=== PATIENT | female | born 1935 | race Caucasian/White ===

== ENCOUNTER 2017-01-08 16:39 | Outpatient (CLI) | payer OTHER | END 2017-01-08 16:40 | disposition critical access hospital (66) | LOC: EMS 16:39 | PROVIDERS: ATTEND Surgery | DX: R42 Dizziness and giddiness (principal) | CPT/HCPCS: A0425; A0429 ==

== ENCOUNTER 2017-01-08 16:54 | Emergency (ER) | payer OTHER, MEDICARE ==
[2017-01-08] MEDS ORDERED: LABETALOL 20 MG/4 ML SYRINGE IVP ONE (17:18)
--- NOTE | 2017-01-08 17:19 | CT Preliminary Report ---
Exam: CT HEAD W/O IMPRESSION: 1. No acute intracranial abnormality. 2. Age-related atrophy and diffuse low density white matter changes compatible with chronic small ves bren ischemic disease. [facility] The above findings were discussed with Magdalena by Dr. Tony Damian at 17:18 hrs on 01/08/17. SITE ID: [id number]
--- NOTE | 2017-01-08 17:22 | CT Report ---
EXAM: CT HEAD EXAM DATE: 01/08/2017 05:12 PM. CLINICAL HISTORY: Left sided weaknes. COMPARISON: 01/21/2010 brain MRI. TECHNIQUE: Multiaxial CT images were obtained from the foramen magnum to the vertex. Reformats: Coron al. IV contrast: None. In accordance with CT protocol optimization, one or more of the following dose reduction techniques w ere utilized for this exam: automated exposure control, adjustment of mA and/or KV based on patient s ize, or use of iterative reconstructive technique. FINDINGS: Parenchyma: No intraparenchymal hemorrhage. No evidence of mass, midline shift, or CT findings of inf arction. Butler-white differentiation is distinct. There is a small, chronic left cerebellar lacunar in farct. Extraaxial Spaces: Normal for age. No subdural or epidural collections identified. Ventricles: Normal in size and position. Sinuses and Orbits: Imaged paranasal sinuses, orbits, and mastoids show no significant abnormality. Bones: No evidence of fracture or calvarial defect. Other: Periventricular and subcortical low density white matter changes. IMPRESSION: 1. No acute intracranial abnormality. 2. Age-related atrophy and diffuse low density white matter changes compatible with chronic small ves bren ischemic disease. [facility] The above findings were discussed with Magdalena by Dr. Tony Damian at 17:18 hrs on 01/08/17. Referring Provider Line: [phone] SITE ID: [id number]
[2017-01-08] MEDS ORDERED: ONDANSETRON 4 MG/2 ML VIAL ONE (17:25)
[2017-01-08] MEDS ORDERED: ONDANSETRON 4 MG/2 ML VIAL IVP STA (17:26)
[2017-01-08 17:37] LABS: BASOPHILS # (AUTO) 0.1 10^3/uL (0.0-0.1); BASOPHILS % (AUTO) 0.8 %; EOSINOPHILS # (AUTO) 0.2 10^3/uL (0.0-0.7); EOSINOPHILS % (AUTO) 1.8 %; HCT - HEMATOCRIT 40.9 % (37.0-47.0); HGB - HEMOGLOBIN 13.1 g/dL (12.0-16.0); LYMPHOCYTES # (AUTO) 1.6 10^3/uL (1.5-3.5); LYMPHOCYTES % (AUTO) 16.3 %; MEAN CORPUSCULAR HEMOGLOBIN 27.3 pg (27.0-31.0); MEAN CORPUSCULAR HGB CONC 32.1 g/dL (32.0-36.0); MEAN CORPUSCULAR VOLUME 85.1 fL (81.0-99.0); MEAN PLATELET VOLUME 8.4 fL (7.9-10.8); MONOCYTES # (AUTO) 0.5 10^3/uL (0.0-1.0); MONOCYTES % (AUTO) 4.9 %; NEUTROPHILS # (AUTO) 7.2 10^3/uL (1.5-6.6); NEUTROPHILS % (AUTO) 76.2 %; NUCLEATED RED BLOOD CELLS AUTO 0.1 /100WBC; RED BLOOD COUNT 4.81 10^6/uL (4.20-5.40); RED CELL DISTRIBUTION WIDTH 15.2 % (12.0-15.0); UNCORRECTED WHITE BLOOD COUNT 9.5 x10^3/uL; WHITE BLOOD COUNT 9.5 x10^3/uL (4.8-10.8)
[2017-01-08 17:49] LABS: ALBUMIN/GLOBULIN RATIO 1.1 (1.0-2.2); BILIRUBIN,TOTAL 0.6 mg/dL (0.2-1.0); CALCIUM 9.1 mg/dL (8.5-10.3); CREATININE 0.8 mg/dL (0.4-1.0); POTASSIUM 4.1 mmol/L (3.5-5.0); TOTAL PROTEIN 8.4 g/dL (6.7-8.2)
[2017-01-08] MEDS ORDERED: LABETALOL 20 MG/4 ML SYRINGE IVP STA (17:50)
[2017-01-08] MEDS ORDERED: ALTEPLASE 100 MG in WATER FOR INJECTION,STERILE 100 ML IV STA (17:53)
[2017-01-08] MEDS ORDERED: ALTEPLASE 100 MG VIAL ONE (17:56)
[2017-01-08 17:59] LABS: PT - PROTHROMBIN TIME 11.3 secs (9.9-12.6)
--- NOTE | 2017-01-08 18:03 | ED Physician Documentation ---
History of Present Illness - Stated complaint Stated Complaint: L SIDED WEAKNESS - Chief complaint Chief Complaint: Neuro - History obtained from History obtained from: Patient, Family (family reports that at approx 1500 today she started to have vertigo. they state that she has had vertigo in the past. they state that at approx 1615 she had aon onsetof a headache behind her right eye and could not move her left arm or leg EMS reports tht on their arrival the pt could not move her left arm and leg. No rior hx of this.) Review of Systems Constitutional: denies: Fever Eyes: reports: Other (no double vision). denies: Loss of vision Cardiac: denies: Chest pain / pressure, Palpitations Respiratory: denies: Cough, Hemoptysis GI: denies: Abdominal Pain, Nausea, Vomiting, Constipation, Diarrhea : denies: Dysuria Skin: denies: Rash, Lesions Musculoskeletal: denies: Neck pain, Joint pain Neurologic: reports: Focal weakness (left arm and leg), Numbness, Difficulty speaking, Headache, Other (vertigo). denies: Syncope, Confused, Altered mental status PD PAST MEDICAL HISTORY - Past Medical History Cardiovascular: Hypertension, High cholesterol Respiratory: None Endocrine/Autoimmune: None GI: Colon polyps : None HEENT: Chronic hearing loss Psych: None Musculoskeletal: Osteoarthritis Derm: Psoriasis - Past Surgical History General: Colonoscopy Ortho:  - Present Medications Home Medications: Ambulatory Orders Medication Instructions Recorded Confirmed Lisinopril 40 mg PO DAILY 09/17/15 01/08/17 Lovastatin 40 mg PO DAILY 09/17/15 01/08/17 - Allergies Allergies/Adverse Reactions: Allergies Allergy/AdvReac Type Severity Reaction Status Date / Time naproxen sodium * AdvReac Edema Verified 01/08/17 17:22 [From Aleetienne] - Social History Does the pt smoke?: No Smoking Status: Never smoker PD ED PE NORMAL - Vitals Vital signs reviewed: Yes - General General: Alert and oriented X 3, No acute distress, Well developed/nourished - HEENT HEENT: Atraumatic, PERRL, EOMI, Moist mucous membranes, Pharynx benign - Cardiac Cardiac: RRR, No murmur, No gallop, No rub - Respiratory Respiratory: No respiratory distress, Clear bilaterally - Abdomen Abdomen: Soft, Non tender, Non distended - Derm Derm: Normal color, Warm and dry, No rash - Extremities Extremities: No deformity, No tenderness to palpate, No edema - Psych Psych: Normal mood, Normal affect PD ED PE EXPANDED - Neuro Neuro: Weakness, LUE, LLE, PERRL, Normal speech. No: Confused, Disoriented, Dyscongugate gaze Results - Vitals Vitals: Vital Signs - 24 hr 01/08/17 01/08/17 01/08/17 16:59 17:17 17:38 Temperature 35.2 C L Heart Rate 76 75 68 Respiratory 20 19 14 Rate Blood Pressure 188/82 H 192/71 H O2 Saturation 98 01/08/17 01/08/17 17:41 17:54 Temperature Heart Rate 69 69 Respiratory 14 20 Rate Blood Pressure 186/71 H 177/59 H O2 Saturation 96 97 Oxygen O2 Source Room air - EKG (time done) 1715 Rate: Rate (enter#) Rhythm: NSR [place]: Normal Intervals: QRS normal. No: Prolonged QT QRS: Normal Ischemia: Normal ST segments - Labs Labs: Laboratory Tests 01/08/17 01/08/17 01/08/17 17:30 17:30 17:30 WBC 9.5 RBC 4.81 Hgb 13.1 Hct 40.9 MCV 85.1 MCH 27.3 MCHC 32.1 RDW 15.2 H Plt Count 220 MPV 8.4 Neut # 7.2 H Lymph # 1.6 [place] # 0.5 Eos # 0.2 Baso # 0.1 Absolute Nucleated RBC 0.01 Nucleated RBC % 0.1 Sodium 135 Potassium 4.1 Chloride 100 L Carbon Dioxide 23 Anion Gap 12.0 BUN 23 H Creatinine 0.8 Estimated GFR (MDRD) 69 L Glucose 139 H Calcium 9.1 Total Bilirubin 0.6 AST 29 ALT 16 Alkaline Phosphatase 89 Troponin I < 0.04 Total Protein 8.4 H Albumin 4.4 Globulin 4.0 Albumin/Globulin Ratio 1.1 - Rads (name of study) head CT Radiology: Final report received PD MEDICAL DECISION MAKING - ED course Complexity details: d/w patient, d/w family ED course: pt with an NIH scale of 11 with right sided facial droop and left arm neglect. head CT neg for acute pathology. 10 mg of labetol to lower blood pressure. Had tele-stroke with Dr dc at [facility] who agrees that the pt is candidate for Tpa. Dr Dc discussed TpA with the patient and the and they stated that they understand the risks and benefit of the medication. Tpa given in the ER. will transport to [facility] for further care. CTA head and neck ordered per request of Dr dc. - Critical Care Time(min): 40 Comments: pt with acute stroke. Time Includes: Direct patient care, Reassess patient, Document care, Coordinate care, Medical consult Data interpretation: Labs - TPA CVA checklist Inclusion crititeria: positive: Sig neuro deficit Absolute contraindications: negative: SBP>185 DBP>110 s/p tx, CT shows bleed, CT shows major est CVA, Platelets <100K, PTT > 40, INR >1.7, Known bleeding disorder, Surgery/trauma < 15 days, Seizure at onset, Internal bleed < 22 days, Brain/spine surg < 3 m, Head trauma < 3 m, CVA < 3 months, Any hx ICH, Any hx brain aneurysm, Any hx brain AVM, Any hx brain tumor, Suspect SAH Departure - Departure Disposition: 02 Transfer Acute Care Hosp Clinical Impression: Cerebrovascular accident (CVA) Condition: Stable
[2017-01-08 18:06] LABS: PARTIAL THROMBOPLASTIN TIME 27.5 secs (24.9-33.3)
[2017-01-08] MEDS ORDERED: IOPAMIDOL-300 100 ML VIAL ONE (18:06)
[2017-01-08 18:09] VITALS: BP 177/62
[2017-01-08] MEDS ORDERED: IOPAMIDOL-300 100 ML VIAL IVP ONE (18:34)
--- NOTE | 2017-01-08 19:14 | CT Report ---
EXAM: CT ANGIOGRAM HEAD AND NECK. CT SCAN HEAD WITHOUT AND WITH CONTRAST. EXAM DATE:01/08/2017 06:33 PM. CLINICAL HISTORY:Stroke. Left-sided weakness. COMPARISON:CT scan of the head earlier in the day 01/08/2017. MRI of the brain 01/21/2010. TECHNIQUE: Routine axial helical CTA imaging was performed from the aortic arch through the [place]. Routine axial CT imaging of the head was performed prior to and following contrast administr ation. Reconstructions: Routine multiplanar 3D MIP reconstructions. IV contrast: 80 cc Isovue 300. NASCET Criteria are used for stenosis measurements. In accordance with CT protocol optimization, one or more of the following dose reduction techniques w ere utilized for this exam: automated exposure control, adjustment of mA and/or KV based on patient s ize, or use of iterative reconstructive technique. FINDINGS: CT Scan Head: Age-related volume loss is present. Patchy periventricular and deep white matter hypodensity is seen throughout the cerebral hemispheres. Wedge-shaped cystic focus is seen in the right lateral putamen/c laustrum. Mild vascular calcifications are seen involving intracranial ICA and vertebral arteries. No intracranial mass, mass effect, hemorrhage, or abnormal enhancement is seen. The ventricles, sulci, and cisterns are unremarkable. The skull is intact. No sinusitis evident. CT Angiogram Extracranial Circulation: Moderate tortuosity and mild calcification of the aortic arch is seen. Normal 3 vessel branching is s een off the arch. Tortuosity of the great vessels off the arch is seen. The great vessels are patent. Right Carotid: The common carotid, internal carotid, and external carotid arteries are widely patent. No dissection mild atherosclerotic intimal thickening and calcification is seen at the CCA bifurcati on and proximal ICA. No significant stenosis. Left Carotid: The common carotid, internal carotid, and external carotid arteries are widely patent. No dissection mild atherosclerotic intimal thickening and calcification is seen at the CCA bifurcatio n and proximal ICA. No significant stenosis. Vertebrals: The vertebrobasilar system shows no stenosis, dissection, aneurysm, or significant athero sclerotic disease. Tortuosity of the vertebral arteries is seen. The left vertebral artery is dominan t. CT Angiogram Intracranial Circulation: Unremarkable No stenoses or aneurysms of the visualized vessels. The right vertebral artery is small in caliber and terminates as the right PICA. The left vertebral a rtery is dominant forming the basilar artery. Mild atherosclerotic calcification is seen throughout t he V4 segment of the intracranial left vertebral artery. Mild, 25%, stenosis is present. The basilar artery and bifurcation is patent. Mild tortuosity and calcification of the cavernous ICA is seen bilaterally. No significant stenosis. Bilateral ANTELMO and MCA are unremarkable. No significant stenosis. No aneurysm. The A-comm is small in caliber and unremarkable. Bilateral P-comm are small in caliber and unremarkab le. The dural sinuses are faintly opacified due to timing of contrast bolus. Other: The visualized bones, soft tissues, and lung apices are unremarkable. Mild spondylosis is seen in the cervical spine. IMPRESSION: CT Scan Head: 1. No acute intracranial abnormality. 2. Mild patchy white matter hypodensity throughout the cerebral hemispheres. This is nonspecific but typically secondary to small vessel ischemic change. 3. Linear cystic focus in the lateral right putamen/claustrum. This is consistent with old lacunar in farct. CT Angiogram Neck: 1. Unremarkable CTA of the extracranial circulation. No significant stenosis. No dissection. 2. Tortuosity of the extracranial vasculature in the thoracic inlet and neck. 3. Left vertebral artery is dominant. CT Angiogram Head: 1. Unremarkable CTA of the head. No aneurysm. No significant stenosis. 2. The left vertebral artery is dominant in the basilar artery. Mild atherosclerotic calcification is seen involving the intracranial V4 segment. 3. The right vertebral artery is small in caliber and terminates as the right PICA. 4. The anterior intracranial circulation is unremarkable. [facility] Referring Provider Line: [phone] SITE ID: [id number]
--- NOTE | 2017-01-08 19:27 | CT Preliminary Report ---
Exam: CT NECK ANGIO IMPRESSION: CT Scan Head: 1. No acute intracranial abnormality. 2. Mild patchy white matter hypodensity throughout the cerebral hemispheres. This is nonspecific but typically secondary to small vessel ischemic change. 3. Linear cystic focus in the lateral right putamen/claustrum. This is consistent with old lacunar in farct. CT Angiogram Neck: 1. Unremarkable CTA of the extracranial circulation. No significant stenosis. No dissection. 2. Tortuosity of the extracranial vasculature in the thoracic inlet and neck. 3. Left vertebral artery is dominant. CT Angiogram Head: 1. Unremarkable CTA of the head. No aneurysm. No significant stenosis. 2. The left vertebral artery is dominant in the basilar artery. Mild atherosclerotic calcification is seen involving the intracranial V4 segment. 3. The right vertebral artery is small in caliber and terminates as the right PICA. 4. The anterior intracranial circulation is unremarkable. [facility] SITE ID: [id number]
== END 2017-01-08 18:59 | disposition short-term general hospital (02) ==
LOC: EDUNIT# → ED 16:54
DX: I63.9 Cerebral infarction, unspecified (principal); G81.94 Hemiplegia, unspecified affecting left nondominant side; I10 Essential (primary) hypertension; E78.00 Pure hypercholesterolemia, unspecified; Z86.010 Personal history of colon polyps; M19.90 Unspecified osteoarthritis, unspecified site
CPT/HCPCS: 36415; 70450; 70496; 70498; 80053; 84484; 85025; 85610; 85730; 93005; 96361; 96365; 96375; 99285; 99291; J2997; Q3014; Q9967

== ENCOUNTER 2017-03-09 14:42 | Outpatient (CLI) | payer OTHER ==
[2017-03-09 15:21] LABS: BILIRUBIN,URINE NEGATIVE (NEGATIVE); GLUCOSE, URINE (UA) NEGATIVE (NEGATIVE); KETONES,URINE (UA) NEGATIVE (NEGATIVE); LEUKOCYTE ESTERASE, URINE SMALL (NEGATIVE); NITRITE,URINE NEGATIVE (NEGATIVE); OCCULT BLOOD,URINE NEGATIVE (NEGATIVE); PROTEIN,URINE NEGATIVE (NEGATIVE); UROBILINOGEN,URINE 0.2 (NORMAL) E.U./dL (NORMAL)
[2017-03-09 15:45] LABS: BACTERIA,URINE Moderate /HPF (None Seen); CLARITY,URINE HAZY (CLEAR); EPITHELIAL CELLS,UR FEW Transitional /HPF (<= Few); RBC,URINE 0-5 /HPF (0-5); SQUAMOUS EPITHELIAL CELL,UR MANY Squamous (<= Few)
[2017-03-09 15:46] LABS: CASTS, URINE 6-10 Hyaline Casts /LPF
--- NOTE | 2017-03-09 17:46 | Ultrasound Report ---
DATE OF SERVICE: 03/09/2017 ULTRASOUND OF LEFT LOWER QUADRANT: 03/09/2017 CLINICAL INDICATION: Palpable abnormality left lower quadrant. 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 FINDINGS: Ultrasound of the left lower quadrant was performed. No definite solid or cystic mass is identified. No sonographically suspicious findings are seen. IMPRESSION: NO EVIDENT ULTRASOUND CORRELATE TO THE PALPABLE ABNORMALITY. TD: 03/09/2017 18:45
== END 2017-03-09 14:43 | disposition home or self-care (01) ==
LOC: DI 14:42
PROVIDERS: ATTEND Family Medicine
DX: R19.04 Left lower quadrant abdominal swelling, mass and lump (principal); R41.0 Disorientation, unspecified
CPT/HCPCS: 76705; 81001; 87086

== ENCOUNTER 2017-03-25 19:51 | Outpatient (CLI) | payer OTHER | END 2017-03-25 19:52 | disposition critical access hospital (66) | LOC: EMS 19:51 | PROVIDERS: ATTEND Surgery | DX: R07.9 Chest pain, unspecified (principal) | CPT/HCPCS: A0425; A0427 ==

== ENCOUNTER 2017-03-25 20:11 | Emergency (ER) | payer OTHER ==
--- NOTE | 2017-03-25 20:20 | ED Physician Documentation ---
PD HPI CHEST PAIN - Stated complaint Stated Complaint: L SIDE PRESSURE - Chief complaint Chief Complaint: Cardiac - History obtained from History obtained from: Patient, EMS - History of Present Illness Timing - onset: How many hours ago (2) Timing - onset during: Rest Timing - details: Gradual onset, Now resolved Quality: Pressure Location: Left chest Associated symptoms: No: Shortness of air, Diaphoresis, Nausea, Vomiting, Feeling faint / dizzy Similar symptoms before: No diagnosis Recently seen: Admitted - Additional information Additional information: Patient is a 81 year old female with a history of a recent cva with left sided deficit who is presenting to the emergency department for left sided chest pressure. patient states that it feels like it is under her left breast. Patient has a holter monitor in place to rule out a fib after her recent stroke. ems was contacted and gave 325 of aspirin in the field. Upon initial evaluation in the emergency department patient was pain free and in no distress. patient denies any cardiac or clotting history in the past. Review of Systems Constitutional: denies: Fever, Chills Eyes: reports: Reviewed and negative Ears: reports: Reviewed and negative Nose: reports: Reviewed and negative Throat: reports: Reviewed and negative Cardiac: reports: Chest pain / pressure. denies: Palpitations, Pedal edema Respiratory: denies: Dyspnea, Cough, Wheezing GI: denies: Abdominal Pain, Nausea, Vomiting : reports: Reviewed and negative Skin: reports: Reviewed and negative Musculoskeletal: denies: Neck pain, Back pain, Extremity pain Neurologic: reports: Focal weakness, Numbness Immunocompromised: denies: Immunocompromised PD PAST MEDICAL HISTORY - Past Medical History Cardiovascular: Hypertension, High cholesterol Respiratory: None Endocrine/Autoimmune: None GI: Colon polyps : None HEENT: Chronic hearing loss Psych: None Musculoskeletal: Osteoarthritis Derm: Psoriasis - Past Surgical History General: Colonoscopy Ortho:  - Present Medications Home Medications: Ambulatory Orders Medication Instructions Recorded Confirmed Lisinopril 40 mg PO DAILY 09/17/15 01/08/17 Lovastatin 40 mg PO DAILY 09/17/15 01/08/17 - Allergies Allergies/Adverse Reactions: Allergies Allergy/AdvReac Type Severity Reaction Status Date / Time NSAIDS (Non-Steroidal Allergy Anaphylaxis Verified 03/25/17 20:16 Anti-Inflamma naproxen sodium * AdvReac Edema Verified 01/08/17 17:22 [From Aleve] - Social History Does the pt smoke?: No Smoking Status: Never smoker PD ED PE NORMAL - Vitals Vital signs reviewed: Yes - General General: Alert and oriented X 3, No acute distress - HEENT HEENT: Atraumatic, PERRL, Moist mucous membranes - Neck Neck: Supple, no meningeal sign, No JVD - Cardiac Cardiac: RRR, No murmur - Respiratory Respiratory: No respiratory distress, Clear bilaterally - Abdomen Abdomen: Soft, Non tender, Non distended - Derm Derm: Normal color, No rash - Neuro Neuro: Alert and oriented X 3, Normal speech Eye Opening: Spontaneous Motor: Obeys Commands Verbal: Oriented GCS Score: 15 PD ED PE EXPANDED - Neuro Neuro: Other (residual left sided deficit with mild contracture of lue) Results - Vitals Vitals: Vital Signs - 24 hr 03/25/17 03/25/17 03/25/17 20:13 20:25 20:45 Temperature 36.3 C L Heart Rate 70 65 65 Respiratory 20 18 17 Rate Blood Pressure 178/67 H 178/67 H 160/68 H O2 Saturation 96 100 98 03/25/17 03/25/17 03/25/17 21:15 22:10 23:06 Temperature Heart Rate 64 61 112 H Respiratory 17 16 28 H Rate Blood Pressure 143/52 H 140/58 H 127/76 O2 Saturation 99 99 100 Oxygen O2 Source Room air - EKG (time done) 2016 Rate: Rate (enter#) (68) Rhythm: NSR [place]: Normal Intervals: Normal [place] QRS: Normal Ischemia: Normal ST segments Compare to prior EKG: Unchanged from prior EKG - Labs Labs: Laboratory Tests 03/25/17 03/25/17 03/25/17 20:36 20:36 20:36 WBC 7.4 RBC 4.14 L Hgb 11.4 L Hct 36.1 L MCV 87.2 MCH 27.6 MCHC 31.7 L RDW 16.3 H Plt Count 228 MPV 7.3 L Neut # 4.8 Lymph # 1.6 [place] # 0.7 Eos # 0.3 Baso # 0.1 Absolute Nucleated RBC 0.00 Nucleated RBC % 0.0 PT 11.8 INR 1.0 APTT 27.8 Sodium 136 Potassium 3.9 Chloride 99 L Carbon Dioxide 24 Anion Gap 13.0 BUN 19 Creatinine 1.1 H Estimated GFR (MDRD) 48 L Glucose 145 H Calcium 8.8 Total Bilirubin 0.6 AST 65 H ALT 53 Alkaline Phosphatase 137 H Troponin I B-Natriuretic Peptide Total Protein 7.2 Albumin 3.7 Globulin 3.5 Albumin/Globulin Ratio 1.1 Lipase 37 03/25/17 03/25/17 03/25/17 20:36 20:46 23:05 WBC RBC Hgb Hct MCV MCH MCHC RDW Plt Count MPV Neut # Lymph # [place] # Eos # Baso # Absolute Nucleated RBC Nucleated RBC % PT INR APTT Sodium Potassium Chloride Carbon Dioxide Anion Gap BUN Creatinine Estimated GFR (MDRD) Glucose Calcium Total Bilirubin AST ALT Alkaline Phosphatase Troponin I < 0.04 < 0.04 B-Natriuretic Peptide 32 Total Protein Albumin Globulin Albumin/Globulin Ratio Lipase - Rads (name of study) chest x-ray Radiology: Final report received (no acute abnormality) PD MEDICAL DECISION MAKING - ED course Complexity details: reviewed old records, reviewed results, re-evaluated patient , d/w patient ED course: patient was seen and examined at bedside. IV access was gained and labs were drawn. ekg was performed and was normal sinus. chest x-ray was within normal limits. Patient's diagnostics including repeat troponin were all within normal limits. Patient's HEART score was 3. Patient required no further work up and was stable for discharge with outpatient follow up. Departure - Departure Disposition: 01 Home, Self Care Clinical Impression: Atypical chest pain Condition: Good Instructions: ED Chest Pain Atypical Unkn Cause Follow-Up: Jeannie Mirza DO [Primary Care Provider] - Within 3 Days Comments: Your diagnostics were within normal limits. there is no sign of acute cardiac injury. that being said this is only a snap shot in time and you should follow up with your doctor for a stress test and an echocardiogram. You may return to the emergency department at any time for new, worsening or uncontrollable symptoms.
[2017-03-25 20:40] LABS: BASOPHILS # (AUTO) 0.1 10^3/uL (0.0-0.1); BASOPHILS % (AUTO) 0.8 %; EOSINOPHILS # (AUTO) 0.3 10^3/uL (0.0-0.7); EOSINOPHILS % (AUTO) 3.4 %; HGB - HEMOGLOBIN 11.4 g/dL (12.0-16.0); LYMPHOCYTES # (AUTO) 1.6 10^3/uL (1.5-3.5); LYMPHOCYTES % (AUTO) 21.5 %; MEAN CORPUSCULAR HEMOGLOBIN 27.6 pg (27.0-31.0); MEAN CORPUSCULAR HGB CONC 31.7 g/dL (32.0-36.0); MEAN CORPUSCULAR VOLUME 87.2 fL (81.0-99.0); MEAN PLATELET VOLUME 7.3 fL (7.9-10.8); MONOCYTES # (AUTO) 0.7 10^3/uL (0.0-1.0); MONOCYTES % (AUTO) 9.3 %; NEUTROPHILS # (AUTO) 4.8 10^3/uL (1.5-6.6); PLT - PLATELET COUNT 228 10^3/uL (130-450); RED BLOOD COUNT 4.14 10^6/uL (4.20-5.40); RED CELL DISTRIBUTION WIDTH 16.3 % (12.0-15.0); WHITE BLOOD COUNT 7.4 x10^3/uL (4.8-10.8)
[2017-03-25 20:46] LABS: PT - PROTHROMBIN TIME 11.8 secs (9.9-12.6)
[2017-03-25 20:54] LABS: ALBUMIN 3.7 g/dL (3.2-5.5); ALBUMIN/GLOBULIN RATIO 1.1 (1.0-2.2); BILIRUBIN,TOTAL 0.6 mg/dL (0.2-1.0); CALCIUM 8.8 mg/dL (8.5-10.3); CREATININE 1.1 mg/dL (0.4-1.0); TOTAL PROTEIN 7.2 g/dL (6.7-8.2)
--- NOTE | 2017-03-25 21:39 | XRAY Report ---
EXAM: CHEST RADIOGRAPHY EXAM DATE: 03/25/2017 08:51 PM. CLINICAL HISTORY: Chest pressure. COMPARISON: 10/11/2006. TECHNIQUE: 1 view. FINDINGS: Lungs/Pleura: No focal opacities evident. No pleural effusion. No pneumothorax. Mediastinum: Within exam limitations, the cardiomediastinal contour is normal. Other: No bony abnormality identified. IMPRESSION: Normal single view chest. [facility] Referring Provider Line: [phone] SITE ID: [id number]
[2017-03-25 23:48] VITALS: BP 165/64
== END 2017-03-25 23:48 | disposition home or self-care (01) ==
LOC: EDUNIT# → ED 20:11
DX: R07.89 Other chest pain (principal); I10 Essential (primary) hypertension; Z86.73 Personal history of transient ischemic attack (TIA), and cerebral infarction without residual deficits
CPT/HCPCS: 36415; 71045; 80053; 83690; 83880; 84484; 85025; 85610; 85730; 93005; 99284; 99285

== ENCOUNTER 2017-04-28 14:00 | Outpatient (CLI) | payer OTHER | END 2017-04-28 14:01 | LOC: LAB.R 14:00 | PROVIDERS: ATTEND Family Medicine | DX: R41.0 Disorientation, unspecified (principal) | CPT/HCPCS: 87086 ==

== ENCOUNTER 2017-05-17 08:00 | Outpatient (CLI) | payer OTHER | END 2017-05-17 08:01 | disposition home or self-care (01) | LOC: LAB.WCP 08:00 | PROVIDERS: ATTEND Family Medicine | DX: R41.0 Disorientation, unspecified (principal) | CPT/HCPCS: 87086 ==

== ENCOUNTER 2017-07-02 14:09 | Emergency (ER) | payer OTHER ==
--- NOTE | 2017-07-02 15:18 | ED Physician Documentation ---
History of Present Illness - Stated complaint Stated Complaint: BILAT EYE PAIN - Chief complaint Chief Complaint: Heent - History obtained from History obtained from: Patient, Family - History of Present Illness Timing: How many days ago (several) Pain level max: 0 Pain level now: 0 Improved by: nothing Worsened by: nothing - Additonal information Additional information: States had botox injections done on 06/20/17 for her droopy eyes. 06/24/17 noted redness along her R upper eyelid. Prescribed erythromycin. Then the L upper eyelid became inflammed as well. Does not feel like the erythromycin is helping her. Review of Systems Constitutional: denies: Fever, Chills Eyes: denies: Decreased vision, Photophobia Respiratory: denies: Cough GI: denies: Vomiting, Diarrhea Skin: denies: Rash Musculoskeletal: denies: Neck pain, Back pain PD PAST MEDICAL HISTORY - Past Medical History Past Medical History: Yes Cardiovascular: Hypertension, High cholesterol Respiratory: None Neuro: TIA Endocrine/Autoimmune: None GI: Colon polyps : None HEENT: Chronic hearing loss Psych: None Musculoskeletal: Osteoarthritis Derm: Psoriasis - Past Surgical History Past Surgical History: Yes General: Colonoscopy Ortho:  - Present Medications Home Medications: Ambulatory Orders Medication Instructions Recorded Confirmed Lisinopril 40 mg PO DAILY 09/17/15 01/08/17 Lovastatin 40 mg PO DAILY 09/17/15 01/08/17 Aspirin 1 tab PO DAILY 07/02/17 07/02/17 Doxycycline Hyclate 100 mg PO BID #14 capsule 07/02/17 Erythromycin Base [Erythromycin 1 applic EACHEYE TID 07/02/17 07/02/17 Ophthalmic Ointment] Estradiol [Estrogel] 07/02/17 FLUoxetine [PROzac] 2 tab PO DAILY 07/02/17 07/02/17 Gabapentin 1 cap PO DAILY 07/02/17 07/02/17 Latanoprost 0.005% Ophth Drops 1 drops EACHEYE DAILY 07/02/17 07/02/17 [Xalatan Ophth Drops] Polymyxin B/Trimeth Ophth Drop 1 drops EACHEYE Q3H 7 Days #1 07/02/17 [Polytrim Ophth Drops] bottle - Allergies Allergies/Adverse Reactions: Allergies Allergy/AdvReac Type Severity Reaction Status Date / Time NSAIDS (Non-Steroidal Allergy Anaphylaxis Verified 03/25/17 20:16 Anti-Inflamma naproxen sodium * AdvReac Edema Verified 01/08/17 17:22 [From Татьяна] - Social History Does the pt smoke?: No Smoking Status: Never smoker Does the pt drink ETOH?: No Does the pt have substance abuse?: No - Immunizations Immunizations are current?: Yes - POLST Patient has POLST: No PD ED PE NORMAL - Vitals Vital signs reviewed: Yes - General General: Alert and oriented X 3 - HEENT HEENT: Moist mucous membranes, Other (erythema and swelling to B upper eyelids with firm nodules present. no pain with EOM. no periorbital cellulitis.) - Neck Neck: Supple, no meningeal sign - Cardiac Cardiac: RRR - Respiratory Respiratory: No respiratory distress, Clear bilaterally - Derm Derm: Warm and dry - Neuro Neuro: Alert and oriented X 3 Results - Vitals Vitals: Vital Signs - 24 hr 07/02/17 07/02/17 14:11 15:57 Temperature 37 C 36.6 C Heart Rate 69 67 Respiratory 16 18 Rate Blood Pressure 138/61 H 135/66 H O2 Saturation 96 95 Oxygen O2 Source Room air PD MEDICAL DECISION MAKING - ED course Complexity details: considered differential, d/w patient, d/w family ED course: Patient is an 81-year-old female who presents to the emergency department with what appears to be bilateral blepharitis versus internal hordeolum. Has been on erythromycin ointment but seems to be worsening. Will change to Polytrim ophthalmic as well as oral doxycycline. We will have her follow-up closely with her PCP for further evaluation and care. If she fails to improve may benefit from an ophthalmology referral. No evidence of orbital cellulitis. Patient and family counseled regarding signs and symptoms for which I believe and urgent re-evaluation would be necessary. Patient with good understanding of and agreement to plan and is comfortable going home at this time This document was made in part using voice recognition software. While efforts are made to proofread this document, sound alike and grammatical errors may occur. Departure - Departure Disposition: 01 Home, Self Care Clinical Impression: Blepharitis of both eyes Qualifiers: Blepharitis type: unspecified type Eyelid: upper Qualified Code(s): H01.001 - Unspecified blepharitis right upper eyelid Hordeolum Qualifiers: Hordeolum type: unspecified type Laterality: unspecified laterality Qualified Code(s): H00.019 - Hordeolum externum unspecified eye, unspecified eyelid Condition: Good Instructions: ED Inflammation Eyelid, ED Chalazion Follow-Up: Jeannie Mirza DO [Primary Care Provider] - Within 1 week Prescriptions: Doxycycline Hyclate 100 mg PO BID #14 capsule Polymyxin B/Trimeth Ophth Drop [Polytrim Ophth Drops] 1 drops EACHEYE Q3H 7 Days #1 bottle Comments: Take the antibiotics as prescribed. Return if you worsen. This should improve over the next week. You may need a referral to an parachute cushion installer if this does not improve. Discharge Date/Time: 07/02/17 15:57
[2017-07-02 15:58] VITALS: BP 135/66
== END 2017-07-02 15:57 | disposition home or self-care (01) ==
LOC: ED 14:09
DX: H01.001 Unspecified blepharitis right upper eyelid (principal); H00.019 Hordeolum externum unspecified eye, unspecified eyelid; I10 Essential (primary) hypertension; E78.00 Pure hypercholesterolemia, unspecified; Z86.73 Personal history of transient ischemic attack (TIA), and cerebral infarction without residual deficits
CPT/HCPCS: 99283

== ENCOUNTER 2017-08-08 13:18 | Outpatient (CLI) | END 2017-08-08 13:19 | disposition home or self-care (01) ==

== ENCOUNTER 2017-10-12 17:04 | Emergency (ER) | payer MEDICARE, OTHER ==
--- NOTE | 2017-10-12 18:23 | ED Physician Documentation ---
PD HPI ALTERED MENTAL STATUS - Stated complaint Stated Complaint: ALOC/HBP - Chief complaint Chief Complaint: Neuro - History obtained from History obtained from: Patient, Family, EMS - History of Present Illness Timing - onset: Last night Timing - duration: Hours Timing - details: Gradual onset, Now resolved Quality / character: Confused (Caregiver with her says the patient seemed confused last night. She had taken Tramadol 2 tablets 6 hours apart. She had had those in the past but not for awhile. No other change in meds. No fevers nor infection symptoms. She seemed improved through the morning and into the afternoon. Caregiver brought her for evaluation with concern of not wanting recurrent symptoms.) Associated symptoms: No: Fever, Headache, Stiff neck, Dyspnea, Cough, NVD, Urinary sx Contributing factors: No: Recent med change, Recent illness, Recent injury Basline status: Ambulatory, Walker Recently seen: Emergency Dept, Admitted (recent stroke and was in for rehab for few weeks. Back home just few weeks ago.) Review of Systems Constitutional: denies: Fever, Chills, Myalgias Nose: denies: Rhinorrhea / runny nose, Congestion Throat: denies: Sore throat Cardiac: denies: Chest pain / pressure, Palpitations Respiratory: denies: Cough GI: denies: Abdominal Pain, Nausea, Vomiting, Diarrhea, Bloody / black stool : denies: Dysuria, Frequency Skin: denies: Rash, Lesions Neurologic: reports: Focal weakness (c/w prior CVA; no worse than usual). denies: Headache, Head injury PD PAST MEDICAL HISTORY - Past Medical History Past Medical History: Yes Cardiovascular: Hypertension, High cholesterol Respiratory: None Neuro: TIA Endocrine/Autoimmune: None GI: Colon polyps : None HEENT: Chronic hearing loss Psych: None Musculoskeletal: Osteoarthritis Derm: Psoriasis - Past Surgical History Past Surgical History: Yes General: Colonoscopy Ortho:  - Present Medications Home Medications: Ambulatory Orders Medication Instructions Recorded Confirmed Lisinopril 40 mg PO DAILY 09/17/15 01/08/17 Lovastatin 40 mg PO DAILY 09/17/15 01/08/17 Aspirin 1 tab PO DAILY 07/02/17 07/02/17 Doxycycline Hyclate 100 mg PO BID #14 capsule 07/02/17 Erythromycin Base [Erythromycin 1 applic EACHEYE TID 07/02/17 07/02/17 Ophthalmic Ointment] Estradiol [Estrogel] 07/02/17 FLUoxetine [PROzac] 2 tab PO DAILY 07/02/17 07/02/17 Gabapentin 1 cap PO DAILY 07/02/17 07/02/17 Latanoprost 0.005% Ophth Drops 1 drops EACHEYE DAILY 07/02/17 07/02/17 [Xalatan Ophth Drops] Polymyxin B/Trimeth Ophth Drop 1 drops EACHEYE Q3H 7 Days #1 07/02/17 [Polytrim Ophth Drops] bottle - Allergies Allergies/Adverse Reactions: Allergies Allergy/AdvReac Type Severity Reaction Status Date / Time NSAIDS (Non-Steroidal Allergy Anaphylaxis Verified 10/12/17 17:30 Anti-Inflamma naproxen sodium * AdvReac Edema Verified 10/12/17 17:30 [From Татьяна] - Living Situation Living Situation: reports: With spouse/s.o., With family (her daughter who is main caregiver is away on vacation this week. ) Living Arrangement: reports: At home - Social History Does the pt smoke?: No Smoking Status: Never smoker Does the pt drink ETOH?: No Does the pt have substance abuse?: No - Immunizations Immunizations are current?: Yes - POLST Patient has POLST: No PD ED PE NORMAL - Vitals Vital signs reviewed: Yes - General General: Alert and oriented X 3, No acute distress, Well developed/nourished - HEENT HEENT: Moist mucous membranes, Pharynx benign - Neck Neck: Supple, no meningeal sign, No adenopathy - Cardiac Cardiac: RRR, No murmur - Respiratory Respiratory: Clear bilaterally - Abdomen Abdomen: Soft, Non tender - Derm Derm: Normal color, Warm and dry - Extremities Extremities: No deformity, No tenderness to palpate, Normal ROM s pain, No edema , No calf tenderness / cord - Neuro Neuro: Alert and oriented X 3, Normal speech Eye Opening: Spontaneous Motor: Obeys Commands Verbal: Oriented GCS Score: 15 Results - Vitals Vitals: Vital Signs - 24 hr 10/12/17 10/12/17 10/12/17 17:18 19:19 19:25 Temperature 36.6 C 36.6 C Heart Rate 79 69 71 Respiratory 18 16 16 Rate Blood Pressure 168/91 H 148/65 H 140/61 H O2 Saturation 96 95 98 10/12/17 10/12/17 20:41 21:07 Temperature 36.9 C Heart Rate 73 78 Respiratory 15 16 Rate Blood Pressure 136/62 H 144/64 H O2 Saturation 99 100 Oxygen O2 Source Room air - Labs Labs: Laboratory Tests 10/12/17 10/12/17 10/12/17 18:27 18:27 18:27 WBC 6.6 RBC 4.19 L Hgb 12.2 Hct 37.2 MCV 88.7 MCH 29.0 MCHC 32.7 RDW 14.7 Plt Count 214 MPV 7.8 L Neut # (Auto) 4.2 Lymph # (Auto) 1.6 [place] # (Auto) 0.6 Eos # (Auto) 0.1 Baso # (Auto) 0.0 Absolute Nucleated RBC 0.00 Nucleated RBC % 0.0 Sodium 138 Potassium 3.8 Chloride 104 Carbon Dioxide 24 Anion Gap 10.0 BUN 19 Creatinine 0.7 Estimated GFR (MDRD) 80 L Glucose 109 H Lactic Acid Calcium 9.3 TSH 0.89 Urine Color Urine Clarity Urine pH Ur Specific [place] Urine Protein Urine Glucose (UA) Urine Ketones Urine Occult Blood Urine Nitrite Urine Bilirubin Urine Urobilinogen Ur Leukocyte Esterase Urine RBC Urine WBC Ur Squamous Epith Cells Urine Bacteria Ur Microscopic Review Urine Culture Comments Urine Opiates Screen Ur Oxycodone Screen Urine Methadone Screen Ur Propoxyphene Screen Ur Barbiturates Screen Ur Tricyclics Screen Ur Phencyclidine Scrn Ur Amphetamine Screen U Methamphetamines Scrn U Benzodiazepines Scrn Urine Cocaine Screen U Cannabinoids Screen Ethyl Alcohol < 5.0 10/12/17 10/12/17 18:54 19:28 WBC RBC Hgb Hct MCV MCH MCHC RDW Plt Count MPV Neut # (Auto) Lymph # (Auto) [place] # (Auto) Eos # (Auto) Baso # (Auto) Absolute Nucleated RBC Nucleated RBC % Sodium Potassium Chloride Carbon Dioxide Anion Gap BUN Creatinine Estimated GFR (MDRD) Glucose Lactic Acid 1.2 Calcium TSH Urine Color YELLOW Urine Clarity CLEAR Urine pH 6.0 Ur Specific [place] 1.020 Urine Protein 30 H Urine Glucose (UA) NEGATIVE Urine Ketones TRACE Urine Occult Blood NEGATIVE Urine Nitrite NEGATIVE Urine Bilirubin NEGATIVE Urine Urobilinogen 0.2 (NORMAL) Ur Leukocyte Esterase NEGATIVE Urine RBC None Seen Urine WBC 0-3 Ur Squamous Epith Cells FEW Squamous Urine Bacteria None Seen Ur Microscopic Review INDICATED Urine Culture Comments NOT INDICATED Urine Opiates Screen NEGATIVE Ur Oxycodone Screen NEGATIVE Urine Methadone Screen NEGATIVE Ur Propoxyphene Screen NEGATIVE Ur Barbiturates Screen NEGATIVE Ur Tricyclics Screen NEGATIVE Ur Phencyclidine Scrn NEGATIVE Ur Amphetamine Screen NEGATIVE U Methamphetamines Scrn NEGATIVE U Benzodiazepines Scrn POSITIVE H Urine Cocaine Screen NEGATIVE U Cannabinoids Screen NEGATIVE Ethyl Alcohol - Rads (name of study) head CT Radiology: Prelim report reviewed (no acute new findings) PD MEDICAL DECISION MAKING - ED course Complexity details: reviewed results, considered differential (The patient seems alert and conversant here. The caregiver with her felt she was at her baseline. Her CT head and labs are normal. I should say her head CT does not show any acute abnormality but did show the prior stroke. She had had a couple of tramadol tablets last evening that had been prescribed to her previously but she had not taken them for a while. These may have made her seem confused last night and improved today. I suggest that she not take those at this time and use Tylenol instead. The patient seems stable and I do not see any grounds for admission. She is discharged home in stable condition.), d/w patient - Sepsis Event Vital Signs: Vital Signs - 24 hr 10/12/17 10/12/17 10/12/17 17:18 19:19 19:25 Temperature 36.6 C 36.6 C Heart Rate 79 69 71 Respiratory 18 16 16 Rate Blood Pressure 168/91 H 148/65 H 140/61 H O2 Saturation 96 95 98 10/12/17 10/12/17 20:41 21:07 Temperature 36.9 C Heart Rate 73 78 Respiratory 15 16 Rate Blood Pressure 136/62 H 144/64 H O2 Saturation 99 100 Oxygen O2 Source Room air Departure - Departure Disposition: 01 Home, Self Care Clinical Impression: Altered mental status Qualifiers: Altered mental status type: delirium Qualified Code(s): R41.0 - Disorientation , unspecified Condition: Stable Record reviewed to determine appropriate education?: Yes Follow-Up: Jeannie Mirza DO [Primary Care Provider] - Comments: Your CT scan and blood tests and urine test appear normal here. I would not take any tramadol and instead use Tylenol 650 mg every 4-6 hours if needed for pains. That might of been the cause of the confusion and such last night. Recheck if recurring episodes or symptoms. Follow-up with Dr. Mirza's office in the next couple of days to let them know how you are doing. Discharge Date/Time: 10/12/17 21:10
[2017-10-12 18:32] LABS: BASOPHILS % (AUTO) 0.8 %; EOSINOPHILS # (AUTO) 0.1 10^3/uL (0.0-0.7); EOSINOPHILS % (AUTO) 0.9 %; HGB - HEMOGLOBIN 12.2 g/dL (12.0-16.0); LYMPHOCYTES # (AUTO) 1.6 10^3/uL (1.5-3.5); LYMPHOCYTES % (AUTO) 24.3 %; MEAN CORPUSCULAR HGB CONC 32.7 g/dL (32.0-36.0); MEAN CORPUSCULAR VOLUME 88.7 fL (81.0-99.0); MEAN PLATELET VOLUME 7.8 fL (7.9-10.8); MONOCYTES # (AUTO) 0.6 10^3/uL (0.0-1.0); MONOCYTES % (AUTO) 9.8 %; NEUTROPHILS # (AUTO) 4.2 10^3/uL (1.5-6.6); NEUTROPHILS % (AUTO) 64.2 %; PLT - PLATELET COUNT 214 10^3/uL (130-450); RED BLOOD COUNT 4.19 10^6/uL (4.20-5.40); RED CELL DISTRIBUTION WIDTH 14.7 % (12.0-15.0); WHITE BLOOD COUNT 6.6 x10^3/uL (4.8-10.8)
[2017-10-12 18:40] LABS: BUN - BLOOD UREA NITROGEN 19 mg/dL (6-20); CALCIUM 9.3 mg/dL (8.5-10.3); CARBON DIOXIDE - CO2 24 mmol/L (21-32); CHLORIDE 104 mmol/L (101-111); CREATININE 0.7 mg/dL (0.4-1.0); GFR - MDRD 80 (>89); GLUCOSE 109 mg/dL (70-100); SODIUM 138 mmol/L (135-145)
[2017-10-12 18:55] LABS: MUDS CUTOFF CONCENTRATIONS CUTOFF CONC BELOW:
[2017-10-12 18:57] LABS: BILIRUBIN,URINE NEGATIVE (NEGATIVE); GLUCOSE, URINE (UA) NEGATIVE (NEGATIVE); KETONES,URINE (UA) TRACE mg/dL (NEGATIVE); LEUKOCYTE ESTERASE, URINE NEGATIVE (NEGATIVE); NITRITE,URINE NEGATIVE (NEGATIVE); OCCULT BLOOD,URINE NEGATIVE (NEGATIVE); PROTEIN,URINE 30 mg/dL (NEGATIVE); UROBILINOGEN,URINE 0.2 (NORMAL) E.U./dL (NORMAL)
[2017-10-12 19:00] LABS: CLARITY,URINE CLEAR (CLEAR)
[2017-10-12 19:15] LABS: AMPHETAMINE SCREEN,URINE NEGATIVE (NEGATIVE); BACTERIA,URINE None Seen /HPF (None Seen); BENZODIAZEPINES SCREEN, URINE POSITIVE (NEGATIVE); COCAINE SCREEN URINE NEGATIVE (NEGATIVE); METHADONE SCREEN, URINE NEGATIVE (NEGATIVE); METHAMPHETAMINES SCREEN, URINE NEGATIVE (NEGATIVE); OPIATE SCREEN, URINE NEGATIVE (NEGATIVE); OXYCODONE SCREEN, URINE NEGATIVE (NEGATIVE); PROPOXYPHENE SCREEN, URINE NEGATIVE (NEGATIVE); RBC,URINE None Seen /HPF (0-5); SQUAMOUS EPITHELIAL CELL,UR FEW Squamous (<= Few); TRICYCLIC ANTIDEPRESSANT,URINE NEGATIVE (NEGATIVE)
--- NOTE | 2017-10-12 19:40 | CT Report ---
Reason: confused earlier today Procedure Date: 10/12/2017 Accession Number: [id number] / [id number] Procedure: CT - Head W/O CPT Code: FULL RESULT: EXAM: CT HEAD EXAM DATE: 10/12/2017 07:23 PM. CLINICAL HISTORY: Hallucinations last night and today. Stroke December,. COMPARISON: 01/08/2017. TECHNIQUE: Multiaxial CT images were obtained from the foramen magnum to the vertex. Reformats: Coronal. IV contrast: None. In accordance with CT protocol optimization, one or more of the following dose reduction techniques were utilized for this exam: automated exposure control, adjustment of mA and/or KV based on patient size, or use of iterative reconstructive technique. FINDINGS: Parenchyma: Interval development and maturation of an old large right temporal, parietal and occipital lobe infarct. Remote small vascular insult involving the right putamen and external capsule. No intraparenchymal hemorrhage. No evidence of mass, midline shift, or CT findings of acute infarction. Butler-white differentiation is distinct. Diffuse chronic microangiopathic white matter changes are evident. Extraaxial Spaces: Normal for age. No subdural or epidural collections identified. Ventricles: Compensatory dilatation atria and temporal tip right lateral ventricle. The ventricles and cortical sulci are enlarged, consistent with age-related tissue loss. Sinuses and orbits: Imaged paranasal sinuses, orbits, and mastoids show no significant abnormality. Bones: No evidence of fracture or calvarial defect. Other: None. IMPRESSION: 1. 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 2. No acute intracranial abnormality nor bleed. RADIA
[2017-10-12 21:07] VITALS: BP 144/64
== END 2017-10-12 21:10 | disposition home or self-care (01) ==
LOC: ED 17:04
DX: R41.0 Disorientation, unspecified (principal); I10 Essential (primary) hypertension; Z79.82 Long term (current) use of aspirin
CPT/HCPCS: 36415; 70450; 80048; 80306; 80320; 81001; 81003; 83605; 84443; 85025; 87086; 99283; 99284

== ENCOUNTER 2017-10-13 12:54 | Outpatient (CLI) | payer MEDICARE, OTHER | END 2017-10-13 12:55 | disposition critical access hospital (66) | LOC: EMS 12:54 | PROVIDERS: ATTEND Surgery | DX: R51 Headache (principal); W18.39XA Other fall on same level, initial encounter; Y93.01 Activity, walking, marching and hiking; Y92.000 Kitchen of unspecified non-institutional (private) residence as the place of occurrence of the external cause | CPT/HCPCS: A0425; A0427 ==

== ENCOUNTER 2017-10-13 13:18 | Emergency (ER) | payer MEDICARE, OTHER ==
--- NOTE | 2017-10-13 14:14 | XRAY Report ---
Reason: fall today Procedure Date: 10/13/2017 Accession Number: [id number] / [id number] Procedure: XR - Hand 3 View LT CPT Code: FULL RESULT: EXAM: LEFT HAND RADIOGRAPHY EXAM DATE: 10/13/2017 02:05 PM. CLINICAL HISTORY: Fall today. COMPARISON: None. TECHNIQUE: 3 views. FINDINGS: Bones: There is diffuse demineralization of the left hand. There are findings of osteoarthritis involving multiple joints. Joints: There is joint space narrowing and spurring of the interphalangeal joints. There is no dislocation. Soft Tissues: There is soft tissue calcification distal to the ulna. IMPRESSION: 1. Mild to moderate osteoarthritis. No acute fracture or dislocation. RADIA
--- NOTE | 2017-10-13 14:32 | CT Report ---
Reason: fall this morning, struck head Procedure Date: 10/13/2017 Accession Number: [id number] / [id number] Procedure: CT - Head W/O CPT Code: FULL RESULT: EXAM: CT HEAD EXAM DATE: 10/13/2017 02:14 PM. CLINICAL HISTORY: Fall this morning. Head and face trauma. Pain. COMPARISON: 10/12/2017. TECHNIQUE: Multiaxial CT images were obtained from the foramen magnum to the vertex. Reformats: Coronal. IV contrast: None. In accordance with CT protocol optimization, one or more of the following dose reduction techniques were utilized for this exam: automated exposure control, adjustment of mA and/or KV based on patient size, or use of iterative reconstructive technique. FINDINGS: Parenchyma: Stable old large right temporal, parietal and occipital lobe infarcts. Remote small vascular insults right external capsule and putamen. No intraparenchymal hemorrhage. No evidence of mass, midline shift, or CT findings of acute infarction. Butler-white differentiation is distinct. Diffuse chronic microangiopathic white matter changes are evident. Extraaxial Spaces: Normal for age. No subdural or epidural collections identified. Ventricles: Compensatory dilatation atria and temporal tip right lateral ventricle. No intraventricular hemorrhage nor midline shift. The ventricles and cortical sulci are enlarged, consistent with age-related tissue loss. Sinuses and orbits: Imaged paranasal sinuses, orbits, and mastoids show no significant abnormality. Bones: No evidence of fracture or calvarial defect. Other: None. IMPRESSION: No acute intracranial abnormality nor bleed. RADIA
--- NOTE | 2017-10-13 14:37 | CT Report ---
Reason: fall today Procedure Date: 10/13/2017 Accession Number: [id number] / [id number] Procedure: CT - Cervical Spine W/O CPT Code: FULL RESULT: EXAM: CT CERVICAL SPINE WITHOUT CONTRAST DATE: 10/13/2017 02:08 PM. HISTORY: Fall this morning with facial and head trauma. Pain. COMPARISONS: No prior cervical spine CT. CT neck angiogram 01/08/2017. TECHNIQUE: Thin-section axial images were acquired of the cervical spine without contrast. Post-processing: Coronal and sagittal reformats. Other: None. In accordance with CT protocol optimization, one or more of the following dose reduction techniques were utilized for this exam: automated exposure control, adjustment of mA and/or KV based on patient size, or use of iterative reconstructive technique. FINDINGS: Alignment: No scoliosis or spondylolisthesis. Bones: No fracture or bone lesion. Interspace Levels/Facets: Multilevel moderate to marked degenerative changes. Greatest degree of central spinal canal stenosis is moderate at the C2-C3 and C3-C4 levels, with mild flattening of the cervical cord at both of these levels. Multilevel marked on he neural foraminal compromise. Musculature: Normal. No fatty atrophy. Other: The paravertebral and prevertebral soft tissues are unremarkable. The lung apices are clear. IMPRESSION: No acute bony abnormality. RADIA
--- NOTE | 2017-10-13 14:40 | CT Report ---
Reason: fall this morning; struck face/orbit area Procedure Date: 10/13/2017 Accession Number: [id number] / [id number] Procedure: CT - Orbits W/O CPT Code: FULL RESULT: EXAM: CT MAXILLOFACIAL WITHOUT CONTRAST EXAM DATE: 10/13/2017 02:16 PM. CLINICAL HISTORY: Fall this morning; struck face/orbit area. Pain. COMPARISONS: None. TECHNIQUE: Thin-section axial images were acquired of the face without contrast. Post-processing: Coronal and sagittal reformats. Other: None. In accordance with CT protocol optimization, one or more of the following dose reduction techniques were utilized for this exam: automated exposure control, adjustment of mA and/or KV based on patient size, or use of iterative reconstructive technique. FINDINGS: Soft Tissue: The infratemporal fossa and parapharyngeal spaces are unremarkable. Orbits: Symmetric and unremarkable. Bones: No fracture or bone lesion. Temporomandibular Joints: The temporomandibular joints are symmetric and normally located. Sinuses: Normal. No mucosal thickening or fluid levels. Other: Limited visualization of the patient's old right cerebral hemisphere strokes. IMPRESSION: Normal maxillofacial CT. RADIA
[2017-10-13 15:16] VITALS: BP 155/64
--- NOTE | 2017-10-13 15:35 | ED Physician Documentation ---
PD HPI Fall - Stated complaint Stated Complaint: GLF - Chief complaint Chief Complaint: Trauma Hd/Nk - History obtained from History obtained from: Patient - History of Present Illness Mechanism of injury: Lost balance (she said her walker was just out of reach and she fell over as she was taking steps and reaching for it. Struck left face as she fell. Denies other injury.) Fall distance: Standing position Where injury occurred: Home Timing - onset: Today Injury(ies) location: Face, Left Uppper Extremity (left wrist). No: Chest, Abdomen Associated symptoms: No: LOC, AMS, Nausea / vomiting Worsens with: Movement, Palpation Similar symptoms before: Diagnosis (has balance problems and usess walker) Recently seen: Emergency Dept (yesterday for transient altered mentation. She has not taken any tramadol and is using tylenol for pains. Has not had any more feeling of confusion.) Review of Systems Constitutional: denies: Fever, Chills Eyes: denies: Loss of vision, Decreased vision Nose: denies: Rhinorrhea / runny nose, Congestion Throat: denies: Sore throat Cardiac: denies: Chest pain / pressure, Palpitations Respiratory: denies: Dyspnea, Cough GI: denies: Abdominal Pain, Vomiting, Diarrhea, Bloody / black stool : denies: Dysuria Musculoskeletal: reports: Extremity pain (left wrist, after the fall). denies: Neck pain, Back pain Neurologic: denies: Focal weakness, Numbness, Near syncope, Altered mental status (not today) PD PAST MEDICAL HISTORY - Past Medical History Cardiovascular: Hypertension, High cholesterol Respiratory: None Neuro: TIA Endocrine/Autoimmune: None GI: Colon polyps : None HEENT: Chronic hearing loss Psych: None Musculoskeletal: Osteoarthritis Derm: Psoriasis - Past Surgical History Past Surgical History: Yes General: Colonoscopy Ortho:  - Present Medications Home Medications: Ambulatory Orders Medication Instructions Recorded Confirmed Lisinopril 40 mg PO DAILY 09/17/15 01/08/17 Lovastatin 40 mg PO DAILY 09/17/15 01/08/17 Aspirin 1 tab PO DAILY 07/02/17 07/02/17 Doxycycline Hyclate 100 mg PO BID #14 capsule 07/02/17 Erythromycin Base [Erythromycin 1 applic EACHEYE TID 07/02/17 07/02/17 Ophthalmic Ointment] Estradiol [Estrogel] 05/19/18 FLUoxetine [PROzac] 2 tab PO DAILY 07/02/17 07/02/17 Gabapentin 1 cap PO DAILY 07/02/17 07/02/17 Latanoprost 0.005% Ophth Drops 1 drops EACHEYE DAILY 07/02/17 07/02/17 [Xalatan Ophth Drops] Polymyxin B/Trimeth Ophth Drop 1 drops EACHEYE Q3H 7 Days #1 07/02/17 [Polytrim Ophth Drops] bottle - Allergies Allergies/Adverse Reactions: Allergies Allergy/AdvReac Type Severity Reaction Status Date / Time NSAIDS (Non-Steroidal Allergy Anaphylaxis Verified 10/12/17 17:30 Anti-Inflamma naproxen sodium * AdvReac Edema Verified 10/13/17 13:23 [From Aleve] - Social History Does the pt smoke?: No Smoking Status: Never smoker Does the pt drink ETOH?: No Does the pt have substance abuse?: No - Immunizations Immunizations are current?: Yes - POLST Patient has POLST: No PD ED PE NORMAL - Vitals Vital signs reviewed: Yes - General General: Alert and oriented X 3, No acute distress, Well developed/nourished - HEENT HEENT: PERRL, EOMI, Other (some swelling without deformity left periorbital area. ) - Neck Neck: Supple, no meningeal sign, No adenopathy, Other (mild tender left lower neck) - Cardiac Cardiac: RRR, No murmur - Respiratory Respiratory: No respiratory distress, Clear bilaterally - Abdomen Abdomen: Soft, Non tender - Back Back: No CVA TTP - Derm Derm: Normal color, Warm and dry - Extremities Extremities: No deformity, Other (left wrist with mild tenderness and mid hand as well without deformity. ) - Neuro Neuro: Alert and oriented X 3, otorhinolaryngologist 2-12 intact, No motor deficit, No sensory deficit, Normal speech Eye Opening: Spontaneous Motor: Obeys Commands Verbal: Oriented GCS Score: 15 - Psych Psych: Normal mood, Normal affect Results - Vitals Vitals: Vital Signs - 24 hr 10/13/17 10/13/17 13:19 15:15 Temperature 36.3 C L Heart Rate 76 65 Respiratory 18 16 Rate Blood Pressure 125/47 L 155/64 H O2 Saturation 93 98 Oxygen O2 Source Room air - Rads (name of study) head CT Radiology: Prelim report reviewed (no ICH nor fractures) facial CT Radiology: Prelim report reviewed (no fractures) cervical CT Radiology: Prelim report reviewed (ritic but no fractures) PD MEDICAL DECISION MAKING - ED course Complexity details: reviewed results (no signs of fractures to face/neck and no ICH on CT. ), considered differential, d/w patient, d/w family (her son and are here. I talked with her about if she needed more help while her daughter is in [place], and the patient said she is okay. Offered SW to try to see if more assistance available, but patient declined and wanting to head home. ) - Sepsis Event Vital Signs: Vital Signs - 24 hr 10/13/17 10/13/17 13:19 15:15 Temperature 36.3 C L Heart Rate 76 65 Respiratory 18 16 Rate Blood Pressure 125/47 L 155/64 H O2 Saturation 93 98 Oxygen O2 Source Room air Departure - Departure Disposition: 01 Home, Self Care Clinical Impression: Facial contusion Qualifiers: Encounter type: initial encounter Qualified Code(s): S00.83XA - Contusion of other part of head, initial encounter Left wrist sprain Qualifiers: Encounter type: initial encounter Qualified Code(s): S63.502A - Unspecified sprain of left wrist, initial encounter Fall from slip, trip, or stumble Qualifiers: Encounter type: initial encounter Qualified Code(s): W01.0XXA - Fall on same level from slipping, tripping and stumbling without subsequent striking against object, initial encounter Condition: Stable Record reviewed to determine appropriate education?: Yes Instructions: ED Contusion Face, ED Sprain Wrist Follow-Up: Jeannie Mirza DO [Primary Care Provider] - Comments: Continue Tylenol 2 tablets 4 times a day for pains as needed. He can apply some ice or cool towels to the face area to reduce swelling. Follow-up with your primary care if pains persist more than several days to week. Discharge Date/Time: 10/13/17 16:03
== END 2017-10-13 16:03 | disposition home or self-care (01) ==
LOC: ED 13:18
DX: S00.83XA Contusion of other part of head, initial encounter (principal); S63.502A Unspecified sprain of left wrist, initial encounter; W18.39XA Other fall on same level, initial encounter; Y93.01 Activity, walking, marching and hiking; Z86.73 Personal history of transient ischemic attack (TIA), and cerebral infarction without residual deficits; I10 Essential (primary) hypertension
CPT/HCPCS: 70450; 70480; 72125; 99282; 99283

== ENCOUNTER 2017-11-24 11:09 | Outpatient (CLI) | payer OTHER | END 2017-11-24 11:10 | disposition critical access hospital (66) | LOC: EMS 11:09 | PROVIDERS: ATTEND Surgery | DX: R56.9 Unspecified convulsions (principal) | CPT/HCPCS: A0425; A0433 ==

== ENCOUNTER 2017-11-24 11:30 | Emergency (ER) | payer OTHER ==
[2017-11-24] MEDS ORDERED: MIDAZOLAM 2 MG/2 ML VIAL IVP STA (11:38)
[2017-11-24] MEDS ORDERED: MIDAZOLAM 2 MG/2 ML VIAL ONE (11:40)
[2017-11-24 11:45] LABS: BASOPHILS # (AUTO) 0.1 10^3/uL (0.0-0.1); BASOPHILS % (AUTO) 0.7 %; EOSINOPHILS # (AUTO) 0.1 10^3/uL (0.0-0.7); EOSINOPHILS % (AUTO) 1.4 %; HGB - HEMOGLOBIN 13.1 g/dL (12.0-16.0); LYMPHOCYTES # (AUTO) 1.6 10^3/uL (1.5-3.5); LYMPHOCYTES % (AUTO) 21.4 %; MEAN CORPUSCULAR HEMOGLOBIN 29.7 pg (27.0-31.0); MEAN CORPUSCULAR HGB CONC 32.8 g/dL (32.0-36.0); MEAN CORPUSCULAR VOLUME 90.8 fL (81.0-99.0); MEAN PLATELET VOLUME 7.3 fL (7.9-10.8); MONOCYTES # (AUTO) 0.5 10^3/uL (0.0-1.0); MONOCYTES % (AUTO) 6.4 %; NEUTROPHILS # (AUTO) 5.3 10^3/uL (1.5-6.6); NEUTROPHILS % (AUTO) 70.1 %; PLT - PLATELET COUNT 233 10^3/uL (130-450); RED BLOOD COUNT 4.42 10^6/uL (4.20-5.40); RED CELL DISTRIBUTION WIDTH 14.8 % (12.0-15.0); WHITE BLOOD COUNT 7.6 x10^3/uL (4.8-10.8)
[2017-11-24 11:58] LABS: ALBUMIN 4.1 g/dL (3.2-5.5); BILIRUBIN,TOTAL 0.6 mg/dL (0.2-1.0); CALCIUM 8.7 mg/dL (8.5-10.3); CREATININE 0.8 mg/dL (0.4-1.0); TOTAL PROTEIN 8.2 g/dL (6.7-8.2)
[2017-11-24] MEDS ORDERED: PROPOFOL 1000 MG/100 ML 100 ML IV STA (12:04)
--- NOTE | 2017-11-24 12:37 | XRAY Report ---
Reason: Chest Pain Procedure Date: 11/24/2017 Accession Number: [id number] / [id number] Procedure: XR - Chest 1 View X-Ray CPT Code: 54360 FULL RESULT: EXAM: CHEST RADIOGRAPHY EXAM DATE: 11/24/2017 12:01 PM. CLINICAL HISTORY: Chest pain. COMPARISON: Left clavicle 11/01/2017 2:51 PM. TECHNIQUE: 1 view. FINDINGS: The examination is limited by positioning and underpenetration as well as single portable view technique. What is felt to represent endotracheal tube is seen 2.9 cm above the phil. The cardiomediastinal silhouette is within normal limits except for aortic arch calcification. There is no pneumothorax. A suspected small pleural effusion is seen at least on the left. There is no pulmonary lobar consolidation. IMPRESSION: Appropriately positioned endotracheal tube. RADIA
[2017-11-24] MEDS ORDERED: IOPAMIDOL-300 100 ML VIAL ONE (12:41)
--- NOTE | 2017-11-24 13:03 | CT Report ---
Reason: LEFT SIDED WEAKNESS, CVA STROKE ALERT Procedure Date: 11/24/2017 Accession Number: [id number] / [id number] Procedure: CT - Neck Angio CPT Code: FULL RESULT: EXAM: CT ANGIOGRAM HEAD AND NECK. CT SCAN HEAD WITHOUT AND WITH CONTRAST. EXAM DATE:11/24/2017 12:03 PM. CLINICAL HISTORY:82-year-old presenting with left-sided weakness and seizure. COMPARISON:CT head 10/13/2017; CTA head and neck 01/08/2017. TECHNIQUE: Routine axial helical CTA imaging was performed from the aortic arch through the [place] of [place]. Routine axial CT imaging of the head was performed prior to and following contrast administration. Reconstructions: Routine multiplanar 3D MIP reconstructions. IV contrast: ISOVUE 300 80mL. NASCET Criteria are used for stenosis measurements. In accordance with CT protocol optimization, one or more of the following dose reduction techniques were utilized for this exam: automated exposure control, adjustment of mA and/or KV based on patient size, or use of iterative reconstructive technique. FINDINGS: NON-CONTRAST HEAD: Parenchyma: No acute parenchymal hemorrhage, definite mass, or midline shift. There is large volume encephalomalacia and gliosis in a right PIPE MAKER territory distribution from the right temporal lobe to right occipital lobe. There is additional mild to moderate bilateral areas of white matter hypoattenuation seen it appears similar to 10/13/2017. There is no convincing CT evidence of moderate to large acute infarct. Extra-axial Spaces: Prominence of the sulci that appear appropriate for the extent of volume loss. No definite abnormal extra axial fluid collection/mass seen. Cisterns appear patent. Ventricles: Ex-vacuo dilatation of the temporal horn, occipital horns, atria, and trigone of the right lateral ventricle. Overall ventricular size and configuration appears similar to 10/13/2017. No evidence of intraventricular hemorrhage. Orbits and Sinuses: Changes of bilateral lens replacement. Mild to moderate mucosal thickening of ethmoid air cells. Mastoid air cells and middle ear cavities appear clear. Extracranial Soft Tissues and Bones: Extracranial soft tissues are unremarkable. No fractures. Other: Patient is intubated. Vascular calcifications of the left intradural vertebral artery, basilar artery, and cavernous ICA segments. CT ANGIOGRAM HEAD AND NECK: Atherosclerotic plaque involving the aortic arch with no significant stenosis. Normal three-vessel takeoff. RIGHT: Common Carotid Artery: Patent without significant stenosis. Carotid Bulb: There is mild atherosclerotic plaque at the bifurcation and siphon. Stenosis at the bifurcation by NASCET criteria: No significant stenosis. Internal Carotid Artery: There is tortuosity with undulating beaded appearance to the mid and distal cervical right ICA. 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 Vascular calcifications of the cavernous ICA segments with no high-grade stenosis. No evidence of aneurysm along the intracranial ICA. External Carotid Artery: Unremarkable. Vertebral Artery: There is tortuosity of the origin and proximal V1 segment of the right vertebral artery similar to prior study. There is tortuosity of the V2 segment of the right vertebral artery within the right C5 transverse foramen, similar to prior study. There is tortuosity of the V3 segment of the right vertebral artery lateral to the right C2 transverse foramen. The right vertebral artery appears to terminate as the right PICA. Findings appear similar to prior study. Anterior Cerebral Artery: Patent without significant stenosis, aneurysm, or vascular malformation. Middle Cerebral Artery: Patent without significant stenosis, aneurysm, or vascular malformation. Posterior Cerebral Artery: There are multiple tandem segments of severe stenosis involving the P2 and P3 segments of the right PIPE MAKER. No definite aneurysm. Findings appear similar to prior study. Posterior Communicating Artery: Patent. No aneurysm. LEFT: Common Carotid Artery: Patent without significant stenosis. Carotid Bulb: There is mild atherosclerotic plaque at the bifurcation and siphon. Stenosis at the bifurcation by NASCET criteria: No high-grade stenosis. Internal Carotid Artery: There is tortuosity with an undulating beaded appearance to the distal cervical ICA. No dissection or high-grade stenosis seen. This appears similar to prior study. There is atherosclerotic plaque involving the cavernous ICA segment with no high-grade stenosis seen. No evidence of aneurysm along the intracranial ICA. External Carotid Artery: Unremarkable. Vertebral Artery: There is tortuosity and undulating beaded appearance to the V1 through V3 segments of the left vertebral artery similar to prior study. No high-grade stenosis. No dissection. There is atherosclerotic plaque involving the intradural V4 segment with no high-grade stenosis seen. There is appear similar to prior study. No aneurysm. Anterior Cerebral Artery: Patent without significant stenosis, aneurysm, or vascular malformation. Middle Cerebral Artery: Patent without significant stenosis, aneurysm, or vascular malformation. Posterior Cerebral Artery: Patent without significant stenosis, aneurysm, or vascular malformation. Posterior Communicating Artery: Patent. No aneurysm. CENTRAL: Anterior Communicating Artery: Patent. No aneurysm. Basilar Artery: Patent without significant stenosis. No aneurysm. DURAL VENOUS SINUSES AND MAJOR CENTRAL VEINS: Patent. OTHER: The visualized pharynx and larynx appear normal. Major salivary glands appear normal. Thyroid gland appears normal. No cervical lymphadenopathy or necrotic lymph nodes seen. Soft tissues of the neck appear normal. Visualized lung apices are clear. No acute fracture or traumatic subluxation of the cervical spine. Multilevel degenerative changes. No suspicious osseous lesion. POST-CONTRAST HEAD: No abnormal enhancement. IMPRESSION: CT SCAN HEAD: 1. No definite acute infarct seen. If there is clinical concern for acute stroke or symptoms persist an MR brain can be considered to evaluate for small or subtle pathology. ASPECTS 10R/10L 2. No acute intracranial hemorrhage, mass, hydrocephalus, or midline shift. No abnormal postcontrast enhancement. 3. Large volume encephalomalacia and gliosis in a right PIPE MAKER territory distribution that appears similar to CT 10/13/2017. 4.There is additional mild to moderate white matter changes seen similar to 10/13/2017 likely representing sequelae of chronic small vessel ischemic disease. CT ANGIOGRAM NECK: 1. Atherosclerotic plaque involving bilateral carotid siphons with no significant stenosis. Findings appear similar to CTA 01/08/2017. 2. There is tortuosity with undulating beaded appearance to the mid and distal cervical right ICA, similar to prior study. Findings may represent fibromuscular dysplasia or atherosclerotic disease. 3. 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 4. There is tortuosity with an undulating beaded appearance to the distal cervical left ICA similar to prior study. Finding may represent fibromuscular dysplasia or atherosclerotic disease. 5. There is extensive tortuosity of the right vertebral artery with questionable beaded appearance that may represent fibromuscular dysplasia or atherosclerotic disease. This appears similar to prior study. The right vertebral artery is hypoplastic and appears to terminate as the right PICA, similar to prior study. 6. Dominant left vertebral artery with undulating beaded appearance concerning for potential fibromuscular dysplasia or atherosclerotic disease. Findings appear similar to prior study. CT ANGIOGRAM HEAD: 1. No acute large vessel occlusion seen. 2. There are multiple tandem segments of severe stenosis involving the P2 and P3 segments of the right PIPE MAKER, similar to CTA 01/08/2017. 3. No definite intracranial aneurysm seen. RADIA
--- NOTE | 2017-11-24 13:03 | CT Report ---
Reason: LEFT SIDED WEAKNESS, SEIZURE Procedure Date: 11/24/2017 Accession Number: [id number] / [id number] Procedure: CT - Head W/O CPT Code: FULL RESULT: EXAM: CT ANGIOGRAM HEAD AND NECK. CT SCAN HEAD WITHOUT AND WITH CONTRAST. EXAM DATE:11/24/2017 12:03 PM. CLINICAL HISTORY:82-year-old presenting with left-sided weakness and seizure. COMPARISON:CT head 10/13/2017; CTA head and neck 01/08/2017. TECHNIQUE: Routine axial helical CTA imaging was performed from the aortic arch through the [place] of [place]. Routine axial CT imaging of the head was performed prior to and following contrast administration. Reconstructions: Routine multiplanar 3D MIP reconstructions. IV contrast: ISOVUE 300 80mL. NASCET Criteria are used for stenosis measurements. In accordance with CT protocol optimization, one or more of the following dose reduction techniques were utilized for this exam: automated exposure control, adjustment of mA and/or KV based on patient size, or use of iterative reconstructive technique. FINDINGS: NON-CONTRAST HEAD: Parenchyma: No acute parenchymal hemorrhage, definite mass, or midline shift. There is large volume encephalomalacia and gliosis in a right COMPRESS[employer] MECHAN[employer] BUS territory distribution from the right temporal lobe to right occipital lobe. There is additional mild to moderate bilateral areas of white matter hypoattenuation seen it appears similar to 10/13/2017. There is no convincing CT evidence of moderate to large acute infarct. Extra-axial Spaces: Prominence of the sulci that appear appropriate for the extent of volume loss. No definite abnormal extra axial fluid collection/mass seen. Cisterns appear patent. Ventricles: Ex-vacuo dilatation of the temporal horn, occipital horns, atria, and trigone of the right lateral ventricle. Overall ventricular size and configuration appears similar to 10/13/2017. No evidence of intraventricular hemorrhage. Orbits and Sinuses: Changes of bilateral lens replacement. Mild to moderate mucosal thickening of ethmoid air cells. Mastoid air cells and middle ear cavities appear clear. Extracranial Soft Tissues and Bones: Extracranial soft tissues are unremarkable. No fractures. Other: Patient is intubated. Vascular calcifications of the left intradural vertebral artery, basilar artery, and cavernous ICA segments. CT ANGIOGRAM HEAD AND NECK: Atherosclerotic plaque involving the aortic arch with no significant stenosis. Normal three-vessel takeoff. RIGHT: Common Carotid Artery: Patent without significant stenosis. Carotid Bulb: There is mild atherosclerotic plaque at the bifurcation and siphon. Stenosis at the bifurcation by NASCET criteria: No significant stenosis. Internal Carotid Artery: There is tortuosity with undulating beaded appearance to the mid and distal cervical right ICA. 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 Vascular calcifications of the cavernous ICA segments with no high-grade stenosis. No evidence of aneurysm along the intracranial ICA. External Carotid Artery: Unremarkable. Vertebral Artery: There is tortuosity of the origin and proximal V1 segment of the right vertebral artery similar to prior study. There is tortuosity of the V2 segment of the right vertebral artery within the right C5 transverse foramen, similar to prior study. There is tortuosity of the V3 segment of the right vertebral artery lateral to the right C2 transverse foramen. The right vertebral artery appears to terminate as the right PICA. Findings appear similar to prior study. Anterior Cerebral Artery: Patent without significant stenosis, aneurysm, or vascular malformation. Middle Cerebral Artery: Patent without significant stenosis, aneurysm, or vascular malformation. Posterior Cerebral Artery: There are multiple tandem segments of severe stenosis involving the P2 and P3 segments of the right COMPRESSOR MECHANIC BUS. No definite aneurysm. Findings appear similar to prior study. Posterior Communicating Artery: Patent. No aneurysm. LEFT: Common Carotid Artery: Patent without significant stenosis. Carotid Bulb: There is mild atherosclerotic plaque at the bifurcation and siphon. Stenosis at the bifurcation by NASCET criteria: No high-grade stenosis. Internal Carotid Artery: There is tortuosity with an undulating beaded appearance to the distal cervical ICA. No dissection or high-grade stenosis seen. This appears similar to prior study. There is atherosclerotic plaque involving the cavernous ICA segment with no high-grade stenosis seen. No evidence of aneurysm along the intracranial ICA. External Carotid Artery: Unremarkable. Vertebral Artery: There is tortuosity and undulating beaded appearance to the V1 through V3 segments of the left vertebral artery similar to prior study. No high-grade stenosis. No dissection. There is atherosclerotic plaque involving the intradural V4 segment with no high-grade stenosis seen. There is appear similar to prior study. No aneurysm. Anterior Cerebral Artery: Patent without significant stenosis, aneurysm, or vascular malformation. Middle Cerebral Artery: Patent without significant stenosis, aneurysm, or vascular malformation. Posterior Cerebral Artery: Patent without significant stenosis, aneurysm, or vascular malformation. Posterior Communicating Artery: Patent. No aneurysm. CENTRAL: Anterior Communicating Artery: Patent. No aneurysm. Basilar Artery: Patent without significant stenosis. No aneurysm. DURAL VENOUS SINUSES AND MAJOR CENTRAL VEINS: Patent. OTHER: The visualized pharynx and larynx appear normal. Major salivary glands appear normal. Thyroid gland appears normal. No cervical lymphadenopathy or necrotic lymph nodes seen. Soft tissues of the neck appear normal. Visualized lung apices are clear. No acute fracture or traumatic subluxation of the cervical spine. Multilevel degenerative changes. No suspicious osseous lesion. POST-CONTRAST HEAD: No abnormal enhancement. IMPRESSION: CT SCAN HEAD: 1. No definite acute infarct seen. If there is clinical concern for acute stroke or symptoms persist an MR brain can be considered to evaluate for small or subtle pathology. ASPECTS 10R/10L 2. No acute intracranial hemorrhage, mass, hydrocephalus, or midline shift. No abnormal postcontrast enhancement. 3. Large volume encephalomalacia and gliosis in a right COMPRESS[employer] MECH[employer] BUS territory distribution that appears similar to CT 10/13/2017. 4.There is additional mild to moderate white matter changes seen similar to 10/13/2017 likely representing sequelae of chronic small vessel ischemic disease. CT ANGIOGRAM NECK: 1. Atherosclerotic plaque involving bilateral carotid siphons with no significant stenosis. Findings appear similar to CTA 01/08/2017. 2. There is tortuosity with undulating beaded appearance to the mid and distal cervical right ICA, similar to prior study. Findings may represent fibromuscular dysplasia or atherosclerotic disease. 3. 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 4. There is tortuosity with an undulating beaded appearance to the distal cervical left ICA similar to prior study. Finding may represent fibromuscular dysplasia or atherosclerotic disease. 5. There is extensive tortuosity of the right vertebral artery with questionable beaded appearance that may represent fibromuscular dysplasia or atherosclerotic disease. This appears similar to prior study. The right vertebral artery is hypoplastic and appears to terminate as the right PICA, similar to prior study. 6. Dominant left vertebral artery with undulating beaded appearance concerning for potential fibromuscular dysplasia or atherosclerotic disease. Findings appear similar to prior study. CT ANGIOGRAM HEAD: 1. No acute large vessel occlusion seen. 2. There are multiple tandem segments of severe stenosis involving the P2 and P3 segments of the right COMPRESSOR MECHANIC BUS, similar to CTA 01/08/2017. 3. No definite intracranial aneurysm seen. RADIA
[2017-11-24] MEDS ORDERED: levETIRAcetam INJ 1,000 MG in SODIUM CHLORIDE 0.9% 100ML 100 ML IV STA (13:08)
[2017-11-24 14:25] LABS: BILIRUBIN,URINE NEGATIVE (NEGATIVE); GLUCOSE, URINE (UA) NEGATIVE (NEGATIVE); KETONES,URINE (UA) NEGATIVE (NEGATIVE); LEUKOCYTE ESTERASE, URINE NEGATIVE (NEGATIVE); NITRITE,URINE NEGATIVE (NEGATIVE); OCCULT BLOOD,URINE TRACE-INTA (NEGATIVE); PH,URINE 6.5 PH (5.0-7.5); PROTEIN,URINE 30 mg/dL (NEGATIVE); UROBILINOGEN,URINE 0.2 (NORMAL) E.U./dL (NORMAL)
[2017-11-24 14:26] LABS: CLARITY,URINE CLEAR (CLEAR)
[2017-11-24 14:37] LABS: BACTERIA,URINE Rare /HPF (None Seen); RBC,URINE 0-5 /HPF (0-5); SQUAMOUS EPITHELIAL CELL,UR NONE SEEN (<= Few)
[2017-11-24] MEDS ORDERED: IOPAMIDOL-300 100 ML VIAL IVP ONE (16:45)
[2017-11-24 18:06] VITALS: BP 148/66
--- NOTE | 2017-11-24 18:34 | ED Physician Documentation ---
PD HPI FOCAL NEURO - Stated complaint Stated Complaint: POSS STROKE - Chief complaint Chief Complaint: Neuro - History obtained from History obtained from: Family, EMS - History of Present Illness Timing - onset: How many hours ago (1) Timing - duration: Hours (1) Timing - details: Abrupt onset, Constant Severity of deficit: Severe Weakness: Left Associated symptoms: Seizure. 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 When they arrived at the E.R. drive way they were intubating the pt for respiratory protection for persistent seizures. EMS (later family, daughter Karen confirmed story) reported pt was doing well and the family were seated telling stories when daughter Karen noticed that the pt was flailing her left arm like she was exercising. When daughter asked about this pt stated she didn't know why her left arm was moving around. Then daughter noticed that pt's left arm and left leg stopped moving and pt unable to speak to her. Soon there after pt had a seizure activity of her left side. EMS was called. EMS found the patient slumped over the table and slowly moved the pt to the floor. Pt was transported and pt had seizures not responding to Versed. EMS decided to intubate the pt without difficulty. Review of Systems Unable to obtain: Unresponsive, Intubated Ten Systems: 10 systems reviewed and negative Constitutional: denies: Fever Cardiac: denies: Chest pain / pressure Respiratory: denies: Dyspnea GI: denies: Abdominal Pain Neurologic: reports: Focal weakness, Difficulty speaking, Seizure. denies: Headache, Head injury PD PAST MEDICAL HISTORY - Past Medical History Past Medical History: Yes Cardiovascular: Hypertension, High cholesterol Respiratory: None Neuro: CVA, TIA Endocrine/Autoimmune: None GI: Colon polyps : None HEENT: Chronic hearing loss Psych: None Musculoskeletal: Osteoarthritis Derm: Psoriasis - Past Surgical History Past Surgical History: Yes General: Colonoscopy Ortho:  - Present Medications Home Medications: Ambulatory Orders Medication Instructions Recorded Confirmed RX: Lisinopril 20 mg PO DAILY 09/17/15 01/08/17 RX: Lovastatin 40 mg PO DAILY 09/17/15 01/08/17 Erythromycin Base [Erythromycin 1 applic EACHEYE TID 07/02/17 07/02/17 Ophthalmic Ointment] Estradiol [Estrogel] 07/02/17 Polymyxin B/Trimeth Ophth Drop 1 drops EACHEYE Q3H 7 Days #1 07/02/17 [Polytrim Ophth Drops] bottle RX: Aspirin 1 tab PO DAILY 07/02/17 07/02/17 RX: Doxycycline Hyclate 100 mg PO BID #14 capsule 07/02/17 RX: FLUoxetine [PROzac] 2 tab PO DAILY 07/02/17 07/02/17 RX: Gabapentin 1 cap PO DAILY 07/02/17 07/02/17 RX: Latanoprost 0.005% Ophth Drops 1 drops EACHEYE DAILY 07/02/17 07/02/17 [Xalatan Ophth Drops] Cholecalciferol (Vitamin D3) 11/24/17 [Vitamin D3] RX: Atorvastatin Calcium 11/24/17 RX: Famotidine 11/24/17 RX: Melatonin 11/24/17 RX: Memantine [Namenda] 11/24/17 Ubidecarenone/Vit E Acetate [Co 11/24/17 Q-10 100 mg Softgel] - Allergies Allergies/Adverse Reactions: Allergies Allergy/AdvReac Type Severity Reaction Status Date / Time NSAIDS (Non-Steroidal Allergy Anaphylaxis Verified 10/12/17 17:30 Anti-Inflamma naproxen sodium * AdvReac Edema Verified 11/24/17 11:39 [From Aleve] - Living Situation Living Situation: reports: With spouse/s.o., With family Living Arrangement: reports: At home - Social History Does the pt smoke?: No Smoking Status: Never smoker Does the pt drink ETOH?: No Does the pt have substance abuse?: No - Immunizations Immunizations are current?: Yes - POLST Patient has POLST: No POLST Status: (EMS has a molst form that showed no CPR only. EMS asked the family about this and they informed them everything should be done.) PD ED PE NORMAL - Vitals Vital signs reviewed: Yes - General General: Other (Pt intubated with 7.5 EDT at 22 at lip. No seizure activity.) - HEENT HEENT: PERRL (3mm bilaterally reactive but sluggish), Moist mucous membranes. No: EOMI - Neck Neck: Supple, no meningeal sign - Cardiac Cardiac: RRR, No murmur - Respiratory Respiratory: Other (bilateral rhonchi) - Abdomen Abdomen: Normal bowel sounds, Soft, Non tender, Non distended - Derm Derm: Normal color, Warm and dry - Extremities Extremities: No deformity - Neuro Neuro: Other (pt intubated AND sedated) Results - Vitals Vitals: Vital Signs - 24 hr 11/24/17 11/24/17 11/24/17 11:29 12:07 12:22 Temperature 36.7 C Heart Rate 95 88 85 Respiratory 16 20 12 Rate Blood Pressure 161/148 H 180/92 H 186/164 H O2 Saturation 100 100 100 11/24/17 11/24/17 11/24/17 12:26 12:31 12:32 Temperature 36.4 C L Heart Rate 85 82 77 Respiratory 25 H 23 Rate Blood Pressure 204/97 H 194/175 H O2 Saturation 100 100 11/24/17 11/24/17 11/24/17 12:48 13:07 13:26 Temperature 36.3 C L Heart Rate 77 73 67 Respiratory 15 24 12 Rate Blood Pressure 188/74 H 196/101 H 169/94 H O2 Saturation 100 100 100 11/24/17 11/24/17 11/24/17 13:48 13:59 15:00 Temperature 36.7 C 36.6 C Heart Rate 76 83 70 Respiratory 17 13 15 Rate Blood Pressure 196/102 H 164/70 H O2 Saturation 100 100 100 11/24/17 11/24/17 11/24/17 16:16 16:59 18:01 Temperature 36.6 C Heart Rate 75 69 70 Respiratory 12 11 L 14 Rate Blood Pressure 181/76 H 151/74 H 148/66 H O2 Saturation 100 96 97 Oxygen O2 Source Room air - EKG (time done) 1205 Rate: Rate (enter#) (65) Rhythm: NSR [place]: Normal Intervals: Normal [place] QRS: Normal Ischemia: Normal ST segments - Labs Labs: Laboratory Tests 11/24/17 11/24/17 11/24/17 11:40 11:40 11:40 WBC 7.6 RBC 4.42 Hgb 13.1 Hct 40.1 MCV 90.8 MCH 29.7 MCHC 32.8 RDW 14.8 Plt Count 233 MPV 7.3 L Neut # (Auto) 5.3 Lymph # (Auto) 1.6 [place] # (Auto) 0.5 Eos # (Auto) 0.1 Baso # (Auto) 0.1 Absolute Nucleated RBC 0.01 Nucleated RBC % 0.1 Sodium 133 L Potassium 4.5 Chloride 103 Carbon Dioxide 18 L Anion Gap 12.0 BUN 15 Creatinine 0.8 Estimated GFR (MDRD) 69 L Glucose 147 H Calcium 8.7 Total Bilirubin 0.6 AST 78 H ALT 60 Alkaline Phosphatase 97 Troponin I < 0.04 Total Protein 8.2 Albumin 4.1 Globulin 4.1 Albumin/Globulin Ratio 1.0 Lipase 48 Urine Color Urine Clarity Urine pH Ur Specific [place] Urine Protein Urine Glucose (UA) Urine Ketones Urine Occult Blood Urine Nitrite Urine Bilirubin Urine Urobilinogen Ur Leukocyte Esterase Urine RBC Urine WBC Ur Squamous Epith Cells Urine Bacteria Ur Microscopic Review Urine Culture Comments 11/24/17 13:10 WBC RBC Hgb Hct MCV MCH MCHC RDW Plt Count MPV Neut # (Auto) Lymph # (Auto) [place] # (Auto) Eos # (Auto) Baso # (Auto) Absolute Nucleated RBC Nucleated RBC % Sodium Potassium Chloride Carbon Dioxide Anion Gap BUN Creatinine Estimated GFR (MDRD) Glucose Calcium Total Bilirubin AST ALT Alkaline Phosphatase Troponin I Total Protein Albumin Globulin Albumin/Globulin Ratio Lipase Urine Color LIGHT YELLOW Urine Clarity CLEAR Urine pH 6.5 Ur Specific [place] 1.015 Urine Protein 30 H Urine Glucose (UA) NEGATIVE Urine Ketones NEGATIVE Urine Occult Blood TRACE-INTA Urine Nitrite NEGATIVE Urine Bilirubin NEGATIVE Urine Urobilinogen 0.2 (NORMAL) Ur Leukocyte Esterase NEGATIVE Urine RBC 0-5 Urine WBC 0-3 Ur Squamous Epith Cells NONE SEEN Urine Bacteria Rare Ur Microscopic Review INDICATED Urine Culture Comments NOT INDICATED - Rads (name of study) cxr, ct head, cta h/n Radiology: See rad report PD MEDICAL DECISION MAKING - ED course Complexity details: re-evaluated patient (1156 Pt arrived in the E.R. See above notes. Pt went to the CT scanner with the nurse. [address] scan. Per nurse pt did not have any seizure activity. Pt is started to move her right arm and right leg. Will sedate with propofol drip. 1229 per RT pt's vent settings--SIMV, TV 450, RR 20, PEEP 5, PS 12, O2 60%. 1412 Pt tolerating extubation. Appears sleepy but responds to verbal stimuli but waking up and nodding her head when asked how she's breathing. 1600 [facility] [place] me pt will be transferred around 7:30 pm as that's when the ambulance is available. 181 Pt respiration easy and regular. She's maintaining her airway with normal pulse. No seizure activity. Still with left sided weakness and dysarthria and sleepy but easily arousable. 1900 Ambulance her to transport pt to [facility].), considered differential (CVA, SEIZURES, ICB, NSTEMI), d/w family (1244 Family at the bedside. Daughter Karen who was with the pt when today's event occured and she provided details of HPI. They were updated on test results. 1400 Family updated on neuro consult. They agreed to transfer at [facility] where pt was last December 2016 for her stroke treated with TPA.), d/w it systems analyst consultant (1300 Radiologist informed me he sent the CT scans to radiology with neuro specialty as today's CT scan did not show an acute change but maybe subacute. 1307 [facility] neurologist Dr Crump returned my call. He read the CT scan himself and does not think it is acute. He will call me back to talk to their production generalist for admission. He recommended loading pt with Keppra 1 gram now. He also wants the pt extubated. He stated pt is not TPA candidate because of the seizures. 1353 Dr Crump called me back and informed me they are accepting pt for transfer. He was informed pt has been extubated and currently being monitored. ) - Consults Consults: Consulted (name) (Dr. Crump, neurologist from [facility]) - Critical Care Time(min): 60 Time Includes: Direct patient care, Reassess patient, Document care, Medical consult, Family consult for tx dec, See progress note Data interpretation: Labs, CXR Procedures included in critical care time: Peripheral IV, Ventilator mgmt, See progress note Procedures excluded from critical care time: EKG Departure - Departure Disposition: 02 Transfer Acute Care Hosp Discharge Date/Time: 11/24/17 19:00
== END 2017-11-24 19:00 | disposition short-term general hospital (02) ==
LOC: EDUNIT# → ED 11:30
DX: I63.9 Cerebral infarction, unspecified (principal); R56.9 Unspecified convulsions; G81.94 Hemiplegia, unspecified affecting left nondominant side; I10 Essential (primary) hypertension; Z79.82 Long term (current) use of aspirin
CPT/HCPCS: 36415; 51702; 70450; 70496; 70498; 71045; 80053; 81001; 83690; 84484; 85025; 93005; 94770; 96365; 96367; 96375; 99285; 99291; Q9967; 81003; 87086

== ENCOUNTER 2017-12-18 17:38 | Outpatient (CLI) | payer OTHER | END 2017-12-18 17:39 | disposition critical access hospital (66) | LOC: EMS 17:38 | PROVIDERS: ATTEND Surgery | DX: R20.0 Anesthesia of skin (principal); R53.1 Weakness | CPT/HCPCS: A0425; A0429 ==

== ENCOUNTER 2017-12-18 17:57 | Observation (INO) | payer OTHER ==
--- NOTE | 2017-12-18 18:44 | ED Physician Documentation ---
PD HPI FOCAL NEURO - Stated complaint Stated Complaint: L HAND NUMB - Chief complaint Chief Complaint: Neuro - History obtained from History obtained from: Patient, Family - History of Present Illness Timing - onset: Today (82-year-old woman with history of CVA and seizure disorder. A little over a week ago her Keppra was decreased and she was started on Trileptal by her neurologist. Today she has had increasing hallucinations from her dementia and was complaining her left hand was numbbut is now better.) Review of Systems Ten Systems: 10 systems reviewed and negative Constitutional: reports: Reviewed and negative Cardiac: reports: Reviewed and negative Respiratory: reports: Reviewed and negative PD PAST MEDICAL HISTORY - Past Medical History Cardiovascular: Hypertension, High cholesterol Respiratory: None Neuro: CVA, TIA Endocrine/Autoimmune: None GI: Colon polyps : None HEENT: Chronic hearing loss Psych: None Musculoskeletal: Osteoarthritis Derm: Psoriasis - Past Surgical History Past Surgical History: Yes General: Colonoscopy Ortho:  - Present Medications Home Medications: Ambulatory Orders Medication Instructions Recorded Confirmed RX: Lisinopril 20 mg PO DAILY 09/17/15 01/08/17 RX: Lovastatin 40 mg PO DAILY 09/17/15 01/08/17 Erythromycin Base [Erythromycin 1 applic EACHEYE TID 07/02/17 07/02/17 Ophthalmic Ointment] Estradiol [Estrogel] 07/02/17 Polymyxin B/Trimeth Ophth Drop 1 drops EACHEYE Q3H 7 Days #1 07/02/17 [Polytrim Ophth Drops] bottle RX: Aspirin 1 tab PO DAILY 07/02/17 07/02/17 RX: Doxycycline Hyclate 100 mg PO BID #14 capsule 07/02/17 RX: FLUoxetine [PROzac] 2 tab PO DAILY 07/02/17 07/02/17 RX: Gabapentin 1 cap PO DAILY 07/02/17 07/02/17 RX: Latanoprost 0.005% Ophth Drops 1 drops EACHEYE DAILY 07/02/17 07/02/17 [Xalatan Ophth Drops] Cholecalciferol (Vitamin D3) 11/24/17 [Vitamin D3] RX: Atorvastatin Calcium 11/24/17 RX: Famotidine 11/24/17 RX: Melatonin 11/24/17 RX: Memantine [Namenda] 11/24/17 Ubidecarenone/Vit E Acetate [Co 11/24/17 Q-10 100 mg Softgel] - Allergies Allergies/Adverse Reactions: Allergies Allergy/AdvReac Type Severity Reaction Status Date / Time NSAIDS (Non-Steroidal Allergy Anaphylaxis Verified 12/18/17 18:08 Anti-Inflamma naproxen sodium * AdvReac Edema Verified 12/18/17 18:08 [From Aleve] - Social History Does the pt smoke?: No Smoking Status: Never smoker Does the pt drink ETOH?: No Does the pt have substance abuse?: No - Immunizations Immunizations are current?: Yes - POLST Patient has POLST: No PD ED PE NORMAL - Vitals Vital signs reviewed: Yes - General General: No acute distress, Well developed/nourished, Other (Alert oriented to person but not time) - HEENT HEENT: PERRL, EOMI, Other (Large pupils from glaucoma) - Neck Neck: Supple, no meningeal sign, No bony TTP - Cardiac Cardiac: RRR, No murmur - Respiratory Respiratory: No respiratory distress, Clear bilaterally - Abdomen Abdomen: Normal bowel sounds, Soft, Non tender - Derm Derm: Normal color, Warm and dry - Neuro Neuro: receptionist airline lounge 2-12 intact. No: Alert and oriented X 3 Eye Opening: Spontaneous Motor: Obeys Commands Verbal: Confused GCS Score: 14 - Psych Psych: Normal mood, Normal affect NIHSS - Time Time: 18:40 - Level of Consciousness Level of consciousness: (0) Alert, Keenly responsive LOC Questions: (2) Answers neither correct LOC Commands: (0) Performs both correctly - Gaze Best Gaze: (0) Normal - Visual Visual: (0) No loss - Facial Palsy Facial Palsy: (0) Normal, symmetrical movement - Motor Arms (both separate) Motor Arm (right): (0) No drift Motor Arm (left): (0) No drift - Motor Legs (both separate) Motor Leg (right): (0) No drift Motor Leg (left): (0) No drift - Limb Ataxia Limb Ataxia: (0) Absent - Sensory Sensory: (0) Normal - Best Language Best Language: (0) No aphasia - Dysarthria Dysarthria: (0) Normal - Extinction and Inattention (formally neg Extinction and inattention: (0) No abnormality - Total Score/Results Total Score/Result: 2 Results - Vitals Vitals: Vital Signs - 24 hr 12/18/17 12/18/17 12/18/17 17:58 19:04 21:35 Temperature 36.2 C L Heart Rate 72 68 65 Respiratory 16 13 18 Rate Blood Pressure 171/77 H 149/59 H 138/67 H O2 Saturation 97 98 96 Oxygen O2 Source Room air - Labs Labs: Laboratory Tests 12/18/17 12/18/17 12/18/17 18:58 18:58 20:20 WBC 6.0 RBC 3.80 L Hgb 11.5 L Hct 33.8 L MCV 88.9 MCH 30.3 MCHC 34.0 RDW 13.8 Plt Count 211 MPV 7.3 L Neut # (Auto) 4.0 Lymph # (Auto) 1.1 L [place] # (Auto) 0.7 Eos # (Auto) 0.1 Baso # (Auto) 0.1 Absolute Nucleated RBC 0.00 Nucleated RBC % 0.0 Sodium 122 L Potassium 3.7 Chloride 89 L Carbon Dioxide 24 Anion Gap 9.0 BUN 10 Creatinine 0.5 Estimated GFR (MDRD) 118 Glucose 141 H Calcium 8.4 L Total Bilirubin 0.7 AST 320 H ALT 273 H Alkaline Phosphatase 221 H Total Protein 7.5 Albumin 3.6 Globulin 3.9 Albumin/Globulin Ratio 0.9 L Lipase 42 Urine Color YELLOW Urine Clarity CLEAR Urine pH 7.5 Ur Specific [place] 1.015 Urine Protein NEGATIVE Urine Glucose (UA) NEGATIVE Urine Ketones NEGATIVE Urine Occult Blood NEGATIVE Urine Nitrite NEGATIVE Urine Bilirubin NEGATIVE Urine Urobilinogen 0.2 (NORMAL) Ur Leukocyte Esterase NEGATIVE Ur Microscopic Review NOT INDICATED Urine Culture Comments NOT INDICATED PD MEDICAL DECISION MAKING - ED course ED course: 82-year-old with odd and vague neurologic symptoms that do not really fit CVA. She is recently started on Trileptal. Therefore it is not too surprising that her sodium is quite low. She also has elevated liver enzymes. She had a remote cholecystectomy and has not taken Tylenol in several weeks. We will perform a right upper quadrant ultrasound. I discussed the case by phone with her neurologist, Dr. Ledesma who recommended decreasing the Trileptal down to 300 mg twice a day tomorrow, then on Tuesday taking 300 mg in the morning and 150 mg at night. On Tuesday 150 mg in the morning and 150 mg at night. On take a final dose of 150 mg in the morning and then stop it. The Keppra should be maintained at the current dose. Initially the family felt willing to take her home but then felt like she needed a night in the hospital because of how altered she was. Given the acute sodium of 122 this does not seem to unreasonable to move the and Dr. Florentino was agreeable and we spoke on the phone at 9:50 PM. Departure - Departure Disposition: ED Place in Observation Clinical Impression: Numbness of left hand, Hyponatremia, Elevated liver enzymes Condition: Good Record reviewed to determine appropriate education?: Yes Discharge Date/Time: 12/18/17 22:38
[2017-12-18 19:07] LABS: BASOPHILS # (AUTO) 0.1 10^3/uL (0.0-0.1); EOSINOPHILS # (AUTO) 0.1 10^3/uL (0.0-0.7); EOSINOPHILS % (AUTO) 2.3 %; HGB - HEMOGLOBIN 11.5 g/dL (12.0-16.0); LYMPHOCYTES # (AUTO) 1.1 10^3/uL (1.5-3.5); LYMPHOCYTES % (AUTO) 18.4 %; MEAN CORPUSCULAR HEMOGLOBIN 30.3 pg (27.0-31.0); MEAN CORPUSCULAR VOLUME 88.9 fL (81.0-99.0); MEAN PLATELET VOLUME 7.3 fL (7.9-10.8); MONOCYTES # (AUTO) 0.7 10^3/uL (0.0-1.0); NEUTROPHILS % (AUTO) 67.3 %; PLT - PLATELET COUNT 211 10^3/uL (130-450); RED CELL DISTRIBUTION WIDTH 13.8 % (12.0-15.0)
[2017-12-18 19:18] LABS: ALBUMIN 3.6 g/dL (3.2-5.5); ALBUMIN/GLOBULIN RATIO 0.9 (1.0-2.2); BILIRUBIN,TOTAL 0.7 mg/dL (0.2-1.0); CALCIUM 8.4 mg/dL (8.5-10.3); CREATININE 0.5 mg/dL (0.4-1.0); TOTAL PROTEIN 7.5 g/dL (6.7-8.2)
--- NOTE | 2017-12-18 19:47 | CT Report ---
Reason: L hand numb Procedure Date: 12/18/2017 Accession Number: [id number] / [id number] Procedure: CT - Head W/O CPT Code: FULL RESULT: EXAM: CT HEAD EXAM DATE: 12/18/2017 07:30 PM. CLINICAL HISTORY: L hand numb. COMPARISON: HEAD W/O 11/24/2017 11:48 AM MR BRAIN WITHOUT AND WITH CONTRAST 11/26/2017 2:21 AM. TECHNIQUE: Multiaxial CT images were obtained from the foramen magnum to the vertex. Reformats: Sagittal and coronal. IV contrast: None. In accordance with CT protocol optimization, one or more of the following dose reduction techniques were utilized for this exam: automated exposure control, adjustment of mA and/or KV based on patient size, or use of iterative reconstructive technique. FINDINGS: Parenchyma: There is encephalomalacia within the right occipital, inferior parietal, and posterior temporal regions. This is consistent with prior [employer] distribution infarct. No clearly acute loss of [place]-white matter differentiation is seen. There is no mass-effect. No hemorrhage. Extraaxial Spaces: Normal for age. No subdural or epidural collections identified. Ventricles: Normal in size and position. Sinuses and Orbits: Imaged paranasal sinuses, orbits, and mastoids show no significant abnormality. Bones: No evidence of fracture or calvarial defect. Other: None. IMPRESSION: 1. No acute intracranial CT abnormality. There is no evidence of hemorrhage or mass-effect. 2. There is right [employer] distribution encephalomalacia. RADIA
[2017-12-18 20:30] LABS: BILIRUBIN,URINE NEGATIVE (NEGATIVE); GLUCOSE, URINE (UA) NEGATIVE (NEGATIVE); KETONES,URINE (UA) NEGATIVE (NEGATIVE); LEUKOCYTE ESTERASE, URINE NEGATIVE (NEGATIVE); NITRITE,URINE NEGATIVE (NEGATIVE); OCCULT BLOOD,URINE NEGATIVE (NEGATIVE); PH,URINE 7.5 PH (5.0-7.5); PROTEIN,URINE NEGATIVE (NEGATIVE); UROBILINOGEN,URINE 0.2 (NORMAL) E.U./dL (NORMAL)
[2017-12-18 20:31] LABS: CLARITY,URINE CLEAR (CLEAR)
--- NOTE | 2017-12-18 21:33 | Ultrasound Report ---
Reason: Elevated liver enz Procedure Date: 12/18/2017 Accession Number: [id number] / [id number] Procedure: US - Abdomen Limited CPT Code: FULL RESULT: EXAM: ABDOMEN ULTRASOUND LIMITED, RUQ EXAM DATE: 12/18/2017 09:35 PM. CLINICAL HISTORY: Elevated liver enzymes. COMPARISON: None. TECHNIQUE: Real-time scanning was performed with static images obtained. FINDINGS: Liver: Submitted images of liver demonstrate no focal lesions. Main portal vein flow: Hepatopetal. Gallbladder: The gallbladder is surgically absent. Biliary System: CBD measures 10 mm. No intrahepatic or extrahepatic ductal dilatation. Other: The pancreas is not well seen. Right kidney demonstrates no hydronephrosis. IMPRESSION: 1. The gallbladder is surgically absent. 2. Mild bile duct dilatation, which can be within normal limits status post cholecystectomy. Submitted images demonstrate no evidence of choledocholithiasis. 3. Submitted images of the liver demonstrate no focal lesions. RADIA
[2017-12-18] MEDS ORDERED: SODIUM CHLORIDE 0.9% 1,000 ML IV ONE (21:49)
[2017-12-18] MEDS ORDERED: MORPHINE 2 MG/ML CARPUJECT IVP STA (21:52)
[2017-12-18] MEDS ORDERED: SODIUM CHLORIDE FLUSH 0.9% 10 ML SYRINGE IVP PRN (22:00)
[2017-12-18] MEDS ORDERED: ACETAMINOPHEN 325 MG TABLET PO PRN (22:00)
[2017-12-18] MEDS ORDERED: ONDANSETRON 4 MG/2 ML VIAL IVP PRN (22:00)
[2017-12-18] MEDS ORDERED: PROCHLORPERAZINE 10 MG/2 ML VIAL IVP PRN (22:00)
[2017-12-18] MEDS ORDERED: oxyCODONE 5 MG TABLET PO PRN (22:00)
--- NOTE | 2017-12-18 22:06 | HISTORY & PHYSICAL EXAMINATION ---
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 The patient is unable to give a complete history due to her CVA and dementia and most of the history is provided by the patient's daughter who lives with the patient. The patient's daughter states that over the last 3-4 days she is noticed a acute decline in the patient's cognition. She states that her mother has been having increasing behavioral disturbance. She has been less cooperative, more easily agitated and more confused over the last 3-4 days than her usual. She states that she is noticed that since September the patient has had a gradual decline in her cognition however this past week that decline has been very rapidly progressing. The patient's daughter states that she did speak to the patient's neurologist about this 2 days ago and she was told that the neurologist would call back this coming week to instruct her on how to change her antiepileptic medications as she was concerned that they were the cause of her symptoms. The patient's daughter states that today the patient expressed that she was having left hand numbness to the caregiver who was taking care of her. The patient's daughter immediately called 911 when she was alerted this evening and the patient was brought to the emergency department. By the time the patient arrived in the emergency department she states that her left hand numbness had resolved. When she arrived in the [facility] she states that she was still having some numbness in her fingertips on her left hand. The patient's daughter is also noticed that the patient has had some difficulties with her gait. She states that the patient has appeared more unsteady with her walker. She is also had difficulty positioning herself when she goes to the bathroom. Overall she just feels that her mother is more confused than normal over the last few days. She had no other focal neurologic deficits. Patient denied any headaches, blurred vision, runny nose, sore throat, nasal congestion, difficulty swallowing, chest pain, shortness of air, orthopnea, PND, increased lower extremity swelling, abdominal pain, nausea, vomiting, diarrhea, constipation, urinary urgency, urinary frequency, dysuria, joint swelling, joint pain, muscle aches, back pain, neck stiffness, recent unintentional weight loss, changes in her appetite, polyuria, polydipsia, skin changes, skin rash, night sweats, fevers or chills. On presentation to the emergency department the patient was afebrile and hypertensive with a blood pressure of 171/77 the remainder of her vital signs are within normal limits. The patient underwent routine lab work which did reveal a hyponatremia with a sodium of 122 and a chloride of 89. The patient was slightly hyperglycemic with a blood glucose of 141. The patient was also found to have significantly elevated LFTs with an AST of 320, ALT of 273 and alk phos of 221. The patient's urine analysis was negative. The patient underwent CT of her head which revealed no acute intracranial CT abnormality. The patient also underwent a right upper quadrant abdominal ultrasound which showed a surgically absent gallbladder and a mild bile duct dilatation which was within normal limits for postcholecystectomy. There was no focal lesions found in her liver. Given the patient's increasing symptoms over the last 3 days with confusion and disorientation and finding of a sodium of 122 was felt that the patient likely had symptomatic hyponatremia and was placed in observation for treatment of hyponatremia. The hyponatremia was thought to likely be due to the patient's home medication Lamictal. Lamictal was just recently started by her neurologist. The emergency room physician spoke with the patient's neurologist at [facility]. The patient's neurologist was named Dr. Ledesma and she recommended decreasing the patient's Trileptal dose down to 300 mg twice a day tomorrow then on Tuesday taking 300 mg in the morning and 150 mg at night. Then on Tuesday 150 mg in the morning and 150 mg at night. On take a final dose of 150 mg in the morning and then stop it. She instructed the Keppra should be maintained at the current dose of 750 mg twice a day. The patient was placed in observation for monitoring of symptoms and of her sodium level. History - Past Medical History Cardiovascular: reports: Hypertension, High cholesterol, Murmur Respiratory: reports: None, Sleep apnea Neuro: reports: CVA, TIA, Seizure disorder Endocrine/Autoimmune: reports: None GI: reports: GERD, Colon polyps : reports: None HEENT: reports: Chronic hearing loss Psych: reports: Depression Musculoskeletal: reports: Osteoarthritis Derm: reports: Psoriasis MRSA Hx?: No - Past Surgical History General: reports: Colonoscopy Ortho: Other past surgical history: Right leg vein stripping, left breast biopsy, meniscus ectomy right knee, cholecystectomy, left knee arthroplasty, cataract extraction bilateral, trigger finger release, right hand, right finger. - Family & Social History Family History: Mother: (Father at 75 and mother at age 86), CVA/TIA, Diabetes, Type 2, Hypertension, Father: , CVA/TIA, Hypertension, Sister: Cancer (Colon cancer, cousin with breast cancer), Brother: CAD (Brother had four-vessel CABG), Other family: Cancer Social History Notes: The patient is originally from [place] but moved with her to [facility] in 1972. They have been living in [place] ever since. Her was a banquet chef and is now retired. The patient currently lives with her and her daughter. The patient has 6 children. She does have in-home caregivers that have been privately hired by her family. The patient does not smoke cigarettes, she does not drink alcohol and she denies any illicit drug use. - POLST Patient has POLST: No POLST Status: DNR Meds/Allgy - Home Medications Home Medications: Ambulatory Orders Medication Instructions Recorded Confirmed Lisinopril 20 mg PO DAILY 09/17/15 01/08/17 Lovastatin 40 mg PO DAILY 09/17/15 01/08/17 Aspirin 1 tab PO DAILY 07/02/17 07/02/17 Doxycycline Hyclate 100 mg PO BID #14 capsule 07/02/17 Erythromycin Base [Erythromycin 1 applic EACHEYE TID 07/02/17 07/02/17 Ophthalmic Ointment] Estradiol [Estrogel] 07/02/17 FLUoxetine [PROzac] 2 tab PO DAILY 07/02/17 07/02/17 Gabapentin 1 cap PO DAILY 07/02/17 07/02/17 Latanoprost 0.005% Ophth Drops 1 drops EACHEYE DAILY 07/02/17 07/02/17 [Xalatan Ophth Drops] Polymyxin B/Trimeth Ophth Drop 1 drops EACHEYE Q3H 7 Days #1 07/02/17 [Polytrim Ophth Drops] bottle Atorvastatin Calcium 11/24/17 Cholecalciferol (Vitamin D3) 11/24/17 [Vitamin D3] Famotidine 11/24/17 Melatonin 11/24/17 Memantine [Namenda] 11/24/17 Ubidecarenone/Vit E Acetate [Co 11/24/17 Q-10 100 mg Softgel] - Allergies Allergies/Adverse Reactions: Allergies Allergy/AdvReac Type Severity Reaction Status Date / Time NSAIDS (Non-Steroidal Allergy Anaphylaxis Verified 12/18/17 18:08 Anti-Inflamma naproxen sodium * AdvReac Edema Verified 12/18/17 18:08 [From Aleetienne] Review of Systems - Other Findings Other Findings: A comprehensive review of systems was performed the pertinent positives and negatives are stated above in the HPI and the remainder of the review of systems is negative. Prior Level of Functionality: Prior to her stroke the patient was fully independent. She is now at least partially dependent for all her activities of daily living. She is able to dress herself and bathe herself and go to the bathroom herself with some direction and assistance. She uses a walker at home. She does have in-home caregivers along with the support of her daughter. She also has a lot more family support. Her is only able to provide limited help as he is also elderly. She does get PT, OT and speech therapy. Exam - Vital Signs Reviewed Vital Signs: Yes Vital Signs: Vital Signs x48h Temp Pulse Resp BP Pulse Ox 12/18/17 19:04 68 13 149/59 H 98 12/18/17 17:58 36.2 C L 72 16 171/77 H 97 - Physical Exam General Appearance: positive: No acute distress, Alert, Other (Drowsy) Eyes Bilateral: positive: Normal inspection, PERRL, EOMI, No lid inflammation, Conjunctivae nml, No scleral icterus ENT: positive: ENT inspection nml, Pharynx nml, Dry mucous membranes. negative: Purulent nasal drainage, Pharyngeal erythema, Oral lesions Neck: positive: Nml inspection, Thyroid nml, No JVD, Trachea midline. negative: Thyromegaly, Lymphadenopathy (R), Lymphadenopathy (L), Stiff neck, Carotid bruit, Tracheal deviation Respiratory: positive: Chest non-tender, No respiratory distress, Breath sounds nml. negative: Wheezes, Rales, Rhonchi Cardiovascular: positive: Regular rate & rhythm, No gallop, Systolic murmur Peripheral Pulses: positive: 2+ Abdomen: positive: Non-tender, No organomegaly, Nml bowel sounds, No distention. negative: Guarding, Rebound, Hepatomegaly Back: positive: Nml inspection. negative: CVA tenderness (R), CVA tenderness (L) Skin: positive: Color nml, No rash, Warm, Dry. negative: Cyanosis, Diaphoresis, Pallor, Skin rash Extremities: positive: Non-tender, Full ROM, Nml appearance, No pedal edema Neurologic/Psychiatric: positive: CN's nml (2-12), Sensation nml, Mood/affect nml, Disoriented to place, Disoriented to time, Weakness (Very mild left sided weakness.) Conclusion/Plan - Problem List (1) Hyponatremia Conclusion/Plan: Patient presented with left hand numbness which resolved by the time the patient presented to the emergency department. According to the patient's daughter the patient has also had significant cognitive decline over the last 3-4 days. On review of her labs patient was found to have hyponatremia with a sodium of 122. Patient's acute change in cognition and left hand numbness was thought to be secondary to the hyponatremia. The cause of the hyponatremia appears to likely be new medication the patient was started on Trileptal. The emergency room physician spoke with the patient's neurologist Dr. Ledesma who advised decreasing the Trileptal dose down to 300 mg twice a day tomorrow, then on Tuesday taking 300 mg in the morning and 150 mg at night. On Tuesday 150 mg in the morning and 150 mg at night. On take a final dose of 150 mg in the morning and then stop it. The neurologist also advised to maintain the Keppra at its current dose. Plan: IV fluids Taper Keppra as instructed by patient's neurologist Monitor sodium PT consultation Monitor patient's mentation in observation overnight. (2) Elevated liver enzymes Conclusion/Plan: The patient was incidentally found to have elevated liver enzymes on routine lab check for her left hand numbness and confusion. The patient's AST, ALT and alk phos were significantly elevated. In the past the patient's LFTs have all been normal. The patient is total bilirubin was normal. An abdominal ultrasound was performed in the emergency department and did not show any acute changes. The patient's elevated LFTs appear to be related to a likely side effect from medica tion it is possible that the patient's Trileptal may be interacting with other medications including possibly her statin which could be causing elevated LFTs. Patient may also have recently had a viral hepatitis which is resolving as she did have acute confusion recently. Currently the patient has no abdominal pain, nausea or any other symptoms to suggest intra-abdominal abnormality. Plan: At this point we will monitor the patient's LFTs if they are not improving will consider further imaging with a CT of the patient's abdomen and pelvis. (3) Numbness of left hand Conclusion/Plan: The patient presented with left hand numbness. Patient had a right [employer] distribution stroke 1 year ago. She had left sided weakness and left hemineglect from the stroke. She has successfully done physical, occupational and speech therapy and now only has mild deficits. According to the patient's daughter she had similar left hand numbness when she had that stroke. Currently the patient's left hand numbness has resolved. It is possible given the electrolyte abnormalities that patient may have been experiencing symptoms from that previous stroke from changes in her volume status. The symptoms however appear to have resolved and she has no other focal deficits. The patient's CT head was negative. Plan: IV fluids and supportive care. (4) Altered mental status Conclusion/Plan: The patient has had a change in her cognition over the last 3-4 days. This is acutely worsened from a gradual change that she has had since September. It appears the patient is developing dementia likely a vascular dementia. She has had some behavioral disturbances due to this and has had episodes of severe depression. The patient is being followed by neurology and also is scheduled to see a psychotherapist this week. The patient's neurologist believes that the side effects may be secondary to her antiepileptic medications. It is also possible that the patient may be having symptoms secondary to her hyponatremia. Plan: IV fluids Titrate patient's Trileptal as recommended by neurologist Monitor mental status Patient will follow up with neurology and psychotherapy as an outpatient. Qualifiers: Altered mental status type: delirium Qualified Code(s): R41.0 - Disorie ntation, unspecified (5) Hypertension Conclusion/Plan: The patient has a history of hypertension and on presentation to the emergency department the patient's blood pressure was elevated at 171/77. This is likely secondary to distress from being brought to the hospital. Once the patient was more calm the patient's blood pressure did improve. The patient does take lisinopril at home for her blood pressure. The patient will be continued on her home dose of lisinopril and we will continue to monitor the patient's blood pressure and titrate medications as needed. Qualifiers: Hypertension type: essential hypertension Qualified Code(s): I10 - Essential (primary) hypertension - Lab Results Lab results reviewed: Yes Fish Bones: 12/18/17 18:58 12/18/17 18:58 Other Lab Results: Laboratory Results WBC 6.0 x10^3/uL (4.8-10.8) 12/18/17 18:58 RBC 3.80 10^6/uL (4.20-5.40) L 12/18/17 18:58 Hgb 11.5 g/dL (12.0-16.0) L 12/18/17 18:58 Hct 33.8 % (37.0-47.0) L 12/18/17 18:58 MCV 88.9 fL (81.0-99.0) 12/18/17 18:58 MCH 30.3 pg (27.0-31.0) 12/18/17 18:58 MCHC 34.0 g/dL (32.0-36.0) 12/18/17 18:58 RDW 13.8 % (12.0-15.0) 12/18/17 18:58 Plt Count 211 10^3/uL (130-450) 12/18/17 18:58 MPV 7.3 fL (7.9-10.8) L 12/18/17 18:58 Neut # (Auto) 4.0 10^3/uL (1.5-6.6) 12/18/17 18:58 Lymph # (Auto) 1.1 10^3/uL (1.5-3.5) L 12/18/17 18:58 [place] # (Auto) 0.7 10^3/uL (0.0-1.0) 12/18/17 18:58 Eos # (Auto) 0.1 10^3/uL (0.0-0.7) 12/18/17 18:58 Baso # (Auto) 0.1 10^3/uL (0.0-0.1) 12/18/17 18:58 Absolute Nucleated RBC 0.00 x10^3/uL 12/18/17 18:58 Nucleated RBC % 0.0 /100WBC 12/18/17 18:58 Sodium 122 mmol/L (135-145) L 12/18/17 18:58 Potassium 3.7 mmol/L (3.5-5.0) 12/18/17 18:58 Chloride 89 mmol/L (101-111) L 12/18/17 18:58 Carbon Dioxide 24 mmol/L (21-32) 12/18/17 18:58 Anion Gap 9.0 (6-13) 12/18/17 18:58 BUN 10 mg/dL (6-20) 12/18/17 18:58 Creatinine 0.5 mg/dL (0.4-1.0) 12/18/17 18:58 Estimated GFR (MDRD) 118 (>89) 12/18/17 18:58 Glucose 141 mg/dL (70-100) H 12/18/17 18:58 Calcium 8.4 mg/dL (8.5-10.3) L 12/18/17 18:58 Total Bilirubin 0.7 mg/dL (0.2-1.0) 12/18/17 18:58 AST 320 IU/L (10-42) H 12/18/17 18:58 ALT 273 IU/L (10-60) H 12/18/17 18:58 Alkaline Phosphatase 221 IU/L (42-121) H 12/18/17 18:58 Total Protein 7.5 g/dL (6.7-8.2) 12/18/17 18:58 Albumin 3.6 g/dL (3.2-5.5) 12/18/17 18:58 Globulin 3.9 g/dL (2.1-4.2) 12/18/17 18:58 Albumin/Globulin Ratio 0.9 (1.0-2.2) L 12/18/17 18:58 Lipase 42 U/L (22-51) 12/18/17 18:58 Urine Color YELLOW 12/18/17 20:20 Urine Clarity CLEAR (CLEAR) 12/18/17 20:20 Urine pH 7.5 PH (5.0-7.5) 12/18/17 20:20 Ur Specific [place] 1.015 (1.002-1.030) 12/18/17 20:20 Urine Protein NEGATIVE mg/dL (NEGATIVE) 12/18/17 20:20 Urine Glucose (UA) NEGATIVE mg/dL (NEGATIVE) 12/18/17 20:20 Urine Ketones NEGATIVE mg/dL (NEGATIVE) 12/18/17 20:20 Urine Occult Blood NEGATIVE (NEGATIVE) 12/18/17 20:20 Urine Nitrite NEGATIVE (NEGATIVE) 12/18/17 20:20 Urine Bilirubin NEGATIVE (NEGATIVE) 12/18/17 20:20 Urine Urobilinogen 0.2 (NORMAL) E.U./dL (NORMAL) 12/18/17 20:20 Ur Leukocyte Esterase NEGATIVE (NEGATIVE) 12/18/17 20:20 Ur Microscopic Review NOT INDICATED 12/18/17 20:20 Urine Culture Comments NOT INDICATED 12/18/17 20:20 - Diagnostic Imaging Results Diagnostic Imaging Results: positive: Final report reviewed Diagnostic Imaging Results Comments: Abdominal ultrasound Impression: 1. The gallbladder surgically absent. 2. Mild bile duct dilatation, which can be normal postcholecystectomy. Submitted images demonstrate no evidence of choledocholithiasis. 3. Submitted images of the liver demonstrate no focal lesions. CT head Impression: 1. No acute intracranial CT abnormality. There is no evidence of hemorrhage or mass-effect. 2. There is a right [employer] distribution encephalomalacia. Core Measures - Anticipated LOS I expect patient to be DC'd or transferred within 96 hours.: Yes - DVT/VTE - Prophylaxis VTE/DVT Prophylaxis med ordered at admit?: Yes
[2017-12-19] MEDS: SODIUM CHLORIDE 0.9% 1,000 ML IV SCH ×3 (00:44→22:46)
[2017-12-19] MEDS: POLYMYXIN B/TRIMETH OPHTH DROPS EACHEYE SCH ×8 (00:44→23:24)
[2017-12-19] MEDS ORDERED: levETIRAcetam 500 MG/5 ML UDC PO ONE (01:12)
[2017-12-19] MEDS: levETIRAcetam 100 MG/ML 473ML BOTTLE PO SCH ×4 (01:12→20:37)
[2017-12-19] MEDS: SODIUM CHLORIDE FLUSH 0.9% 10 ML SYRINGE IVP SCH ×3 (01:18→16:08)
[2017-12-19 01:28] LABS: CREATININE,URINE 23.6 mg/dL
[2017-12-19 05:34] LABS: BASOPHILS # (AUTO) 0.1 10^3/uL (0.0-0.1); EOSINOPHILS # (AUTO) 0.2 10^3/uL (0.0-0.7); EOSINOPHILS % (AUTO) 3.8 %; HGB - HEMOGLOBIN 10.7 g/dL (12.0-16.0); LYMPHOCYTES # (AUTO) 0.8 10^3/uL (1.5-3.5); LYMPHOCYTES % (AUTO) 15.2 %; MEAN CORPUSCULAR HEMOGLOBIN 29.4 pg (27.0-31.0); MEAN CORPUSCULAR HGB CONC 32.6 g/dL (32.0-36.0); MEAN PLATELET VOLUME 7.8 fL (7.9-10.8); MONOCYTES # (AUTO) 0.6 10^3/uL (0.0-1.0); MONOCYTES % (AUTO) 11.3 %; NEUTROPHILS # (AUTO) 3.6 10^3/uL (1.5-6.6); NEUTROPHILS % (AUTO) 68.7 %; PLT - PLATELET COUNT 204 10^3/uL (130-450); RED BLOOD COUNT 3.64 10^6/uL (4.20-5.40); RED CELL DISTRIBUTION WIDTH 13.7 % (12.0-15.0); WHITE BLOOD COUNT 5.3 x10^3/uL (4.8-10.8)
[2017-12-19 05:42] LABS: INR 1.1 (0.8-1.2); PT - PROTHROMBIN TIME 12.2 secs (9.9-12.6)
[2017-12-19 05:47] LABS: ALBUMIN 3.2 g/dL (3.2-5.5); ALBUMIN/GLOBULIN RATIO 0.9 (1.0-2.2); BILIRUBIN,TOTAL 0.7 mg/dL (0.2-1.0); CREATININE 0.6 mg/dL (0.4-1.0); MAGNESIUM 1.9 mg/dL (1.7-2.8); TOTAL PROTEIN 6.6 g/dL (6.7-8.2)
[2017-12-19] MEDS: MEMANTINE 5 MG TABLET PO SCH (08:12)
[2017-12-19] MEDS: LISINOPRIL 20 MG TABLET PO SCH (08:12)
[2017-12-19] MEDS: FAMOTIDINE 20 MG TABLET PO SCH ×2 (08:13→20:37)
[2017-12-19] MEDS: GABAPENTIN 300 MG CAPSULE PO SCH (08:13)
[2017-12-19] MEDS: FLUoxetine 10 MG CAPSULE PO SCH (08:13)
[2017-12-19] MEDS: ASPIRIN CHEW 81 MG TABLET PO SCH (08:13)
[2017-12-19] MEDS: OXcarbazepine 150 MG TABLET PO SCH ×2 (08:13→20:37)
[2017-12-19] MEDS: ENOXAPARIN 40 MG/0.4 ML SYRINGE SUBQ SCH (08:14)
[2017-12-19] MEDS: POLYETHYLENE GLYCOL 3350 17 GM PACKET PO SCH (08:14)
[2017-12-19] MEDS: LATANOPROST 0.005% OPHTH DROPS EACHEYE SCH (08:19)
[2017-12-19] MEDS ORDERED: LISINOPRIL 20 MG TABLET PO ONE (12:00)
--- NOTE | 2017-12-19 18:04 | PROVIDER PROGRESS NOTE ---
Subjective - Prog Note Date Prog Note Date: 12/19/17 Prog Note Time: 18:01 - Subjective Subjective: no new events during the day. we are hydrating and have recieved the instruction to taper meds. Current Medications - Current Medications Current Medications: Active Medications Acetaminophen (Tylenol) 650 mg PO Q4HR PRN PRN Reason: Pain 1 to 4 Aspirin ([place] Aspirin) 81 mg PO DAILY [facility] Last Admin: 12/19/17 08:13 Dose: 81 mg Atorvastatin Calcium (Lipitor) 40 mg PO QPM [facility] Enoxaparin Sodium (Lovenox) 40 mg SUBQ DAILY [facility] Last Admin: 12/19/17 08:14 Dose: 40 mg Famotidine (Pepcid) 20 mg PO BID [facility] Last Admin: 12/19/17 08:13 Dose: 20 mg Fluoxetine HCl (Prozac) 20 mg PO DAILY [facility] Last Admin: 12/19/17 08:13 Dose: 20 mg Gabapentin (Neurontin) 300 mg PO DAILY [facility] Last Admin: 12/19/17 08:13 Dose: 300 mg Sodium Chloride (Normal Saline 0.9%) 1,000 mls @ 100 mls/hr IV .Q10H [facility] Last Admin: 12/19/17 10:18 Dose: 100 mls/hr Latanoprost (Xalatan Ophth Drops) 1 drops EACHEYE DAILY [facility] Last Admin: 12/19/17 08:19 Dose: Not Given Levetiracetam (Keppra) 750 mg PO BID [facility] Last Admin: 12/19/17 08:13 Dose: 750 mg Lisinopril (Zestril) 20 mg PO DAILY [facility] Last Admin: 12/19/17 08:12 Dose: 20 mg Memantine (Namenda) 5 mg PO DAILY [facility] Last Admin: 12/19/17 08:12 Dose: 5 mg Ondansetron HCl (Zofran Inj) 4 mg IVP Q6HR PRN PRN Reason: Nausea / Vomiting Oxcarbazepine (Trileptal) 300 mg PO BID [facility] Stop: 12/19/17 23:59 Last Admin: 12/19/17 08:13 Dose: 300 mg Oxcarbazepine (Trileptal) 300 mg PO DAILY [facility] Stop: 12/20/17 23:59 Oxcarbazepine (Trileptal) 150 mg PO QPM [facility] Stop: 12/20/17 23:59 Oxcarbazepine (Trileptal) 150 mg PO BID [facility] Stop: 12/21/17 23:59 Oxcarbazepine (Trileptal) 150 mg PO DAILY [facility] Stop: 12/22/17 23:59 Oxycodone HCl (Roxicodone) 5 mg PO Q4HR PRN PRN Reason: Pain 5 to 7 Polyethylene Glycol (Miralax) 17 gm PO DAILY [facility] Last Admin: 12/19/17 08:14 Dose: Not Given Polymyxin/Trimethoprim Sulfate (Polytrim Ophth Drops) 1 drops EACHEYE Q3H [facility] Last Admin: 12/19/17 16:08 Dose: 1 drops Prochlorperazine Edisylate (Compazine Inj) 10 mg IVP Q6HR PRN PRN Reason: Nausea / Vomiting Sodium Chloride (Normal Saline Flush 0.9%) 10 ml IVP PRN PRN PRN Reason: NEEDED PER PROVIDER ORDERS Sodium Chloride (Normal Saline Flush 0.9%) 10 ml IVP 0100,0900,1700 [facility] Last Admin: 12/19/17 16:08 Dose: Not Given Lisinopril 20 mg PO DAILY 09/17/15 Aspirin 81 mg PO DAILY 07/02/17 FLUoxetine [PROzac] 20 mg PO DAILY 07/02/17 Latanoprost 0.005% Ophth Drops [Xalatan Ophth Drops] 1 drops EACHEYE QPM 07/02/17 Atorvastatin Calcium 40 mg PO QPM 11/24/17 Cholecalciferol (Vitamin D3) [Vitamin D3] 1,000 unit PO DAILY 11/24/17 Famotidine 20 mg PO DAILY 11/24/17 Gabapentin 200 mg PO QPM 12/19/17 Levetiracetam [Keppra] 750 mg PO BID 12/19/17 Memantine HCl 5 mg PO BID 12/19/17 OXcarbazepine [Oxcarbazepine] 600 mg PO BID 12/19/17 Objective - Vital Signs/Intake & Output Reviewed Vital Signs: Yes Vital Signs: Vital Signs x48h Temp Pulse Pulse Pulse Resp BP BP 12/19/17 15:33 36.9 C 63 18 114/55 L 12/19/17 12:47 36.6 C 66 18 12/19/17 10:15 65 126/60 Pulse Ox 12/19/17 15:33 96 12/19/17 12:47 95 12/19/17 10:15 Intake & Output: Intake & Output 12/17/17 12/18/17 12/18/17 12/19/17 00:59 00:59 23:59 23:59 Intake Total 1850.0 Output Total 1450 Balance 400.0 - Objective General Appearance: positive: No acute distress, Alert Eyes Bilateral: positive: PERRL ENT: positive: Pharynx nml Neck: positive: No JVD. negative: Stiff neck, Carotid bruit Respiratory: positive: Chest non-tender. negative: Wheezes, Rales, Rhonchi Cardiovascular: positive: Regular rate & rhythm. negative: Gallop/S4, Friction rub Abdomen: positive: No organomegaly, Nml bowel sounds. negative: Guarding, Rebound Skin: positive: Warm, Dry Extremities: positive: Pedal edema (trace) Neurologic/Psychiatric: positive: Oriented x3, CN's nml (2-12), Motor nml - Lab Results Fish Bones: 12/19/17 05:29 12/19/17 05:29 Other Labs: Lab Results x24hrs 12/19/17 12/19/17 12/19/17 Range/Units 05:29 05:29 05:29 WBC (4.8-10.8) x10^3/uL RBC (4.20-5.40) 10^6/uL Hgb (12.0-16.0) g/dL Hct (37.0-47.0) % MCV (81.0-99.0) fL MCH (27.0-31.0) pg MCHC (32.0-36.0) g/dL RDW (12.0-15.0) % Plt Count (130-450) 10^3/uL MPV (7.9-10.8) fL Neut # (Auto) (1.5-6.6) 10^3/uL Lymph # (Auto) (1.5-3.5) 10^3/uL [place] # (Auto) (0.0-1.0) 10^3/uL Eos # (Auto) (0.0-0.7) 10^3/uL Baso # (Auto) (0.0-0.1) 10^3/uL Absolute Nucleated RBC x10^3/uL Nucleated RBC % /100WBC PT 12.2 (9.9-12.6) secs INR 1.1 (0.8-1.2) Sodium 123 L (135-145) mmol/L Potassium 3.8 (3.5-5.0) mmol/L Chloride 92 L (101-111) mmol/L Carbon Dioxide 24 (21-32) mmol/L Anion Gap 7.0 (6-13) BUN 6 (6-20) mg/dL Creatinine 0.6 (0.4-1.0) mg/dL Estimated GFR (MDRD) 95 (>89) Glucose 105 H (70-100) mg/dL Lactic Acid 1.0 (0.5-2.2) mmol/L Calcium 8.0 L (8.5-10.3) mg/dL Phosphorus 3.0 (2.5-4.6) mg/dL Magnesium 1.9 (1.7-2.8) mg/dL Total Bilirubin 0.7 (0.2-1.0) mg/dL AST 264 H (10-42) IU/L ALT 237 H (10-60) IU/L Alkaline Phosphatase 182 H (42-121) IU/L Total Protein 6.6 L (6.7-8.2) g/dL Albumin 3.2 (3.2-5.5) g/dL Globulin 3.4 (2.1-4.2) g/dL Albumin/Globulin Ratio 0.9 L (1.0-2.2) Lipase (22-51) U/L Urine Color Urine Clarity (CLEAR) Urine pH (5.0-7.5) PH Ur Specific [place] (1.002-1.030) Urine Protein (NEGATIVE) mg/dL Urine Glucose (UA) (NEGATIVE) mg/dL Urine Ketones (NEGATIVE) mg/dL Urine Occult Blood (NEGATIVE) Urine Nitrite (NEGATIVE) Urine Bilirubin (NEGATIVE) Urine Urobilinogen (NORMAL) E.U./dL Ur Leukocyte Esterase (NEGATIVE) Ur Microscopic Review Urine Culture Comments U Random Total Protein mg/dL Ur Random Chloride mmol/L Urine Creatinine mg/dL Urine Sodium mmol/L Urine Potassium mmol/L 12/19/17 12/19/17 12/18/17 Range/Units 05:29 00:45 20:20 WBC 5.3 (4.8-10.8) x10^3/uL RBC 3.64 L (4.20-5.40) 10^6/uL Hgb 10.7 L (12.0-16.0) g/dL Hct 32.8 L (37.0-47.0) % MCV 90.0 (81.0-99.0) fL MCH 29.4 (27.0-31.0) pg MCHC 32.6 (32.0-36.0) g/dL RDW 13.7 (12.0-15.0) % Plt Count 204 (130-450) 10^3/uL MPV 7.8 L (7.9-10.8) fL Neut # (Auto) 3.6 (1.5-6.6) 10^3/uL Lymph # (Auto) 0.8 L (1.5-3.5) 10^3/uL [place] # (Auto) 0.6 (0.0-1.0) 10^3/uL Eos # (Auto) 0.2 (0.0-0.7) 10^3/uL Baso # (Auto) 0.1 (0.0-0.1) 10^3/uL Absolute Nucleated RBC 0.00 x10^3/uL Nucleated RBC % 0.0 /100WBC PT (9.9-12.6) secs INR (0.8-1.2) Sodium (135-145) mmol/L Potassium (3.5-5.0) mmol/L Chloride (101-111) mmol/L Carbon Dioxide (21-32) mmol/L Anion Gap (6-13) BUN (6-20) mg/dL Creatinine (0.4-1.0) mg/dL Estimated GFR (MDRD) (>89) Glucose (70-100) mg/dL Lactic Acid (0.5-2.2) mmol/L Calcium (8.5-10.3) mg/dL Phosphorus (2.5-4.6) mg/dL Magnesium (1.7-2.8) mg/dL Total Bilirubin (0.2-1.0) mg/dL AST (10-42) IU/L ALT (10-60) IU/L Alkaline Phosphatase (42-121) IU/L Total Protein (6.7-8.2) g/dL Albumin (3.2-5.5) g/dL Globulin (2.1-4.2) g/dL Albumin/Globulin Ratio (1.0-2.2) Lipase (22-51) U/L Urine Color YELLOW Urine Clarity CLEAR (CLEAR) Urine pH 7.5 (5.0-7.5) PH Ur Specific [place] 1.015 (1.002-1.030) Urine Protein NEGATIVE (NEGATIVE) mg/dL Urine Glucose (UA) NEGATIVE (NEGATIVE) mg/dL Urine Ketones NEGATIVE (NEGATIVE) mg/dL Urine Occult Blood NEGATIVE (NEGATIVE) Urine Nitrite NEGATIVE (NEGATIVE) Urine Bilirubin NEGATIVE (NEGATIVE) Urine Urobilinogen 0.2 (NORMAL) (NORMAL) E.U./dL Ur Leukocyte Esterase NEGATIVE (NEGATIVE) Ur Microscopic Review NOT INDICATED Urine Culture Comments NOT INDICATED U Random Total Protein 11 mg/dL Ur Random Chloride 104 mmol/L Urine Creatinine 23.6 mg/dL Urine Sodium 113.0 mmol/L Urine Potassium 15.0 mmol/L 12/18/17 12/18/17 Range/Units 18:58 18:58 WBC 6.0 (4.8-10.8) x10^3/uL RBC 3.80 L (4.20-5.40) 10^6/uL Hgb 11.5 L (12.0-16.0) g/dL Hct 33.8 L (37.0-47.0) % MCV 88.9 (81.0-99.0) fL MCH 30.3 (27.0-31.0) pg MCHC 34.0 (32.0-36.0) g/dL RDW 13.8 (12.0-15.0) % Plt Count 211 (130-450) 10^3/uL MPV 7.3 L (7.9-10.8) fL Neut # (Auto) 4.0 (1.5-6.6) 10^3/uL Lymph # (Auto) 1.1 L (1.5-3.5) 10^3/uL [place] # (Auto) 0.7 (0.0-1.0) 10^3/uL Eos # (Auto) 0.1 (0.0-0.7) 10^3/uL Baso # (Auto) 0.1 (0.0-0.1) 10^3/uL Absolute Nucleated RBC 0.00 x10^3/uL Nucleated RBC % 0.0 /100WBC PT (9.9-12.6) secs INR (0.8-1.2) Sodium 122 L (135-145) mmol/L Potassium 3.7 (3.5-5.0) mmol/L Chloride 89 L (101-111) mmol/L Carbon Dioxide 24 (21-32) mmol/L Anion Gap 9.0 (6-13) BUN 10 (6-20) mg/dL Creatinine 0.5 (0.4-1.0) mg/dL Estimated GFR (MDRD) 118 (>89) Glucose 141 H (70-100) mg/dL Lactic Acid (0.5-2.2) mmol/L Calcium 8.4 L (8.5-10.3) mg/dL Phosphorus (2.5-4.6) mg/dL Magnesium (1.7-2.8) mg/dL Total Bilirubin 0.7 (0.2-1.0) mg/dL AST 320 H (10-42) IU/L ALT 273 H (10-60) IU/L Alkaline Phosphatase 221 H (42-121) IU/L Total Protein 7.5 (6.7-8.2) g/dL Albumin 3.6 (3.2-5.5) g/dL Globulin 3.9 (2.1-4.2) g/dL Albumin/Globulin Ratio 0.9 L (1.0-2.2) Lipase 42 (22-51) U/L Urine Color Urine Clarity (CLEAR) Urine pH (5.0-7.5) PH Ur Specific [place] (1.002-1.030) Urine Protein (NEGATIVE) mg/dL Urine Glucose (UA) (NEGATIVE) mg/dL Urine Ketones (NEGATIVE) mg/dL Urine Occult Blood (NEGATIVE) Urine Nitrite (NEGATIVE) Urine Bilirubin (NEGATIVE) Urine Urobilinogen (NORMAL) E.U./dL Ur Leukocyte Esterase (NEGATIVE) Ur Microscopic Review Urine Culture Comments U Random Total Protein mg/dL Ur Random Chloride mmol/L Urine Creatinine mg/dL Urine Sodium mmol/L Urine Potassium mmol/L ABX Reporting Has patient been on IV antibiotics over the past 48 hours?: No Assessment/Plan - Problem List (1) Hyponatremia Impression: Patient presented with left hand numbness which resolved by the time the patient presented to the emergency department. According to the patient's daughter the patient has also had significant cognitive decline over the last 3-4 days. On review of her labs patient was found to have hyponatremia with a sodium of 122. Patient's acute change in cognition and left hand numbness was thought to be secondary to the hyponatremia. The cause of the hyponatremia appears to likely be new medication the patient was started on Trileptal. The emergency room physician spoke with the patient's neurologist Dr. Ledesma who advised d ecreasing the Trileptal dose down to 300 mg twice a day tomorrow, then on Tuesday taking 300 mg in the morning and 150 mg at night. On Tuesday 150 mg in the morning and 150 mg at night. On take a final dose of 150 mg in the morning and then stop it. The neurologist also advised to maintain the Keppra at its current dose. Plan: IV fluids Tapering Keppra as instructed by patient's neurologist Monitor sodium and is only up by 1 today PT consultation done: Continue w/PT progressing gait for distance, independence and up/dn stairs; expect d/c home w/increased caregiving and HHPT. Monitored patient's mentation in observation overnight and she has improved. (2) Elevated liver enzymes Conclusion/Plan: The patient was incidentally found to have elevated liver enzymes on routine lab check for her left hand numbness and confusion. The patient's AST, ALT and alk phos were significantly elevated. In the past the patient's LFTs have all been normal. The patient is total bilirubin was normal. An abdominal ultrasound was performed in the emergency department and did not show any acute changes. The patient's elevated LFTs appear to be related to a likely side effect from medication it is possible that the patient's Trileptal may be interacting with other medications including possibly her statin which could be causing elevated LFTs. Patient may also have recently had a viral hepatitis which is resolving a s she did have acute confusion recently. Currently the patient has no abdominal pain, nausea or any other symptoms to suggest intra-abdominal abnormality. Plan: At this point we will monitor the patient's LFTs and they did not improve much, CT of the patient's abdomen ordered. check hepatitis panel. (3) Numbness of left hand Conclusion/Plan: The patient presented with left hand numbness. 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 She had left sided weakness and left hemineglect from the stroke. She has successfully done physical, occupational and speech therapy and now only has mild deficits. According to the patient's daughter she had similar left hand numbness when she had that stroke. Currently the patient's left hand numbness has resolved. It is possible given the electrolyte abnormalities that patient may have been experiencing symptoms from that previous stroke from changes in her volume status. The symptoms however appear to have resolved and she has no other focal deficits. The patient's CT head was negative. Plan: IV fluids and supportive care. (4) Altered mental status Conclusion/Plan: The patient has had a change in her cognition over the last 3-4 days. This is acutely worsened from a gradual change that she has had since September. It appears the patient is developing dementia likely a vascular dementia. She has had some behavioral disturbances due to this and has had episodes of severe depression. The patient is being followed by neurology and also is scheduled to see a psychotherapist this week. The patient's neurologist believes that the side effects may be secondary to her antiepileptic medications. It is also possible that the patient may be having symptoms secondary to her hyponatremia. Plan: IV fluids Titrate patient's Trileptal as recommended by neurologist Monitor mental status Patient will follow up with neurology and psychotherapy as an outpatient. Qualifiers: Altered mental status type: delirium Qualified Code(s): R41.0 - Disorientation, unspecified (5) Hypertension Conclusion/Plan: The patient has a history of hypertension and on presentation to the emergency department the patient's blood pressure was elevated at 171/77. This is likely secondary to distress from being brought to the hospital. Once the patient was more calm the patient's blood pressure did improve. The patient does take lisinopril at home for her blood pressure. The patient will be continued on her home dose of lisinopril and we will continue to monitor the patient's blood pressure and titrate medications as needed. Qualifiers: Hypertension type: essential hypertension Qualified Code(s): I10 - Essential (primary) hypertension
[2017-12-19] MEDS ORDERED: ATORVASTATIN 40 MG TABLET PO SCH (21:00)
[2017-12-20] MEDS: POLYMYXIN B/TRIMETH OPHTH DROPS EACHEYE SCH ×4 (00:16→10:22)
[2017-12-20] MEDS: SODIUM CHLORIDE FLUSH 0.9% 10 ML SYRINGE IVP SCH ×2 (01:00→08:25)
[2017-12-20 05:58] LABS: BASOPHILS # (AUTO) 0.1 10^3/uL (0.0-0.1); BASOPHILS % (AUTO) 1.2 %; EOSINOPHILS # (AUTO) 0.2 10^3/uL (0.0-0.7); EOSINOPHILS % (AUTO) 4.5 %; HGB - HEMOGLOBIN 11.7 g/dL (12.0-16.0); LYMPHOCYTES # (AUTO) 0.8 10^3/uL (1.5-3.5); LYMPHOCYTES % (AUTO) 15.6 %; MEAN CORPUSCULAR HEMOGLOBIN 29.5 pg (27.0-31.0); MEAN CORPUSCULAR HGB CONC 32.8 g/dL (32.0-36.0); MEAN CORPUSCULAR VOLUME 89.8 fL (81.0-99.0); MEAN PLATELET VOLUME 7.7 fL (7.9-10.8); MONOCYTES # (AUTO) 0.6 10^3/uL (0.0-1.0); MONOCYTES % (AUTO) 10.6 %; NEUTROPHILS # (AUTO) 3.5 10^3/uL (1.5-6.6); NEUTROPHILS % (AUTO) 68.1 %; PLT - PLATELET COUNT 238 10^3/uL (130-450); RED BLOOD COUNT 3.98 10^6/uL (4.20-5.40); RED CELL DISTRIBUTION WIDTH 14.1 % (12.0-15.0); WHITE BLOOD COUNT 5.2 x10^3/uL (4.8-10.8)
[2017-12-20 06:10] LABS: ALBUMIN 3.6 g/dL (3.2-5.5); BILIRUBIN,TOTAL 0.8 mg/dL (0.2-1.0); CALCIUM 8.3 mg/dL (8.5-10.3); PHOSPHORUS 3.2 mg/dL (2.5-4.6); TOTAL PROTEIN 7.2 g/dL (6.7-8.2)
[2017-12-20 06:17] LABS: CREATININE 0.6 mg/dL (0.4-1.0)
--- NOTE | 2017-12-20 06:32 | CT Report ---
Reason: ABNORMAL LFTS Procedure Date: 12/20/2017 Accession Number: [id number] / [id number] Procedure: CT - Abdomen/Pelvis W/O CPT Code: FULL RESULT: EXAM: CT ABDOMEN AND PELVIS EXAM DATE: 12/20/2017 06:20 AM. CLINICAL HISTORY: ABNORMAL LFTS. COMPARISONS: None. TECHNIQUE: Routine helical CT imaging was performed through the abdomen and pelvis. IV contrast: None. Enteric contrast: No. Reconstructions: Coronal and sagittal. In accordance with CT protocol optimization, one or more of the following dose reduction techniques were utilized for this exam: automated exposure control, adjustment of mA and/or KV based on patient size, or use of iterative reconstructive technique. FINDINGS: Lung Bases: Minimal basilar atelectasis. Liver: Normal. No masses. Gallbladder/Bile Ducts: Postoperative changes of cholecystectomy. Spleen: Normal. Pancreas: Normal. Adrenal Glands: Normal. Kidneys: Normal. No masses or hydronephrosis. Peritoneal Cavity/Bowel: Normal. No free fluid, free air or adenopathy. No masses or acute inflammatory process. The appendix is well visualized and normal. Pelvic Organs: Normal. The bladder and visualized pelvic organs are within normal limits. The pessary is incidentally noted in the vagina. Vasculature: No aneurysms or other significant abnormality. Bones: Exostosis arising from the right iliac crest. Degenerative changes. Other: None. IMPRESSION: Postoperative changes of cholecystectomy. No evident etiology for patient's elevated LFTs. RAD[facility]
[2017-12-20 07:38] VITALS: BP 144/58
[2017-12-20] MEDS: LISINOPRIL 20 MG TABLET PO SCH (08:24)
[2017-12-20] MEDS: POLYETHYLENE GLYCOL 3350 17 GM PACKET PO SCH (08:25)
[2017-12-20] MEDS: GABAPENTIN 300 MG CAPSULE PO SCH (08:25)
[2017-12-20] MEDS: ENOXAPARIN 40 MG/0.4 ML SYRINGE SUBQ SCH (08:25)
[2017-12-20] MEDS: ASPIRIN CHEW 81 MG TABLET PO SCH (08:25)
[2017-12-20] MEDS: MEMANTINE 5 MG TABLET PO SCH (08:25)
[2017-12-20] MEDS: levETIRAcetam 100 MG/ML 473ML BOTTLE PO SCH (08:25)
[2017-12-20] MEDS: FAMOTIDINE 20 MG TABLET PO SCH (08:25)
[2017-12-20] MEDS: LATANOPROST 0.005% OPHTH DROPS EACHEYE SCH (08:26)
[2017-12-20] MEDS: FLUoxetine 10 MG CAPSULE PO SCH (08:27)
[2017-12-20] MEDS ORDERED: OXcarbazepine 150 MG TABLET PO SCH ×2 (09:00→21:00)
--- NOTE | 2017-12-20 09:23 | Discharge Plan ---
Discharge Plan Disposition: 01 Home, Self Care Condition: Stable Diet: Cardiac Activity Restrictions: Activity as Tolerated Shower Restrictions: No Driving Restrictions: Yes Additional Instructions or Follow Up instructions: Dr Hardy discussed the case by phone with her neurologist, Dr. Mcfadden who recommended decreasing the Trileptal down: on Tuesday taking 300 mg in the morning and 150 mg at night. On Tuesday 150 mg in the morning and 150 mg at night. On take a final dose of 150 mg in the morning and then stop it. The Keppra should be maintained at the current dose. Finally she should have repeat labs done with Dr. Mirza mid-week to recheck her liver function. Return for any new or worsening symptoms. No Smoking: If you smoke, Please STOP! Call for help. Follow-up with: Jeannie Mirza DO [Primary Care Provider] -
[2017-12-20] MEDS ORDERED: LISINOPRIL 20 MG TABLET PO ONE (12:00)
[2017-12-20 14:16] LABS: HEPATITIS A IGM NON-REACTIVE (NON-REACTIVE); HEPATITIS B CORE ANTIBODY IGM NON-REACTIVE (NON-REACTIVE); HEPATITIS B SURFACE ANTIGEN NON-REACTIVE (NON-REACTIVE); HEPATITIS C ANTIBODY NON-REACTIVE (NON-REACTIVE)
[2017-12-21] MEDS ORDERED: OXcarbazepine 150 MG TABLET PO SCH (09:00)
[2017-12-22] MEDS ORDERED: OXcarbazepine 150 MG TABLET PO SCH (09:00)
--- NOTE | 2017-12-22 21:05 | DISCHARGE SUMMARY ---
Physician: Celena Perez MD DATE OF ADMISSION: 12/18/2017 DATE OF DISCHARGE: 12/20/2017 HISTORY OF PRESENT ILLNESS: This is an 82-year-old white female with a history of hypertension, hyperlipidemia, sleep apnea on CPAP, glaucoma, prior stroke with mild residual left-sided weakness, seizure disorder, on antiepileptics and a history of progressive dementia. The patient recently had changes in her medications for both dementia and seizures. The daughter noticed that since those changes were made, the patient was declining in cognition and alertness. Then the patient was found to be very obtunded by the daughter, and she was brought in by an ambulance. She was able to awaken briefly and answer questions, described left hand numbness and had no other complaints. The patient was placed in Observation status for management of the altered mental status and treatment of electrolyte abnormalities. HOSPITAL COURSE AND DISCHARGE DIAGNOSES: 1. Altered mental status. This was felt to be multifactorial: from severe hyponatremia and recent escalation of her antiseizure medications. The emergency room doctor reached out to her covering Neurologist who advised that the Trileptal dose be decreased down from 300 mg b.i.d. to 300 mg in the a.m., 150 in the p.m., the following day 150 b.i.d., and the following day 150 in the morning, and then to stop it. The Neurologist advised us to maintain the Keppra at the same level. The daughter also reported that there had been a discontinuation of her Namenda at the last neurology visit; however, on admission, the Namenda dose was listed as a current med, and therefore the patient did receive her Namenda dose as well here. If indeed the Namenda has been discontinued by her Neurologist, those orders should be followed, but this should be clarified with her provider. With correction of the hyponatremia, the patient also had improved mental status back to her baseline mentation, according to the daughter. 2. Hyponatremia. The patient's admitting sodium was 122. This was also felt to be a side effect of the Trileptal dose increase. This was confirmed at the discussion with the Neurologist and the above titration of the Trileptal was done while here. She was also put on IV normal saline, and had improvement of her electrolytes daily. The sodium of 122 bright to 123 and was 130 on the day of discharge. The mentation improved, as described above, by day 2. 3. Elevated liver function tests. The patient had no abdominal pain, fever or elevation of white blood count. She underwent an abdominal CT, which showed no significant pathology. The admission LFTs showed an AST of 320, ALT 273, alkaline phosphatase 221 with a normal bilirubin. These LFTs decreased somewhat and plateaued, AST 264, then down to 256, ALT 237, then 243 and alkaline phosphatase 182, then 210, at the time of discharge. The patient was advised, in discussion with the daughter, to see her PCP within the next 3-4 days to have repeat liver function tests done and further close followup of this lab abnormality. 4. Seizures. The patient's Keppra was continued while here and the Trileptal dose was decreased, as described above. 5. Left hand numbness. The patient had this complaint at admission; however, it was determined that she had chronic left sided weakness since the old stroke. 6. Dementia. The daughter's description was that her mother's cognition had returned back to her baseline on the day of discharge. Further Neurology followup is advised for this. ALLERGIES: NSAIDS, SUCH NAPROSYN. MEDICATIONS AT THE TIME OF DISCHARGE: 1. Baby aspirin daily. 2. Lipitor 40 mg every night. 3. Vitamin D3 1000 units daily. 4. Famotidine 20 mg daily. 5. Prozac 20 mg daily. 6. Gabapentin 200 mg every night. 7. Latanoprost eyedrops daily. 8. Keppra 750 b.i.d. 9. Lisinopril 20 mg daily. 10. Trileptal 3 more doses in the titrating schedule as described above. 11. There is a question of whether she is on Namenda 5 mg daily, this needs to be \confirmed by the PCP and/or Neurologist. LABORATORY AND IMAGING: Reviewed and summarized above. CONDITION AT DISCHARGE: Stable. PHYSICAL EXAMINATION: VITAL SIGNS: Blood pressure 140/58, heart rate 65, sinus rhythm, afebrile, room air saturation 97%. HEENT: Unremarkable. NECK: Without JVD or carotid bruits. CHEST: Clear. HEART: Normal heart sounds. ABDOMEN: Soft, nontender. No organomegaly. EXTREMITIES: No edema. NEUROLOGIC: Mild left-arm weakness, mild intermittent confusion. FOLLOWUP: Follow-up with Neurology as previously planned, and with PCP in 3-4 days. CODE STATUS: DNR. Time required to complete this entire discharge, chart review, medication prescriptions, discussion with the daughter and dictation: 60 minutes. TD: 12/22/2017 19:18 LAURA
== END 2017-12-20 12:01 | disposition home or self-care (01) ==
LOC: EDUNIT# → ED 17:57 → MS2 22:00
PROVIDERS: ADMIT Internal Medicine; ATTEND Internal Medicine
DX: R41.82 Altered mental status, unspecified (principal); E87.1 Hypo-osmolality and hyponatremia; R20.0 Anesthesia of skin; T42.1X5A Adverse effect of iminostilbenes, initial encounter; R74.8 Abnormal levels of other serum enzymes; G40.909 Epilepsy, unspecified, not intractable, without status epilepticus; I69.354 Hemiplegia and hemiparesis following cerebral infarction affecting left non-dominant side; I10 Essential (primary) hypertension; F03.91 Unspecified dementia, unspecified severity, with behavioral disturbance; F32.9 Major depressive disorder, single episode, unspecified; G47.30 Sleep apnea, unspecified; K21.9 Gastro-esophageal reflux disease without esophagitis; E78.00 Pure hypercholesterolemia, unspecified; Z79.82 Long term (current) use of aspirin; Z79.899 Other long term (current) drug therapy; Z66 Do not resuscitate
CPT/HCPCS: 36415; 70450; 74176; 76705; 80053; 80074; 81003; 82570; 83605; 83690; 83735; 83935; 84100; 84133; 84156; 84300; 85025; 85610; 96361; 96372; 96374; 97116; 97161; 97530; 99285; A9270; G0378; G8978; G8979; G8980; J1650; 81001; 87086

== ENCOUNTER 2018-04-05 15:51 | Outpatient (CLI) | payer OTHER | END 2018-04-05 15:52 | disposition critical access hospital (66) | LOC: EMS 15:51 | PROVIDERS: ATTEND Surgery | DX: R41.82 Altered mental status, unspecified (principal) | CPT/HCPCS: A0425; A0427 ==

== ENCOUNTER 2018-04-05 16:10 | Emergency (ER) | payer OTHER ==
[2018-04-05] MEDS ORDERED: IOVERSOL 320 100 ML VIAL IVP ONE ×3 (16:11→20:19)
--- NOTE | 2018-04-05 16:29 | ED Physician Documentation ---
PD HPI FOCAL NEURO - Stated complaint Stated Complaint: POSS CVA - Chief complaint Chief Complaint: Neuro - History obtained from History obtained from: EMS - History of Present Illness Timing - onset: Today (This is an 82-year-old woman with history of CVA treated with TPA and hospitalized at [facility]. She also has post CVA seizure disorder remained. It sounded like she developed unilateral weakness today and became progressively obtunded and then started having seizure activity. She was intubated prior to arrival by EMS. On arrival the patient is intubated and the family is not immediately available but I am led to understand they are on their way. Review of the chart shows this is very similar to an episode she had 2 months ago where she was intubated due to seizure activity and eventually flown to [facility] for further evaluation and treatment.) Review of Systems Ten Systems: 10 systems reviewed and negative Constitutional: reports: Reviewed and negative Throat: reports: Reviewed and negative Cardiac: reports: Reviewed and negative Respiratory: reports: Reviewed and negative PD PAST MEDICAL HISTORY - Past Medical History Cardiovascular: Hypertension, High cholesterol, Murmur Respiratory: None, Sleep apnea Neuro: CVA, TIA, Seizure disorder Endocrine/Autoimmune: None GI: GERD, Colon polyps : None HEENT: Chronic hearing loss Psych: Depression Musculoskeletal: Osteoarthritis Derm: Psoriasis - Past Surgical History Past Surgical History: Yes General: Colonoscopy Ortho:  - Present Medications Home Medications: Ambulatory Orders Medication Instructions Recorded Confirmed Lisinopril 20 mg PO DAILY 09/17/15 12/19/17 Aspirin 81 mg PO DAILY 07/02/17 12/19/17 FLUoxetine [PROzac] 20 mg PO DAILY 07/02/17 12/19/17 Latanoprost 0.005% Ophth Drops 1 drops EACHEYE QPM 07/02/17 12/19/17 [Xalatan Ophth Drops] Atorvastatin Calcium 40 mg PO QPM 11/24/17 12/19/17 Cholecalciferol (Vitamin D3) 1,000 unit PO DAILY 11/24/17 12/19/17 [Vitamin D3] Famotidine 20 mg PO DAILY 11/24/17 12/19/17 Gabapentin 100 mg PO BID 12/19/17 12/19/17 Levetiracetam [Keppra] 750 mg PO BID 12/19/17 12/19/17 Memantine HCl 5 mg PO BID 12/19/17 12/19/17 OXcarbazepine [Oxcarbazepine] 600 mg PO BID 12/19/17 12/19/17 Memantine [Namenda] 5 mg PO DAILY tablet 12/20/17 OXcarbazepine [Trileptal] 150 mg PO DAILY #0 tablet 12/20/17 Calcium/Magnesium/Zinc 04/05/18 [Vtslvhu-Osxpfjcmz-Yqgk Tablet] Cholecalciferol (Vitamin D3) 04/05/18 [Vitamin D3] Ubidecarenone [Co Q-10] 04/05/18 Zonisamide DAILY 04/05/18 traZODone [Desyrel] 25 - 50 mg PO 04/05/18 - Allergies Allergies/Adverse Reactions: Allergies Allergy/AdvReac Type Severity Reaction Status Date / Time NSAIDS (Non-Steroidal Allergy Anaphylaxis Verified 12/18/17 18:08 Anti-Inflamma levetiracetam AdvReac Severe Unknown Verified 04/05/18 16:54 naproxen sodium * AdvReac Edema Verified 04/05/18 16:16 [From Aleve] - Social History Does the pt smoke?: No Smoking Status: Never smoker Does the pt drink ETOH?: No Does the pt have substance abuse?: No - Family History Family history: reports: Non contributory - Immunizations Immunizations are current?: Yes - POLST Patient has POLST: No POLST Status: DNR PD ED PE NORMAL - Vitals Vital signs reviewed: Yes - General General: Other (She is intubated, she has reactive pupils but is making no other motions. On initial evaluation it sounds like she probably has her endotracheal tube in the right mainstem, it was moved back 2 cm on initial evaluation and after that the breath sounds were equal.) - HEENT HEENT: PERRL - Neck Neck: Supple, no meningeal sign, No bony TTP - Cardiac Cardiac: RRR, No murmur - Respiratory Respiratory: No respiratory distress, Clear bilaterally - Abdomen Abdomen: Soft, Non tender - Back Back: No CVA TTP, No spinal TTP - Derm Derm: Normal color, Warm and dry - Extremities Extremities: No edema, No calf tenderness / cord - Neuro Eye Opening: None Motor: None Verbal: None GCS Score: 3 Results - Vitals Vitals: Vital Signs - 24 hr 04/05/18 04/05/18 04/05/18 16:09 16:28 16:30 Temperature 36 C L Heart Rate 86 79 68 Respiratory 25 H 18 Rate Blood Pressure 185/75 H 185/92 H O2 Saturation 100 100 04/05/18 04/05/18 04/05/18 16:38 17:17 17:36 Temperature 35.9 C L 36.2 C L 36 C L Heart Rate 70 90 87 Respiratory 12 15 18 Rate Blood Pressure 183/72 H 166/96 H 197/70 H O2 Saturation 100 100 97 04/05/18 04/05/18 04/05/18 17:56 18:17 18:20 Temperature 35.8 C L 35.9 C L Heart Rate 72 72 67 Respiratory 12 12 Rate Blood Pressure 154/67 H 169/72 H O2 Saturation 97 99 04/05/18 04/05/18 18:41 19:03 Temperature 35.8 C L Heart Rate 68 71 Respiratory 12 15 Rate Blood Pressure 170/77 H O2 Saturation 99 100 Oxygen O2 Source Room air - Labs Labs: Laboratory Tests 04/05/18 04/05/18 04/05/18 16:18 16:18 16:18 WBC 5.8 RBC 4.20 Hgb 11.7 L Hct 37.3 MCV 88.8 MCH 28.0 MCHC 31.5 L RDW 15.5 H Plt Count 172 MPV 8.1 Neut # (Auto) 4.0 Lymph # (Auto) 1.0 L Parmer # (Auto) 0.5 Eos # (Auto) 0.2 Baso # (Auto) 0.0 Absolute Nucleated RBC 0.00 Nucleated RBC % 0.0 PT 12.8 H INR 1.1 APTT 29.1 Bld Gas Analysis Time Sample Site ABG pH ABG pCO2 ABG pO2 ABG HCO3 ABG Total CO2 ABG O2 Saturation ABG Oximetry Spot Check ABG Base Excess Ranjit Test Respiration Rate O2 Delivery Device Vent Mode FiO2 Tidal Volume PEEP Pressure Support Vent Sodium 134 L Potassium 3.8 Chloride 103 Carbon Dioxide 18 L Anion Gap 13.0 BUN 21 H Creatinine 0.8 Estimated GFR (MDRD) 69 L Glucose 124 H Calcium 8.2 L Total Bilirubin 0.5 AST 61 H ALT 41 Alkaline Phosphatase 106 Total Creatine Kinase 109 CK-MB (CK-2) Troponin I Total Protein 7.2 Albumin 3.5 Globulin 3.7 Albumin/Globulin Ratio 0.9 L Lipase 49 Urine Opiates Screen Ur Oxycodone Screen Urine Methadone Screen Ur Propoxyphene Screen Ur Barbiturates Screen Ur Tricyclics Screen Ur Phencyclidine Scrn Ur Amphetamine Screen U Methamphetamines Scrn U Benzodiazepines Scrn Urine Cocaine Screen U Cannabinoids Screen Ethyl Alcohol < 5.0 04/05/18 04/05/18 04/05/18 16:18 16:53 17:30 WBC RBC Hgb Hct MCV MCH MCHC RDW Plt Count MPV Neut # (Auto) Lymph # (Auto) Parmer # (Auto) Eos # (Auto) Baso # (Auto) Absolute Nucleated RBC Nucleated RBC % PT INR APTT Bld Gas Analysis Time 1658 Sample Site RIGHT RADIAL ABG pH 7.32 L ABG pCO2 36 ABG pO2 93 ABG HCO3 18.0 L ABG Total CO2 19.1 L ABG O2 Saturation 97 ABG Oximetry Spot Check 99 ABG Base Excess -7.3 L Ranjit Test POSITIVE Respiration Rate 12 O2 Delivery Device VENTILATOR Vent Mode SIMV FiO2 40.00 Tidal Volume 400 PEEP 5 Pressure Support Vent 10 Sodium Potassium Chloride Carbon Dioxide Anion Gap BUN Creatinine Estimated GFR (MDRD) Glucose Calcium Total Bilirubin AST ALT Alkaline Phosphatase Total Creatine Kinase CK-MB (CK-2) 1.2 Troponin I < 0.04 Total Protein Albumin Globulin Albumin/Globulin Ratio Lipase Urine Opiates Screen NEGATIVE Ur Oxycodone Screen NEGATIVE Urine Methadone Screen NEGATIVE Ur Propoxyphene Screen NEGATIVE Ur Barbiturates Screen NEGATIVE Ur Tricyclics Screen NEGATIVE Ur Phencyclidine Scrn NEGATIVE Ur Amphetamine Screen NEGATIVE U Methamphetamines Scrn NEGATIVE U Benzodiazepines Scrn NEGATIVE Urine Cocaine Screen NEGATIVE U Cannabinoids Screen NEGATIVE Ethyl Alcohol - Rads (name of study) CTA head neck Radiology: EMP read contemporaneously (No significant large vessel occlusion. Tortuous V1 of the nondominant right vertebral artery. Irregular mid cervical ICA and V3 segments of the left vertebral artery. The endotracheal tube was deep on this study and was pulled back after this by 2 cm.) PD MEDICAL DECISION MAKING - ED course ED course: 82-year-old woman presents with an acute alteration in mental status. She has a history of CVA with post CVA seizures. This actually sounds more like seizure activity especially given that there is no intracranial hemorrhage. And a very similar episode happened in November of last year. I spoke with Dr. Torres, of a neurologist on-call at [facility]. He accepts her in transfer, would like her to have CTA of the head and neck and load her with 1500 mg of Keppra. Daughter arrived, she has had significant reactions to Keppra in the past including transaminitis and and does not want us to give this. After some delay she was accepted by Dr. Dickerson to the [facility] neuro ICU at 7:10 PM. - Critical Care Time(min): 45 Time Includes: Direct patient care, Review records, Reassess patient, Document care, Coordinate care, Medical consult Data interpretation: Labs, Pulse ox Procedures included in critical care time: Peripheral IV Departure - Departure Disposition: 02 Transfer Acute Care Hosp Clinical Impression: Seizure Coma Qualifiers: Coma depth: [place] coma 3-8 Condition: Critical
[2018-04-05 16:32] LABS: BASOPHILS % (AUTO) 0.8 %; EOSINOPHILS # (AUTO) 0.2 10^3/uL (0.0-0.7); EOSINOPHILS % (AUTO) 3.2 %; HGB - HEMOGLOBIN 11.7 g/dL (12.0-16.0); LYMPHOCYTES % (AUTO) 17.8 %; MEAN CORPUSCULAR HGB CONC 31.5 g/dL (32.0-36.0); MEAN CORPUSCULAR VOLUME 88.8 fL (81.0-99.0); MEAN PLATELET VOLUME 8.1 fL (7.9-10.8); MONOCYTES # (AUTO) 0.5 10^3/uL (0.0-1.0); MONOCYTES % (AUTO) 9.2 %; PLT - PLATELET COUNT 172 10^3/uL (130-450); RED CELL DISTRIBUTION WIDTH 15.5 % (12.0-15.0); WHITE BLOOD COUNT 5.8 x10^3/uL (4.8-10.8)
[2018-04-05] MEDS ORDERED: levETIRAcetam INJ 1,500 MG in SODIUM CHLORIDE 0.9% 100ML 100 ML IV STA (16:37)
[2018-04-05 16:39] LABS: ALBUMIN 3.5 g/dL (3.2-5.5); ALBUMIN/GLOBULIN RATIO 0.9 (1.0-2.2); ALKALINE PHOSPHATASE 106 IU/L (42-121); ALT ALANINE AMINOTRANSFERASE 41 IU/L (10-60); AST ASPARTATE AMINOTRANSFERASE 61 IU/L (10-42); BILIRUBIN,TOTAL 0.5 mg/dL (0.2-1.0); BUN - BLOOD UREA NITROGEN 21 mg/dL (6-20); CALCIUM 8.2 mg/dL (8.5-10.3); CARBON DIOXIDE - CO2 18 mmol/L (21-32); CHLORIDE 103 mmol/L (101-111); CK- CREATINE KINASE 109 IU/L (22-269); CREATININE 0.8 mg/dL (0.4-1.0); GFR - MDRD 69 (>89); GLUCOSE 124 mg/dL (70-100); LIPASE 49 U/L (22-51); SODIUM 134 mmol/L (135-145); TOTAL PROTEIN 7.2 g/dL (6.7-8.2)
[2018-04-05 16:44] LABS: TROPONIN I < 0.04 ng/mL (<0.49)
[2018-04-05 16:46] LABS: CREATINE KINASE MB 1.2 ng/mL (0.6-6.3)
[2018-04-05 16:47] LABS: INR 1.1 (0.8-1.2); PT - PROTHROMBIN TIME 12.8 secs (9.9-12.6)
[2018-04-05 16:55] LABS: PARTIAL THROMBOPLASTIN TIME 29.1 secs (24.9-33.3)
--- NOTE | 2018-04-05 17:03 | XRAY Report ---
Reason: obtunded ams intubated Procedure Date: 04/05/2018 Accession Number: [id number] / [id number] Procedure: XR - Chest 1 View X-Ray CPT Code: 22634 FULL RESULT: EXAM: CHEST RADIOGRAPHY EXAM DATE: 04/05/2018 04:53 PM. CLINICAL HISTORY: Obtunded. Altered mental status. Intubated. COMPARISON: CHEST 1 VIEW 11/24/2017 11:49 AM. TECHNIQUE: 1 view. FINDINGS: Lungs/Pleura: No focal opacities evident. No pleural effusion. No pneumothorax. Mediastinum: Within exam limitations, the cardiomediastinal contour is normal. Other: ET tube 1 cm from the phil. IMPRESSION: ET tube 1 cm from the phil RADIA
[2018-04-05 17:09] LABS: ABG BASE EXCESS -7.3 mmol/L (-2.0-3.0); ABG OXYGEN SATURATION 97 % (94-98); ABG PCO2 36 mmHg (34-45); ABG PH 7.32 (7.35-7.45); ABG PO2 93 mmHg (80-100); ABG TCO2 19.1 MMOL/L (21.0-29.0)
[2018-04-05 17:10] LABS: ALLEN TEST POSITIVE
--- NOTE | 2018-04-05 17:21 | CT Report ---
Reason: obtunded ams intubated Procedure Date: 04/05/2018 Accession Number: [id number] / [id number] Procedure: CT - HEAD WO CPT Code: FULL RESULT: EXAM: CT HEAD EXAM DATE: 04/05/2018 04:23 PM. CLINICAL HISTORY: Obtunded altered mental status intubated. COMPARISON: 12/18/2017. TECHNIQUE: Multiaxial CT images were obtained from the foramen magnum to the vertex. Reformats: Sagittal and coronal. IV contrast: None. In accordance with CT protocol optimization, one or more of the following dose reduction techniques were utilized for this exam: automated exposure control, adjustment of mA and/or KV based on patient size, or use of iterative reconstructive technique. FINDINGS: Parenchyma: No intraparenchymal hemorrhage. No evidence of mass, midline shift, or CT findings of acute infarction. Butler-white differentiation is distinct. Diffuse chronic microangiopathic white matter changes are evident. Redemonstrated is right parietal occipital encephalomalacia from chronic right OCCUPATIONAL THERAPY PROFESSOR infarct. Linear encephalomalacia in the superior left cerebellum from prior superior cerebellar artery infarct unchanged. Extraaxial Spaces: Normal for age. No subdural or epidural collections identified. Ventricles: The ventricles and cortical sulci are enlarged, consistent with age-related tissue loss. Sinuses and orbits: Imaged paranasal sinuses, orbits, and mastoids show no significant abnormality. Bones: No evidence of fracture or calvarial defect. Other: Atherosclerotic calcification of the dominant left vertebral artery and bilateral cavernous carotid arteries. IMPRESSION: 1. No intracranial hemorrhage, midline shift or hydrocephalus. 2. Stable right parieto-occipital encephalomalacia likely from chronic right OCCUPATIONAL THERAPY PROFESSOR infarct. 3. 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 RADIA
[2018-04-05] MEDS ORDERED: PROPOFOL 1000 MG/100 ML 100 ML IV STA (17:38)
[2018-04-05 17:44] LABS: MUDS CUTOFF CONCENTRATIONS CUTOFF CONC BELOW:
--- NOTE | 2018-04-05 17:50 | CT Report ---
Reason: obtunded Procedure Date: 04/05/2018 Accession Number: [id number] / [id number] Procedure: CT - ANGIO HEAD W CPT Code: FULL RESULT: EXAM: CT ANGIOGRAM HEAD AND NECK. CT SCAN HEAD WITH CONTRAST. EXAM DATE:04/05/2018 05:11 PM. CLINICAL HISTORY:Obtunded. COMPARISON:CT angiogram head 11/24/2017, CT angiogram neck 01/08/2017, CT head 04/05/2018. TECHNIQUE: Routine axial helical CTA imaging was performed from the aortic arch through the [place] of [place]. Routine axial CT imaging of the head was performed prior to and following contrast administration. Reconstructions: Routine multiplanar 3D MIP reconstructions. IV contrast: 80 cc Optiray 320 IV. NASCET Criteria are used for stenosis measurements. In accordance with CT protocol optimization, one or more of the following dose reduction techniques were utilized for this exam: automated exposure control, adjustment of mA and/or KV based on patient size, or use of iterative reconstructive technique. FINDINGS: Post Contrast Head: Redemonstrated is encephalomalacia in the right parietal occipital/temporal lobe compatible with chronic right IMAGING SCIENCE PROFESSOR infarct. Butler-white matter differentiation appears preserved. Chronic microvascular angiopathy and hypodensity in the periventricular white matter. No abnormal enhancement. Butler white matter differentiation appear preserved. Dural venous sinus and deep cerebral veins appear normal. CTA HEAD: Anterior Circulation: The internal carotid arteries (ICA), middle cerebral arteries (MCA), and anterior cerebral arteries (ANTELMO) are patent bilaterally. The anterior communicating artery (A-COM) appears patent. No aneurysms, stenoses, or anatomic anomalies evident. Posterior Circulation: As previously demonstrated attenuated right IMAGING SCIENCE PROFESSOR distal to the P2 segment, unchanged. Right vertebral artery distal to the dural ring hypoplastic, essentially ends in the right PICA. The superior vertebral artery, basilar, and posterior cerebral arteries (IMAGING SCIENCE PROFESSOR) are patent. No aneurysms, stenoses, or anomalies evident. The posterior communicating arteries (P-COM) are patent on the right hypoplastic on the left. CTA NECK: Endotracheal tube is seen coursing through the oropharynx, into the trachea with its tip not visualized on axial series. On payroll and benefits specialist images, tip of the endotracheal tube appears to be into proximal right mainstem bronchus (image 2 series 1) could be pulled back 1.5 cm. Right Carotid: The common carotid, internal carotid, and external carotid arteries are widely patent. Irregularities of the contour of the mid right ICA compatible with fibromuscular dysplasia. No dissection, significant atherosclerotic plaque, or calcification identified. No significant stenosis by NASCET criteria. Left Carotid: The common carotid, internal carotid, and external carotid arteries are widely patent. Contour irregularity of the mid left ICA compatible with fibromuscular dysplasia. No dissection, significant atherosclerotic plaque, or calcification identified. No significant stenosis by NASCET criteria. Vertebrals: Right vertebral: Nondominant. Origin appear patent. Tortuous V1 segment obscured by motion artifacts. V2 and V3 segment appear patent. No evidence for dissection. Right vertebral: Dominant. Origin is widely patent. Tortuous V1 segment. V2 and V3 segment appear patent. Tortuous and irregular contour of the V3 segment at C1, C2, raises suspicion for fibromuscular dysplasia. No evidence for dissection. Aortic arch and pulmonary artery appear normal. Other: The visualized brain parenchyma, bones, soft tissues, and lung apices are within normal limits. IMPRESSION: CT SCAN HEAD: 1. Post contrast CT shows no abnormal enhancement. 2. Encephalomalacia in the posterior right temporal, right occipital and right posterior parietal lobe compatible with chronic right IMAGING SCIENCE PROFESSOR distribution infarct. CT ANGIOGRAM NECK: 1. No significant cervical carotid or vertebral artery stenosis. No evidence for acute dissection. 2. Tortuous V1 segment of the nondominant right vertebral artery poorly visualized due to motion artifacts. 3. Irregular luminal contour of the mid cervical ICAs and V3 segment of the left vertebral artery compatible with fibromuscular dysplasia. 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 4. On AP payroll and benefits specialist image, endotracheal tube projects into the right mainstem bronchus, could be pulled 1.[address] ANGIOGRAM HEAD: 1. Attenuation of the distal right IMAGING SCIENCE PROFESSOR distal to the right P2 segment, in keeping with chronic infarct. 2. Otherwise no significant intracranial arterial stenosis. Small patent right posterior communicating artery. No evidence for aneurysm. RADIA The call report notification system was initiated by Dr. Flavio Magdaleno at 05:36 PM on 04/05/2018. The above call report findings pertinent to the endotracheal tube right mainstem bronchus intubation were discussed with Dr. Edgar Neves by Dr. Flavio Magdaleno at 05:39 PM on 04/05/2018.
--- NOTE | 2018-04-05 17:50 | CT Report ---
Reason: obtunded Procedure Date: 04/05/2018 Accession Number: [id number] / [id number] Procedure: CT - ANGIO NECK W/WO CPT Code: FULL RESULT: EXAM: CT ANGIOGRAM HEAD AND NECK. CT SCAN HEAD WITH CONTRAST. EXAM DATE:04/05/2018 05:11 PM. CLINICAL HISTORY:Obtunded. COMPARISON:CT angiogram head 11/24/2017, CT angiogram neck 01/08/2017, CT head 04/05/2018. TECHNIQUE: Routine axial helical CTA imaging was performed from the aortic arch through the [place] of [place]. Routine axial CT imaging of the head was performed prior to and following contrast administration. Reconstructions: Routine multiplanar 3D MIP reconstructions. IV contrast: 80 cc Optiray 320 IV. NASCET Criteria are used for stenosis measurements. In accordance with CT protocol optimization, one or more of the following dose reduction techniques were utilized for this exam: automated exposure control, adjustment of mA and/or KV based on patient size, or use of iterative reconstructive technique. FINDINGS: Post Contrast Head: Redemonstrated is encephalomalacia in the right parietal occipital/temporal lobe compatible with chronic right JUSTICE PROFESSOR infarct. Butler-white matter differentiation appears preserved. Chronic microvascular angiopathy and hypodensity in the periventricular white matter. No abnormal enhancement. Butler white matter differentiation appear preserved. Dural venous sinus and deep cerebral veins appear normal. CTA HEAD: Anterior Circulation: The internal carotid arteries (ICA), middle cerebral arteries (MCA), and anterior cerebral arteries (ANTELMO) are patent bilaterally. The anterior communicating artery (A-COM) appears patent. No aneurysms, stenoses, or anatomic anomalies evident. Posterior Circulation: As previously demonstrated attenuated right JUSTICE PROFESSOR distal to the P2 segment, unchanged. Right vertebral artery distal to the dural ring hypoplastic, essentially ends in the right PICA. The superior vertebral artery, basilar, and posterior cerebral arteries (JUSTICE PROFESSOR) are patent. No aneurysms, stenoses, or anomalies evident. The posterior communicating arteries (P-COM) are patent on the right hypoplastic on the left. CTA NECK: Endotracheal tube is seen coursing through the oropharynx, into the trachea with its tip not visualized on axial series. On carburizing furnace operator images, tip of the endotracheal tube appears to be into proximal right mainstem bronchus (image 2 series 1) could be pulled back 1.5 cm. Right Carotid: The common carotid, internal carotid, and external carotid arteries are widely patent. Irregularities of the contour of the mid right ICA compatible with fibromuscular dysplasia. No dissection, significant atherosclerotic plaque, or calcification identified. No significant stenosis by NASCET criteria. Left Carotid: The common carotid, internal carotid, and external carotid arteries are widely patent. Contour irregularity of the mid left ICA compatible with fibromuscular dysplasia. No dissection, significant atherosclerotic plaque, or calcification identified. No significant stenosis by NASCET criteria. Vertebrals: Right vertebral: Nondominant. Origin appear patent. Tortuous V1 segment obscured by motion artifacts. V2 and V3 segment appear patent. No evidence for dissection. Right vertebral: Dominant. Origin is widely patent. Tortuous V1 segment. V2 and V3 segment appear patent. Tortuous and irregular contour of the V3 segment at C1, C2, raises suspicion for fibromuscular dysplasia. No evidence for dissection. Aortic arch and pulmonary artery appear normal. Other: The visualized brain parenchyma, bones, soft tissues, and lung apices are within normal limits. IMPRESSION: CT SCAN HEAD: 1. Post contrast CT shows no abnormal enhancement. 2. Encephalomalacia in the posterior right temporal, right occipital and right posterior parietal lobe compatible with chronic right JUSTICE PROFESSOR distribution infarct. CT ANGIOGRAM NECK: 1. No significant cervical carotid or vertebral artery stenosis. No evidence for acute dissection. 2. Tortuous V1 segment of the nondominant right vertebral artery poorly visualized due to motion artifacts. 3. Irregular luminal contour of the mid cervical ICAs and V3 segment of the left vertebral artery compatible with fibromuscular dysplasia. 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 4. On AP carburizing furnace operator image, endotracheal tube projects into the right mainstem bronchus, could be pulled 1.[address] ANGIOGRAM HEAD: 1. Attenuation of the distal right JUSTICE PROFESSOR distal to the right P2 segment, in keeping with chronic infarct. 2. Otherwise no significant intracranial arterial stenosis. Small patent right posterior communicating artery. No evidence for aneurysm. RADIA The call report notification system was initiated by Dr. Flavio Magdaleno at 05:36 PM on 04/05/2018. The above call report findings pertinent to the endotracheal tube right mainstem bronchus intubation were discussed with Dr. Edgar Neves by Dr. Flavio Magdaleno at 05:39 PM on 04/05/2018.
[2018-04-05 18:12] LABS: AMPHETAMINE SCREEN,URINE NEGATIVE (NEGATIVE); BENZODIAZEPINES SCREEN, URINE NEGATIVE (NEGATIVE); COCAINE SCREEN URINE NEGATIVE (NEGATIVE); METHADONE SCREEN, URINE NEGATIVE (NEGATIVE); METHAMPHETAMINES SCREEN, URINE NEGATIVE (NEGATIVE); OPIATE SCREEN, URINE NEGATIVE (NEGATIVE); OXYCODONE SCREEN, URINE NEGATIVE (NEGATIVE); PROPOXYPHENE SCREEN, URINE NEGATIVE (NEGATIVE); TRICYCLIC ANTIDEPRESSANT,URINE NEGATIVE (NEGATIVE)
[2018-04-05 19:34] VITALS: BP 169/78
== END 2018-04-05 20:22 | disposition short-term general hospital (02) ==
LOC: EDUNIT# → EDSEX → ED 16:10
DX: G40.909 Epilepsy, unspecified, not intractable, without status epilepticus (principal); I10 Essential (primary) hypertension; E78.00 Pure hypercholesterolemia, unspecified; Z86.73 Personal history of transient ischemic attack (TIA), and cerebral infarction without residual deficits; Z79.82 Long term (current) use of aspirin
CPT/HCPCS: 31500; 36415; 36600; 51702; 70450; 70496; 70498; 71045; 80053; 80306; 80320; 82550; 82553; 82803; 83690; 84484; 85025; 85610; 85730; 93005; 94770; 99285; 99291

== ENCOUNTER 2018-04-10 08:30 | Outpatient (CLI) | payer OTHER | END 2018-04-10 08:31 | disposition critical access hospital (66) | LOC: EMS 08:30 | PROVIDERS: ATTEND Surgery | DX: R53.1 Weakness (principal); W18.11XA Fall from or off toilet without subsequent striking against object, initial encounter; Y93.89 Activity, other specified; Y92.002 Bathroom of unspecified non-institutional (private) residence as the place of occurrence of the external cause | CPT/HCPCS: A0425; A0429 ==

== ENCOUNTER 2018-04-10 08:51 | Emergency (ER) | payer OTHER ==
[2018-04-10] MEDS ORDERED: ACETAMINOPHEN 325 MG TABLET PO STA (09:09)
--- NOTE | 2018-04-10 10:04 | ED Physician Documentation ---
PD HPI Fall - Stated complaint Stated Complaint: NEAR SYNCOPAL - Chief complaint Chief Complaint: Trauma Hd/Nk - History obtained from History obtained from: Patient, EMS - History of Present Illness Fall distance: Sitting position (She was sitting on the toilet and leaning to get some toilet paper and says she lost her balance and fell striking her left face and head against the wall or sink. She remembers the incident. She does not feel that she passed out hurt and was not lightheaded. She had tenderness on the side of the face. Family members needed to help her up and were concerned about the injury. EMS was called and they brought her here. She is awake and conversant on route without any general headache confusion or nausea. She is tender on the left side of the face but able to open and close her mouth.) Where injury occurred: Home Timing - onset: How many minutes ago (30), Today Injury(ies) location: Head, Face (left side cheek) Associated symptoms: No: LOC, AMS, Seizures, Nausea / vomiting Worsens with: Palpation Contributing factors: No: Anticoagulated Review of Systems Ten Systems: 10 systems reviewed and negative Constitutional: denies: Fever Nose: denies: Rhinorrhea / runny nose, Congestion Throat: denies: Sore throat Respiratory: denies: Cough : denies: Dysuria Neurologic: denies: Altered mental status, Headache PD PAST MEDICAL HISTORY - Past Medical History Past Medical History: Yes Cardiovascular: Hypertension, High cholesterol, Murmur Respiratory: None, Sleep apnea Neuro: CVA, TIA, Seizure disorder Endocrine/Autoimmune: None GI: GERD, Colon polyps : None HEENT: Chronic hearing loss Psych: Depression Musculoskeletal: Osteoarthritis Derm: Psoriasis - Past Surgical History Past Surgical History: Yes General: Colonoscopy Ortho:  - Present Medications Home Medications: Ambulatory Orders Medication Instructions Recorded Confirmed Lisinopril 20 mg PO DAILY 09/17/15 12/19/17 Aspirin 81 mg PO DAILY 07/02/17 12/19/17 FLUoxetine [PROzac] 20 mg PO DAILY 07/02/17 12/19/17 Latanoprost 0.005% Ophth Drops 1 drops EACHEYE QPM 07/02/17 12/19/17 [Xalatan Ophth Drops] Atorvastatin Calcium 40 mg PO QPM 11/24/17 12/19/17 Cholecalciferol (Vitamin D3) 1,000 unit PO DAILY 11/24/17 12/19/17 [Vitamin D3] Famotidine 20 mg PO DAILY 11/24/17 12/19/17 Gabapentin 100 mg PO BID 12/19/17 12/19/17 Levetiracetam [Keppra] 750 mg PO BID 12/19/17 12/19/17 Memantine HCl 5 mg PO BID 12/19/17 12/19/17 OXcarbazepine [Oxcarbazepine] 600 mg PO BID 12/19/17 12/19/17 Memantine [Namenda] 5 mg PO DAILY tablet 12/20/17 OXcarbazepine [Trileptal] 150 mg PO DAILY #0 tablet 12/20/17 Calcium/Magnesium/Zinc 04/05/18 [Alidltt-Wdkumwgoi-Zhuw Tablet] Cholecalciferol (Vitamin D3) 04/05/18 [Vitamin D3] Ubidecarenone [Co Q-10] 04/05/18 Zonisamide DAILY 04/05/18 traZODone [Desyrel] 25 - 50 mg PO 04/05/18 - Allergies Allergies/Adverse Reactions: Allergies Allergy/AdvReac Type Severity Reaction Status Date / Time caffeine Allergy Unknown Verified 04/10/18 09:04 NSAIDS (Non-Steroidal Allergy Anaphylaxis Verified 04/10/18 09:04 Anti-Inflamma tramadol Allergy Unknown Verified 04/10/18 09:04 levetiracetam AdvReac Severe Unknown Verified 04/10/18 09:04 naproxen sodium * AdvReac Edema Verified 04/10/18 09:04 [From Aleve] antihistamines Allergy Unknown Uncoded 04/06/18 15:50 - Social History Does the pt smoke?: No Smoking Status: Never smoker Does the pt drink ETOH?: No Does the pt have substance abuse?: No - Immunizations Immunizations are current?: Yes - POLST Patient has POLST: No POLST Status: DNR PD ED PE NORMAL - Vitals Vital signs reviewed: Yes - General General: Alert and oriented X 3, No acute distress, Well developed/nourished - HEENT HEENT: Dentition benign, Other (left cheek and preauricular area with local tenderness, minimal swelling. She is awake and conversant. ) - Neck Neck: Supple, no meningeal sign, No bony TTP, No adenopathy - Respiratory Respiratory: Other (no chestwall tenderness) - Abdomen Abdomen: Soft, Non tender - Back Back: No spinal TTP - Derm Derm: Normal color, Warm and dry - Neuro Neuro: Other (left arm/leg weakness from prior CVA.) Results - Vitals Vitals: Vital Signs - 24 hr 04/10/18 04/10/18 04/10/18 08:51 09:04 09:30 Temperature 36 C L Heart Rate 64 63 62 Respiratory 18 16 16 Rate Blood Pressure 155/76 H 155/76 H 140/60 H O2 Saturation 96 96 96 04/10/18 04/10/18 10:00 10:43 Temperature Heart Rate 62 63 Respiratory 14 16 Rate Blood Pressure 148/65 H 144/75 H O2 Saturation 96 96 Oxygen O2 Source Room air - Rads (name of study) face and head CT Radiology: Prelim report reviewed, EMP read contemporaneously (no fractures, no ICH. ) Departure - Departure Disposition: 01 Home, Self Care Clinical Impression: Accidental fall Qualifiers: Encounter type: initial encounter Qualified Code(s): W19.XXXA - Unspecified fall, initial encounter Facial contusion Qualifiers: Encounter type: initial encounter Qualified Code(s): S00.83XA - Contusion of other part of head, initial encounter Condition: Stable Record reviewed to determine appropriate education?: Yes Follow-Up: Will Rayo MD [Primary Care Provider] - Comments: Your CT scans of the face and head are normal without any signs of fracture or bleeding. Tylenol if needed for pains. Continue usual medications. Discharge Date/Time: 04/10/18 11:13
--- NOTE | 2018-04-10 10:08 | CT Report ---
Reason: fall and struck head/face Procedure Date: 04/10/2018 Accession Number: [id number] / [id number] Procedure: CT - MAXILLOFACIAL WO CPT Code: FULL RESULT: EXAM: CT MAXILLOFACIAL WITHOUT CONTRAST EXAM DATE: 04/10/2018 09:44 AM. CLINICAL HISTORY: Fall and struck head/face. COMPARISONS: CT HEAD WITHOUT CONTRAST 04/07/2018 7:07 PM. TECHNIQUE: Thin-section axial images were acquired of the face without contrast. Post-processing: Coronal and sagittal reformats. Other: None. In accordance with CT protocol optimization, one or more of the following dose reduction techniques were utilized for this exam: automated exposure control, adjustment of mA and/or KV based on patient size, or use of iterative reconstructive technique. FINDINGS: Soft Tissue: The infratemporal fossa and parapharyngeal spaces are unremarkable. Orbits: Symmetric and unremarkable. Bones: No fracture or bone lesion. Degenerative disk disease of the cervical spine,, greatest at C5-C6 and C4-C5. Temporomandibular Joints: No malalignment. Substantial left and mild right degenerative disease. Small ossification at the posterior aspect of the left TMJ joint suggests a loose body. Sinuses: Minimal to very mild soft tissue thickening within the maxillary sinuses and ethmoid sinuses bilaterally. The ostiomeatal units are clear. No sinus fluid. Other: None. IMPRESSION: 1. No fracture or acute abnormality demonstrated. 2. Very mild paranasal sinus soft tissue thickening. 3. TMJ joint degenerative disease, left substantially worse than right. 4. Cervical spine degenerative disease. RADIA
--- NOTE | 2018-04-10 10:11 | CT Report ---
Reason: fall off toilet and struck face/head Procedure Date: 04/10/2018 Accession Number: [id number] / [id number] Procedure: CT - HEAD WO CPT Code: FULL RESULT: EXAM: CT HEAD EXAM DATE: 04/10/2018 09:25 AM. CLINICAL HISTORY: Fall off toilet and struck face/head. COMPARISON: CT HEAD WITHOUT CONTRAST 04/07/2018 7:07 PM. TECHNIQUE: Multiaxial CT images were obtained from the foramen magnum to the vertex. Reformats: Sagittal and coronal. IV contrast: None. In accordance with CT protocol optimization, one or more of the following dose reduction techniques were utilized for this exam: automated exposure control, adjustment of mA and/or KV based on patient size, or use of iterative reconstructive technique. FINDINGS: Parenchyma: No intraparenchymal hemorrhage. No evidence of mass, midline shift, or CT findings of acute infarction. Right parieto-occipital broad encephalomalacia, extending into the posterior right temporal lobe, is without change and consistent with an old infarct. Diffuse chronic microangiopathic white matter changes are evident. Extraaxial Spaces: Normal for age. No subdural or epidural collections identified. Ventricles: The ventricles and cortical sulci are enlarged, consistent with age-related tissue loss. Sinuses and orbits: Imaged paranasal sinuses, orbits, and mastoids show no significant abnormality. Bones: No evidence of fracture or calvarial defect. Other: None. IMPRESSION: 1. Generalized age-related cortical atrophic changes without evidence of acute intracranial abnormality. 2. Stable large old right chronic cerebral infarct. RADIA
[2018-04-10 10:43] VITALS: BP 144/75
== END 2018-04-10 11:13 | disposition home or self-care (01) ==
LOC: EDUNIT# → ED 08:51
DX: S00.83XA Contusion of other part of head, initial encounter (principal); W18.12XA Fall from or off toilet with subsequent striking against object, initial encounter; I69.944 Monoplegia of lower limb following unspecified cerebrovascular disease affecting left non-dominant side; I69.934 Monoplegia of upper limb following unspecified cerebrovascular disease affecting left non-dominant side; Z79.82 Long term (current) use of aspirin
CPT/HCPCS: 70450; 70486; 93005; 99283

== ENCOUNTER 2018-04-22 18:48 | Outpatient (CLI) | payer SELFPAY | END 2018-04-22 18:49 | disposition EMS.NT | LOC: EMS 18:48 | PROVIDERS: ATTEND Surgery | DX: R44.3 Hallucinations, unspecified (principal) ==

== ENCOUNTER 2018-04-22 19:48 | Emergency (ER) | payer MEDICARE, OTHER ==
--- NOTE | 2018-04-22 20:36 | ED Physician Documentation ---
PD HPI ALTERED MENTAL STATUS - Stated complaint Stated Complaint: CONFUSION / AGITATION - Chief complaint Chief Complaint: MHE - History obtained from History obtained from: Patient - History of Present Illness Timing - onset: How many weeks ago (has had increased agitation and behavioral excitement, particularly in late afternoons/evenings, the past week, worse the past 2 days.) Timing - duration: Days Timing - details: Intermittant (daughter says the patient has been mainly agitated and acting out late afternoons and early evenings. Controllable most of the rest of the time.) Quality / character: Agitated, Combative (was yelling and then swinging object around.) Associated symptoms: No: Fever, Headache, Cough, NVD Contributing factors: Known dementia, Other (daughter says some recent falls, last about a week ago with head CT done that day. Not on blood thinners.). No: Diabetic, Recent illness, Intoxicated Basline status: Confused, Walker Similar symptoms before: Diagnosis (behavioral disturbance from dementia, and at times had had altered mentation s/p seizure, but was different than the behavioral issues.) Recently seen: Clinic (seen by Neurologist 2 days ago and was concern if the Zonagran was worsening behavior issues, as had dose increased couple weeks ago after a seizure and behavior has been increased some in that time. Had Trazodone dose increased (adding AM dose) to try to help with behavioral issues. Not improved the past 2 days per daughter.) Review of Systems Unable to obtain: Dementia, Other (info from daughter who is primary caregiver.) Constitutional: denies: Fever Nose: denies: Rhinorrhea / runny nose, Congestion Throat: denies: Sore throat Respiratory: denies: Cough GI: denies: Vomiting, Diarrhea Skin: denies: Rash PD PAST MEDICAL HISTORY - Past Medical History Cardiovascular: Hypertension, High cholesterol, Murmur Respiratory: None, Sleep apnea Neuro: CVA, TIA, Seizure disorder Endocrine/Autoimmune: None GI: GERD, Colon polyps : None HEENT: Chronic hearing loss Psych: Depression Musculoskeletal: Osteoarthritis Derm: Psoriasis - Past Surgical History Past Surgical History: Yes General: Colonoscopy Ortho:  - Present Medications Home Medications: Ambulatory Orders Medication Instructions Recorded Confirmed Lisinopril 20 mg PO DAILY 09/17/15 12/19/17 Aspirin 81 mg PO DAILY 07/02/17 12/19/17 FLUoxetine [PROzac] 20 mg PO DAILY 07/02/17 12/19/17 Latanoprost 0.005% Ophth Drops 1 drops EACHEYE QPM 07/02/17 12/19/17 [Xalatan Ophth Drops] Atorvastatin Calcium 40 mg PO QPM 11/24/17 12/19/17 Cholecalciferol (Vitamin D3) 1,000 unit PO DAILY 11/24/17 12/19/17 [Vitamin D3] Famotidine 20 mg PO DAILY 11/24/17 12/19/17 Gabapentin 100 mg PO BID 12/19/17 12/19/17 Levetiracetam [Keppra] 750 mg PO BID 12/19/17 12/19/17 Memantine HCl 5 mg PO BID 12/19/17 12/19/17 OXcarbazepine [Oxcarbazepine] 600 mg PO BID 12/19/17 12/19/17 Memantine [Namenda] 5 mg PO DAILY tablet 12/20/17 OXcarbazepine [Trileptal] 150 mg PO DAILY #0 tablet 12/20/17 Calcium/Magnesium/Zinc 04/05/18 [Ewsdkqr-Byuopmktw-Xfbz Tablet] Cholecalciferol (Vitamin D3) 04/05/18 [Vitamin D3] Ubidecarenone [Co Q-10] 04/05/18 Zonisamide DAILY 04/05/18 traZODone [Desyrel] 25 - 50 mg PO 04/05/18 lamoTRIgine [LaMICtal] 25 mg PO DAILY #20 tablet 04/22/18 - Allergies Allergies/Adverse Reactions: Allergies Allergy/AdvReac Type Severity Reaction Status Date / Time caffeine Allergy Unknown Verified 04/22/18 19:55 NSAIDS (Non-Steroidal Allergy Anaphylaxis Verified 04/22/18 19:55 Anti-Inflamma tramadol Allergy Unknown Verified 04/22/18 19:55 levetiracetam AdvReac Severe Unknown Verified 04/22/18 19:55 naproxen sodium * AdvReac Edema Verified 04/22/18 19:55 [From Aleve] antihistamines Allergy Unknown Uncoded 04/22/18 19:55 - Living Situation Living Situation: reports: With family Living Arrangement: reports: At home - Social History Does the pt smoke?: No Smoking Status: Never smoker Does the pt drink ETOH?: No Does the pt have substance abuse?: No - Immunizations Immunizations are current?: Yes - POLST Patient has POLST: No POLST Status: DNR PD ED PE NORMAL - Vitals Vital signs reviewed: Yes - General General: No acute distress, Well developed/nourished. No: Alert and oriented X 3 (calm and cooperative on arrival here. Oriented to person) - HEENT HEENT: Atraumatic, Pharynx benign - Neck Neck: Supple, no meningeal sign, No adenopathy - Cardiac Cardiac: RRR, No murmur - Respiratory Respiratory: Clear bilaterally - Abdomen Abdomen: Soft, Non tender - Derm Derm: Normal color, Warm and dry, No rash - Neuro Motor: Obeys Commands Results - Vitals Vitals: Oxygen O2 Source Room air - Labs Labs: Microbiology 04/22/18 21:42 Urine Culture - Final Urine,Clean Catch 10-50,000 COLONIES/ML Polymicrobial growth including potential pathogens. This is suggestive of skin or other contamination. Laboratory Tests 04/22/18 04/22/18 04/22/18 20:45 20:45 20:45 WBC 5.6 RBC 4.26 Hgb 11.9 L Hct 37.0 MCV 87.0 MCH 27.9 MCHC 32.1 RDW 16.6 H Plt Count 193 MPV 7.8 L Neut # (Auto) 4.0 Lymph # (Auto) 1.0 L [place] # (Auto) 0.5 Eos # (Auto) 0.1 Baso # (Auto) 0.0 Absolute Nucleated RBC 0.00 Nucleated RBC % 0.0 Sodium 133 L Potassium 3.3 L Chloride 102 Carbon Dioxide 22 Anion Gap 9.0 BUN 17 Creatinine 1.0 Estimated GFR (MDRD) 53 L Glucose 145 H Calcium 8.8 Magnesium Total Bilirubin 0.5 AST 31 ALT 21 Alkaline Phosphatase 102 Troponin I < 0.04 Total Protein 7.2 Albumin 3.5 Globulin 3.7 Albumin/Globulin Ratio 0.9 L Lipase 45 Urine Color Urine Clarity Urine pH Ur Specific Ruby Urine Protein Urine Glucose (UA) Urine Ketones Urine Occult Blood Urine Nitrite Urine Bilirubin Urine Urobilinogen Ur Leukocyte Esterase Urine RBC Urine WBC Ur Squamous Epith Cells Urine Bacteria Urine Yeast Ur Microscopic Review Urine Culture Comments Urine Opiates Screen Ur Oxycodone Screen Urine Methadone Screen Ur Propoxyphene Screen Ur Barbiturates Screen Ur Tricyclics Screen Ur Phencyclidine Scrn Ur Amphetamine Screen U Methamphetamines Scrn U Benzodiazepines Scrn Urine Cocaine Screen U Cannabinoids Screen 04/22/18 04/22/18 20:45 21:06 WBC RBC Hgb Hct MCV MCH MCHC RDW Plt Count MPV Neut # (Auto) Lymph # (Auto) [place] # (Auto) Eos # (Auto) Baso # (Auto) Absolute Nucleated RBC Nucleated RBC % Sodium Potassium Chloride Carbon Dioxide Anion Gap BUN Creatinine Estimated GFR (MDRD) Glucose Calcium Magnesium 2.1 Total Bilirubin AST ALT Alkaline Phosphatase Troponin I Total Protein Albumin Globulin Albumin/Globulin Ratio Lipase Urine Color YELLOW Urine Clarity TURBID Urine pH 7.0 Ur Specific Ruby 1.010 Urine Protein NEGATIVE Urine Glucose (UA) NEGATIVE Urine Ketones NEGATIVE Urine Occult Blood NEGATIVE Urine Nitrite NEGATIVE Urine Bilirubin NEGATIVE Urine Urobilinogen 0.2 (NORMAL) Ur Leukocyte Esterase TRACE H Urine RBC 0-5 Urine WBC 11-25 H Ur Squamous Epith Cells MANY Squamous H Urine Bacteria Many H Urine Yeast PRESENT Ur Microscopic Review INDICATED Urine Culture Comments NOT INDICATED Urine Opiates Screen NEGATIVE Ur Oxycodone Screen NEGATIVE Urine Methadone Screen NEGATIVE Ur Propoxyphene Screen NEGATIVE Ur Barbiturates Screen NEGATIVE Ur Tricyclics Screen NEGATIVE Ur Phencyclidine Scrn NEGATIVE Ur Amphetamine Screen NEGATIVE U Methamphetamines Scrn NEGATIVE U Benzodiazepines Scrn NEGATIVE Urine Cocaine Screen NEGATIVE U Cannabinoids Screen NEGATIVE - Rads (name of study) head CT Radiology: Prelim report reviewed (no acute bleed) chest xray Radiology: Prelim report reviewed (no infiltrates) PD MEDICAL DECISION MAKING - ED course Complexity details: d/w patient, d/w presales consultant (Talked with on-call neurology covering for her neurologist. He was able to access her records and the notes of her primary neurologist. The notes reflected the idea that if there was still behavioral issues, the neurologist would likely change from the sonogram to lamotrigine. The on-call neurologist felt comfortable and suggesting initiating a low-dose lamotrigine and could decrease the sonogram to just the nightly dose. 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 His suggestion was to initiate the change in medicines as your neurologist was likely to do if the behavioral changes continued. So this suggestion is to initiate lamotrigine 25 mg daily in the morning and hold the sonogram 100 mg morning dose. Continue for now with the sonogram 200 mg evening dose. Continue the current trazodone dosing and you could add an extra dose late afternoon of 25 mg if some agitation is developing. Certainly follow-up with your primary neurologist this coming week. The CT scan did not show any acute new abnormalities nor signs of bleeding. Basic blood tests and urine tests were okay. Discharge Date/Time: 04/23/18 00:00
[2018-04-22 20:52] LABS: BASOPHILS % (AUTO) 0.7 %; EOSINOPHILS # (AUTO) 0.1 10^3/uL (0.0-0.7); EOSINOPHILS % (AUTO) 2.3 %; HGB - HEMOGLOBIN 11.9 g/dL (12.0-16.0); LYMPHOCYTES % (AUTO) 17.6 %; MEAN CORPUSCULAR HEMOGLOBIN 27.9 pg (27.0-31.0); MEAN CORPUSCULAR HGB CONC 32.1 g/dL (32.0-36.0); MEAN PLATELET VOLUME 7.8 fL (7.9-10.8); MONOCYTES # (AUTO) 0.5 10^3/uL (0.0-1.0); MONOCYTES % (AUTO) 8.8 %; NEUTROPHILS % (AUTO) 70.6 %; PLT - PLATELET COUNT 193 10^3/uL (130-450); RED BLOOD COUNT 4.26 10^6/uL (4.20-5.40); RED CELL DISTRIBUTION WIDTH 16.6 % (12.0-15.0); WHITE BLOOD COUNT 5.6 x10^3/uL (4.8-10.8)
[2018-04-22 21:06] LABS: ALBUMIN 3.5 g/dL (3.2-5.5); ALBUMIN/GLOBULIN RATIO 0.9 (1.0-2.2); BILIRUBIN,TOTAL 0.5 mg/dL (0.2-1.0); CALCIUM 8.8 mg/dL (8.5-10.3); TOTAL PROTEIN 7.2 g/dL (6.7-8.2)
[2018-04-22 21:19] LABS: BILIRUBIN,URINE NEGATIVE (NEGATIVE); GLUCOSE, URINE (UA) NEGATIVE (NEGATIVE); KETONES,URINE (UA) NEGATIVE (NEGATIVE); LEUKOCYTE ESTERASE, URINE TRACE (NEGATIVE); MUDS CUTOFF CONCENTRATIONS CUTOFF CONC BELOW:; NITRITE,URINE NEGATIVE (NEGATIVE); OCCULT BLOOD,URINE NEGATIVE (NEGATIVE); PROTEIN,URINE NEGATIVE (NEGATIVE); UROBILINOGEN,URINE 0.2 (NORMAL) E.U./dL (NORMAL)
[2018-04-22 21:22] LABS: CLARITY,URINE TURBID (CLEAR)
[2018-04-22 21:29] LABS: AMPHETAMINE SCREEN,URINE NEGATIVE (NEGATIVE); BACTERIA,URINE Many /HPF (None Seen); BENZODIAZEPINES SCREEN, URINE NEGATIVE (NEGATIVE); COCAINE SCREEN URINE NEGATIVE (NEGATIVE); METHADONE SCREEN, URINE NEGATIVE (NEGATIVE); METHAMPHETAMINES SCREEN, URINE NEGATIVE (NEGATIVE); OPIATE SCREEN, URINE NEGATIVE (NEGATIVE); OXYCODONE SCREEN, URINE NEGATIVE (NEGATIVE); PROPOXYPHENE SCREEN, URINE NEGATIVE (NEGATIVE); RBC,URINE 0-5 /HPF (0-5); SQUAMOUS EPITHELIAL CELL,UR MANY Squamous (<= Few); TRICYCLIC ANTIDEPRESSANT,URINE NEGATIVE (NEGATIVE); YEAST,URINE PRESENT
[2018-04-22] MEDS ORDERED: SODIUM CHLORIDE 0.9% 1,000 ML IV ONE (21:30)
--- NOTE | 2018-04-22 22:07 | XRAY Report ---
Reason: chest pain Procedure Date: 04/22/2018 Accession Number: [id number] / [id number] Procedure: XR - Chest 1 View X-Ray CPT Code: 31036 FULL RESULT: EXAM: CHEST RADIOGRAPHY EXAM DATE: 04/22/2018 09:48 PM. CLINICAL HISTORY: Chest pain. COMPARISON: CHEST 1 VIEW 04/05/2018 4:41 PM. TECHNIQUE: 1 view. FINDINGS: Lungs/Pleura: No focal opacities evident. No pleural effusion. No pneumothorax. Mediastinum: Normal heart size. There is mild thoracic aortic tortuosity. Other: None. IMPRESSION: No acute intrathoracic plain film abnormality. RADIA
--- NOTE | 2018-04-22 22:34 | CT Report ---
Reason: recent fall and confused/agitated Procedure Date: 04/22/2018 Accession Number: [id number] / [id number] Procedure: CT - HEAD WO CPT Code: FULL RESULT: EXAM: CT HEAD EXAM DATE: 04/22/2018 10:02 PM. CLINICAL HISTORY: Recent fall and confused/agitated. COMPARISON: MR BRAIN WITHOUT CONTRAST 04/08/2018 8:[address] HEAD WITHOUT CONTRAST 04/07/2018 7:07 PM. TECHNIQUE: Multiaxial CT images were obtained from the foramen magnum to the vertex. Reformats: Sagittal and coronal. IV contrast: None. In accordance with CT protocol optimization, one or more of the following dose reduction techniques were utilized for this exam: automated exposure control, adjustment of mA and/or KV based on patient size, or use of iterative reconstructive technique. FINDINGS: Parenchyma: No intraparenchymal hemorrhage. Extensive encephalomalacia in the right temporo-occipital region is again demonstrated, consistent with an old right [employer] territory infarct. The [place]-white matter differentiation recently is distinct elsewhere in the brain. Moderate diffuse chronic microangiopathic white matter changes are evident. Extraaxial Spaces: Normal for age. No subdural or epidural collections identified. Ventricles: The ventricles and cortical sulci are moderately enlarged, consistent with age-related tissue loss. Sinuses and orbits: Postsurgical changes from cataract extractions are noted in the globes. The paranasal and mastoid sinuses are not opacified. Bones: No evidence of fracture or calvarial defect. Other: Mild intracranial atherosclerosis is present. IMPRESSION: 1. No acute intracranial process. 2. Stable old large right [employer] territory infarct compared to the brain CT from 04/07/2018. RADIA
[2018-04-22 23:29] VITALS: BP 147/71
[2018-04-22] MEDS ORDERED: lamoTRIgine 25 MG TABLET PO STA (23:42)
== END 2018-04-23 | disposition home or self-care (01) ==
LOC: ED 19:48
DX: I69.319 Unspecified symptoms and signs involving cognitive functions following cerebral infarction (principal); F01.51 Vascular dementia, unspecified severity, with behavioral disturbance; G40.909 Epilepsy, unspecified, not intractable, without status epilepticus; I10 Essential (primary) hypertension; Z79.82 Long term (current) use of aspirin; Z66 Do not resuscitate
CPT/HCPCS: 36415; 70450; 71045; 80053; 81001; 83690; 83735; 84484; 85025; 87086; 93005; 96360; 96361; 99284; A9270; 80306; 81003

== ENCOUNTER 2018-06-09 21:23 | Outpatient (CLI) | payer OTHER | END 2018-06-09 21:24 | disposition critical access hospital (66) | LOC: EMS 21:23 | PROVIDERS: ATTEND Surgery | DX: R51 Headache (principal); R20.2 Paresthesia of skin | CPT/HCPCS: A0425; A0429 ==

== ENCOUNTER 2018-06-09 21:42 | Emergency (ER) | payer MEDICARE, OTHER ==
--- NOTE | 2018-06-09 21:58 | ED Physician Documentation ---
History of Present Illness - Stated complaint Stated Complaint: HEAD TINGLING - Chief complaint Chief Complaint: Neuro - History obtained from History obtained from: Patient, EMS - History of Present Illness Timing: Today Pain level max: 0 Pain level now: 0 Improved by: taking her blood pressure medications Worsened by: nothing - Additonal information Additional information: 82-year-old female states that she had tingling in approximately a dime sized area above her right ear and left ear earlier tonight. She took her blood pressure and it was 160 systolic. She forgot to take her medications today. She then took her medications and called 911. No shortness of breath. No chest pain. No abdominal pain. No headache. Review of Systems Constitutional: denies: Fever, Chills Eyes: denies: Loss of vision, Decreased vision, Photophobia Ears: denies: Ear pain Nose: denies: Rhinorrhea / runny nose, Congestion Throat: denies: Sore throat GI: denies: Vomiting Skin: denies: Rash Musculoskeletal: denies: Neck pain, Back pain Neurologic: denies: Focal weakness, Numbness, Headache, LOC PD PAST MEDICAL HISTORY - Past Medical History Past Medical History: Yes Cardiovascular: Hypertension, High cholesterol, Murmur Respiratory: None, Sleep apnea Neuro: CVA, TIA, Seizure disorder Endocrine/Autoimmune: None GI: GERD, Colon polyps : None HEENT: Chronic hearing loss Psych: Depression Musculoskeletal: Osteoarthritis Derm: Psoriasis - Past Surgical History Past Surgical History: Yes General: Colonoscopy Ortho:  - Present Medications Home Medications: Ambulatory Orders Medication Instructions Recorded Confirmed Lisinopril 20 mg PO DAILY 09/17/15 12/19/17 Aspirin 81 mg PO DAILY 07/02/17 12/19/17 FLUoxetine [PROzac] 20 mg PO DAILY 07/02/17 12/19/17 Latanoprost 0.005% Ophth Drops 1 drops EACHEYE QPM 07/02/17 12/19/17 [Xalatan Ophth Drops] Atorvastatin Calcium 40 mg PO QPM 11/24/17 12/19/17 Cholecalciferol (Vitamin D3) 1,000 unit PO DAILY 11/24/17 12/19/17 [Vitamin D3] Famotidine 20 mg PO DAILY 11/24/17 12/19/17 Gabapentin 100 mg PO BID 12/19/17 12/19/17 Levetiracetam [Keppra] 750 mg PO BID 12/19/17 12/19/17 Memantine HCl 5 mg PO BID 12/19/17 12/19/17 OXcarbazepine [Oxcarbazepine] 600 mg PO BID 12/19/17 12/19/17 Memantine [Namenda] 5 mg PO DAILY tablet 12/20/17 OXcarbazepine [Trileptal] 150 mg PO DAILY #0 tablet 12/20/17 Calcium/Magnesium/Zinc 04/05/18 [Xdabgsj-[id number]-Lypn Tablet] Cholecalciferol (Vitamin D3) 04/05/18 [Vitamin D3] Ubidecarenone [Co Q-10] 04/05/18 Zonisamide DAILY 04/05/18 traZODone [Desyrel] 25 - 50 mg PO 04/05/18 lamoTRIgine [LaMICtal] 25 mg PO DAILY #20 tablet 04/22/18 - Allergies Allergies/Adverse Reactions: Allergies Allergy/AdvReac Type Severity Reaction Status Date / Time caffeine Allergy Unknown Verified 04/22/18 19:55 NSAIDS (Non-Steroidal Allergy Anaphylaxis Verified 04/22/18 19:55 Anti-Inflamma tramadol Allergy Unknown Verified 04/22/18 19:55 levetiracetam AdvReac Severe Unknown Verified 04/22/18 19:55 naproxen sodium * AdvReac Edema Verified 04/22/18 19:55 [From Aleve] antihistamines Allergy Unknown Uncoded 04/22/18 19:55 - Social History Does the pt smoke?: No Smoking Status: Never smoker Does the pt drink ETOH?: No Does the pt have substance abuse?: No - Immunizations Immunizations are current?: Yes - POLST Patient has POLST: No POLST Status: DNR PD ED PE NORMAL - Vitals Vital signs reviewed: Yes - General General: Alert and oriented X 3, No acute distress - HEENT HEENT: Atraumatic, PERRL, EOMI, Ears normal, Moist mucous membranes, Pharynx benign, Other (normal scalp) - Neck Neck: Supple, no meningeal sign - Cardiac Cardiac: RRR, Strong equal pulses - Respiratory Respiratory: No respiratory distress, Clear bilaterally - Abdomen Abdomen: Soft, Non tender, Non distended - Derm Derm: Warm and dry, No rash - Extremities Extremities: No edema, No calf tenderness / cord - Neuro Neuro: Alert and oriented X 3, 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, Other (chronic L sided weakness) Eye Opening: Spontaneous Motor: Obeys Commands Verbal: Oriented GCS Score: 15 - Psych Psych: Normal mood, Normal affect Results - Vitals Vitals: Vital Signs - 24 hr 06/09/18 06/09/18 06/09/18 21:44 22:22 23:07 Temperature 36.2 C L 36.1 C L Heart Rate 84 62 Respiratory 16 18 Rate Blood Pressure 147/80 H 158/66 H O2 Saturation 100 97 Oxygen O2 Source Room air - Labs Labs: Laboratory Tests 06/09/18 06/09/18 06/09/18 22:19 22:19 22:40 WBC 5.7 RBC 3.98 L Hgb 11.2 L Hct 35.1 L MCV 88.2 MCH 28.1 MCHC 31.9 L RDW 15.4 H Plt Count 180 MPV 7.7 L Neut # (Auto) 3.4 Lymph # (Auto) 1.4 L [place] # (Auto) 0.6 Eos # (Auto) 0.3 Baso # (Auto) 0.0 Absolute Nucleated RBC 0.00 Nucleated RBC % 0.1 Sodium 136 Potassium 3.7 Chloride 103 Carbon Dioxide 24 Anion Gap 9.0 BUN 21 H Creatinine 1.1 H Estimated GFR (MDRD) 47 L Glucose 106 H Calcium 8.9 Phosphorus 3.7 Magnesium 2.2 Total Bilirubin 0.5 AST 24 ALT 16 Alkaline Phosphatase 98 Total Protein 7.2 Albumin 3.5 Globulin 3.7 Albumin/Globulin Ratio 0.9 L Lipase 46 Urine Color YELLOW Urine Clarity CLEAR Urine pH 6.5 Ur Specific [place] <=1.005 Urine Protein NEGATIVE Urine Glucose (UA) NEGATIVE Urine Ketones NEGATIVE Urine Occult Blood NEGATIVE Urine Nitrite NEGATIVE Urine Bilirubin NEGATIVE Urine Urobilinogen 0.2 (NORMAL) Ur Leukocyte Esterase NEGATIVE Ur Microscopic Review NOT INDICATED Urine Culture Comments NOT INDICATED PD MEDICAL DECISION MAKING - ED course Complexity details: reviewed results, re-evaluated patient, considered differential, d/w patient, d/w family ED course: 82-year-old female with paresthesias to the bilateral parietal area, lasted a few minutes earlier today. No acute findings here. No rash. No focal neurological deficits. No acute findings on laboratory testing or urinalysis. She also has hypertension and did take her blood pressure meds before coming to the emergency department. Only mild hypertension now. No chest pain. No shortness of breath. Patient and family counseled regarding signs and symptoms for which I believe and urgent re-evaluation would be necessary. Patient with good understanding of and agreement to plan and is comfortable going home at this time This document was made in part using voice recognition software. While efforts are made to proofread this document, sound alike and grammatical errors may occur. Departure - Departure Disposition: 01 Home, Self Care Clinical Impression: Paresthesia Hypertension Qualifiers: Hypertension type: unspecified Qualified Code(s): I10 - Essential (primary) hypertension Condition: Good Instructions: ED HTN Established, ED Paraesthesias Follow-Up: Will Rayo MD [Primary Care Provider] - Within 1 week Comments: Your testing does not show any acute abnormalities tonight. Return if you worsen. Follow-up with your doctor for further care. Continue your blood pressure medications at home Discharge Date/Time: 06/09/18 23:14
[2018-06-09 22:22] VITALS: BP 158/66
[2018-06-09 22:26] LABS: BASOPHILS % (AUTO) 0.8 %; EOSINOPHILS # (AUTO) 0.3 10^3/uL (0.0-0.7); EOSINOPHILS % (AUTO) 4.7 %; HGB - HEMOGLOBIN 11.2 g/dL (12.0-16.0); LYMPHOCYTES # (AUTO) 1.4 10^3/uL (1.5-3.5); MEAN CORPUSCULAR HEMOGLOBIN 28.1 pg (27.0-31.0); MEAN CORPUSCULAR HGB CONC 31.9 g/dL (32.0-36.0); MEAN CORPUSCULAR VOLUME 88.2 fL (81.0-99.0); MEAN PLATELET VOLUME 7.7 fL (7.9-10.8); MONOCYTES # (AUTO) 0.6 10^3/uL (0.0-1.0); NEUTROPHILS # (AUTO) 3.4 10^3/uL (1.5-6.6); NEUTROPHILS % (AUTO) 59.5 %; PLT - PLATELET COUNT 180 10^3/uL (130-450); RED BLOOD COUNT 3.98 10^6/uL (4.20-5.40); RED CELL DISTRIBUTION WIDTH 15.4 % (12.0-15.0); WHITE BLOOD COUNT 5.7 x10^3/uL (4.8-10.8)
[2018-06-09 22:40] LABS: ALBUMIN 3.5 g/dL (3.2-5.5); BILIRUBIN,TOTAL 0.5 mg/dL (0.2-1.0); CALCIUM 8.9 mg/dL (8.5-10.3); CREATININE 1.1 mg/dL (0.4-1.0); MAGNESIUM 2.2 mg/dL (1.7-2.8); PHOSPHORUS 3.7 mg/dL (2.5-4.6)
[2018-06-09 22:55] LABS: BILIRUBIN,URINE NEGATIVE (NEGATIVE); GLUCOSE, URINE (UA) NEGATIVE (NEGATIVE); KETONES,URINE (UA) NEGATIVE (NEGATIVE); LEUKOCYTE ESTERASE, URINE NEGATIVE (NEGATIVE); NITRITE,URINE NEGATIVE (NEGATIVE); OCCULT BLOOD,URINE NEGATIVE (NEGATIVE); PH,URINE 6.5 PH (5.0-7.5); PROTEIN,URINE NEGATIVE (NEGATIVE); UROBILINOGEN,URINE 0.2 (NORMAL) E.U./dL (NORMAL)
[2018-06-09 22:57] LABS: CLARITY,URINE CLEAR (CLEAR)
[2018-06-09 23:08] LABS: ALBUMIN/GLOBULIN RATIO 0.9 (1.0-2.2); TOTAL PROTEIN 7.2 g/dL (6.7-8.2)
== END 2018-06-09 23:14 | disposition home or self-care (01) ==
LOC: EDUNIT# → ED 21:42
DX: R20.2 Paresthesia of skin (principal); I10 Essential (primary) hypertension; Z79.82 Long term (current) use of aspirin
CPT/HCPCS: 36415; 80053; 81001; 81003; 83690; 83735; 84100; 85025; 87086; 99282; 99284

== ENCOUNTER 2018-07-25 11:41 | Outpatient (CLI) | payer OTHER ==
[2018-07-25 18:59] LABS: BASOPHILS # (AUTO) 0.1 10^3/uL (0.0-0.1); EOSINOPHILS # (AUTO) 0.3 10^3/uL (0.0-0.7); HGB - HEMOGLOBIN 11.2 g/dL (12.0-16.0); LYMPHOCYTES # (AUTO) 1.3 10^3/uL (1.5-3.5); LYMPHOCYTES % (AUTO) 20.2 %; MEAN CORPUSCULAR HEMOGLOBIN 27.5 pg (27.0-31.0); MEAN CORPUSCULAR HGB CONC 31.4 g/dL (32.0-36.0); MEAN CORPUSCULAR VOLUME 87.8 fL (81.0-99.0); MEAN PLATELET VOLUME 8.3 fL (7.9-10.8); MONOCYTES # (AUTO) 0.6 10^3/uL (0.0-1.0); MONOCYTES % (AUTO) 8.8 %; NEUTROPHILS # (AUTO) 4.3 10^3/uL (1.5-6.6); PLT - PLATELET COUNT 190 10^3/uL (130-450); RED BLOOD COUNT 4.06 10^6/uL (4.20-5.40); RED CELL DISTRIBUTION WIDTH 14.5 % (12.0-15.0); WHITE BLOOD COUNT 6.5 x10^3/uL (4.8-10.8)
[2018-07-25 19:12] LABS: BILIRUBIN,URINE NEGATIVE (NEGATIVE); GLUCOSE, URINE (UA) NEGATIVE (NEGATIVE); KETONES,URINE (UA) NEGATIVE (NEGATIVE); LEUKOCYTE ESTERASE, URINE NEGATIVE (NEGATIVE); NITRITE,URINE NEGATIVE (NEGATIVE); OCCULT BLOOD,URINE NEGATIVE (NEGATIVE); PROTEIN,URINE NEGATIVE (NEGATIVE); UROBILINOGEN,URINE 0.2 (NORMAL) E.U./dL (NORMAL)
[2018-07-25 19:16] LABS: CLARITY,URINE CLEAR (CLEAR)
[2018-07-25 19:17] LABS: ALBUMIN 3.7 g/dL (3.2-5.5); BILIRUBIN,TOTAL 0.3 mg/dL (0.2-1.0); CALCIUM 8.8 mg/dL (8.5-10.3); CREATININE 0.9 mg/dL (0.4-1.0); TOTAL PROTEIN 7.4 g/dL (6.7-8.2)
== END 2018-07-25 11:42 | disposition home or self-care (01) ==
LOC: LAB.WCP 11:41
PROVIDERS: ATTEND Family Medicine
DX: R41.0 Disorientation, unspecified (principal); F03.91 Unspecified dementia, unspecified severity, with behavioral disturbance; E87.1 Hypo-osmolality and hyponatremia; R56.9 Unspecified convulsions
CPT/HCPCS: 36415; 80053; 81001; 81003; 84443; 85025; 87086

== ENCOUNTER 2018-12-09 23:57 | Emergency (ER) | payer OTHER ==
--- NOTE | 2018-12-10 00:19 | ED Physician Documentation ---
PD HPI GI BLEED - Stated complaint Stated Complaint: RECTAL BLEEDING - Chief complaint Chief Complaint: Abd Pain - History obtained from History obtained from: Patient, Family (daughter (in ED at bedside)) - History of Present Illness Timing - onset: Today Timing - details: Abrupt onset, Intermittant Pain level now: 2 Associated symptoms: BRBPR, Diarrhea (only 1 loose stool), Abdominal pain. No: Vomiting, Coffee ground emesis, Hematemesis, Maroon stool, Black/tarry stool, Fever Improved by: Other (no ameliorating factors) Worsened by: Other (no exacerbating factors) Similar symptoms before: Has not had sx before Recently seen: Not recently seen - Additional information Additional information: patient had large, firm BM at 4 PM today. Subsequently, daughter noted patient then had "loose, runny, watery stool" with some bright red blood mixed in. Tonight, [employer]OTH [employer], she then had BRBPR with some blood noted in underwear. Patient began c/o mild cramping pain across lower abdomen this evening, as well. Review of Systems Constitutional: denies: Fever, Chills, Sweats Cardiac: reports: Reviewed and negative Respiratory: reports: Reviewed and negative GI: reports: Abdominal Pain, Diarrhea (one episode), Bloody / black stool. denies: Abdominal Swelling, Nausea, Vomiting, Constipation, Hematemesis : denies: Dysuria, Frequency Musculoskeletal: reports: Reviewed and negative Neurologic: reports: Focal weakness (due to CVA (not new)) PD PAST MEDICAL HISTORY - Past Medical History Cardiovascular: Hypertension, High cholesterol, Murmur Respiratory: None, Sleep apnea Neuro: CVA, TIA, Seizure disorder Endocrine/Autoimmune: None GI: GERD, Colon polyps : None HEENT: Chronic hearing loss Psych: Depression Musculoskeletal: Osteoarthritis Derm: Psoriasis - Past Surgical History Past Surgical History: Yes General: Colonoscopy Ortho:  - Present Medications Home Medications: Ambulatory Orders Medication Instructions Recorded Confirmed Lisinopril 20 mg PO DAILY 09/17/15 12/19/17 Aspirin 81 mg PO DAILY 07/02/17 12/19/17 FLUoxetine [PROzac] 20 mg PO DAILY 07/02/17 12/19/17 Latanoprost 0.005% Ophth Drops 1 drops EACHEYE QPM 07/02/17 12/19/17 [Xalatan Ophth Drops] Atorvastatin Calcium 40 mg PO QPM 11/24/17 12/19/17 Cholecalciferol (Vitamin D3) 1,000 unit PO DAILY 11/24/17 12/19/17 [Vitamin D3] Famotidine 20 mg PO DAILY 11/24/17 12/19/17 Gabapentin 100 mg PO BID 12/19/17 12/19/17 Levetiracetam [Keppra] 750 mg PO BID 12/19/17 12/19/17 Memantine HCl 5 mg PO BID 12/19/17 12/19/17 OXcarbazepine [Oxcarbazepine] 600 mg PO BID 12/19/17 12/19/17 Memantine [Namenda] 5 mg PO DAILY tablet 12/20/17 OXcarbazepine [Trileptal] 150 mg PO DAILY #0 tablet 12/20/17 Calcium/Magnesium/Zinc 04/05/18 [Esjmuqf-Ostjeiuwx-Amcl Tablet] Cholecalciferol (Vitamin D3) 04/05/18 [Vitamin D3] Ubidecarenone [Co Q-10] 04/05/18 Zonisamide DAILY 04/05/18 traZODone [Desyrel] 25 - 50 mg PO 04/05/18 lamoTRIgine [LaMICtal] 25 mg PO DAILY #20 tablet 04/22/18 - Allergies Allergies/Adverse Reactions: Allergies Allergy/AdvReac Type Severity Reaction Status Date / Time caffeine Allergy Unknown Verified 04/22/18 19:55 NSAIDS (Non-Steroidal Allergy Anaphylaxis Verified 04/22/18 19:55 Anti-Inflamma tramadol Allergy Unknown Verified 04/22/18 19:55 levetiracetam AdvReac Severe Unknown Verified 04/22/18 19:55 naproxen sodium * AdvReac Edema Verified 04/22/18 19:55 [From Aleve] antihistamines Allergy Unknown Uncoded 04/22/18 19:55 - Social History Does the pt smoke?: No Smoking Status: Never smoker Does the pt drink ETOH?: No Does the pt have substance abuse?: No - Immunizations Immunizations are current?: Yes - POLST Patient has POLST: No POLST Status: DNR PD ED PE NORMAL - Vitals Vital signs reviewed: Yes - General General: Alert and oriented X 3, No acute distress, Well developed/nourished - HEENT HEENT: Moist mucous membranes - Cardiac Cardiac: RRR, No murmur - Respiratory Respiratory: No respiratory distress, Clear bilaterally - Abdomen Abdomen: Soft, Non distended, Other (mild tenderness across lower abdomen but predominantly RLQ, without rebound or guarding. On repeat exams, the pain is inconsistently reproducible) - Derm Derm: Normal color, Warm and dry PD ED PE EXPANDED - Rectal Rectal: Heme Occult Pos - QC +, Hemorrhoid (small hemorrhoid that is not actively bleeding nor inflamed/tender/erythematous), Normal Tone, Camp Director present. No: Mass, Fissure Results - Vitals Vitals: Vital Signs - 24 hr 12/10/18 12/10/18 12/10/18 00:11 02:16 05:44 Temperature 36.5 C Heart Rate 70 67 64 Respiratory 18 16 12 Rate Blood Pressure 157/81 H 155/78 H 147/76 H O2 Saturation 96 97 98 Oxygen O2 Source Room air - Labs Labs: Laboratory Tests 12/10/18 12/10/18 12/10/18 01:09 01:09 04:29 WBC 9.9 RBC 4.21 Hgb 11.4 L Hct 37.2 MCV 88.4 MCH 27.1 MCHC 30.6 L RDW 14.8 Plt Count 146 MPV 10.4 Neut # (Auto) 7.9 H Lymph # (Auto) 1.1 L [place] # (Auto) 0.7 Eos # (Auto) 0.1 Baso # (Auto) 0.0 Absolute Nucleated RBC 0.00 Nucleated RBC % 0.0 Sodium 138 Potassium 3.3 L Chloride 107 Carbon Dioxide 23 Anion Gap 8.0 BUN 13 Creatinine 0.8 Estimated GFR (MDRD) 68 L Glucose 122 H Calcium 8.8 Total Bilirubin 0.9 AST 15 ALT < 10 L Alkaline Phosphatase 72 Total Protein 6.8 Albumin 3.5 Globulin 3.3 Albumin/Globulin Ratio 1.1 Lipase 35 Stl C. diff Tox B Gene NEGATIVE - Rads (name of study) CT A/P Radiology: Prelim report reviewed, See rad report PD MEDICAL DECISION MAKING - ED course Complexity details: reviewed results, re-evaluated patient, considered differential, d/w patient, d/w family ED course: During ED stay, patient had one episode of BRBPR without clots, and this was mixed in with urine; the amount of blood appeared to be very small compared to the volume of urine. On repeat exam, she is nontender on abdominal exam, all quadrants. CT suggests nonspecific colitis. She is afebrile and has a normal WBC. The BRBPR began after a particularly large and firm BM, making a mechanical cause of the bleeding suspect. Departure - Departure Disposition: 01 Home, Self Care Clinical Impression: Colitis, Lower GI bleed Condition: Good Instructions: ED Hematochezia Stable Follow-Up: Will Rayo MD [Primary Care Provider] - Within 3 Days Discharge Date/Time: 12/10/18 06:12
[2018-12-10 01:16] LABS: BASOPHILS % (AUTO) 0.4 %; EOSINOPHILS # (AUTO) 0.1 10^3/uL (0.0-0.7); HGB - HEMOGLOBIN 11.4 g/dL (12.0-16.0); LYMPHOCYTES # (AUTO) 1.1 10^3/uL (1.5-3.5); LYMPHOCYTES % (AUTO) 11.1 %; MEAN CORPUSCULAR HEMOGLOBIN 27.1 pg (27.0-31.0); MEAN CORPUSCULAR HGB CONC 30.6 g/dL (32.0-36.0); MEAN CORPUSCULAR VOLUME 88.4 fL (81.0-99.0); MEAN PLATELET VOLUME 10.4 fL (7.9-10.8); MONOCYTES # (AUTO) 0.7 10^3/uL (0.0-1.0); MONOCYTES % (AUTO) 6.8 %; NEUTROPHILS # (AUTO) 7.9 10^3/uL (1.5-6.6); NEUTROPHILS % (AUTO) 80.4 %; PLT - PLATELET COUNT 146 10^3/uL (130-450); RED BLOOD COUNT 4.21 10^6/uL (4.20-5.40); RED CELL DISTRIBUTION WIDTH 14.8 % (12.0-15.0); WHITE BLOOD COUNT 9.9 x10^3/uL (4.8-10.8)
[2018-12-10] MEDS ORDERED: IOVERSOL 320 100 ML VIAL IVP ONE ×2 (01:26→02:44)
[2018-12-10 02:05] LABS: ALBUMIN 3.5 g/dL (3.2-5.5); ALBUMIN/GLOBULIN RATIO 1.1 (1.0-2.2); ALKALINE PHOSPHATASE 72 IU/L (42-121); ALT ALANINE AMINOTRANSFERASE < 10 IU/L (10-60); AST ASPARTATE AMINOTRANSFERASE 15 IU/L (10-42); BILIRUBIN,TOTAL 0.9 mg/dL (0.2-1.0); BUN - BLOOD UREA NITROGEN 13 mg/dL (6-20); CALCIUM 8.8 mg/dL (8.5-10.3); CARBON DIOXIDE - CO2 23 mmol/L (21-32); CHLORIDE 107 mmol/L (101-111); CREATININE 0.8 mg/dL (0.4-1.0); GFR - MDRD 68 (>89); GLUCOSE 122 mg/dL (70-100); LIPASE 35 U/L (22-51); SODIUM 138 mmol/L (135-145); TOTAL PROTEIN 6.8 g/dL (6.7-8.2)
--- NOTE | 2018-12-10 03:15 | CT Report ---
Reason: RLQ pain, hematochezia Procedure Date: 12/10/2018 Accession Number: [id number] / [id number] Procedure: CT - Abdomen/Pelvis W CPT Code: FULL RESULT: EXAM: CT ABDOMEN AND PELVIS EXAM DATE: 12/10/2018 02:40 AM. CLINICAL HISTORY: RLQ pain, hematochezia. COMPARISONS: ABDOMEN/PELVIS W/O 12/20/2017 6:08 AM. TECHNIQUE: Routine helical CT imaging was performed through the abdomen and pelvis. IV contrast: OPTI 320 100ML. Enteric contrast: No. Reconstructions: Coronal and sagittal. In accordance with CT protocol optimization, one or more of the following dose reduction techniques were utilized for this exam: automated exposure control, adjustment of mA and/or KV based on patient size, or use of iterative reconstructive technique. FINDINGS: Lung Bases: Small left lower lobe pulmonary granuloma. Mild atelectasis in the lingula. Liver: Normal. No masses. Gallbladder/Bile Ducts: Cholecystectomy. No significant biliary dilation. Spleen: Normal. Pancreas: Normal. Adrenal Glands: Normal. Kidneys: Unremarkable. No hydronephrosis or calculi. No enhancing mass lesion. Peritoneal Cavity/Bowel: Colonic wall thickening, most prominent along descending and sigmoid colon with small amount of liquid/ semi-liquid stool in distal colon. No obvious distinct site of bleeding. No bowel obstruction. Colonic diverticula without evidence of acute diverticulitis. No pneumatosis or portal venous gas. No evidence of acute appendicitis. No free fluid or free air. Pelvic Organs: Unremarkable bladder. Pelvic structures are unremarkable. Pessary device is present within vagina. Vasculature: Atherosclerotic vascular disease. No aneurysms or other significant abnormality. Mesenteric vessels appear patent as visualized on non-angiographic phase imaging. No obvious contrast blush evident within bowel. Bones: Degenerative changes of lower lumbar spine. No acute fractures. Stable rim calcified lesion arising from right iliac crest. IMPRESSION: 1. Colonic wall thickening most prominent along descending and sigmoid colon with liquid/semi-liquid stool in distal colon suggesting diarrheal state. Findings are consistent with nonspecific colitis which may be due to infectious, inflammatory, ischemic or other etiologies. Correlate clinically. 2. No bowel obstruction, pneumatosis, free fluid or free air. No distinct site of gastrointestinal hemorrhage evident, although presumably related to aforementioned colitis. If clinically indicated, nuclear medicine GI bleeding study can further assess. 3. Colonic diverticula without evidence of acute diverticulitis. 4. Normal appendix. 5. Cholecystectomy. RADIA
[2018-12-10 05:45] VITALS: BP 147/76
== END 2018-12-10 06:12 | disposition home or self-care (01) ==
LOC: ED 23:57
DX: K52.9 Noninfective gastroenteritis and colitis, unspecified (principal); K92.1 Melena; K64.9 Unspecified hemorrhoids; Z86.010 Personal history of colon polyps; I10 Essential (primary) hypertension; Z79.82 Long term (current) use of aspirin
CPT/HCPCS: 36415; 74177; 80053; 83690; 85025; 87493; 99284; Q9967

== ENCOUNTER 2019-03-24 09:43 | Outpatient (CLI) | payer OTHER | END 2019-03-24 09:44 | disposition EMS.NT | LOC: EMS 09:43 | PROVIDERS: ATTEND Surgery | DX: Z03.89 Encounter for observation for other suspected diseases and conditions ruled out (principal) ==

== ENCOUNTER 2019-06-23 12:56 | Outpatient (CLI) | payer OTHER ==
[2019-06-23 13:16] LABS: BASOPHILS # (AUTO) 0.1 10^3/uL (0.0-0.1); BASOPHILS % (AUTO) 0.9 %; EOSINOPHILS # (AUTO) 0.2 10^3/uL (0.0-0.7); EOSINOPHILS % (AUTO) 3.3 %; HGB - HEMOGLOBIN 10.5 g/dL (12.0-16.0); LYMPHOCYTES # (AUTO) 1.3 10^3/uL (1.5-3.5); LYMPHOCYTES % (AUTO) 22.6 %; MEAN CORPUSCULAR HEMOGLOBIN 27.1 pg (27.0-31.0); MEAN CORPUSCULAR HGB CONC 30.9 g/dL (32.0-36.0); MEAN CORPUSCULAR VOLUME 87.9 fL (81.0-99.0); MONOCYTES # (AUTO) 0.5 10^3/uL (0.0-1.0); MONOCYTES % (AUTO) 7.9 %; NEUTROPHILS # (AUTO) 3.8 10^3/uL (1.5-6.6); PLT - PLATELET COUNT 183 10^3/uL (130-450); RED BLOOD COUNT 3.87 10^6/uL (4.20-5.40); WHITE BLOOD COUNT 5.8 x10^3/uL (4.8-10.8)
[2019-06-23 13:28] LABS: ALBUMIN 3.4 g/dL (3.2-5.5); ALBUMIN/GLOBULIN RATIO 1.1 (1.0-2.2); BILIRUBIN,TOTAL 0.5 mg/dL (0.2-1.0); CALCIUM 8.5 mg/dL (8.5-10.3); CREATININE 0.9 mg/dL (0.4-1.0); TOTAL PROTEIN 6.6 g/dL (6.7-8.2)
== END 2019-06-23 12:57 | disposition home or self-care (01) ==
LOC: LAB 12:56
PROVIDERS: ATTEND Nurse Practitioner
DX: R74.8 Abnormal levels of other serum enzymes (principal); E87.1 Hypo-osmolality and hyponatremia; I10 Essential (primary) hypertension; E11.9 Type 2 diabetes mellitus without complications; R42 Dizziness and giddiness
CPT/HCPCS: 36415; 80053; 85025

== ENCOUNTER 2019-06-28 08:00 | Outpatient (CLI) | payer OTHER | END 2019-06-28 23:59 | disposition home or self-care (01) | LOC: LAB.R 08:00 | PROVIDERS: ATTEND Nurse Practitioner | DX: R53.1 Weakness (principal); R42 Dizziness and giddiness | CPT/HCPCS: 82274 ==

== ENCOUNTER 2019-08-06 14:55 | Outpatient (CLI) | payer OTHER ==
[2019-08-06 18:10] LABS: ABSOLUTE RETICS # AUTO 0.046 10^6/uL (0.020-0.110); BASOPHILS # (AUTO) 0.1 10^3/uL (0.0-0.1); BASOPHILS % (AUTO) 0.6 %; EOSINOPHILS # (AUTO) 0.1 10^3/uL (0.0-0.7); EOSINOPHILS % (AUTO) 1.4 %; LYMPHOCYTES # (AUTO) 1.6 10^3/uL (1.5-3.5); LYMPHOCYTES % (AUTO) 18.6 %; MEAN CORPUSCULAR HEMOGLOBIN 26.3 pg (27.0-31.0); MEAN CORPUSCULAR HGB CONC 29.9 g/dL (32.0-36.0); MEAN CORPUSCULAR VOLUME 87.8 fL (81.0-99.0); MEAN PLATELET VOLUME 10.8 fL (7.9-10.8); MONOCYTES # (AUTO) 0.7 10^3/uL (0.0-1.0); MONOCYTES % (AUTO) 8.1 %; NEUTROPHILS # (AUTO) 6.1 10^3/uL (1.5-6.6); PLT - PLATELET COUNT 230 10^3/uL (130-450); RED BLOOD COUNT 4.19 10^6/uL (4.20-5.40); RED CELL DISTRIBUTION WIDTH 15.2 % (12.0-15.0); WHITE BLOOD COUNT 8.6 x10^3/uL (4.8-10.8)
[2019-08-06 19:18] LABS: % IRON SATURATION 5 % (20-50); IRON 24 ug/dL (28-170); TOTAL IRON BINDING CAPACITY 476 ug/dL (250-450); TRANSFERRIN 340 mg/dL (192-382)
== END 2019-08-06 23:59 | disposition home or self-care (01) ==
LOC: LAB.WCP 14:55
PROVIDERS: ATTEND Nurse Practitioner
DX: R42 Dizziness and giddiness (principal); K21.9 Gastro-esophageal reflux disease without esophagitis; Z80.0 Family history of malignant neoplasm of digestive organs; Z86.010 Personal history of colon polyps
CPT/HCPCS: 36415; 82728; 83540; 84466; 85025; 85045

== ENCOUNTER 2019-08-13 18:00 | Outpatient (CLI) | payer OTHER ==
[2019-08-14 18:45] LABS: H. PYLORIS ANTIGEN STL NEGATIVE (Negative)
== END 2019-08-13 23:59 | disposition home or self-care (01) ==
LOC: LAB.WCP 18:00
PROVIDERS: ATTEND Family Medicine
DX: K52.9 Noninfective gastroenteritis and colitis, unspecified (principal)
CPT/HCPCS: 87338

== ENCOUNTER 2020-01-06 10:16 | Outpatient (CLI) | payer OTHER | END 2020-01-06 10:17 | disposition critical access hospital (66) | LOC: EMS 10:16 | PROVIDERS: ATTEND Surgery | DX: R53.1 Weakness (principal); R06.00 Dyspnea, unspecified | CPT/HCPCS: A0425; A0429 ==

== ENCOUNTER 2020-01-06 10:37 | Inpatient (IN) | payer MEDICARE, OTHER ==
[2020-01-06 12:14] LABS: BASOPHILS % (AUTO) 0.4 %; EOSINOPHILS % (AUTO) 0.1 %; LYMPHOCYTES # (AUTO) 0.7 10^3/uL (1.5-3.5); LYMPHOCYTES % (AUTO) 6.1 %; MEAN CORPUSCULAR HEMOGLOBIN 31.1 pg (27.0-31.0); MEAN CORPUSCULAR HGB CONC 30.5 g/dL (32.0-36.0); MEAN CORPUSCULAR VOLUME 102.1 fL (81.0-99.0); MEAN PLATELET VOLUME 10.1 fL (7.9-10.8); MONOCYTES # (AUTO) 0.5 10^3/uL (0.0-1.0); MONOCYTES % (AUTO) 4.3 %; NEUTROPHILS # (AUTO) 9.8 10^3/uL (1.5-6.6); NEUTROPHILS % (AUTO) 88.1 %; PLT - PLATELET COUNT 174 10^3/uL (130-450); RED BLOOD COUNT 1.93 10^6/uL (4.20-5.40); RED CELL DISTRIBUTION WIDTH 13.9 % (12.0-15.0); WHITE BLOOD COUNT 11.1 x10^3/uL (4.8-10.8)
[2020-01-06] MEDS ORDERED: SODIUM CHLORIDE 0.9% 1,000 ML IV STA (12:23)
[2020-01-06 12:24] LABS: ALBUMIN 2.4 g/dL (3.2-5.5); BILIRUBIN,TOTAL 0.4 mg/dL (0.2-1.0); CALCIUM 7.8 mg/dL (8.5-10.3); CREATININE 0.9 mg/dL (0.4-1.0); TOTAL PROTEIN 4.9 g/dL (6.7-8.2)
--- NOTE | 2020-01-06 12:28 | XRAY Report ---
PROCEDURE: Chest 1 View X-Ray INDICATIONS: chest pain TECHNIQUE: One view of the chest was acquired. COMPARISON: 04/22/2018 FINDINGS: Surgical changes and devices: None. Lungs and pleura: On the semiupright images, no large pneumothorax or large pleural effusions can be seen. No focal infiltrates are seen. Mediastinum: Mediastinal contours appear normal. Calcification is seen of the aortic arch. Heart size is normal. Bones and chest wall: No suspicious bony lesions. Age-appropriate degenerative changes are seen. O verlying soft tissues appear unremarkable. IMPRESSION: Unremarkable portable chest study for age. Reviewed by: Rubin Faustin MD on 01/06/2020 11:26 AM [facility] Approved by: Rubin Faustin MD on 01/06/2020 11:26 AM [facility] Station ID: [id number]
--- NOTE | 2020-01-06 12:28 | ED Physician Documentation ---
History of Present Illness - Stated complaint Stated Complaint: WEAKNESS - Chief complaint Chief Complaint: Neuro - History obtained from History obtained from: Patient, EMS - History of Present Illness Timing: Today Pain level max: 0 Pain level now: 0 - Additonal information Additional information: Patient is an 84-year-old female who was at home today when she went to go have a bowel movement, family states she has not had a bowel movement for the past 8 days. They state that she had a large bowel movement with bright red blood per rectum. Patient then had a near syncopal episode and could not lift herself off of the commode. Did not actually lose consciousness. Does not complain of any abdominal pain. No recent fevers or chills. Last colonoscopy was 4 years ago. She is not on blood thinners. Is not on dialysis. 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 HEENT: Chronic hearing loss Psych: Depression Musculoskeletal: Osteoarthritis Derm: Psoriasis - Past Surgical History Past Surgical History: Yes General: Colonoscopy Ortho:  - Present Medications Home Medications: Ambulatory Orders Medication Instructions Recorded Confirmed lisinopriL [Lisinopril] 20 mg PO DAILY 09/17/15 12/19/17 Aspirin 81 mg PO DAILY 07/02/17 12/19/17 FLUoxetine [PROzac] 20 mg PO DAILY 07/02/17 12/19/17 Latanoprost 0.005% Ophth Drops 1 drops EACHEYE QPM 07/02/17 12/19/17 [Xalatan Ophth Drops] Atorvastatin Calcium 40 mg PO QPM 11/24/17 12/19/17 Cholecalciferol (Vitamin D3) 1,000 unit PO DAILY 11/24/17 12/19/17 [Vitamin D3] Famotidine 20 mg PO DAILY 11/24/17 12/19/17 Gabapentin 100 mg PO BID 12/19/17 12/19/17 Levetiracetam [Keppra] 750 mg PO BID 12/19/17 12/19/17 Memantine HCl 5 mg PO BID 12/19/17 12/19/17 OXcarbazepine [Oxcarbazepine] 600 mg PO BID 12/19/17 12/19/17 Memantine [Namenda] 5 mg PO DAILY tablet 12/20/17 OXcarbazepine [Trileptal] 150 mg PO DAILY #0 tablet 12/20/17 Calcium/Magnesium/Zinc 04/05/18 [Zmizmxu-Grfkkaygq-Uvzh Tablet] Cholecalciferol (Vitamin D3) 04/05/18 [Vitamin D3] Ubidecarenone [Co Q-10] 04/05/18 Zonisamide DAILY 04/05/18 traZODone [Desyrel] 25 - 50 mg PO 04/05/18 lamoTRIgine [LaMICtal] 25 mg PO DAILY #20 tablet 04/22/18 - Allergies Allergies/Adverse Reactions: Allergies Allergy/AdvReac Type Severity Reaction Status Date / Time caffeine Allergy Unknown Verified 01/06/20 10:56 NSAIDS (Non-Steroidal Allergy Anaphylaxis Verified 01/06/20 10:56 Anti-Inflamma tramadol Allergy Unknown Verified 01/06/20 10:56 levetiracetam AdvReac Severe Unknown Verified 01/06/20 10:56 naproxen sodium * AdvReac Edema Verified 01/06/20 10:56 [From Aleve] antihistamines Allergy Unknown Uncoded 01/06/20 10:56 - Social History Does the pt smoke?: No Smoking Status: Former smoker Does the pt drink ETOH?: No Does the pt have substance abuse?: No - Immunizations Immunizations are current?: Yes - POLST Patient has POLST: No POLST Status: DNR PD ED PE NORMAL - Vitals Vital signs reviewed: Yes - General General: No acute distress, Other (pale appearing, alert, oriented to person and place, not to time, baseline per family) - HEENT HEENT: Moist mucous membranes - Neck Neck: Supple, no meningeal sign - Cardiac Cardiac: RRR, Strong equal pulses - Respiratory Respiratory: No respiratory distress, Clear bilaterally - Abdomen Abdomen: Soft, Non tender, Non distended - Rectal Rectal: Other (melena ) - Derm Derm: Warm and dry - Extremities Extremities: No calf tenderness / cord - Neuro Neuro: Other (alert, oriented to person and place, not to time, baseline per family) - Psych Psych: Normal mood, Normal affect Results - Vitals Vitals: Vital Signs - 24 hr 01/06/20 01/06/20 10:53 11:20 Temperature 36 C L 36.5 C Heart Rate 76 81 Respiratory 14 14 Rate Blood Pressure 105/51 L 114/68 O2 Saturation 100 100 Oxygen O2 Source Room air - EKG (time done) 1249 Rate: Rate (enter#) (75) Rhythm: NSR [place]: Normal Intervals: Normal SD QRS: Normal Ischemia: Normal ST segments, Q waves (III, aVF) - Labs Labs: Laboratory Tests 01/06/20 01/06/20 01/06/20 12:06 12:06 12:06 WBC 11.1 H RBC 1.93 L Hgb 6.0 L* Hct 19.7 L* MCV 102.1 H MCH 31.1 H MCHC 30.5 L RDW 13.9 Plt Count 174 MPV 10.1 Neut # (Auto) 9.8 H Lymph # (Auto) 0.7 L [place] # (Auto) 0.5 Eos # (Auto) 0.0 Baso # (Auto) 0.0 Absolute Nucleated RBC 0.00 Nucleated RBC % 0.0 PT INR APTT Sodium 138 Potassium 5.0 Chloride 110 Carbon Dioxide 21 Anion Gap 7.0 BUN 42 H Creatinine 0.9 Estimated GFR (MDRD) 60 L Glucose 139 H Lactic Acid 2.0 Calcium 7.8 L Magnesium 2.0 Total Bilirubin 0.4 AST 14 ALT 10 Alkaline Phosphatase 43 Total Protein 4.9 L Albumin 2.4 L Globulin 2.5 Albumin/Globulin Ratio 1.0 01/06/20 12:06 WBC RBC Hgb Hct MCV MCH MCHC RDW Plt Count MPV Neut # (Auto) Lymph # (Auto) [place] # (Auto) Eos # (Auto) Baso # (Auto) Absolute Nucleated RBC Nucleated RBC % PT 13.3 H INR 1.2 APTT 25.0 Sodium Potassium Chloride Carbon Dioxide Anion Gap BUN Creatinine Estimated GFR (MDRD) Glucose Lactic Acid Calcium Magnesium Total Bilirubin AST ALT Alkaline Phosphatase Total Protein Albumin Globulin Albumin/Globulin Ratio - Rads (name of study) cxr Radiology: Prelim report reviewed, EMP read contemporaneously, See rad report (no acute abnormality.) PD MEDICAL DECISION MAKING - ED course Complexity details: reviewed results, re-evaluated patient, considered differential, d/w patient ED course: 84-year-old female presents to the emergency department with near syncope on the toilet today. She also had bright red blood per rectum. Here she has melenic stool. She is on iron at home. Last colonoscopy was about 4 years ago. Discussed the case with Dr. Perez, hospitalist who accepts. Discussed with Dr. Schwartz, general surgery who will consult. This document was made in part using voice recognition software. While efforts are made to proofread this document, sound alike and grammatical errors may occur. Departure - Departure Disposition: 66 [facility] DC/Xfer Clinical Impression: Melena Anemia Qualifiers: Anemia type: unspecified type Qualified Code(s): D64.9 - Anemia, unspecified Condition: Stable
[2020-01-06] MEDS ORDERED: PANTOPRAZOLE 40 MG VIAL IVP STA (12:36)
[2020-01-06 12:38] LABS: INR 1.2 (0.8-1.2); PT - PROTHROMBIN TIME 13.3 secs (9.9-12.6)
[2020-01-06 14:24] LABS: C. PNEUMONIAE- RESP PCR PANEL NOT DETECTED
[2020-01-06] MEDS ORDERED: ACETAMINOPHEN 325 MG TABLET PO PRN (15:11)
[2020-01-06] MEDS ORDERED: ONDANSETRON 4 MG/2 ML VIAL IVP PRN (15:11)
[2020-01-06] MEDS ORDERED: SODIUM CHLORIDE FLUSH 0.9% 10 ML SYRINGE IVP PRN (15:11)
[2020-01-06 15:21] LABS: BILIRUBIN,URINE NEGATIVE (NEGATIVE); GLUCOSE, URINE (UA) NEGATIVE (NEGATIVE); KETONES,URINE (UA) NEGATIVE (NEGATIVE); LEUKOCYTE ESTERASE, URINE NEGATIVE (NEGATIVE); NITRITE,URINE NEGATIVE (NEGATIVE); OCCULT BLOOD,URINE NEGATIVE (NEGATIVE); PH,URINE 5.5 PH (5.0-7.5); PROTEIN,URINE NEGATIVE (NEGATIVE); UROBILINOGEN,URINE 0.2 (NORMAL) E.U./dL (NORMAL)
[2020-01-06 15:25] LABS: CLARITY,URINE CLEAR (CLEAR)
--- NOTE | 2020-01-06 16:43 | PHARMACY PROGRESS NOTE ---
- Best Possible Medication History Admit Date and Time: 01/06/20 1524 Processed by: Pharmacy Medication History completed: Yes Patient Interview: Completed Secondary Source(s): Prescription bottles (PATIENT UNABLE TO PARTICIPATE IN INTERVIEW. USED INSURANCE RECORDS AND DAUGHTER TO CONFIRM HOME MEDICATIONS ), Other family member, Pharmacy records, Insurance records As the person ultimately responsible for medication therapy, providers are able to order a medication from an existing home medication list in [facility] via the "Reconcile Routine" prior to Confirmation of that medication by academic support coordinator. Such practice is discouraged except when the physician, in their clinical judgment, deems that a medical need exists for a medication without regard to previous use.
--- NOTE | 2020-01-06 18:11 | CONSULTATION NOTE ---
Referring Provider Name of Referring Provider:: Dr. Perez Consult Date: 01/06/20 Chief Complaint - Chief Complaint Chief Complaint: GI bleed History of Present Illness - Admitted From Admitted From:: Home - History Obtained From Records Reviewed: EMR History obtained from: Patient and hospitalist as well as emergency room physician Exam Limitations: Patient dementia - History of Present Illness HPI Comment/Other: 84-year-old female with symptomatic anemia admitted with melena. Transfused on the hospitalist service. Request for endoscopic evaluation for gastrointestinal hemorrhage. 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: reports: None : reports: None HEENT: reports: Chronic hearing loss Psych: reports: Depression Musculoskeletal: reports: Osteoarthritis Derm: reports: Psoriasis MRSA Hx?: No - Past Surgical History General: reports: Colonoscopy Ortho: - Family & Social History Family History: Mother: (Father at 75 and mother at age 86), CVA/TIA, Diabetes, Type 2, Hypertension, Father: , CVA/TIA, Hypertension, Sister: Cancer (Colon cancer, cousin with breast cancer), Brother: CAD (Brother had four-vessel CABG), Other family: Cancer Social History Notes: The patient is originally from [place] but moved with her to [facility] in 1972. They have been living in [place] ever since. Her was a senior associate and is now retired. The patient currently lives with her and her daughter. The patient has 6 children. She does have in-home caregivers that have been privately hired by her family. The patient does not smoke cigarettes, she does not drink alcohol and she denies any illicit drug use. - POLST Patient has POLST: No POLST Status: DNR Meds/Allgy - Home Medications Home Medications: Ambulatory Orders Medication Instructions Recorded Confirmed lisinopriL [Lisinopril] 20 mg PO DAILY 09/17/15 01/06/20 Aspirin 81 mg PO DAILY 07/02/17 01/06/20 Latanoprost 0.005% Ophth Drops 1 drops EACHEYE QPM 07/02/17 01/06/20 [Xalatan Ophth Drops] Cholecalciferol (Vitamin D3) 1,000 unit PO DAILY 11/24/17 01/06/20 [Vitamin D3] Calcium/Magnesium/Zinc 1 tab PO DAILY 04/05/18 01/06/20 [Hjnnhbh-Mbbkpgbhh-Khcz Tablet] Zonisamide 200 mg PO QPM 04/05/18 01/06/20 Ascorbic Acid 500 mg PO DAILY 01/06/20 01/06/20 Ferrous Sulfate 325 mg PO DAILY 01/06/20 01/06/20 Risperidone [Risperdal] 1 mg PO BID 01/06/20 01/06/20 amLODIPine [Norvasc] 5 mg PO DAILY 01/06/20 01/06/20 lamoTRIgine [LaMICtal] 100 mg PO BID 01/06/20 01/06/20 - Allergies Allergies/Adverse Reactions: Allergies Allergy/AdvReac Type Severity Reaction Status Date / Time caffeine Allergy Unknown Verified 01/06/20 10:56 NSAIDS (Non-Steroidal Allergy Anaphylaxis Verified 01/06/20 10:56 Anti-Inflamma tramadol Allergy Unknown Verified 01/06/20 10:56 levetiracetam AdvReac Severe Unknown Verified 01/06/20 10:56 naproxen sodium * AdvReac Edema Verified 01/06/20 10:56 [From Aleve] antihistamines Allergy Unknown Uncoded 01/06/20 10:56 Review of Systems - Constitutional Constitutional: reports: Fatigue, Weakness - Gastrointestinal Gastrointestinal: reports: Change in bowel habits, Rectal bleeding, Black stools, Bloody stools. denies: Abdominal pain, Abdominal distention, Nausea, V omiting - All Other Systems All Other Systems: reports: Reviewed and negative Exam - Vital Signs Reviewed Vital Signs: Yes Vital Signs: Vital Signs x48h Temp Pulse Pulse Resp BP BP Pulse Ox 01/06/20 17:00 36.4 C L 85 16 98/62 100 01/06/20 16:52 36.4 C L 78 16 100/52 L 01/06/20 16:37 36.4 C L 84 16 98/62 01/06/20 15:00 83 12 112/58 L 100 01/06/20 13:00 82 14 135/51 H 100 01/06/20 11: 36.5 C 81 14 114/68 100 01/06/20 10:53 36 C L 76 14 105/51 L 100 - Physical Exam General Appearance: positive: No acute distress, Alert Eyes Bilateral: positive: Normal inspection, PERRL, EOMI ENT: positive: ENT inspection nml Neck: positive: Nml inspection Respiratory: positive: Chest non-tender, No respiratory distress, Breath sounds nml Cardiovascular: positive: Regular rate & rhythm Abdomen: positive: Non-tender, No distention. negative: Tenderness, Guarding, Rebound Skin: positive: Color nml Extremities: positive: Non-tender, Full ROM, Nml appearance Neurologic/Psychiatric: positive: CN's nml (2-12), Motor nml, Sensation nml, Mood/affect nml, Disoriented to time. negative: Disoriented to person, Disoriented to place Conclusion/Plan - Diagnosis Diagnosis: 1. Gastrointestinal bleed. 2. Symptomatic anemia. 3. Multiple comorbid states - Plan Plan: 1. Consented for upper and lower endoscopy, explained risk and benefits 2. Transfuse as necessary 3. Serial H&H's and continue to hold any anticoagulation 4. Plan upper endoscopy to evaluate source, and colonoscopy however given u rgency of intervention will defer bowel FULL prep at this time 5. Aggressive resuscitation 6. Care per hospitalist service 7. Bowel rest and bowel prep 8. PPI infusion and consider Carafate pending results - Lab Results Fish Bones: 01/07/20 12:16 01/07/20 05:27
[2020-01-06] MEDS: SODIUM CHLORIDE FLUSH 0.9% 10 ML SYRINGE IVP SCH (18:20)
[2020-01-06] MEDS ORDERED: LEVETIRACETAM 750 MG PO SCH (21:00)
[2020-01-06] MEDS ORDERED: lamoTRIgine 100 MG TABLET PO SCH (21:00)
[2020-01-06] MEDS ORDERED: GABAPENTIN 100 MG CAPSULE PO SCH (21:00)
[2020-01-06] MEDS: LATANOPROST 0.005% OPHTH DROPS EACHEYE SCH (21:44)
[2020-01-06] MEDS: risperiDONE 1 MG TABLET PO SCH (21:45)
[2020-01-06] MEDS: PANTOPRAZOLE 40 MG VIAL IVP SCH (21:49)
--- NOTE | 2020-01-06 21:56 | HISTORY & PHYSICAL EXAMINATION ---
DATE OF SERVICE: 01/06/2020 Physician: Celena Perez MD PRIMARY CARE PHYSICIAN: Lloyd Callahan MD. HISTORY OF PRESENT ILLNESS: This is an 84-year-old [place] female who has a history of mild dementi a, seizure disorder, and hypertension. She presented with complaints of having had no bowel movement for two days and then this morning had a large black bowel movement mixed with red. With this, she had near syncope and the family called 911. She was brought to the emergency room. Here, she had st able vital signs, but was found to have a hemoglobin of 6, her baseline hemoglobin is 12. She also h ad another melenotic bowel movement in the ER. She is being admitted for anemia from gastrointestina l blood loss and to evaluate and treat the GI bleed. PAST MEDICAL HISTORY 1. Dementia. 2. Hypertension. 3. Seizure disorder. ALLERGIES 1. CAFFEINE. 2. NONSTEROIDAL ANTI-INFLAMMATORIES GIVE HER ANAPHYLAXIS. 3. TRAMADOL. 4. LEVETIRACETAM. 5. NAPROSYN. 6. ANTIHISTAMINES. MEDICATIONS 1. Baby aspirin daily. 2. Amlodipine 5 mg daily. 3. Vitamin C daily. 4. Calcium, magnesium with zinc daily. 5. Vitamin D3 daily. 6. Lisinopril 20 mg daily. 7. Zonisamide 200 mg every night. 8. Iron sulfate 325 mg daily. 9. Lamictal 100 mg b.i.d. 10. Xalatan eyedrops. 11. Risperidone 1 mg b.i.d. FAMILY HISTORY: No inherited diseases. SOCIAL HISTORY: She is a nonsmoker, drinks no alcohol, lives with family. She has dementia. REVIEW OF SYSTEMS: This was done from chart review, since the patient is minimally communicative, th e pertinent positives are listed, the rest are negative. PHYSICAL EXAM GENERAL: Elderly female, who is supine, asleep and in no distress. VITAL SIGNS: Blood pressure 98/62, heart rate 84 in sinus rhythm, afebrile, room air saturation 100% . HEENT: Reveals hirsutism. NECK: No JVD in a supine position. CHEST: Clear. HEART: Normal heart sounds. ABDOMEN: Soft, nontender. Normal bowel sounds. EXTREMITIES: No clubbing, cyanosis or edema. NEUROLOGIC: Currently sleepy, grossly normal motor exam. LABORATORY DATA: Normal electrolytes. BUN is 42, creatinine 0.9. Lactic acid 2.0, magnesium 2.0. Normal liver tests. INR 1.2. White blood count 11, hemoglobin 6, her baseline is 12, MCV 102, RDW 1 3, platelet count normal at 174. Urinalysis unremarkable. Swab for COVID was negative, as well as ot her viruses negative. CHEST X-RAY: Unremarkable for age. EKG: Normal sinus rhythm, Q-waves are present in leads III and aVF. IMPRESSION/DIAGNOSES 1. Gastrointestinal blood loss anemia. 2. Gastrointestinal bleed. 3. Near syncope. 4. Dementia. 5. History of seizures. 6. History of hypertension. PLAN: Admit the patient to inpatient status on telemetry because of the near syncope. Obtain [facility] surgery consult for EGD and colonoscopy. Begin a clear liquid diet only, as she will need a prep f or the colonoscopy. Hold her aspirin. Transfused 2 units PRBCs, follow her hemoglobin daily, more f requently if there is recurrence of the melena. Hold her blood pressure medicines because of the nor mal blood pressure, indicating that she is volume depleted from the anemia. Continue with her seizur e medication and dementia medication. CODE STATUS: DNR (obtained from previous inpatient stay information). DEEP VENOUS THROMBOSIS PROPHYLAXIS: SCDs. ATTESTATION: Patient is expected to be discharged or transferred to another facility within 96 hours : Yes. TD: 01/06/2020 20:07
[2020-01-06] MEDS: DEXTROSE 5%-0.9% NACL 1,000 ML IV SCH (23:18)
[2020-01-07] MEDS: SODIUM CHLORIDE FLUSH 0.9% 10 ML SYRINGE IVP SCH ×3 (02:02→19:01)
[2020-01-07 05:36] LABS: BASOPHILS % (AUTO) 0.5 %; EOSINOPHILS # (AUTO) 0.1 10^3/uL (0.0-0.7); HGB - HEMOGLOBIN 8.9 g/dL (12.0-16.0); LYMPHOCYTES # (AUTO) 1.1 10^3/uL (1.5-3.5); LYMPHOCYTES % (AUTO) 12.6 %; MEAN CORPUSCULAR HEMOGLOBIN 32.6 pg (27.0-31.0); MEAN CORPUSCULAR HGB CONC 33.7 g/dL (32.0-36.0); MEAN CORPUSCULAR VOLUME 96.7 fL (81.0-99.0); MEAN PLATELET VOLUME 9.9 fL (7.9-10.8); MONOCYTES # (AUTO) 0.6 10^3/uL (0.0-1.0); MONOCYTES % (AUTO) 7.4 %; NEUTROPHILS # (AUTO) 6.7 10^3/uL (1.5-6.6); NEUTROPHILS % (AUTO) 77.1 %; PLT - PLATELET COUNT 154 10^3/uL (130-450); RED BLOOD COUNT 2.73 10^6/uL (4.20-5.40); RED CELL DISTRIBUTION WIDTH 14.1 % (12.0-15.0); WHITE BLOOD COUNT 8.6 x10^3/uL (4.8-10.8)
[2020-01-07 05:43] LABS: CALCIUM 7.6 mg/dL (8.5-10.3); CREATININE 0.7 mg/dL (0.4-1.0)
[2020-01-07] MEDS ORDERED: MEMANTINE 5 MG TABLET PO SCH (09:00)
[2020-01-07] MEDS ORDERED: FLUoxetine 10 MG CAPSULE PO SCH (09:00)
[2020-01-07] MEDS ORDERED: OXcarbazepine 150 MG TABLET PO SCH (09:00)
[2020-01-07] MEDS: DEXTROSE 5%-0.9% NACL 1,000 ML IV SCH (09:18)
[2020-01-07] MEDS: FERROUS SULFATE 325 MG TABLET PO SCH (09:18)
[2020-01-07] MEDS: lamoTRIgine 100 MG TABLET PO SCH ×2 (09:19→22:20)
[2020-01-07] MEDS: PANTOPRAZOLE 40 MG VIAL IVP SCH ×2 (09:19→22:21)
[2020-01-07] MEDS: risperiDONE 1 MG TABLET PO SCH ×2 (09:19→22:20)
[2020-01-07 12:20] LABS: BASOPHILS % (AUTO) 0.3 %; EOSINOPHILS # (AUTO) 0.1 10^3/uL (0.0-0.7); EOSINOPHILS % (AUTO) 0.8 %; HGB - HEMOGLOBIN 8.9 g/dL (12.0-16.0); LYMPHOCYTES # (AUTO) 1.4 10^3/uL (1.5-3.5); LYMPHOCYTES % (AUTO) 15.7 %; MEAN CORPUSCULAR HEMOGLOBIN 31.3 pg (27.0-31.0); MEAN CORPUSCULAR HGB CONC 32.1 g/dL (32.0-36.0); MEAN CORPUSCULAR VOLUME 97.5 fL (81.0-99.0); MEAN PLATELET VOLUME 9.9 fL (7.9-10.8); MONOCYTES # (AUTO) 0.6 10^3/uL (0.0-1.0); NEUTROPHILS # (AUTO) 6.5 10^3/uL (1.5-6.6); NEUTROPHILS % (AUTO) 75.1 %; PLT - PLATELET COUNT 168 10^3/uL (130-450); RED BLOOD COUNT 2.84 10^6/uL (4.20-5.40); RED CELL DISTRIBUTION WIDTH 14.7 % (12.0-15.0); WHITE BLOOD COUNT 8.7 x10^3/uL (4.8-10.8)
[2020-01-07] MEDS: SODIUM/POTASSIUM/MAG SULFATES 354 ML PREP KIT PO SCH ×2 (12:24→14:46)
--- NOTE | 2020-01-07 13:01 | ANESTHESIA ---
Pre-Anesthesia VS, & Labs - Diagnosis GI bleed - Procedure EGD/Cscope Vital Signs: Temp Pulse Resp BP Pulse Ox 36.6 C 74 18 131/68 H 100 01/07/20 09:00 01/07/20 09:00 01/07/20 09:00 01/07/20 09:00 01/07/20 09:00 Height: 5 ft Weight (kg): 65.1 kg Body Mass Index: 28.0 BMI Classification: Overweight - NPO Other Last Fluid Intake: 1100, prep Last Food Intake: >8hrs - Is Patient ?: No - Lab Results Current Lab Results: Laboratory Tests 01/07/20 12:16: WBC 8.7, RBC 2.84 L, Hgb 8.9 L, Hct 27.7 L, MCV 97.5, MCH 31.3 H , MCHC 32.1, RDW 14.7, Plt Count 168, MPV 9.9, Neut # (Auto) 6.5, Lymph # (Auto) 1.4 L, Moore # (Auto) 0.6, Eos # (Auto) 0.1, Baso # (Auto) 0.0, Absolute Nucleated RBC 0.00, Nucleated RBC % 0.0 01/07/20 05:27: Sodium 138, Potassium 3.7, Chloride 111, Carbon Dioxide 20 L, Anion Gap 7.0, BUN 34 H, Creatinine 0.7, Estimated GFR (MDRD) 80 L, Glucose 115 H, Calcium 7.6 L 01/07/20 05:27: WBC 8.6, RBC 2.73 L, Hgb 8.9 L, Hct 26.4 L, MCV 96.7, MCH 32.6 H , MCHC 33.7, RDW 14.1, Plt Count 154, MPV 9.9, Neut # (Auto) 6.7 H, Lymph # (Auto) 1.1 L, Moore # (Auto) 0.6, Eos # (Auto) 0.1, Baso # (Auto) 0.0, Absolute Nucleated RBC 0.00, Nucleated RBC % 0.0 01/06/20 12:38: Blood Type Cancelled, Antibody Screen Cancelled, Crossmatch IS Only See Detail 01/06/20 12:38: Blood Type O POSITIVE, Antibody Screen NEGATIVE 01/06/20 12:06: Blood Type Recheck O POSITIVE 01/06/20 12:06: PT 13.3 H, INR 1.2, APTT 25.0 01/06/20 12:06: Sodium 138, Potassium 5.0, Chloride 110, Carbon Dioxide 21, Anion Gap 7.0, BUN 42 H, Creatinine 0.9, Estimated GFR (MDRD) 60 L, Glucose 139 H, Calcium 7.8 L, Magnesium 2.0, Total Bilirubin 0.4, AST 14, ALT 10, Alkaline Phosphatase 43, Total Protein 4.9 L, Albumin 2.4 L, Globulin 2.5, Albumin/Globulin Ratio 1.0 01/06/20 12:06: Lactic Acid 2.0 01/06/20 12:06: WBC 11.1 H, RBC 1.93 L, Hgb 6.0 L*, Hct 19.7 L*, MCV 102.1 H, MCH 31.1 H, MCHC 30.5 L, RDW 13.9, Plt Count 174, MPV 10.1, Neut # (Auto) 9.8 H, Lymph # (Auto) 0.7 L, Moore # (Auto) 0.5, Eos # (Auto) 0.0, Baso # (Auto) 0.0, Absolute Nucleated RBC 0.00, Nucleated RBC % 0.0 Lab results reviewed: Yes Fish Bones: 01/07/20 12:16 01/07/20 05:27 Home Medications and Allergies Home Medications: Ambulatory Orders Ascorbic Acid 500 mg PO DAILY 01/06/20 Ferrous Sulfate 325 mg PO DAILY 01/06/20 Risperidone [Risperdal] 1 mg PO BID 01/06/20 amLODIPine [Norvasc] 5 mg PO DAILY 01/06/20 lamoTRIgine [LaMICtal] 100 mg PO BID 01/06/20 Active Medications Acetaminophen (Tylenol) 650 mg PO Q4HR PRN PRN Reason: Pain 1 to 4 Ferrous Sulfate (Feosol) 325 mg PO DAILY [facility] Last Admin: 01/07/20 09:18 Dose: 325 mg Documented by: Dextrose/Sodium Chloride (D5ns) 1,000 mls @ 100 mls/hr IV .Q10H [facility] Last Admin: 01/07/20 09:18 Dose: 100 mls/hr Documented by: Lamotrigine (Lamictal) 100 mg PO BID [facility] Last Admin: 01/07/20 09:19 Dose: 100 mg Documented by: Latanoprost (Xalatan Ophth Drops) 1 drops EACHEYE QPM [facility] Last Admin: 01/06/20 21:44 Dose: 1 drops Documented by: Ondansetron HCl (Zofran Inj) 4 mg IVP Q6HR PRN PRN Reason: Nausea / Vomiting Pantoprazole Sodium (Protonix) 40 mg IVP BID [facility] Last Admin: 01/07/20 09:19 Dose: 40 mg Documented by: Risperidone (Risperdal) 1 mg PO BID [facility] Last Admin: 01/07/20 09:19 Dose: 1 mg Documented by: Sodium Chloride (Normal Saline Flush 0.9%) 10 ml IVP PRN PRN PRN Reason: NEEDED PER PROVIDER ORDERS Last Admin: 01/07/20 09:20 Dose: 10 ml Documented by: Sodium Chloride (Normal Saline Flush 0.9%) 10 ml IVP 0100,0900,1700 [facility] Last Admin: 01/07/20 09:20 Dose: 10 ml Documented by: Sodium Sulfate/Potass Sulf/Mag Sulf (Suprep Bowel Prep Kit) 177 ml PO 1800,0500 [facility] Stop: 01/07/20 18:01 Last Admin: 01/07/20 12:24 Dose: 177 ml Documented by: lisinopriL [Lisinopril] 20 mg PO DAILY 09/17/15 Aspirin 81 mg PO DAILY 07/02/17 Latanoprost 0.005% Ophth Drops [Xalatan Ophth Drops] 1 drops EACHEYE QPM 07/02/17 Cholecalciferol (Vitamin D3) [Vitamin D3] 1,000 unit PO DAILY 11/24/17 Calcium/Magnesium/Zinc [Hddbybf-Rqcdqsoqr-Rmdx Tablet] 1 tab PO DAILY 04/05/18 Zonisamide 200 mg PO QPM 04/05/18 Ascorbic Acid 500 mg PO DAILY 01/06/20 Ferrous Sulfate 325 mg PO DAILY 01/06/20 Risperidone [Risperdal] 1 mg PO BID 01/06/20 amLODIPine [Norvasc] 5 mg PO DAILY 01/06/20 lamoTRIgine [LaMICtal] 100 mg PO BID 01/06/20 Allergies/Adverse Reactions: Allergies Allergy/AdvReac Type Severity Reaction Status Date / Time caffeine Allergy Unknown Verified 01/06/20 10:56 NSAIDS (Non-Steroidal Allergy Anaphylaxis Verified 01/06/20 10:56 Anti-Inflamma tramadol Allergy Unknown Verified 01/06/20 10:56 levetiracetam AdvReac Severe Unknown Verified 01/06/20 10:56 naproxen sodium * AdvReac Edema Verified 01/06/20 10:56 [From Aleve] antihistamines Allergy Unknown Uncoded 01/06/20 10:56 Anes History & Medical History - Anesthetic History Anesthesia Complications: reports: No previous complications Family history of Anesthesia Complications: Denies Family history of Malignant Hyperthermia: Denies - Medical History Cardiovascular: reports: Hypertension, High cholesterol, Murmur Pulmonary: reports: None, Sleep apnea Gastrointestinal: reports: GERD, Colon polyps Urinary: reports: None Neuro: reports: Dementia, CVA, TIA, Seizure disorder Musculoskeletal: reports: Osteoarthritis Endocrine/Autoimmune: reports: None Blood Disorders: reports: None Skin: reports: Psoriasis Smoking Status: Never smoker - Surgical History General: Colonoscopy Orthopedic:  Exam General: Alert, Cooperative, Other (dementia) Dental: WNL Mouth Openin Fingerbreadth Neck Mobility: Reduced Mallampati classification: II Thyromental Distance: 4-6 cm Respiratory: Lungs clear, Normal breath sounds, No respiratory distress Cardiovascular: Regular rate Neurological: Normal speech Mental/Cognitive Status: Alert/Oriented X3, Normal for patient Cognitive Status: Within normal limits (dementia, appropriate, cooperative) Plan Anesthesia Type: MAC Consent for Procedure(s) Verified and Reviewed: Yes Code Status: Attempt Resuscitation ASA classification: 3-Severe systemic disease (consent with daughter via telephone with RN witness) Is this case an emergency?: Yes
[2020-01-07] MEDS ORDERED: LIDO GARGLE 30 ML BOTTLE ONE (14:41)
[2020-01-07] MEDS ORDERED: PROPOFOL 500 MG/50 ML 500 MG/50 ML VIAL ONE (15:55)
[2020-01-07] MEDS ORDERED: LACTATED RINGERS 1,000 ML IV ONE (18:07)
--- NOTE | 2020-01-07 18:43 | ANESTHESIA POST OP EVALUATION ---
Anesthesia Post Eval - Post Anesthesia Eval Vitals: Last Vital Signs Temp 36.3 C L 01/07/20 18:39 Pulse 73 01/07/20 18:39 Resp 17 01/07/20 18:39 BP 107/52 L 01/07/20 18:39 Pulse Ox 100 01/07/20 18:39 CV Function Including HR & BP: positive: Stable Pain Control: positive: Satisfactory Nausea & Vomiting: positive: Negative Mental Status: positive: Baseline (Oriented to self and location.) Respiratory Status: Airway Patent Hydration Status: Satisfactory Anesthesia Complications: positive: None (Returned to [facility].)
--- NOTE | 2020-01-07 18:44 | PROVIDER PROGRESS NOTE ---
Progress Note 84-year-old female gastrointestinal bleed transfused packed red blood cells. Demented with history of CVA as well as cardiac disease. Status post colonoscopy with results as follows: 1. Retained melanotic stool, significant tortuosity and angulation requiring careful navigation and stiffening wire. 2. No tor active diverticular bleed or inflammatory changes, no colitis no proctitis. 3. Terminal ileum normal with no ileitis, no bright red blood - only melanotic stool as seen throughout the entire colon. Status post upper endoscopy with results as follows: 1. Duodenum normal with no duodenitis, bilious contents. 2. Large no gastritis appreciated. 3. 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 4. Esophagus normal with no additional pathology appreciated. Would recommend the followin. Continue to hold any systemic anticoagulation 2. PPI twice daily after transition from gtt; Carafate 4 times daily 3. Await biopsy results however highly concerning for malignancy given its features; will proceed with CT chest abdomen pelvis to evaluate for metastatic disease. 4. Recommend iron infusions in acute on chronic blood loss anemia 5. Given location of mass though not obstructing would modify diet and can consider resuming clear liquids with full liquids to follow. 6. Given the patient's comorbid states, poor functional status, and the location of this lesion, limited opportunity for any meaningful intervention. Could consider embolization. Would necessarily await pathology. Some thought to overall goals of care and possibly reconsidering CODE STATUS would be appropriate. 7. Discussed results with patient as well as her daughter Joi. 8. Any further intervention would merit transfer for higher level of care especially as it relates to interventional radiographic measures.
[2020-01-07] MEDS ORDERED: IOVERSOL 320 100 ML VIAL IVP ONE ×2 (19:07→20:20)
--- NOTE | 2020-01-07 20:16 | PROVIDER PROGRESS NOTE ---
Assessment/Plan - Problem List (1) Melena Assessment/Plan: She had another large black bowel movement overnight. Hemoglobin was stable today after 2 units PRBCs transfused overnight. She will be going for her scopes later today, is getting a prep for the colon. She is on empiric Protonix (2) Anemia due to GI blood loss Assessment/Plan: As above in #1. (3) Dementia Assessment/Plan: Patient is pleasant, no behavioral disturbances. She has her daughter do consents for her (4) Hx of seizure disorder Assessment/Plan: She remains on her home antiseizure medication while here - Current Meds Current Meds: Current Medications Generic Name Dose Route Start Last Admin Trade Name Freq PRN Reason Stop Dose Admin Ferrous Sulfate 325 mg 01/07/20 09:00 01/07/20 09:18 Feosol PO 325 mg DAILY FRANK Administration Dextrose/Sodium Chloride 1,000 mls @ 100 mls/hr 01/06/20 16:00 01/07/20 20:08 D5ns IV 100 mls/hr .Q10H FRANK Infusion Lamotrigine 100 mg 01/07/20 09:00 01/07/20 09:19 Lamictal PO 100 mg BID FRANK Administration Latanoprost 1 drops 01/06/20 21:00 01/06/20 21:44 Xalatan Ophth Drops EACHEYE 1 drops QPM FRANK Administration Pantoprazole Sodium 40 mg 01/06/20 21:00 01/07/20 09:19 Protonix IVP 40 mg BID FRANK Administration Risperidone 1 mg 01/06/20 21:00 01/07/20 09:19 Risperdal PO 1 mg BID FRANK Administration Sodium Chloride 10 ml 01/06/20 15:11 01/07/20 09:20 Normal Saline Flush 0.9% IVP 10 ml PRN PRN Administration NEEDED PER PROVIDER ORDERS Sodium Chloride 10 ml 01/06/20 17:00 01/07/20 19:01 Normal Saline Flush 0.9% IVP Not Given 0100,0900,1700 FRANK - Lab Result Fish Bone Diagrams: 01/07/20 12:16 01/07/20 05:27 - Additional Planning My Orders: My Active Orders 01/06/20 21:00 Latanoprost 0.005% Ophth Drops [Xalatan Ophth Drops] 1 drops EACHEYE QPM Pantoprazole [Protonix] 40 mg IVP BID risperiDONE [RisperDAL] 1 mg PO BID 01/07/20 09:00 Ferrous Sulfate [Feosol] 325 mg PO DAILY lamoTRIgine [LaMICtal] 100 mg PO BID 01/07/20 20:13 CHEST W [CT] Routine Objective Vital Signs: Vital Signs - 24 hr 01/06/20 01/06/20 01/06/20 20:15 20:30 23:11 Temperature 36.4 C L 36.4 C L 36.5 C Heart Rate 76 71 76 Heart Rate [ Brachial] Respiratory 16 14 14 Rate Blood Pressure 121/58 L 126/57 L 124/48 L Blood Pressure [Right Brachial artery] Blood Pressure [Right Radial artery] O2 Saturation 01/07/20 01/07/20 01/07/20 01:00 05:00 09:00 Temperature 36.8 C 36.7 C 36.6 C Heart Rate Heart Rate [ 69 70 74 Brachial] Respiratory 18 16 18 Rate Blood Pressure Blood Pressure 122/59 L 142/56 H 131/68 H [Right Brachial artery] Blood Pressure [Right Radial artery] O2 Saturation 99 98 100 01/07/20 01/07/20 01/07/20 13:00 16:34 18:07 Temperature 36.6 C 36.3 C L 36.3 C L Heart Rate 75 Heart Rate [ 72 79 Brachial] Respiratory 18 16 18 Rate Blood Pressure 60/36 L Blood Pressure 127/78 146/68 H [Right Brachial artery] Blood Pressure [Right Radial artery] O2 Saturation 100 99 100 01/07/20 01/07/20 01/07/20 18:10 18:15 18:20 Temperature Heart Rate 63 73 77 Heart Rate [ Brachial] Respiratory 15 15 17 Rate Blood Pressure 60/37 L 64/37 L 98/41 L Blood Pressure [Right Brachial artery] Blood Pressure [Right Radial artery] O2 Saturation 100 100 100 01/07/20 01/07/20 01/07/20 18:25 18:30 18:35 Temperature 36.3 C L 36.3 C L Heart Rate 69 72 74 Heart Rate [ Brachial] Respiratory 16 16 17 Rate Blood Pressure 107/50 L 107/47 L 114/48 L Blood Pressure [Right Brachial artery] Blood Pressure [Right Radial artery] O2 Saturation 100 99 99 01/07/20 01/07/2020 18:39 18:51 19:00 Temperature 36.3 C L 36.4 C L 36.4 C L Heart Rate 73 Heart Rate [ 73 72 Brachial] Respiratory 17 16 16 Rate Blood Pressure 107/52 L Blood Pressure [Right Brachial artery] Blood Pressure 108/52 L 125/92 H [Right Radial artery] O2 Saturation 100 100 100 Oxygen O2 Source Room air I&O (Last 24 Hrs): Intake and Output Totals x24h 01/05/20 01/06/20 01/07/20 23:59 23:59 23:59 Intake Total 2496.0 3791.667 Output Total 1800 Balance 2496.0 1991.667 General: Alert HEENT: Atraumatic, Other (Pale) Neck: Supple, No JVD Neuro: Alert, Disoriented Cardiovascular: Regular rate, No murmurs Respiratory: No respiratory distress, Breath sounds nml Abdomen: Soft, No tenderness Extremities: No edema - Results Results: Laboratory Results WBC 8.7 x10^3/uL (4.8-10.8) 01/07/20 12:16 RBC 2.84 10^6/uL (4.20-5.40) L 01/07/20 12:16 Hgb 8.9 g/dL (12.0-16.0) L 01/07/20 12:16 Hct 27.7 % (37.0-47.0) L 01/07/20 12:16 MCV 97.5 fL (81.0-99.0) 01/07/20 12:16 MCH 31.3 pg (27.0-31.0) H 01/07/20 12:16 MCHC 32.1 g/dL (32.0-36.0) 01/07/20 12:16 RDW 14.7 % (12.0-15.0) 01/07/20 12:16 Plt Count 168 10^3/uL (130-450) 01/07/20 12:16 MPV 9.9 fL (7.9-10.8) 01/07/20 12:16 Neut # (Auto) 6.5 10^3/uL (1.5-6.6) 01/07/20 12:16 Lymph # (Auto) 1.4 10^3/uL (1.5-3.5) L 01/07/20 12:16 [place] # (Auto) 0.6 10^3/uL (0.0-1.0) 01/07/20 12:16 Eos # (Auto) 0.1 10^3/uL (0.0-0.7) 01/07/20 12:16 Baso # (Auto) 0.0 10^3/uL (0.0-0.1) 01/07/20 12:16 Absolute Nucleated RBC 0.00 x10^3/uL 01/07/20 12:16 Nucleated RBC % 0.0 /100WBC 01/07/20 12:16 PT 13.3 secs (9.9-12.6) H 01/06/20 12:06 INR 1.2 (0.8-1.2) 01/06/20 12:06 APTT 25.0 secs (24.9-33.3) 01/06/20 12:06 Sodium 138 mmol/L (135-145) 01/07/20 05:27 Potassium 3.7 mmol/L (3.5-5.0) 01/07/20 05:27 Chloride 111 mmol/L (101-111) 01/07/20 05:27 Carbon Dioxide 20 mmol/L (21-32) L 01/07/20 05:27 Anion Gap 7.0 (6-13) 01/07/20 05:27 BUN 34 mg/dL (6-20) H 01/07/20 05:27 Creatinine 0.7 mg/dL (0.4-1.0) 01/07/20 05:27 Estimated GFR (MDRD) 80 (>89) L 01/07/20 05:27 Glucose 115 mg/dL (70-100) H 01/07/20 05:27 Lactic Acid 2.0 mmol/L (0.5-2.2) 01/06/20 12:06 Calcium 7.6 mg/dL (8.5-10.3) L 01/07/20 05:27 Magnesium 2.0 mg/dL (1.7-2.8) 01/06/20 12:06 Total Bilirubin 0.4 mg/dL (0.2-1.0) 01/06/20 12:06 AST 14 IU/L (10-42) 01/06/20 12:06 ALT 10 IU/L (10-60) 01/06/20 12:06 Alkaline Phosphatase 43 IU/L (42-121) 01/06/20 12:06 Total Protein 4.9 g/dL (6.7-8.2) L 01/06/20 12:06 Albumin 2.4 g/dL (3.2-5.5) L 01/06/20 12:06 Globulin 2.5 g/dL (2.1-4.2) 01/06/20 12:06 Albumin/Globulin Ratio 1.0 (1.0-2.2) 01/06/20 12:06 Urine Color YELLOW 01/06/20 15:10 Urine Clarity CLEAR (CLEAR) 01/06/20 15:10 Urine pH 5.5 PH (5.0-7.5) 01/06/20 15:10 Ur Specific [place] 1.020 (1.002-1.030) 01/06/20 15:10 Urine Protein NEGATIVE mg/dL (NEGATIVE) 01/06/20 15:10 Urine Glucose (UA) NEGATIVE mg/dL (NEGATIVE) 01/06/20 15:10 Urine Ketones NEGATIVE mg/dL (NEGATIVE) 01/06/20 15:10 Urine Occult Blood NEGATIVE (NEGATIVE) 01/06/20 15:10 Urine Nitrite NEGATIVE (NEGATIVE) 01/06/20 15:10 Urine Bilirubin NEGATIVE (NEGATIVE) 01/06/20 15:10 Urine Urobilinogen 0.2 (NORMAL) E.U./dL (NORMAL) 01/06/20 15:10 Ur Leukocyte Esterase NEGATIVE (NEGATIVE) 01/06/20 15:10 Ur Microscopic Review NOT INDICATED 01/06/20 15:10 Urine Culture Comments NOT INDICATED 01/06/20 15:10 Nasal Adenovirus (PCR) NOT DETECTED 01/06/20 13:16 Nasal B. parapertussis DNA (PCR) NOT DETECTED 01/06/20 13:16 Nasal Coronavir 229E PCR NOT DETECTED 01/06/20 13:16 Nasal Coronavir HKU1 PCR NOT DETECTED 01/06/20 13:16 Nasal Coronavir NL63 PCR NOT DETECTED 01/06/20 13:16 Nasal Coronavir OC43 PCR NOT DETECTED 01/06/20 13:16 Nasal Enterovir/Rhinovir PCR NOT DETECTED 01/06/20 13:16 Nasal Influenza B PCR NOT DETECTED 01/06/20 13:16 Nasal Influenza A PCR NOT DETECTED 01/06/20 13:16 Nasal Parainfluen 1 PCR NOT DETECTED 01/06/20 13:16 Nasal Parainfluen 2 PCR NOT DETECTED 01/06/20 13:16 Nasal Parainfluen 3 PCR NOT DETECTED 01/06/20 13:16 Nasal Parainfluen 4 PCR NOT DETECTED 01/06/20 13:16 Nasal RSV (PCR) NOT DETECTED 01/06/20 13:16 Nasal B.pertussis DNA PCR NOT DETECTED 01/06/20 13:16 Nasal C.pneumoniae (PCR) NOT DETECTED 01/06/20 13:16 [place] Human Metapneumo PCR NOT DETECTED 01/06/20 13:16 Nasal M.pneumoniae (PCR) NOT DETECTED 01/06/20 13:16 Nasal SARS-CoV-2 (PCR) NOT DETECTED 01/06/20 13:16 Blood Type Cancelled 01/06/20 12:38 Blood Type O POSITIVE 01/06/20 12:38 Blood Type Recheck O POSITIVE 01/06/20 12:06 Antibody Screen Cancelled 01/06/20 12:38 Antibody Screen NEGATIVE 01/06/20 12:38 Crossmatch IS Only See Detail 01/06/20 12:38 - Procedures Procedures: Procedures EXCISION OF ASCENDING COLON, ENDO (09/18/15)
--- NOTE | 2020-01-07 20:37 | CT Report ---
PROCEDURE: CHEST W INDICATIONS: Gastric mass evaluate for metastases CONTRAST: IV CONTRAST: Optiray 320 ml: 100 PO CONTRAST: *NO PO CONTRAST TECHNIQUE: After the administration of intravenous contrast, 5 mm thick sections acquired from the pulmonary api vikash to the posterior costophrenic angles. 7 mm thick coronal MIP reformats were acquired. For radia tion dose reduction, the following was used: automated exposure control, adjustment of mA and/or kV according to patient size. COMPARISON: None. FINDINGS: Image quality: Excellent. Lungs and pleura: No acute air space opacities. Reduced inspiratory volume, crowding the bronchovas cular markings within the lungs, but no pneumonia is found and no pulmonary mass lesion is identified . No pleural effusions or pneumothorax. Central and peripheral airways are patent and normal in jesús vandana. Mediastinum: Heart size is normal. No pericardial effusion. No mediastinal or hilar adenopathy by size criteria. Thoracic aorta and central pulmonary arteries are normal in size. Esophagus is jason l in caliber. No hiatal hernia. Bones and chest wall: No suspicious bony lesions. No vertebral body compression fractures. No axil fortunato or supraclavicular adenopathy by size criteria. Thyroid gland . Abdomen: Visualized upper abdominal solid organs appear normal. Upper abdominal bowel loops are nor mal in caliber. There is fluid or soft tissue along the undersurface of the left hemidiaphragm. IMPRESSION: No pulmonary mass lesion is found, no evidence of pulmonary metastatic disease or mediastinal/hilar a denopathy. Note is made of a rim of soft tissue or fluid along the undersurface of the left hemidiaph ragm which will be discussed in detail in the dedicated abdominal/pelvic CT report from same day. Reviewed by: Bert Mcconnell MD on 01/07/2020 8:35 PM PST Approved by: Bert Mcconnell MD on 01/07/2020 8:35 PM PST Station ID: [id number]
--- NOTE | 2020-01-07 20:47 | CT Report ---
PROCEDURE: Abdomen/Pelvis W INDICATIONS: Gastric mass evaluate for metastases CONTRAST: IV CONTRAST: Optiray 320 ml: 100 PO CONTRAST: *NO PO CONTRAST TECHNIQUE: After the administration of contrast, 5 mm thick sections acquired from the diaphragms to the sym physis. 5 mm thick coronal and sagittal reformats were acquired. For radiation dose reduction, the following was used: automated exposure control, adjustment of mA and/or kV according to patient size . COMPARISON: None. FINDINGS: Image quality: Excellent. ABDOMEN: Lung bases: Lung bases are mildly asymmetric with reduced inspiration to a greater degree on the lef t than the right with associated mild left lung base atelectasis. Heart size is normal. Solid organs: Liver and spleen are normal in size and enhancement except at the subcapsular left med ial hepatic segment where an ovoid 9 x 11 mm nodule that measures higher than water in radiodensity c an be seen (series 3 image 14).. Gallbladder Biliary system is non dilated. Pancreas enhances normally. No adrenal nodules. Kidneys demonstrate normal size and enhancement, without hydronephros is. Peritoneum and bowel: Bowel loops demonstrate normal wall thickness and caliber. No free air. Ther e is soft tissue/fluid along the left upper quadrant best seen along the undersurface of the left hem idiaphragm, and in this same area of the gastric cardia appears somewhat heterogeneous and masslike s een centered on series 3 image 13 when compared to a more normal appearance more inferiorly. The mate rial within this area measures up to 50 Hounsfield units, higher in radiodensity than water. More inf eriorly there is a subtle increased radiodensity within the omentum and possible omental thickening a nd soft tissue infiltration at the left anterolateral peritoneal border. This asymmetric thickening c an be seen on the left and not on the right on CT series Nodes and vessels: No retroperitoneal or mesenteric adenopathy by size criteria. Aorta and inferior vena cava are normal in size. Miscellaneous: No ventral hernias. PELVIS: Genitourinary: Bladder wall thickness is normal. Miscellaneous: No inguinal hernias or adenopathy. At the anterolateral left lower quadrant fluid ap pears present that is higher than water in radiodensity at approximately 28.3 Hounsfield units. A sim ilar pattern is seen deep within the cul-de-sac in this patient with pessary in place. Bones: No suspicious bony lesions. No vertebral body compression fractures. IMPRESSION: Peritoneal thickening and enhancement with abnormally elevated fluid within the peritone al space of the left upper quadrant, in the lower abdomen and pelvis. As noted above the appearance o f the gastric cardia is relatively disorganized and this raises concern for presence of a mural mass in that area. 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 Reviewed by: Bert Mcconnell MD on 01/07/2020 8:46 PM PST Approved by: Bert Mcconnell MD on 01/07/2020 8:46 PM PST Station ID: [id number]
[2020-01-07] MEDS: LATANOPROST 0.005% OPHTH DROPS EACHEYE SCH (22:21)
[2020-01-08] MEDS: DEXTROSE 5%-0.9% NACL 1,000 ML IV SCH (00:15)
[2020-01-08] MEDS: SODIUM CHLORIDE FLUSH 0.9% 10 ML SYRINGE IVP SCH ×4 (01:52→23:43)
[2020-01-08 05:42] LABS: BASOPHILS % (AUTO) 0.4 %; EOSINOPHILS # (AUTO) 0.1 10^3/uL (0.0-0.7); EOSINOPHILS % (AUTO) 1.1 %; HGB - HEMOGLOBIN 7.5 g/dL (12.0-16.0); LYMPHOCYTES # (AUTO) 1.1 10^3/uL (1.5-3.5); LYMPHOCYTES % (AUTO) 12.6 %; MEAN CORPUSCULAR HEMOGLOBIN 32.3 pg (27.0-31.0); MEAN CORPUSCULAR HGB CONC 32.6 g/dL (32.0-36.0); MEAN CORPUSCULAR VOLUME 99.1 fL (81.0-99.0); MEAN PLATELET VOLUME 9.6 fL (7.9-10.8); MONOCYTES # (AUTO) 0.6 10^3/uL (0.0-1.0); MONOCYTES % (AUTO) 6.6 %; NEUTROPHILS # (AUTO) 7.1 10^3/uL (1.5-6.6); NEUTROPHILS % (AUTO) 78.4 %; PLT - PLATELET COUNT 164 10^3/uL (130-450); RED BLOOD COUNT 2.32 10^6/uL (4.20-5.40); RED CELL DISTRIBUTION WIDTH 14.8 % (12.0-15.0); WHITE BLOOD COUNT 9.1 x10^3/uL (4.8-10.8)
[2020-01-08 05:52] LABS: CALCIUM 7.6 mg/dL (8.5-10.3); CREATININE 0.7 mg/dL (0.4-1.0)
[2020-01-08] MEDS: lamoTRIgine 100 MG TABLET PO SCH ×2 (09:39→21:20)
[2020-01-08] MEDS: risperiDONE 1 MG TABLET PO SCH ×2 (09:39→21:20)
[2020-01-08] MEDS: FERROUS SULFATE 325 MG TABLET PO SCH (09:40)
[2020-01-08] MEDS: PANTOPRAZOLE 40 MG TABLET PO SCH ×2 (09:40→21:20)
--- NOTE | 2020-01-08 10:59 | PROVIDER PROGRESS NOTE ---
Subjective - Prog Note Date Prog Note Date: 01/08/20 - Subjective Subjective: Denies feeling dizzy or lightheaded. Has not noticed any more bleeding. Still has mild epigastric abdominal pain. No chest pain or dyspnea. Current Medications - Current Medications Current Medications: Active Medications Acetaminophen (Tylenol) 650 mg PO Q4HR PRN PRN Reason: Pain 1 to 4 Ferrous Sulfate (Feosol) 325 mg PO DAILY [facility] Last Admin: 01/08/20 09:40 Dose: 325 mg Documented by: Lamotrigine (Lamictal) 100 mg PO BID [facility] Last Admin: 01/08/20 09:39 Dose: 100 mg Documented by: Latanoprost (Xalatan Ophth Drops) 1 drops EACHEYE QPM [facility] Last Admin: 01/07/20 22:21 Dose: 1 drops Documented by: Ondansetron HCl (Zofran Inj) 4 mg IVP Q6HR PRN PRN Reason: Nausea / Vomiting Pantoprazole Sodium (Protonix) 40 mg PO BID [facility] Last Admin: 01/08/20 09:40 Dose: 40 mg Documented by: Risperidone (Risperdal) 1 mg PO BID [facility] Last Admin: 01/08/20 09:39 Dose: 1 mg Documented by: Sodium Chloride (Normal Saline Flush 0.9%) 10 ml IVP PRN PRN PRN Reason: NEEDED PER PROVIDER ORDERS Last Admin: 01/07/20 09:20 Dose: 10 ml Documented by: Sodium Chloride (Normal Saline Flush 0.9%) 10 ml IVP 0100,0900,1700 [facility] Last Admin: 01/08/20 09:40 Dose: 10 ml Documented by: lisinopriL [Lisinopril] 20 mg PO DAILY 09/17/15 Aspirin 81 mg PO DAILY 07/02/17 Latanoprost 0.005% Ophth Drops [Xalatan Ophth Drops] 1 drops EACHEYE QPM 07/02/17 Cholecalciferol (Vitamin D3) [Vitamin D3] 1,000 unit PO DAILY 11/24/17 Calcium/Magnesium/Zinc [Ldpopqw-Nkalkqsxr-Qqrk Tablet] 1 tab PO DAILY 04/05/18 Zonisamide 200 mg PO QPM 04/05/18 Ascorbic Acid 500 mg PO DAILY 01/06/20 Ferrous Sulfate 325 mg PO DAILY 01/06/20 Risperidone [Risperdal] 1 mg PO BID 01/06/20 amLODIPine [Norvasc] 5 mg PO DAILY 01/06/20 lamoTRIgine [LaMICtal] 100 mg PO BID 01/06/20 Objective - Vital Signs/Intake & Output Reviewed Vital Signs: Yes Vital Signs: Vital Signs x48h Temp Pulse Resp BP BP Pulse Ox 01/08/20 10:00 36.4 C L 78 16 111/39 L 98 01/08/20 07:21 36.6 C 74 16 130/62 99 01/08/20 03:21 36.5 C 75 18 134/58 H 100 Intake & Output: Intake & Output 01/05/20 01/06/20 01/07/20 01/08/20 23:59 23:59 23:59 23:59 Intake Total 2496.0 4030.000 1331.6 Output Total 1800 450 Balance 2496.0 2230.000 881.6 - Objective General Appearance: positive: No acute distress, Alert Eyes Bilateral: positive: Normal inspection ENT: positive: ENT inspection nml Neck: positive: Nml inspection Respiratory: positive: No respiratory distress. negative: Wheezes, Rales Cardiovascular: negative: Tachycardia Abdomen: positive: Tenderness (Mild epigastric tenderness.). negative: Non- tender, Guarding, Rebound Skin: positive: Warm, Dry Neurologic/Psychiatric: negative: Disoriented to person, Disoriented to place - Lab Results Fish Bones: 01/08/20 14:20 01/08/20 05:37 Other Labs: Lab Results x24hrs 01/08/20 01/08/20 01/07/20 Range/Units 05:37 05:37 12:16 WBC 9.1 8.7 (4.8-10.8) x10^3/uL RBC 2.32 L 2.84 L (4.20-5.40) 10^6/uL Hgb 7.5 L 8.9 L (12.0-16.0) g/dL Hct 23.0 L 27.7 L (37.0-47.0) % MCV 99.1 H 97.5 (81.0-99.0) fL MCH 32.3 H 31.3 H (27.0-31.0) pg MCHC 32.6 32.1 (32.0-36.0) g/dL RDW 14.8 14.7 (12.0-15.0) % Plt Count 164 168 (130-450) 10^3/uL MPV 9.6 9.9 (7.9-10.8) fL Neut # (Auto) 7.1 H 6.5 (1.5-6.6) 10^3/uL Lymph # (Auto) 1.1 L 1.4 L (1.5-3.5) 10^3/uL [place] # (Auto) 0.6 0.6 (0.0-1.0) 10^3/uL Eos # (Auto) 0.1 0.1 (0.0-0.7) 10^3/uL Baso # (Auto) 0.0 0.0 (0.0-0.1) 10^3/uL Absolute Nucleated RBC 0.00 0.00 x10^3/uL Nucleated RBC % 0.0 0.0 /100WBC Sodium 139 (135-145) mmol/L Potassium 3.5 (3.5-5.0) mmol/L Chloride 113 H (101-111) mmol/L Carbon Dioxide 18 L (21-32) mmol/L Anion Gap 8.0 (6-13) BUN 16 (6-20) mg/dL Creatinine 0.7 (0.4-1.0) mg/dL Estimated GFR (MDRD) 80 L (>89) Glucose 129 H (70-100) mg/dL Calcium 7.6 L (8.5-10.3) mg/dL Assessment/Plan - Problem List (1) Anemia due to GI blood loss Impression: This is likely secondary to the gastric mass. Hemoglobin continues to decrease this morning. She has already received 2 units of packed red blood cells during this hospitalization. This time, we will keep on a clear liquid diet. Cont inue oral Protonix 40 mg twice daily. Recheck hemoglobin this afternoon. If her hemoglobin continues to decrease or she has significant evidence of bleeding, we will need to discuss with general surgery regarding the need for possible transfer to higher level of care. (2) Gastric mass Impression: This was evident on endoscopy and is concerning for malignancy. This was a 5 cm cavitating mass with central necrosis at the distal GE junction. Also the lik tab source of her upper GI bleed. CT of the abdomen and pelvis was concerning for peritoneal carcinomatosis as well. Biopsies have been obtained and we will follow these up. Speak with the patient's daughter, Kennedi and the patient to discuss the EGD findings. They understand the concern for malignancy. Patient daughter understands the need for oncology follow-up. We did discuss there might not be very good treatment options for her mother given the gastric mass and concern for peritoneal carcinomatosis. At this time, she is focused on treating the anemia. We did discuss palliative care consult and she will consider this after speaking with her mother. (3) Dementia Impression: Stable and at baseline. (4) Hx of seizure disorder Impression: Stable. Continue home medications.
[2020-01-08 15:18] LABS: HGB - HEMOGLOBIN 6.7 g/dL (12.0-16.0)
[2020-01-08] MEDS: ZONISAMIDE 200 MG PO SCH (21:20)
[2020-01-08] MEDS: LATANOPROST 0.005% OPHTH DROPS EACHEYE SCH (21:20)
[2020-01-09 06:05] LABS: BASOPHILS % (AUTO) 0.5 %; EOSINOPHILS # (AUTO) 0.2 10^3/uL (0.0-0.7); HGB - HEMOGLOBIN 8.6 g/dL (12.0-16.0); LYMPHOCYTES # (AUTO) 1.1 10^3/uL (1.5-3.5); LYMPHOCYTES % (AUTO) 14.2 %; MEAN CORPUSCULAR HEMOGLOBIN 30.5 pg (27.0-31.0); MEAN CORPUSCULAR HGB CONC 31.9 g/dL (32.0-36.0); MEAN CORPUSCULAR VOLUME 95.7 fL (81.0-99.0); MEAN PLATELET VOLUME 9.8 fL (7.9-10.8); MONOCYTES # (AUTO) 0.5 10^3/uL (0.0-1.0); MONOCYTES % (AUTO) 6.8 %; NEUTROPHILS # (AUTO) 5.8 10^3/uL (1.5-6.6); NEUTROPHILS % (AUTO) 74.7 %; PLT - PLATELET COUNT 167 10^3/uL (130-450); RED BLOOD COUNT 2.82 10^6/uL (4.20-5.40); RED CELL DISTRIBUTION WIDTH 16.2 % (12.0-15.0); WHITE BLOOD COUNT 7.7 x10^3/uL (4.8-10.8)
[2020-01-09 06:18] LABS: CREATININE 0.6 mg/dL (0.4-1.0)
[2020-01-09] MEDS ORDERED: POTASSIUM CHLORIDE 20 MEQ TABLET PO ONE (07:22)
--- NOTE | 2020-01-09 07:32 | PROVIDER PROGRESS NOTE ---
Subjective - Prog Note Date Prog Note Date: 01/09/20 - Subjective Subjective: She reports feeling well today. Denies abdominal pain. Tolerating a diet. Current Medications - Current Medications Current Medications: Active Medications Acetaminophen (Tylenol) 650 mg PO Q4HR PRN PRN Reason: Pain 1 to 4 Ferrous Sulfate (Feosol) 325 mg PO DAILY [facility] Last Admin: 01/09/20 09:14 Dose: 325 mg Documented by: Lamotrigine (Lamictal) 100 mg PO BID [facility] Last Admin: 01/09/20 09:13 Dose: 100 mg Documented by: Latanoprost (Xalatan Ophth Drops) 1 drops EACHEYE QPM [facility] Last Admin: 01/08/20 21:20 Dose: 1 drops Documented by: Ondansetron HCl (Zofran Inj) 4 mg IVP Q6HR PRN PRN Reason: Nausea / Vomiting Pantoprazole Sodium (Protonix) 40 mg PO BID [facility] Last Admin: 01/09/20 09:13 Dose: 40 mg Documented by: Zonisamide 200 Mg (Capsule) 1 each PO QPM [facility] Last Admin: 01/08/20 21:20 Dose: 1 each Documented by: Risperidone (Risperdal) 1 mg PO BID [facility] Last Admin: 01/09/20 09:14 Dose: 1 mg Documented by: Sodium Chloride (Normal Saline Flush 0.9%) 10 ml IVP PRN PRN PRN Reason: NEEDED PER PROVIDER ORDERS Last Admin: 01/07/20 09:20 Dose: 10 ml Documented by: Sodium Chloride (Normal Saline Flush 0.9%) 10 ml IVP 0100,0900,1700 [facility] Last Admin: 01/09/20 09:14 Dose: 10 ml Documented by: lisinopriL [Lisinopril] 20 mg PO DAILY 09/17/15 Aspirin 81 mg PO DAILY 07/02/17 Latanoprost 0.005% Ophth Drops [Xalatan Ophth Drops] 1 drops EACHEYE QPM 07/02/17 Cholecalciferol (Vitamin D3) [Vitamin D3] 1,000 unit PO DAILY 11/24/17 Calcium/Magnesium/Zinc [Wrbnmie-Umchttyvz-Jviy Tablet] 1 tab PO DAILY 04/05/18 Zonisamide 200 mg PO QPM 04/05/18 Ascorbic Acid 500 mg PO DAILY 01/06/20 Ferrous Sulfate 325 mg PO DAILY 01/06/20 Risperidone [Risperdal] 1 mg PO BID 01/06/20 amLODIPine [Norvasc] 5 mg PO DAILY 01/06/20 lamoTRIgine [LaMICtal] 100 mg PO BID 01/06/20 Objective - Vital Signs/Intake & Output Reviewed Vital Signs: Yes Vital Signs: Vital Signs x48h Temp Pulse Resp BP BP Pulse Ox 01/09/20 03:49 36.6 C 69 16 143/55 H 99 01/09/20 00:15 36.7 C 72 16 126/78 99 Intake & Output: Intake & Output 01/06/20 01/07/20 01/08/20 01/09/20 23:59 23:59 23:59 23:59 Intake Total 2496.0 4030.000 1751.6 Output Total 1800 1350 Balance 2496.0 2230.000 401.6 - Objective General Appearance: positive: No acute distress, Alert Eyes Bilateral: positive: Normal inspection, Conjunctivae nml ENT: positive: ENT inspection nml Neck: positive: Nml inspection Respiratory: positive: No respiratory distress. negative: Wheezes, Rales Cardiovascular: positive: Regular rate & rhythm. negative: Tachycardia Abdomen: positive: Non-tender, No distention. negative: Tenderness Skin: positive: Warm, Dry Extremities: positive: No pedal edema - Lab Results Fish Bones: 01/09/20 14:07 01/09/20 05:40 Other Labs: Lab Results x24hrs 01/09/20 01/09/20 01/08/20 Range/Units 05:40 05:40 14:20 WBC 7.7 (4.8-10.8) x10^3/uL RBC 2.82 L (4.20-5.40) 10^6/uL Hgb 8.6 L 6.7 L* (12.0-16.0) g/dL Hct 27.0 L 20.7 L (37.0-47.0) % MCV 95.7 (81.0-99.0) fL MCH 30.5 (27.0-31.0) pg MCHC 31.9 L (32.0-36.0) g/dL RDW 16.2 H (12.0-15.0) % Plt Count 167 (130-450) 10^3/uL MPV 9.8 (7.9-10.8) fL Neut # (Auto) 5.8 (1.5-6.6) 10^3/uL Lymph # (Auto) 1.1 L (1.5-3.5) 10^3/uL Castro # (Auto) 0.5 (0.0-1.0) 10^3/uL Eos # (Auto) 0.2 (0.0-0.7) 10^3/uL Baso # (Auto) 0.0 (0.0-0.1) 10^3/uL Absolute Nucleated RBC 0.00 x10^3/uL Nucleated RBC % 0.0 /100WBC Sodium 139 (135-145) mmol/L Potassium 3.3 L (3.5-5.0) mmol/L Chloride 113 H (101-111) mmol/L Carbon Dioxide 21 (21-32) mmol/L Anion Gap 5.0 L (6-13) BUN 8 (6-20) mg/dL Creatinine 0.6 (0.4-1.0) mg/dL Estimated GFR (MDRD) 95 (>89) Glucose 101 H (70-100) mg/dL Calcium 8.0 L (8.5-10.3) mg/dL Blood Type Antibody Screen Crossmatch IS Only 01/06/20 Range/Units 12:38 WBC (4.8-10.8) x10^3/uL RBC (4.20-5.40) 10^6/uL Hgb (12.0-16.0) g/dL Hct (37.0-47.0) % MCV (81.0-99.0) fL MCH (27.0-31.0) pg MCHC (32.0-36.0) g/dL RDW (12.0-15.0) % Plt Count (130-450) 10^3/uL MPV (7.9-10.8) fL Neut # (Auto) (1.5-6.6) 10^3/uL Lymph # (Auto) (1.5-3.5) 10^3/uL Castro # (Auto) (0.0-1.0) 10^3/uL Eos # (Auto) (0.0-0.7) 10^3/uL Baso # (Auto) (0.0-0.1) 10^3/uL Absolute Nucleated RBC x10^3/uL Nucleated RBC % /100WBC Sodium (135-145) mmol/L Potassium (3.5-5.0) mmol/L Chloride (101-111) mmol/L Carbon Dioxide (21-32) mmol/L Anion Gap (6-13) BUN (6-20) mg/dL Creatinine (0.4-1.0) mg/dL Estimated GFR (MDRD) (>89) Glucose (70-100) mg/dL Calcium (8.5-10.3) mg/dL Blood Type Cancelled Antibody Screen Cancelled Crossmatch IS Only See Detail Assessment/Plan - Problem List (1) Anemia due to GI blood loss Impression: He was transfused 1 unit of packed red blood cell yesterday afternoon his hemoglobin decreased to less than 7. This has responded appropriate his morning to greater than 8. There has been no further evidence of bleeding. We will recheck her hemoglobin this afternoon and tomorrow morning. If this remain stable, then she is likely ready to be discharged home. We will give her an iron infusion prior to discharge and discontinue her oral iron as her daughter, Kennedi, reports patient has had constipation and prior iron studies revealed poor absorption. 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 I did discuss this with the patient and her daughter, Kennedi. I expressed my concerns given the concern for peritoneal carcinomatosis on CT of the abdomen and pelvis. Patient's daughter like discussed the rest of her family and the patient to discuss how they would like to proceed. She will need oncology follow-up on outpatient basis to discuss potential options from a palliative perspective as well. Continue with diet as tolerated. Her aspirin will be discontinued on discharge to decrease the risk of bleeding. (3) Hypertension Impression: Her blood pressure has increased today to systolic in the 130s. We will resume her home antihypertensives today. Qualifiers: Hypertension type: unspecified Qualified Code(s): I10 - Essential (primary) hypertension (4) Dementia Impression: Stable and at baseline. (5) Hx of seizure disorder Impression: Stable. Continue home medications.
[2020-01-09] MEDS: lamoTRIgine 100 MG TABLET PO SCH ×2 (09:13→22:16)
[2020-01-09] MEDS: PANTOPRAZOLE 40 MG TABLET PO SCH (09:13)
[2020-01-09] MEDS: risperiDONE 1 MG TABLET PO SCH ×2 (09:14→22:16)
[2020-01-09] MEDS: FERROUS SULFATE 325 MG TABLET PO SCH (09:14)
[2020-01-09] MEDS: SODIUM CHLORIDE FLUSH 0.9% 10 ML SYRINGE IVP SCH ×2 (09:14→16:02)
[2020-01-09 14:12] LABS: HGB - HEMOGLOBIN 8.3 g/dL (12.0-16.0)
[2020-01-09] MEDS: amLODIPine 5 MG TABLET PO SCH (16:02)
[2020-01-09] MEDS: LATANOPROST 0.005% OPHTH DROPS EACHEYE SCH (22:16)
[2020-01-09] MEDS: ZONISAMIDE 200 MG PO SCH (22:17)
[2020-01-10] MEDS: SODIUM CHLORIDE FLUSH 0.9% 10 ML SYRINGE IVP SCH ×2 (00:23→09:05)
[2020-01-10 05:56] LABS: BASOPHILS # (AUTO) 0.1 10^3/uL (0.0-0.1); BASOPHILS % (AUTO) 0.8 %; EOSINOPHILS # (AUTO) 0.2 10^3/uL (0.0-0.7); EOSINOPHILS % (AUTO) 2.8 %; LYMPHOCYTES # (AUTO) 1.2 10^3/uL (1.5-3.5); LYMPHOCYTES % (AUTO) 15.5 %; MEAN CORPUSCULAR HEMOGLOBIN 31.5 pg (27.0-31.0); MEAN CORPUSCULAR HGB CONC 32.4 g/dL (32.0-36.0); MEAN CORPUSCULAR VOLUME 97.2 fL (81.0-99.0); MEAN PLATELET VOLUME 9.8 fL (7.9-10.8); MONOCYTES # (AUTO) 0.6 10^3/uL (0.0-1.0); MONOCYTES % (AUTO) 7.6 %; NEUTROPHILS # (AUTO) 5.8 10^3/uL (1.5-6.6); NEUTROPHILS % (AUTO) 72.4 %; PLT - PLATELET COUNT 192 10^3/uL (130-450); RED BLOOD COUNT 2.86 10^6/uL (4.20-5.40); RED CELL DISTRIBUTION WIDTH 16.1 % (12.0-15.0)
[2020-01-10 06:16] LABS: CALCIUM 7.9 mg/dL (8.5-10.3); CREATININE 0.8 mg/dL (0.4-1.0)
[2020-01-10] MEDS ORDERED: POTASSIUM CHLORIDE 20 MEQ TABLET PO ONE (06:52)
[2020-01-10] MEDS ORDERED: lisinopriL 20 MG TABLET PO SCH (09:00)
[2020-01-10] MEDS ORDERED: PANTOPRAZOLE 40 MG TABLET PO SCH (09:00)
[2020-01-10] MEDS ORDERED: IRON DEXTRAN 1,000 MG in SODIUM CHLORIDE 0.9% 250 ML IV ONE (09:00)
[2020-01-10] MEDS: lamoTRIgine 100 MG TABLET PO SCH (09:04)
[2020-01-10] MEDS: risperiDONE 1 MG TABLET PO SCH (09:04)
[2020-01-10] MEDS: amLODIPine 5 MG TABLET PO SCH (09:04)
--- NOTE | 2020-01-10 09:22 | Discharge Plan ---
Discharge Plan Problem Reviewed?: Yes Disposition: Home, Self Care Condition: Stable Prescriptions: Sucralfate [Carafate] 1 gm PO QID #120 tablet Pantoprazole [Protonix] 40 mg PO BID #60 tablet Diet: Regular Activity Restrictions: Activity as Tolerated Health Concerns: You were seen in the hospital because of blood in your stool. You were found to be anemic with a low blood count. You underwent an endoscopy which showed a mass in your stomach. This is concerning for cancer and initial pathology is suggestive of this although the official report is pending. This is likely the source of your bleeding. You were given blood with improvement in your blood counts and they have since remained stable. You are also given a dose of IV iron while you are hospitalized. Plan of Treatment: Please stop taking aspirin as this can increase your risk of bleeding. Please also stop taking the iron tablets as you received IV iron. You will need to follow-up with your primary care provider and an oncologist to follow-up on the official pathology results for the gastric mass and to discuss potential treatment options. Please take Protonix 40 mg twice daily. This helps suppress the acid in your stomach to decrease your risk of bleeding. Care Goals: To ensure that your blood counts remain stable with no evidence of bleeding. Assessment: The patient and family expressed understanding of the treatment plan. Additional Instructions or Follow Up instructions: Please follow-up with your primary care provider and an oncologist to discuss potential options for the gastric mass. No Smoking: If you smoke, Please STOP! Call for help. Follow-up with: Lloyd Callahan MD [Primary Care Provider] -
--- NOTE | 2020-01-10 09:23 | DISCHARGE SUMMARY ---
"Discharge Summary Admit Date: 01/06/20 Discharge Date: 01/10/20 Discharging Provider: Cortez Esqueda Primary Care Provider: Lloyd Callahan Code Status: Do Not Attempt Resuscitation Condition at Discharge: Stable Discharge Disposition: 01 Home, Self Care - DIAGNOSES Admission Diagnoses: Gastrointestinal blood loss anemia Gastrointestinal bleed Near syncope Dementia History of seizures History of hypertension Discharge Diagnoses with Status of Each Condition: Anemia due to GI blood loss - stable. Gastric mass - ongoing. Peritoneal carcinomatosis - ongoing. Hypertension - stable. Dementia - stable. History of seizure disorder - stable. - HPI History of Present Illness: H&P per Dr. Perez: This is an 84-year-old [place] female who has a history of mild dementia, seizure disorder, and hypertension. She presented with complains of having had no bowel been for 2 days and this morning had a large black bowel movement mixed with red. With this, she had near syncope, and the family called 911. She was brought to the emergency room. Here, she has stable vital signs, was found to have a hemoglobin of 6, her baseline hemoglobin is 12. She has had another melanotic bowel movement in the ER. She is being admitted for anemia from gastrointestinal blood loss and to evaluate and treat the GI bleed. - CONSULTS | PROCEDURES Consultations: General Surgery, PT Procedures: She underwent colonoscopy which showed retained melanotic stool, significant tortuosity and angulation requiring careful medication and stiffening wire. No tor active diverticular bleed or inflammatory changes, no colitis or proctitis. Terminal ileum normal with no ileitis, no bright red blood-only melanotic stool seen throughout the entire colon. She underwent endoscopy which showed large distal gastroesophageal mass near 5 cm cavitating with central necrosis which was biopsied. This was felt to be a clear site and source of upper gastrointestinal hemorrhage. No gastritis. Normal duodenum with no duodenitis. Esophagus normal with no additional pathology. - HOSPITAL COURSE Hospital Course: She was admitted to the floor for acute blood loss anemia secondary to suspected upper GI bleed. She was initially transfused 2 units of packed red blood cell with improvement in her hemoglobin. She underwent endoscopy and colonoscopy. Colonoscopy did not reveal any obvious source of bleeding except melenic stool. Endoscopy did reveal a distal gastroesophageal mass approximately 5 cm with c entral necrosis. This was concerning for the site of hemorrhage. She underwent CT of the abdomen and pelvis as well as chest to evaluate for metastasis. This was concerning for peritoneal carcinomatosis. This was discussed with the patient and family and they want to discuss options together and see an oncologist for further evaluation. Her hemoglobin did decrease slowly again after initial transfusion. She required another unit of packed red blood cell. Since then, hemoglobin has remained stable for 24 hours without evidence of bleeding. She had received IV iron prior to discharge. Her oral iron limitation was discontinued on discharge as family reported constipation. The general surgeon did inform you prior to discharge that pathology contacted him to report the concerns for gastric adenocarcinoma. Official pathology report is pending. This was discussed with the family and patient prior to discharge. They will need oncology follow-up on discharge. Aspirin was discontinued to decrease her risk of bleeding. General surgery recommended Protonix 40 mg twice daily and Carafate which were prescribed for the patient. - ALLERGIES Allergies/Adverse Reactions: Allergies Allergy/AdvReac Type Severity Reaction Status Date / Time Antihistamines - Allergy Unknown Verified 01/08/20 07:54 Ethylenediamine caffeine Allergy Unknown Verified 01/06/20 10:56 NSAIDS (Non-Steroidal Allergy Anaphylaxis Verified 01/06/20 10:56 Anti-Inflamma tramadol Allergy Unknown Verified 01/06/20 10:56 levetiracetam AdvReac Severe Unknown Verified 01/06/20 10:56 naproxen sodium * AdvReac Edema Verified 01/06/20 10:56 [From Aleve] - MEDICATIONS Home Medications: Ambulatory Orders Medication Instructions Recorded Confirmed lisinopriL [Lisinopril] 20 mg PO DAILY 09/17/15 01/06/20 Latanoprost 0.005% Ophth Drops 1 drops EACHEYE QPM 07/02/17 01/06/20 [Xalatan Ophth Drops] Cholecalciferol (Vitamin D3) 1,000 unit PO DAILY 11/24/17 01/06/20 [Vitamin D3] Calcium/Magnesium/Zinc 1 tab PO DAILY 04/05/18 01/06/20 [Qxmmkcs-Bvgonadlm-Cyyb Tablet] Zonisamide 200 mg PO QPM 04/05/18 01/06/20 Ascorbic Acid 500 mg PO DAILY 01/06/20 01/06/20 Risperidone [Risperdal] 1 mg PO BID 01/06/20 01/06/20 amLODIPine [Norvasc] 5 mg PO DAILY 01/06/20 01/06/20 lamoTRIgine [LaMICtal] 100 mg PO BID 01/06/20 01/06/20 Pantoprazole [Protonix] 40 mg PO BID #60 tablet 01/10/20 Sucralfate [Carafate] 1 gm PO QID #120 tablet 01/10/20 - PHYSICAL EXAM AT DISCHARGE General Appearance: positive: No acute distress, Alert Eyes Bilateral: positive: Normal inspection ENT: positive: ENT inspection nml Neck: positive: Nml inspection Respiratory: positive: No respiratory distress. negative: Wheezes, Rales Cardiovascular: positive: Regular rate & rhythm. negative: Tachycardia, Bradycardia, Systolic murmur Abdomen: positive: Non-tender. negative: No distention, Tenderness Skin: positive: Warm Extremities: positive: No pedal edema Neurologic/Psychiatric: positive: Other (No focal deficits.). negative: Disoriented to person Physical Exam Other/Comments: Vital Signs - 24 hr 01/09/20 01/10/20 01/10/20 21:00 00:15 05:00 Temperature 36.6 C 36.5 C 37.1 C Heart Rate [ Activity] Heart Rate [ 74 77 70 Brachial] Heart Rate [ Sitting] Respiratory 16 16 16 Rate Blood Pressure [Activity] Blood Pressure 121/84 H 96/45 L 122/71 [Right Brachial artery] Blood Pressure [Right Radial artery] Blood Pressure [Sitting] O2 Saturation 99 99 99 01/10/20 01/10/20 01/10/20 09:00 10:45 13:00 Temperature 36.8 C 36.7 C Heart Rate [ 88 Activity] Heart Rate [ 67 71 Brachial] Heart Rate [ 77 Sitting] Respiratory 18 17 Rate Blood Pressure 128/64 [Activity] Blood Pressure 146/58 H [Right Brachial artery] Blood Pressure 144/60 H [Right Radial artery] Blood Pressure 128/49 L [Sitting] O2 Saturation 98 97 Oxygen O2 Source Room air - LABS Result Diagrams: 01/10/20 05:38 01/10/20 05:38 Other Lab Results: Laboratory Results 01/10/20 05:38: Sodium 139, Potassium 3.4 L, Chloride 111, Carbon Dioxide 22, Anion Gap 6.0, BUN 8, Creatinine 0.8, Estimated GFR (MDRD) 68 L, Glucose 103 H, Calcium 7.9 L 01/10/20 05:38: WBC 8.0, RBC 2.86 L, Hgb 9.0 L, Hct 27.8 L, MCV 97.2, MCH 31.5 H, MCHC 32.4, RDW 16.1 H, Plt Count 192, MPV 9.8, Neut # (Auto) 5.8, Lymph # (Auto) 1.2 L, [place] # (Auto) 0.6, Eos # (Auto) 0.2, Baso # (Auto) 0.1, Absolute Nucleated RBC 0.00, Nucleated RBC % 0.0 01/09/20 14:07: Hgb 8.3 L, Hct 25.6 L 01/09/20 05:40: Sodium 139, Potassium 3.3 L, Chloride 113 H, Carbon Dioxide 21, Anion Gap 5.0 L, BUN 8, Creatinine 0.6, Estimated GFR (MDRD) 95, Glucose 101 H, Calcium 8.0 L 01/09/20 05:40: WBC 7.7, RBC 2.82 L, Hgb 8.6 L, Hct 27.0 L, MCV 95.7, MCH 30.5, MCHC 31.9 L, RDW 16.2 H, Plt Count 167, MPV 9.8, Neut # (Auto) 5.8, Lymph # (Auto) 1.1 L, [place] # (Auto) 0.5, Eos # (Auto) 0.2, Baso # (Auto) 0.0, Absolute Nucleated RBC 0.00, Nucleated RBC % 0.0 01/06/20 12:38: Blood Type Cancelled, Antibody Screen Cancelled, Crossmatch IS Only See Detail - DIAGNOSTIC IMAGING Diagnostic Imaging Results: Final report reviewed - FOLLOW UP Follow Up: Will need follow-up with her primary care provider and oncology. Official pathology report is pending for the gastric mass but preliminary is concerning for gastric adenocarcinoma. - TIME SPENT Time Spent in Discharge (Minutes): 34"
[2020-01-10 14:12] VITALS: BP 128/49
== END 2020-01-10 14:40 | disposition home or self-care (01) | DRG 375 ==
LOC: EDUNIT# → ED 10:37 → MS2 15:24
PROVIDERS: ADMIT Internal Medicine; ATTEND Internal Medicine
PROC: 0DB48ZX Excision of Esophagogastric Junction, Via Natural or Artificial Opening Endoscopic, Diagnostic (ICD-10-PCS; principal; 2020-01-07 15:00)
PROC: 0DJD8ZZ Inspection of Lower Intestinal Tract, Via Natural or Artificial Opening Endoscopic (ICD-10-PCS; 2020-01-07 15:00)
PROC: 30233N1 Transfusion of Nonautologous Red Blood Cells into Peripheral Vein, Percutaneous Approach (ICD-10-PCS; 2020-01-08)
DX: C16.0 Malignant neoplasm of cardia (principal); D62 Acute posthemorrhagic anemia; C78.6 Secondary malignant neoplasm of retroperitoneum and peritoneum; I10 Essential (primary) hypertension; F03.90 Unspecified dementia, unspecified severity, without behavioral disturbance, psychotic disturbance, mood disturbance, and anxiety; G40.909 Epilepsy, unspecified, not intractable, without status epilepticus; K21.9 Gastro-esophageal reflux disease without esophagitis; K57.30 Diverticulosis of large intestine without perforation or abscess without bleeding; F32.9 Major depressive disorder, single episode, unspecified; G47.30 Sleep apnea, unspecified; K59.00 Constipation, unspecified; E78.00 Pure hypercholesterolemia, unspecified; R01.1 Cardiac murmur, unspecified; H54.7 Unspecified visual loss; Z66 Do not resuscitate; Z79.899 Other long term (current) drug therapy; Z86.73 Personal history of transient ischemic attack (TIA), and cerebral infarction without residual deficits; Z86.010 Personal history of colon polyps
CPT/HCPCS: 0202U; 36415; 51701; 71045; 71260; 74177; 80048; 80053; 81003; 83605; 83735; 85014; 85018; 85025; 85610; 85730; 86850; 86900; 86901; 86920; 93005; 96361; 96374; 97161; 99284; 99285; A9270; J1750; J7120; P9016; Q9967; 81001; 87086

== ENCOUNTER 2020-01-14 08:00 | Outpatient (CLI) | payer OTHER ==
[2020-01-14 18:07] LABS: BASOPHILS % (AUTO) 0.5 %; EOSINOPHILS # (AUTO) 0.1 10^3/uL (0.0-0.7); EOSINOPHILS % (AUTO) 1.6 %; HGB - HEMOGLOBIN 9.9 g/dL (12.0-16.0); LYMPHOCYTES # (AUTO) 1.1 10^3/uL (1.5-3.5); LYMPHOCYTES % (AUTO) 13.6 %; MEAN CORPUSCULAR HEMOGLOBIN 31.5 pg (27.0-31.0); MEAN CORPUSCULAR HGB CONC 31.4 g/dL (32.0-36.0); MEAN CORPUSCULAR VOLUME 100.3 fL (81.0-99.0); MEAN PLATELET VOLUME 10.2 fL (7.9-10.8); MONOCYTES # (AUTO) 0.6 10^3/uL (0.0-1.0); MONOCYTES % (AUTO) 7.3 %; NEUTROPHILS # (AUTO) 6.1 10^3/uL (1.5-6.6); NEUTROPHILS % (AUTO) 76.1 %; PLT - PLATELET COUNT 292 10^3/uL (130-450); RED BLOOD COUNT 3.14 10^6/uL (4.20-5.40); RED CELL DISTRIBUTION WIDTH 16.3 % (12.0-15.0)
[2020-01-14 21:27] LABS: % IRON SATURATION 40 % (20-50); IRON 138 ug/dL (28-170); TOTAL IRON BINDING CAPACITY 346 ug/dL (250-450); TRANSFERRIN 247 mg/dL (192-382)
== END 2020-01-14 08:01 | disposition home or self-care (01) ==
LOC: LAB.WCP 08:00
PROVIDERS: ATTEND Internal Medicine
DX: K92.2 Gastrointestinal hemorrhage, unspecified (principal); C16.9 Malignant neoplasm of stomach, unspecified
CPT/HCPCS: 36415; 82728; 83540; 84466; 85025

== ENCOUNTER → 2020-01-28 | Outpatient (CLI) | payer OTHER ==
[2020-01-28 19:08] LABS: BASOPHILS # (AUTO) 0.1 10^3/uL (0.0-0.1); BASOPHILS % (AUTO) 0.8 %; EOSINOPHILS # (AUTO) 0.2 10^3/uL (0.0-0.7); EOSINOPHILS % (AUTO) 2.2 %; HGB - HEMOGLOBIN 11.9 g/dL (12.0-16.0); LYMPHOCYTES # (AUTO) 1.6 10^3/uL (1.5-3.5); LYMPHOCYTES % (AUTO) 21.8 %; MEAN CORPUSCULAR HEMOGLOBIN 32.2 pg (27.0-31.0); MEAN CORPUSCULAR HGB CONC 31.6 g/dL (32.0-36.0); MEAN CORPUSCULAR VOLUME 101.6 fL (81.0-99.0); MEAN PLATELET VOLUME 10.8 fL (7.9-10.8); MONOCYTES # (AUTO) 0.7 10^3/uL (0.0-1.0); MONOCYTES % (AUTO) 8.8 %; NEUTROPHILS # (AUTO) 4.9 10^3/uL (1.5-6.6); NEUTROPHILS % (AUTO) 66.1 %; PLT - PLATELET COUNT 222 10^3/uL (130-450); RED CELL DISTRIBUTION WIDTH 15.3 % (12.0-15.0); WHITE BLOOD COUNT 7.4 x10^3/uL (4.8-10.8)
[2020-01-28 19:47] LABS: % IRON SATURATION 18 % (20-50); IRON 64 ug/dL (28-170); TOTAL IRON BINDING CAPACITY 349 ug/dL (250-450); TRANSFERRIN 249 mg/dL (192-382)
== END ==
LOC: LAB.WCP 08:00
PROVIDERS: ATTEND Internal Medicine
DX: K92.2 Gastrointestinal hemorrhage, unspecified (principal); D50.9 Iron deficiency anemia, unspecified
CPT/HCPCS: 36415; 82728; 83540; 84466; 85025

== ENCOUNTER 2020-02-04 16:33 | Outpatient (CLI) | payer OTHER ==
[2020-02-04 18:08] LABS: BASOPHILS # (AUTO) 0.1 10^3/uL (0.0-0.1); BASOPHILS % (AUTO) 0.8 %; EOSINOPHILS # (AUTO) 0.1 10^3/uL (0.0-0.7); EOSINOPHILS % (AUTO) 2.1 %; HGB - HEMOGLOBIN 12.2 g/dL (12.0-16.0); LYMPHOCYTES # (AUTO) 1.5 10^3/uL (1.5-3.5); LYMPHOCYTES % (AUTO) 22.7 %; MEAN CORPUSCULAR HEMOGLOBIN 31.9 pg (27.0-31.0); MEAN CORPUSCULAR HGB CONC 30.7 g/dL (32.0-36.0); MEAN CORPUSCULAR VOLUME 103.7 fL (81.0-99.0); MEAN PLATELET VOLUME 10.9 fL (7.9-10.8); MONOCYTES # (AUTO) 0.6 10^3/uL (0.0-1.0); MONOCYTES % (AUTO) 9.1 %; NEUTROPHILS # (AUTO) 4.3 10^3/uL (1.5-6.6); NEUTROPHILS % (AUTO) 64.8 %; RED BLOOD COUNT 3.83 10^6/uL (4.20-5.40); RED CELL DISTRIBUTION WIDTH 14.6 % (12.0-15.0); WHITE BLOOD COUNT 6.6 x10^3/uL (4.8-10.8)
[2020-02-04 19:13] LABS: % IRON SATURATION 18 % (20-50); IRON 62 ug/dL (28-170); TOTAL IRON BINDING CAPACITY 347 ug/dL (250-450); TRANSFERRIN 248 mg/dL (192-382)
== END 2020-02-04 23:59 ==
LOC: LAB.WCP 16:33
PROVIDERS: ATTEND Internal Medicine
DX: C16.9 Malignant neoplasm of stomach, unspecified (principal); K92.2 Gastrointestinal hemorrhage, unspecified
CPT/HCPCS: 36415; 82728; 83540; 84466; 85025

== ENCOUNTER 2020-02-05 11:00 | Outpatient (CLI) | payer OTHER ==
--- NOTE | 2020-02-05 15:54 | CONSULTATION NOTE ---
Palliative Care Consultation - Referral Referring Provider: Dr. Lyle Valdes Time of Visit: Referral setting: Home Referral Reason: Gastric adenocarcinoma/Dementia/hx of stroke - Information Sources Records reviewed: Previous records reviewed History/Review of Systems obtained from: Patient, Family (daughter and caregiver Kennedi at visit) Exam limitations: Clinical condition (patient with mild dementia) - History of Present Illness Brief History of Present Illness: This is an 84-year-old [place] female, here to presented in 2017 with stroke, leading also to seizure disorder. She has left hemiplegia, visual changes, and still requires standby assistance for toileting, eating, and walking. Her dementia has improved as far as her memory, she is currently on risperidone controlling behaviors of sundowning and hallucinations, but still requires full- time / caregiving. Unfortunately she presented on 01/05 with large black bowel movement mixed with blood. She was found to have a hemoglobin of 6, and had been admitted for a GI bleed. 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 Patient has had weight loss, both intentional and unintentional over the last several months, had cut out junk food and decreased portions. She has not had any pain, nausea, or vomiting. And has not had any signs or symptoms of recurrent bleeding. She has experienced some inc rease in frequency of intermittent hiccups, they are not intense, they last maybe 2 to 5 minutes and not interfering with eating or sleeping. She has had some increased abdominal cramping on and off, in her lower abdomen. She is having regular bowel movements, they are not dark, in fact probably relations specialist and formed secondary to Carafate She did see oncology, goal is for looking at option of immunotherapy she might be able to tolerate, they are waiting on further molecular profiling. She is a poor candidate for any kind of aggressive treatment, given her poor functional and cognitive status, as well as declining overall health. Palliative care is meeting with patient and her caregiver daughter Kennedi, her DPOA is actually her other daughter Karen Delaney. They have had experience with h ospice in the past, her father originally been diagnosed with lymphoma, but has improved and graduated from hospice. They are aware of the seriousness of her illness, palliative care meeting with patient and family to establish goals. 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 : reports: Incontinence HEENT: reports: Chronic hearing loss Psych: reports: Depression Musculoskeletal: reports: Osteoarthritis, Other (carpal tunnel syndrom) Derm: reports: Eczema, Psoriasis, Rosacea MRSA Hx?: No - Past Surgical History General: reports: Colonoscopy, EGD (with biopsy) Ortho: reports: Shoulder arthroplasty - Substance History Use: Uses substance without health or social issues: NONE Abuse: Recurrent use of substance despite neg consequences: NONE Dependence: Experiences withdrawal or developed tolerances: NONE Social History - Living Situation Living arrangement: At home Living Situation: With spouse/s.o., With family Support System: Patient lives with her elderly , who himself has had health problems but does remain independent at age 91. She herself is dependent on her daughter Kennedi, is who caregiver. Kennedi had come to live with them in 2012, because her brother was dying of kidney failure, mother was the main caregiver for her. 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 She does get some respite, they have ELIGIBILITY TECHNICIAN a for 4 hours on , and pay privately for time off on Tuesday. Patient had 6 kids overall, she does have a sister in [place] but does not provide much support for caregiving Family History - Family History Family History: Mother: (son of ESRD 2012), CVA/TIA (brain stem hemmorhage), Diabetes, Type 2, Hyperlipidemia, Hypertension, Father: , CVA/TIA, Hyperlipidemia, Hypertension, Sister: , Cancer, Brother: , Cancer, Other family: Medications/Allergies - Medications Home Medications: Ambulatory Orders Medication Instructions Recorded Confirmed lisinopriL [Lisinopril] 20 mg PO DAILY 09/17/15 02/05/20 Latanoprost 0.005% Ophth Drops 1 drops EACHEYE QPM 07/02/17 02/05/20 [Xalatan Ophth Drops] Cholecalciferol (Vitamin D3) 1,000 unit PO DAILY 11/24/17 02/05/20 [Vitamin D3] Calcium/Magnesium/Zinc 1 tab PO DAILY 04/05/18 02/05/20 [Ymggsvq-Ejfsreigt-Pdla Tablet] Zonisamide 200 mg PO QPM 04/05/18 02/05/20 Ascorbic Acid 500 mg PO DAILY 01/06/20 02/05/20 Risperidone [Risperdal] 1 mg PO BID 01/06/20 02/05/20 amLODIPine [Norvasc] 5 mg PO DAILY 01/06/20 02/05/20 lamoTRIgine [LaMICtal] 100 mg PO BID 01/06/20 02/05/20 Pantoprazole [Protonix] 40 mg PO BID #60 tablet 01/10/20 02/05/20 Sucralfate [Carafate] 1 gm PO QID #120 tablet 01/10/20 02/05/20 Acetaminophen [Tylenol] 650 mg PO Q6HR PRN 02/05/20 02/05/20 Morphine Sulfate [Morphine Sulf 5 mg PO Q4HR PRN MDD severe pain 02/05/20 02/05/20 Oral (Roxanol)] Ondansetron [Zuplenz] 4 mg PO Q6HR PRN 02/05/20 02/05/20 - Allergies Allergies/Adverse Reactions: Allergies Allergy/AdvReac Type Severity Reaction Status Date / Time Antihistamines - Allergy Unknown Verified 01/08/20 07:54 Ethylenediamine caffeine Allergy Unknown Verified 01/06/20 10:56 NSAIDS (Non-Steroidal Allergy Anaphylaxis Verified 01/06/20 10:56 Anti-Inflamma tramadol Allergy Unknown Verified 01/06/20 10:56 levetiracetam AdvReac Severe Unknown Verified 01/06/20 10:56 lactose AdvReac Unknown Verified 02/05/20 16:23 naproxen sodium * AdvReac Edema Verified 01/06/20 10:56 [From Татьяна] Review of Systems - Constitutional Constitutional: reports: Fatigue, Weight loss (slow and steady over several months). denies: Fever, Chills - Eyes Eyes: reports: Vision loss (related to stroke) - Ears, Nose & Throat Ears, Nose & Throat: reports: Hearing loss, Hearing aids, Dry mouth - Cardiovascular Cardiovascular: reports: Edema, Decr. exercise tolerance. denies: Chest pain - Respiratory Respiratory: reports: SOB at rest, SOB with exertion. denies: Cough - Gastrointestinal Gastrointestinal: reports: Early satiety. denies: Abdominal pain, Constipation, Diarrhea, Black stools, Nausea, Reflux/heartburn - Genitourinary Genitourinary: reports: Incontinence (occasional), Nocturia - Musculoskeletal Musculoskeletal: reports: Stiffness, Limited range of motion (left side; LUE), Muscle weakness, Assistive devices (needs SBA and cueing for ambulation) - Integumentary Integumentary: reports: Dryness, Other (struggles with gluteal fold pressure) - Neurological Neurological: reports: General weakness, Memory problems, Abnormal gait, Seizures (last seizure 04/04) - Psychiatric Psychiatric: reports: Hallucinations (controlled on current regimen of risperadol) - Hematologic/Lymphatic Hematologic/Lymph: Anemia (improved) - All Other Systems All Other Systems: reports: Reviewed and negative Physical Exam - Vital Signs Temperature: 96.7 C Pulse Rate: 68 Respiratory Rate: 16 O2 Saturation: 99 Blood Pressure: 142/77 - Physical Exam General Appearance: positive: No acute distress, Alert Eyes Bilateral: negative: Conjunctivae nml (watery eyes; mild redness) ENT: positive: No signs of dehydration. negative: Pharyngeal erythema, Oral lesions Neck: positive: Trachea midline Cardiovascular: positive: Regular rate & rhythm Respiratory: positive: No respiratory distress, Breath sounds nml, Diminished in bases. negative: Wheezes, Rales, Rhonchi Abdomen: positive: Non-tender, Soft, Nml bowel sounds Skin: positive: Pallor, Dryness Extremities: positive: Pedal edema (trace to knees) Neurologic/Psychiatric: positive: Mood/affect nml, Disoriented to time, Weakness, Flat affect Palliative Care - POLST Patient has POLST: No POLST Status: DNR (was DNR in hospitial; old POLST was DNR/Selective tX; has Advanced directive supportive of this) Pain: No pain Tiredness/Fatigue: Moderate (4-6) Drowsiness/Sedation: Moderate (4-6) Nausea: None Anorexia: Mild (1-3) Dyspnea: Mild (1-3) Depression: Mild (1-3) Anxiety: None Feelings of wellbeing/Perceived Quality of Life: Good, Acceptable Sleep: Variable sleep pattern Constipation: No Performance Status: Patient is dependent for toileting, eating, walking, and all ADLs. Patient has visual impairments, as well as left-sided weakness. She had been up to her hospitalization still participating in her activity program rehab, but has since let this go.She reports she is just felt weaker overall, and does not have as much energy to be able to do this. - Palliative Care Discussion: Patient denies any feeling of fear or concern, unclear how much she understands the seriousness of her illness, patient is Holiness and has not been able to participate in her religion activities secondary the pandemic. This is a huge loss for her as this is very important part of her life. They are starting to have more activities, they may explore this further as things open up. Daughter Kennedi's perception is that has very little understanding nor insight into patient's illness. She has been quite debilitated since her stroke in 2017. Kennedi is been the primary caregiver, but is not the DPOA. This causes some tension, her goals for mom are to focus on quality of life, keeping her comfortable, but is worried about any acute decline or sequela from her cancer. She is quite familiar with hospice from her father, and given her healthcare background, would see this as an appropriate continuum of care. They are though awaiting until her appointment on 02/17. She did ask I reach out to her sister, who is the DPOA, they do need a POLST redone, as they had ripped up the previous one. Patient was a DN AR in the hospital, patient does have an advanced directive which would be consistent with palliative approach with focus of quality of life. Will reach out to other daughter. ADDENDUM: 02/05 Spoke at length with daughter Karen. She does feel like her mom's quality of life has declined since she had her stroke, she is to be able to read, kept house, doted on her father, and sees her dependence as an acute change. She does feel like her father though, who did get treated and "cured", has having a difficult time understanding that this is a different cancer and may have a different outcome for her. She is feeling pressure to take her to a bigger cancer center, to get a second opinion regarding this. We did discuss given the severity of her illness and disability, she would have very few options anyway, and should probably know this as an outcome of her pending oncology appointment. We did discuss in the context of POLST, would be very helpful to have this in the home, particularly given if she were to have an acute event or sequela as a result of her cancer that required a 911 call, it would be important to have direction for this. She is familiar as well from their experience of hospice with their father, we did discuss palliative care versus hospice. Discussed gil that I had left a POLST in the home, she and her sister have talked about it. I also offered myself up again, we did discuss visit after oncology with both sisters there. She does get torn as far as defining somebody else's quality of life, and how best to support her mother in her current situation, as is fearful of her being hospitalized again and alone. Results - Lab Results Lab results reviewed: Yes Lab and Imaging Results: WBC 6.6; hemoglobin 12.2; hematocrit 39.7 Impression and Recommendations - Palliative Care Impression: This is an 84-year-old woman with a history of stroke and seizure disorder, already in compromised health. She has had weight loss, presented acutely with GI bleed 01/05 with hospitalization [facility] from 2019. They are considering at least waiting to see if there are any treatment options regarding immunotherapy. Patient presents with low symptom burden, but is quite frail overall. Palliative care to help with pain and symptom management and anticipatory guidance. Recommendations/Counseling Done: 1. Gastroadenocarcinoma, with peritoneal carcinomatosis. Patient is not an appropriate candidate for chemotherapy, is awaiting molecular testing to see if any immunotherapy options. Counseling provided regarding the continuum of care including hospice for support. Patient without any acute bleeding currently, patient may benefit from more of a palliative care approach with supportive care only. Will await outcome of oncology referral, for consideration of palliative versus hospice care. 2. GI bleed. Currently Carafate does appear to be working, no further decline in counts. Counseling provided and questions addressed regarding acute bleeding for Kennedi, she is somewhat nervous about patient having an acute event. Will provide ondansetron and morphine 5 mg every 4 hours as needed acute pain or distress to have in the home for comfort kit. Counseling provided regarding use, encouraged to call Palliative Care with questions or any changes. 3. Advanced care planning. Have left message for GIOVANNI and daughter Karen, appears there is some tension and complexity regarding advanced care planning. Patient has had a POLST in the past as DN AR/selective treatments, did leave blank form for her and her sister to talk about. I also left hard choices for loving people, and have left message to try and have conversation with Karen about end-of-life wishes. Patient is able to participate in conversation, though does not at this point appear to be able to weigh the nuances regarding filling out a POLST. She does have a directive, that would be consistent with focusing on quality of life issues. SEE ADDENDUM in PC Discussion did speak with GIOVANNI Jones Time Spent: 75 minutes with greater than 50% of this done in counseling regarding symptom management, anticipatory guidance, teaching regarding disease and expectations of oncology treatments.
== END 2020-02-05 11:01 | disposition home or self-care (01) ==
LOC: PC 11:00
PROVIDERS: ATTEND Nurse Practitioner Adult Health
DX: Z51.5 Encounter for palliative care (principal); C16.9 Malignant neoplasm of stomach, unspecified; C78.6 Secondary malignant neoplasm of retroperitoneum and peritoneum; I69.354 Hemiplegia and hemiparesis following cerebral infarction affecting left non-dominant side; I69.398 Other sequelae of cerebral infarction; G40.909 Epilepsy, unspecified, not intractable, without status epilepticus; I10 Essential (primary) hypertension; Z66 Do not resuscitate
CPT/HCPCS: 99345

== ENCOUNTER 2020-02-11 16:19 | Outpatient (CLI) | payer OTHER ==
[2020-02-11 17:57] LABS: BASOPHILS % (AUTO) 0.5 %; EOSINOPHILS # (AUTO) 0.1 10^3/uL (0.0-0.7); EOSINOPHILS % (AUTO) 1.6 %; HCT - HEMATOCRIT 39.3 % (37.0-47.0); HGB - HEMOGLOBIN 12.3 g/dL (12.0-16.0); LYMPHOCYTES # (AUTO) 1.9 10^3/uL (1.5-3.5); LYMPHOCYTES % (AUTO) 24.1 %; MEAN CORPUSCULAR HEMOGLOBIN 31.9 pg (27.0-31.0); MEAN CORPUSCULAR HGB CONC 31.3 g/dL (32.0-36.0); MEAN CORPUSCULAR VOLUME 101.8 fL (81.0-99.0); MEAN PLATELET VOLUME 10.9 fL (7.9-10.8); MONOCYTES # (AUTO) 0.7 10^3/uL (0.0-1.0); MONOCYTES % (AUTO) 8.7 %; NEUTROPHILS # (AUTO) 5.1 10^3/uL (1.5-6.6); NEUTROPHILS % (AUTO) 64.5 %; PLT - PLATELET COUNT 232 10^3/uL (130-450); RED BLOOD COUNT 3.86 10^6/uL (4.20-5.40); RED CELL DISTRIBUTION WIDTH 14.5 % (12.0-15.0); WHITE BLOOD COUNT 7.9 x10^3/uL (4.8-10.8)
[2020-02-11 19:25] LABS: % IRON SATURATION 17 % (20-50); IRON 57 ug/dL (28-170); TOTAL IRON BINDING CAPACITY 344 ug/dL (250-450); TRANSFERRIN 246 mg/dL (192-382)
== END 2020-02-11 23:59 | disposition home or self-care (01) ==
LOC: LAB.WCP 16:19
PROVIDERS: ATTEND Internal Medicine
DX: K92.2 Gastrointestinal hemorrhage, unspecified (principal); D50.9 Iron deficiency anemia, unspecified
CPT/HCPCS: 36415; 82728; 83540; 84466; 85025

== ENCOUNTER 2020-02-18 08:00 | Outpatient (CLI) | payer OTHER ==
[2020-02-18 18:56] LABS: BASOPHILS # (AUTO) 0.1 10^3/uL (0.0-0.1); BASOPHILS % (AUTO) 0.8 %; EOSINOPHILS # (AUTO) 0.2 10^3/uL (0.0-0.7); EOSINOPHILS % (AUTO) 2.5 %; HGB - HEMOGLOBIN 12.7 g/dL (12.0-16.0); LYMPHOCYTES # (AUTO) 1.9 10^3/uL (1.5-3.5); LYMPHOCYTES % (AUTO) 25.4 %; MEAN CORPUSCULAR HEMOGLOBIN 31.2 pg (27.0-31.0); MEAN CORPUSCULAR HGB CONC 30.8 g/dL (32.0-36.0); MEAN CORPUSCULAR VOLUME 101.2 fL (81.0-99.0); MEAN PLATELET VOLUME 10.9 fL (7.9-10.8); MONOCYTES # (AUTO) 0.6 10^3/uL (0.0-1.0); MONOCYTES % (AUTO) 8.3 %; NEUTROPHILS # (AUTO) 4.8 10^3/uL (1.5-6.6); NEUTROPHILS % (AUTO) 62.7 %; PLT - PLATELET COUNT 222 10^3/uL (130-450); RED BLOOD COUNT 4.07 10^6/uL (4.20-5.40); RED CELL DISTRIBUTION WIDTH 13.9 % (12.0-15.0); WHITE BLOOD COUNT 7.6 x10^3/uL (4.8-10.8)
[2020-02-18 19:07] LABS: CREATININE 0.9 mg/dL (0.4-1.0)
[2020-02-18 20:24] LABS: HEMOGLOBIN A1c% 4.9 % (4.27-6.07)
== END 2020-02-18 23:59 | disposition home or self-care (01) ==
LOC: LAB.WCP 08:00
PROVIDERS: ATTEND Internal Medicine
DX: E11.9 Type 2 diabetes mellitus without complications (principal); C16.9 Malignant neoplasm of stomach, unspecified; D50.9 Iron deficiency anemia, unspecified; K92.2 Gastrointestinal hemorrhage, unspecified
CPT/HCPCS: 36415; 80048; 82728; 83036; 83540; 84466; 85025

== ENCOUNTER 2020-02-26 15:52 | Outpatient (CLI) | payer OTHER ==
[2020-02-26 18:51] LABS: BASOPHILS # (AUTO) 0.1 10^3/uL (0.0-0.1); BASOPHILS % (AUTO) 0.7 %; EOSINOPHILS # (AUTO) 0.2 10^3/uL (0.0-0.7); EOSINOPHILS % (AUTO) 2.6 %; HGB - HEMOGLOBIN 12.8 g/dL (12.0-16.0); LYMPHOCYTES # (AUTO) 2.4 10^3/uL (1.5-3.5); LYMPHOCYTES % (AUTO) 27.9 %; MEAN CORPUSCULAR HEMOGLOBIN 31.3 pg (27.0-31.0); MEAN CORPUSCULAR HGB CONC 30.5 g/dL (32.0-36.0); MEAN CORPUSCULAR VOLUME 102.4 fL (81.0-99.0); MEAN PLATELET VOLUME 10.7 fL (7.9-10.8); MONOCYTES # (AUTO) 0.9 10^3/uL (0.0-1.0); MONOCYTES % (AUTO) 10.4 %; NEUTROPHILS # (AUTO) 4.9 10^3/uL (1.5-6.6); NEUTROPHILS % (AUTO) 57.7 %; PLT - PLATELET COUNT 210 10^3/uL (130-450); RED BLOOD COUNT 4.09 10^6/uL (4.20-5.40); RED CELL DISTRIBUTION WIDTH 13.8 % (12.0-15.0); WHITE BLOOD COUNT 8.5 x10^3/uL (4.8-10.8)
[2020-02-26 19:12] LABS: % IRON SATURATION 15 % (20-50); IRON 55 ug/dL (28-170); TOTAL IRON BINDING CAPACITY 361 ug/dL (250-450); TRANSFERRIN 258 mg/dL (192-382)
== END 2020-02-26 23:59 | disposition home or self-care (01) ==
LOC: LAB.WCP 15:52
PROVIDERS: ATTEND Internal Medicine
DX: K92.2 Gastrointestinal hemorrhage, unspecified (principal); D50.9 Iron deficiency anemia, unspecified
CPT/HCPCS: 36415; 82728; 83540; 84466; 85025

== ENCOUNTER 2020-03-03 16:18 | Outpatient (CLI) | payer OTHER ==
[2020-03-03 18:39] LABS: BASOPHILS # (AUTO) 0.1 10^3/uL (0.0-0.1); BASOPHILS % (AUTO) 0.8 %; EOSINOPHILS # (AUTO) 0.2 10^3/uL (0.0-0.7); EOSINOPHILS % (AUTO) 2.4 %; HGB - HEMOGLOBIN 12.4 g/dL (12.0-16.0); LYMPHOCYTES # (AUTO) 1.7 10^3/uL (1.5-3.5); LYMPHOCYTES % (AUTO) 22.1 %; MEAN CORPUSCULAR HEMOGLOBIN 31.4 pg (27.0-31.0); MEAN CORPUSCULAR HGB CONC 31.4 g/dL (32.0-36.0); MEAN PLATELET VOLUME 10.5 fL (7.9-10.8); MONOCYTES # (AUTO) 0.6 10^3/uL (0.0-1.0); MONOCYTES % (AUTO) 8.4 %; NEUTROPHILS % (AUTO) 65.9 %; PLT - PLATELET COUNT 217 10^3/uL (130-450); RED BLOOD COUNT 3.95 10^6/uL (4.20-5.40); RED CELL DISTRIBUTION WIDTH 13.4 % (12.0-15.0); WHITE BLOOD COUNT 7.5 x10^3/uL (4.8-10.8)
[2020-03-03 18:58] LABS: % IRON SATURATION 16 % (20-50); IRON 55 ug/dL (28-170); TOTAL IRON BINDING CAPACITY 336 ug/dL (250-450); TRANSFERRIN 240 mg/dL (192-382)
== END 2020-03-03 23:59 | disposition home or self-care (01) ==
LOC: LAB.WCP 16:18
PROVIDERS: ATTEND Internal Medicine
DX: K92.2 Gastrointestinal hemorrhage, unspecified (principal)
CPT/HCPCS: 36415; 82728; 83540; 84466; 85025

== ENCOUNTER 2020-03-07 15:30 | Outpatient (CLI) | payer OTHER ==
--- NOTE | 2020-03-07 18:23 | CONSULTATION NOTE ---
Palliative Care Follow Up - Referral Referring Provider: Dr. Lyle Valdes Time of Visit: [id number] Referral setting: Home Referral Reason: Gastric CA/Goals of Care - Information Sources Records reviewed: Previous records reviewed History/Review of Systems obtained from: Patient, Family (daughter Kennedi; Amy joined by phone for family conference) Exam limitations: Clinical condition (ROS mostly supplied by Kennedi) - History of Present Illness Update Brief HPI Update: This is an 84-year-old [place], who presented in 2017 with a stroke, leading to seizure disorder and worsening dementia. She has left hemiplegia, visual changes, requires standby assistance for toileting, eating and walking. She has had behaviors and is on risperidone, but does require full-time 24/7 caregiving. 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 Patient is seen at oncology, she is a candidate for Keytruda, patient herself does understand she has serious cancer, and decided "to go for it". She is to have her port placed on Tuesday, and start treatment later in the week. Patient has continued functional decline, with less energy, she has lost 10 pounds over this last month. She denies any pain, GERD, change in stools. She has been sleeping well. She is anxious about her pending appointment for her port on Tuesday, and received a Covid test which was negative today. Patient presents with complex social situation, her daughter Kennedi who is her 24/7 caregiver, sees patient is quite frail, and presents with current concerns of worsening status, even with mild side effects. Her daughter Karen, who is her DPOA, is very supportive of her moving forward with treatment. When asked for herself, patient has chosen treatment. This is all under the context of course of her who did receive treatment, and essentially is in remission from his lymphoma. We were to meet today to finish the POLST with Karen and Kennedi, unfortunately she is unable to attend but is available by phone so did proceed with family conference. Please see palliative care discussion Past Medical History: Hypertension, high cholesterol, murmur, sleep apnea, dementia, CVA, recurrent TIAs, seizure disorder, GERD, colon polyps, chronic hearing loss, depression, osteoarthritis, carpal tunnel syndrome, eczema, psoriasis, rosacea, shoulder arthroplasty Social History - Living Situation Living arrangement: At home Living Situation: With spouse/s.o., With family Support System: Patient lives with her elderly , who himself has health problems but remains independent even at age 91. She herself is dependent on her daughter Kennedi who is a caregiver. They do live downstairs in the house, Kennedi and come to live with them in 2012 because her brother had been dying of kidney failure. Her mother had always been quite vital up to the point of her stroke, and now Kennedi provides 24/7 caregiving for her other than a break on and some private pay off on Tuesday. Kennedi is a retired respiratory therapist and has been caring for them for most 10 years. Patient has six kids overall, she does have a sister in [place]. Amy is the DPOA, for both her and her father, this is created some tension between the sisters. Medications/Allergies - Medications Home Medications: Ambulatory Orders Medication Instructions Recorded Confirmed lisinopriL [Lisinopril] 20 mg PO DAILY 09/17/15 03/08/20 Latanoprost 0.005% Ophth Drops 1 drops EACHEYE QPM 07/02/17 03/08/20 [Xalatan Ophth Drops] Cholecalciferol (Vitamin D3) 1,000 unit PO DAILY 11/24/17 03/08/20 [Vitamin D3] Calcium/Magnesium/Zinc 1 tab PO DAILY 04/05/18 03/08/20 [Iolwqkp-Peurgfapi-Ltlv Tablet] Zonisamide 200 mg PO QPM 04/05/18 03/08/20 Ascorbic Acid 500 mg PO DAILY 01/06/20 03/08/20 Risperidone [Risperdal] 1 mg PO BID 01/06/20 03/08/20 amLODIPine [Norvasc] 5 mg PO DAILY 01/06/20 03/08/20 lamoTRIgine [LaMICtal] 100 mg PO BID 01/06/20 03/08/20 Pantoprazole [Protonix] 40 mg PO BID #60 tablet 01/10/20 03/08/20 Sucralfate [Carafate] 1 gm PO QID #120 tablet 01/10/20 03/08/20 Acetaminophen [Tylenol] 650 mg PO Q6HR PRN 02/05/20 03/08/20 Morphine Sulfate [Morphine Sulf 5 mg PO Q4HR PRN MDD severe pain 02/05/20 03/08/20 Oral (Roxanol)] Ondansetron [Zuplenz] 4 mg PO Q6HR PRN 02/05/20 03/08/20 - Allergies Allergies/Adverse Reactions: Allergies Allergy/AdvReac Type Severity Reaction Status Date / Time Antihistamines - Allergy Unknown Verified 01/08/20 07:54 Ethylenediamine caffeine Allergy Unknown Verified 01/06/20 10:56 NSAIDS (Non-Steroidal Allergy Anaphylaxis Verified 01/06/20 10:56 Anti-Inflamma tramadol Allergy Unknown Verified 01/06/20 10:56 levetiracetam AdvReac Severe Unknown Verified 01/06/20 10:56 lactose AdvReac Unknown Verified 02/05/20 16:23 naproxen sodium * AdvReac Edema Verified 01/06/20 10:56 [From Татьяна] Review of Systems - Constitutional Constitutional: reports: Fatigue, Weight loss (10 pounds over the month) - Eyes Eyes: reports: Vision loss - Ears, Nose & Throat Ears, Nose & Throat: reports: Hearing loss, Hearing aids - Cardiovascular Cardiovascular: reports: Edema, Decr. exercise tolerance - Respiratory Respiratory: reports: SOB with exertion. denies: SOB at rest - Gastrointestinal Gastrointestinal: reports: Good appetite (improved;) - Genitourinary Genitourinary: reports: Incontinence, Nocturia - Musculoskeletal Musculoskeletal: reports: Stiffness, Limited range of motion, Muscle weakness, Assistive devices, Other (functional decline over month; has residual of stroke; but more weak) - Integumentary Integumentary: reports: Dryness - Neurological Neurological: reports: General weakness, Memory problems, Abnormal gait. d enies: Seizures - Psychiatric Psychiatric: reports: Anxiety (impending portacath placement/immunotherapy), Hallucinations. denies: Depression - Endocrine Endocrine: reports: Intolerance to cold - Hematologic/Lymphatic Hematologic/Lymph: Anemia - All Other Systems All Other Systems: reports: Reviewed and negative Physical Exam - Vital Signs Temperature: 96.7 C Pulse Rate: 67 Respiratory Rate: 18 O2 Saturation: 98 (ra @rest) Blood Pressure: 122/82 - Physical Exam General Appearance: positive: No acute distress, Alert Eyes Bilateral: positive: Normal inspection ENT: positive: No signs of dehydration Neck: positive: Trachea midline Cardiovascular: positive: Regular rate & rhythm Respiratory: positive: No respiratory distress, Breath sounds nml, Diminished in bases Abdomen: positive: Non-tender, Soft, Nml bowel sounds. negative: Mass, Distended Skin: positive: Pallor, Dryness Extremities: positive: Pedal edema (trace) Neurologic/Psychiatric: positive: Mood/affect nml, Disoriented to time, Weakness, Flat affect, Other (mild tremors in hands) Palliative Care - POLST Patient has POLST: Yes POLST Status: DNR, Selective Treatment (completed with daughters; Amy) Pain: No pain Tiredness/Fatigue: Moderate (4-6) Drowsiness/Sedation: Mild (1-3) Nausea: None Anorexia: None Dyspnea: None Depression: None Anxiety: Mild (1-3) Feelings of wellbeing/Perceived Quality of Life: Fair, Acceptable Sleep: Sleeps well (up 2-3 night to void) Constipation: No Performance Status: Patient is dependent for toileting, eating, walking, and all ADLs. Patient has visual impairments as well as left-sided weakness. She is able to ambulate short distances, but is quite sedentary overall. - Palliative Care Discussion: Patient does understand she has gastric cancer, she wanted "to go for it" when asked about her decision about treatment. She is quite anxious particular about getting a Port-A-Cath. We did discuss at length weighing benefits and burdens with each treatment cycle, she is worried about diarrhea and not feeling well. Patient does have [employer] advanced directives, discussion at length with daughters Kennedi and Karen to interpret these into POLST. In agreement if patient were to have an end-of-life event, to allow natural , and decision made to be DNR/DNI. Patient at this point in time would still go to the hospital. Decision for selective treatments and avoiding burdensome measures, with okay for paramedics to transport to the hospital, and evaluate weighing benefits and burdens of moving forward with any kind of interventions. Expressing concerns regarding in the season of the pandemic, not be able to accompany their loved ones, she being with her mother 06/09, is concerned about her quality of life, and patient's understanding of the nuances regarding decisions facing her. Amy Maria, who is DPOA, does accompany to some medical appointments, less involved in day to day care, feels it is consistent with mother's expressed wishes in past, to receive interventions. But both agree weighing benefits of burdens of treatment decisions as they come up, will be important.POLST was completed, with verbal consent from DPOA, she will sign when she comes next week to visit. Results - Lab Results Lab results reviewed: Yes Impression and Recommendations - Palliative Care Impression: This is an 84-year-old woman with a history of stroke, seizure disorder, dementia, already in compromised health now presenting with gastric cancer. At this point in time she will be moving forward with immunotherapy, and will continue with palliative care support. Patient presents with low symptom burden, but is quite frail overall. Palliative care to help with pain and symptom management and anticipatory guidance. Recommendations/Counseling Done: 1. Gastric adenocarcinoma, with peritoneal carcinomatosis. Patient was given immunotherapy option, will be receiving Keytruda. Patient currently with any acute symptoms of bleeding, has continue with weight loss over the month, and mild functional decline. We will continue to provide support and transition to hospice when appropriate. 2. GI bleed. Currently Carafate does appear to be providing work, would continue Carafate at least for another month, until patient has started to show response to treatment. It is quite complicated in the context of managing medications, daughter in agreement. 3. Advanced care planning. Original family meeting for Karen and Kennedi and myself to meet regarding completing POLST. Did go ahead and complete POLST with selective treatments, Amy to sign next week. Karen Moran is the DPOA, her phone number is [phone]. We will continue to weigh benefits and burdens moving forward of treatment decisions, based on patient's quality of life and functional status. E prognosis G AGN E index which does look at community dwelling adults 65 and older and all causes 1 year mortality, patient scores high at 10, with 1 year mortality of 46.8%. Risk calculators cannot predict the future for anyone individual but given estimate of how many people with similar risk factors will live and , but cannot identify who will live and who will . Patient's frailty and advanced cancer, adds to her concern for worsening prognosis, but given the new Era of immunotherapy, will await patient's response.
== END 2020-03-07 15:31 | disposition home or self-care (01) ==
LOC: PC 15:30
PROVIDERS: ATTEND Nurse Practitioner Adult Health
DX: Z51.5 Encounter for palliative care (principal); C16.9 Malignant neoplasm of stomach, unspecified; C78.6 Secondary malignant neoplasm of retroperitoneum and peritoneum; K92.2 Gastrointestinal hemorrhage, unspecified; I69.354 Hemiplegia and hemiparesis following cerebral infarction affecting left non-dominant side; G40.802 Other epilepsy, not intractable, without status epilepticus; H53.9 Unspecified visual disturbance; I69.398 Other sequelae of cerebral infarction; F03.90 Unspecified dementia, unspecified severity, without behavioral disturbance, psychotic disturbance, mood disturbance, and anxiety; Z66 Do not resuscitate
CPT/HCPCS: 99349

== ENCOUNTER → 2020-03-14 | Outpatient (CLI) | payer OTHER ==
[2020-03-14 18:10] LABS: BASOPHILS % (AUTO) 0.5 %; EOSINOPHILS # (AUTO) 0.2 10^3/uL (0.0-0.7); EOSINOPHILS % (AUTO) 2.4 %; HGB - HEMOGLOBIN 13.2 g/dL (12.0-16.0); LYMPHOCYTES # (AUTO) 1.6 10^3/uL (1.5-3.5); LYMPHOCYTES % (AUTO) 22.1 %; MEAN CORPUSCULAR HEMOGLOBIN 30.8 pg (27.0-31.0); MEAN CORPUSCULAR HGB CONC 31.1 g/dL (32.0-36.0); MEAN CORPUSCULAR VOLUME 99.1 fL (81.0-99.0); MEAN PLATELET VOLUME 10.6 fL (7.9-10.8); MONOCYTES # (AUTO) 0.5 10^3/uL (0.0-1.0); MONOCYTES % (AUTO) 6.9 %; NEUTROPHILS % (AUTO) 67.6 %; PLT - PLATELET COUNT 228 10^3/uL (130-450); RED BLOOD COUNT 4.28 10^6/uL (4.20-5.40); RED CELL DISTRIBUTION WIDTH 13.2 % (12.0-15.0); WHITE BLOOD COUNT 7.4 x10^3/uL (4.8-10.8)
[2020-03-14 19:03] LABS: CALCIUM 9.2 mg/dL (8.5-10.3); CREATININE 0.8 mg/dL (0.4-1.0)
== END ==
LOC: LAB.WCP 08:00
PROVIDERS: ATTEND Internal Medicine
DX: E87.1 Hypo-osmolality and hyponatremia (principal); C16.9 Malignant neoplasm of stomach, unspecified
CPT/HCPCS: 36415; 80048; 82728; 83540; 84466; 85025

== ENCOUNTER 2020-03-21 08:00 | Outpatient (CLI) | payer OTHER ==
[2020-03-21 18:14] LABS: BASOPHILS # (AUTO) 0.1 10^3/uL (0.0-0.1); BASOPHILS % (AUTO) 0.5 %; EOSINOPHILS # (AUTO) 0.2 10^3/uL (0.0-0.7); EOSINOPHILS % (AUTO) 1.6 %; HGB - HEMOGLOBIN 12.4 g/dL (12.0-16.0); LYMPHOCYTES # (AUTO) 2.4 10^3/uL (1.5-3.5); LYMPHOCYTES % (AUTO) 25.6 %; MEAN CORPUSCULAR HEMOGLOBIN 30.9 pg (27.0-31.0); MEAN CORPUSCULAR HGB CONC 31.1 g/dL (32.0-36.0); MEAN CORPUSCULAR VOLUME 99.5 fL (81.0-99.0); MEAN PLATELET VOLUME 10.8 fL (7.9-10.8); MONOCYTES # (AUTO) 0.8 10^3/uL (0.0-1.0); MONOCYTES % (AUTO) 8.8 %; NEUTROPHILS % (AUTO) 62.8 %; PLT - PLATELET COUNT 227 10^3/uL (130-450); RED BLOOD COUNT 4.01 10^6/uL (4.20-5.40); RED CELL DISTRIBUTION WIDTH 13.2 % (12.0-15.0); WHITE BLOOD COUNT 9.5 x10^3/uL (4.8-10.8)
[2020-03-21 18:44] LABS: % IRON SATURATION 8 % (20-50); IRON 27 ug/dL (28-170); TOTAL IRON BINDING CAPACITY 337 ug/dL (250-450); TRANSFERRIN 241 mg/dL (192-382)
== END 2020-03-21 23:59 | disposition home or self-care (01) ==
LOC: LAB.WCP 08:00
PROVIDERS: ATTEND Internal Medicine
DX: C16.9 Malignant neoplasm of stomach, unspecified (principal); K92.2 Gastrointestinal hemorrhage, unspecified; D50.9 Iron deficiency anemia, unspecified
CPT/HCPCS: 36415; 82728; 83540; 84466; 85025

== ENCOUNTER 2020-03-28 08:00 | Outpatient (CLI) | payer OTHER ==
[2020-03-28 19:15] LABS: BASOPHILS # (AUTO) 0.1 10^3/uL (0.0-0.1); BASOPHILS % (AUTO) 0.6 %; EOSINOPHILS # (AUTO) 0.2 10^3/uL (0.0-0.7); EOSINOPHILS % (AUTO) 2.2 %; HGB - HEMOGLOBIN 12.3 g/dL (12.0-16.0); LYMPHOCYTES # (AUTO) 1.8 10^3/uL (1.5-3.5); LYMPHOCYTES % (AUTO) 22.7 %; MEAN CORPUSCULAR HEMOGLOBIN 30.4 pg (27.0-31.0); MEAN CORPUSCULAR HGB CONC 30.3 g/dL (32.0-36.0); MEAN CORPUSCULAR VOLUME 100.5 fL (81.0-99.0); MEAN PLATELET VOLUME 10.6 fL (7.9-10.8); MONOCYTES # (AUTO) 0.6 10^3/uL (0.0-1.0); MONOCYTES % (AUTO) 7.5 %; NEUTROPHILS # (AUTO) 5.1 10^3/uL (1.5-6.6); NEUTROPHILS % (AUTO) 66.5 %; PLT - PLATELET COUNT 227 10^3/uL (130-450); RED BLOOD COUNT 4.04 10^6/uL (4.20-5.40); RED CELL DISTRIBUTION WIDTH 12.8 % (12.0-15.0); WHITE BLOOD COUNT 7.7 x10^3/uL (4.8-10.8)
[2020-03-28 19:36] LABS: % IRON SATURATION 12 % (20-50); IRON 36 ug/dL (28-170); TOTAL IRON BINDING CAPACITY 311 ug/dL (250-450); TRANSFERRIN 222 mg/dL (192-382)
== END 2020-03-28 23:59 | disposition home or self-care (01) ==
LOC: LAB.WCP 08:00
PROVIDERS: ATTEND Internal Medicine
DX: C16.9 Malignant neoplasm of stomach, unspecified (principal); D50.9 Iron deficiency anemia, unspecified; K92.2 Gastrointestinal hemorrhage, unspecified
CPT/HCPCS: 36415; 82728; 83540; 84466; 85025

== ENCOUNTER 2020-04-11 08:00 | Outpatient (CLI) | payer OTHER ==
[2020-04-11 18:16] LABS: BASOPHILS # (AUTO) 0.1 10^3/uL (0.0-0.1); BASOPHILS % (AUTO) 0.7 %; EOSINOPHILS # (AUTO) 0.2 10^3/uL (0.0-0.7); EOSINOPHILS % (AUTO) 1.8 %; HCT - HEMATOCRIT 42.4 % (37.0-47.0); LYMPHOCYTES % (AUTO) 23.6 %; MEAN CORPUSCULAR HEMOGLOBIN 30.2 pg (27.0-31.0); MEAN CORPUSCULAR HGB CONC 30.7 g/dL (32.0-36.0); MEAN CORPUSCULAR VOLUME 98.6 fL (81.0-99.0); MEAN PLATELET VOLUME 10.7 fL (7.9-10.8); MONOCYTES # (AUTO) 0.8 10^3/uL (0.0-1.0); MONOCYTES % (AUTO) 8.8 %; NEUTROPHILS # (AUTO) 5.6 10^3/uL (1.5-6.6); NEUTROPHILS % (AUTO) 64.6 %; PLT - PLATELET COUNT 231 10^3/uL (130-450); RED CELL DISTRIBUTION WIDTH 12.9 % (12.0-15.0); WHITE BLOOD COUNT 8.6 x10^3/uL (4.8-10.8)
[2020-04-11 18:39] LABS: % IRON SATURATION 11 % (20-50); IRON 37 ug/dL (28-170); TOTAL IRON BINDING CAPACITY 325 ug/dL (250-450); TRANSFERRIN 232 mg/dL (192-382)
== END 2020-04-11 23:59 | disposition home or self-care (01) ==
LOC: LAB.WCP 08:00
PROVIDERS: ATTEND Internal Medicine
DX: C16.9 Malignant neoplasm of stomach, unspecified (principal); K92.2 Gastrointestinal hemorrhage, unspecified; D50.9 Iron deficiency anemia, unspecified
CPT/HCPCS: 36415; 82728; 83540; 84466; 85025

== ENCOUNTER 2020-05-14 16:45 | Outpatient (CLI) | payer MEDICARE, OTHER ==
[2020-05-14 20:58] LABS: BASOPHILS % (AUTO) 0.1 %; HCT - HEMATOCRIT 40.5 % (37.0-47.0); HGB - HEMOGLOBIN 12.3 g/dL (12.0-16.0); LYMPHOCYTES # (AUTO) 1.8 10^3/uL (1.5-3.5); MEAN CORPUSCULAR HEMOGLOBIN 29.5 pg (27.0-31.0); MEAN CORPUSCULAR HGB CONC 30.4 g/dL (32.0-36.0); MEAN CORPUSCULAR VOLUME 97.1 fL (81.0-99.0); MEAN PLATELET VOLUME 10.9 fL (7.9-10.8); MONOCYTES # (AUTO) 0.8 10^3/uL (0.0-1.0); MONOCYTES % (AUTO) 8.4 %; NEUTROPHILS # (AUTO) 6.5 10^3/uL (1.5-6.6); NEUTROPHILS % (AUTO) 70.8 %; PLT - PLATELET COUNT 246 10^3/uL (130-450); RED BLOOD COUNT 4.17 10^6/uL (4.20-5.40); RED CELL DISTRIBUTION WIDTH 13.3 % (12.0-15.0); WHITE BLOOD COUNT 9.2 x10^3/uL (4.8-10.8)
[2020-05-14 21:31] LABS: % IRON SATURATION 10 % (20-50); IRON 32 ug/dL (28-170); TOTAL IRON BINDING CAPACITY 332 ug/dL (250-450); TRANSFERRIN 237 mg/dL (192-382)
== END 2020-05-14 16:46 | disposition home or self-care (01) ==
LOC: LAB.N 16:45
PROVIDERS: ATTEND Internal Medicine
DX: C16.9 Malignant neoplasm of stomach, unspecified (principal); D50.9 Iron deficiency anemia, unspecified; K92.2 Gastrointestinal hemorrhage, unspecified
CPT/HCPCS: 36415; 82728; 83540; 84466; 85025

== ENCOUNTER 2020-05-24 13:15 | Outpatient (CLI) | payer OTHER | END 2020-05-24 13:16 | disposition critical access hospital (66) | LOC: EMS 13:15 | DX: S09.90XA Unspecified injury of head, initial encounter (principal); W18.39XA Other fall on same level, initial encounter; Y93.89 Activity, other specified; Y92.89 Other specified places as the place of occurrence of the external cause | CPT/HCPCS: A0425; A0429 ==

== ENCOUNTER 2020-05-24 13:37 | Emergency (ER) | payer MEDICARE, OTHER ==
--- OUTSIDE RECORDS SUMMARY | 2020-05-24 14:02 | EXTERNAL MEDICAL SUMMARY RPT | Continuity of Care Document ---
:1935 Demographics Phone Unavailable Preferred Language [place] Island[place] Marital Status Unknown Worship Affiliation Unknown Race Unknown Ethnic Group Unknown Author Organization [facility] Address [address] [phone] Phone Care Team Providers Name Role Phone Lloyd Callahan Unavailable Unavailable Problems date description facility [id number] Gastrointestinal hemorrhage, unspecifie d [facility] [id number] Iron deficiency anemia, unspecified Is [facility] [id number] Malignant neoplasm of [facility] [id number] [facility] [id number] [facility] [id number] Contact with and (suspected) exposure t o [address] 20200310 Malignant neoplasm of [facility] [id number] Malignant neoplasm of [facility] [id number] [facility] [id number] [facility]ignant [facility] of [facility] Medications date description facility [id number] Acetaminophen 325 MG / Hydrocodone Rosy rtrate 5 MG [facility] Tablet Procedures date description facility [id number] [facility] date description facility [id number] [facility] date description facility [id number] [facility] date description facility [id number] [facility] date description facility [id number] [facility] date description facility [id number] [facility] Vital Signs date measurement value source 20200303 BP_diastolic 66 mm[Hg] 58146162 BP_systolic 150 mm[Hg] 20200303 respiration_rate 16 /min date measurement value source 20200307 heart_rate 102 /min 20200307 temperature_metric 36.94 C 20200307 temperature_standard 98.5 F date measurement value source 20200310 BMI 25.7 kg/m2 20200310 BP_diastolic 60 mm[Hg] 20200310 BP_systolic 135 mm[Hg] 20200310 heart_rate 61 /min 20200310 height_metric 152.4 cm 20200310 height_standard 60 in 20200310 respiration_rate 16 /min 20200310 temperature_metric 36.89 C 20200310 temperature_standard 98.4 F 20200310 weight_metric 27.16 kg 20200310 weight_standard 59.87 lb date measurement value source 20200428 heart_rate 68 /min 20200428 respiration_rate 16 /min 20200428 temperature_metric 37.06 C 20200428 temperature_standard 98.7 F date measurement value source 20200506 BMI 25.7 kg/m2 20200506 BP_diastolic 76 mm[Hg] 20200506 BP_systolic 120 mm[Hg] 20200506 height_metric 152.4 cm 20200506 height_standard 60 in 20200506 weight_metric 27.16 kg 20200506 weight_standard 59.87 lb Social History date description facility [id number]
--- NOTE | 2020-05-24 14:19 | ED Physician Documentation ---
History of Present Illness - Stated complaint Stated Complaint: GLF - Chief complaint Chief Complaint: Trauma Ch/Bk - History obtained from History obtained from: Patient, EMS - History of Present Illness Timing: Today Pain level max: 4 Pain level now: 3 - Additonal information Additional information: Patient is an 84-year-old female who tripped and fell today. She struck the left side of her head and reportedly had a loss of consciousness for about a minute. It was a mechanical fall. Not syncope. She was placed in a c-collar on a backboard by EMS. Patient has no complaints currently. States nothing hurts. She is not on blood thinners. Nothing makes it better or worse Review of Systems Unable to obtain: Dementia PD PAST MEDICAL HISTORY - Past Medical History Past Medical History: Yes Cardiovascular: Hypertension, High cholesterol, Murmur Respiratory: Sleep apnea Neuro: Dementia, CVA, TIA, Seizure disorder Endocrine/Autoimmune: None GI: GERD, Colon polyps DRINK MIXER: None : Incontinence HEENT: Chronic hearing loss Psych: Depression Musculoskeletal: Osteoarthritis, Other Derm: Eczema, Psoriasis, Rosacea - Past Surgical History Past Surgical History: Yes General: Colonoscopy, EGD Ortho: Shoulder arthroplasty - Present Medications Home Medications: Ambulatory Orders Medication Instructions Recorded Confirmed lisinopriL [Lisinopril] 20 mg PO DAILY 09/17/15 05/24/20 Latanoprost 0.005% Ophth Drops 1 drops EACHEYE QPM 07/02/17 05/24/20 [Xalatan Ophth Drops] Cholecalciferol (Vitamin D3) 1,000 unit PO DAILY 11/24/17 05/24/20 [Vitamin D3] Calcium/Magnesium/Zinc 1 tab PO DAILY 04/05/18 05/24/20 [Dddfzko-Dwaqetrvf-Yejq Tablet] Zonisamide 200 mg PO QPM 04/05/18 05/24/20 Risperidone [Risperdal] 1 mg PO BID 01/06/20 05/24/20 amLODIPine [Norvasc] 5 mg PO DAILY 01/06/20 05/24/20 lamoTRIgine [LaMICtal] 100 mg PO BID 01/06/20 05/24/20 Pantoprazole [Protonix] 40 mg PO BID #60 tablet 01/10/20 05/24/20 Sucralfate [Carafate] 1 gm PO QID #120 tablet 01/10/20 05/24/20 Acetaminophen [Tylenol] 650 mg PO Q6HR PRN 02/05/20 05/24/20 Morphine Sulfate [Morphine Sulf 5 mg PO Q4HR PRN MDD severe pain 02/05/20 05/24/20 Oral (Roxanol)] Ondansetron [Zuplenz] 4 mg PO Q6HR PRN 02/05/20 05/24/20 Estradiol 0.05 mg Patch [Climara 1 each TOP OAW 05/24/20 05/24/20 0.05 mg] Pembrolizumab [Keytruda] 0 mg IV MAINTENANCE.IV 05/24/20 05/24/20 - Allergies Allergies/Adverse Reactions: Allergies Allergy/AdvReac Type Severity Reaction Status Date / Time Antihistamines - Allergy Unknown Verified 05/24/20 13:54 Ethylenediamine caffeine Allergy Unknown Verified 05/24/20 13:54 NSAIDS (Non-Steroidal Allergy Anaphylaxis Verified 05/24/20 13:54 Anti-Inflamma tramadol Allergy Unknown Verified 05/24/20 13:54 levetiracetam AdvReac Severe Unknown Verified 05/24/20 13:54 lactose AdvReac Unknown Verified 05/24/20 13:54 naproxen sodium * AdvReac Edema Verified 05/24/20 13:54 [From Татьяна] - Social History Does the pt smoke?: No Smoking Status: Never smoker Does the pt drink ETOH?: No Does the pt have substance abuse?: No - Immunizations Immunizations are current?: Yes - POLST Patient has POLST: Yes POLST Status: DNR PD ED PE NORMAL - Vitals Vital signs reviewed: Yes - General General: No acute distress, Well developed/nourished, Other (Alert, pleasant, oriented to person and place, not to time) - HEENT HEENT: PERRL, Ears normal, Moist mucous membranes, Pharynx benign, Other (Hematoma and abrasion to the left temporal area) - Neck Neck: Supple, no meningeal sign, No bony TTP - Cardiac Cardiac: RRR, Strong equal pulses - Respiratory Respiratory: No respiratory distress, Clear bilaterally - Abdomen Abdomen: Soft, Non tender, Non distended - Back Back: No spinal TTP (No step-off or deformity. No tenderness palpation or percussion) - Derm Derm: Warm and dry - Extremities Extremities: No deformity, No tenderness to palpate, Normal ROM s pain (Full range of motion of all major joints without pain.) - Neuro Neuro: presentation team member 2-12 intact, No motor deficit, No sensory deficit, Normal speech Eye Opening: Spontaneous Motor: Obeys Commands Verbal: Oriented GCS Score: 15 Results - Vitals Vitals: Vital Signs - 24 hr 05/24/20 05/24/20 05/24/20 13:45 13:59 14:40 Temperature 36.6 C 36.4 C L Heart Rate 74 71 71 Respiratory 16 13 20 Rate Blood Pressure 147/77 H 147/77 H 150/95 H O2 Saturation 99 98 97 05/24/20 05/24/20 16:00 18:00 Temperature Heart Rate 74 76 Respiratory 16 14 Rate Blood Pressure 133/62 H 141/80 H O2 Saturation 99 100 Oxygen O2 Source Room air - Labs Labs: Laboratory Tests 05/24/20 05/24/20 05/24/20 15:37 15:37 15:37 WBC 11.9 H RBC 4.16 L Hgb 12.6 Hct 39.4 MCV 94.7 MCH 30.3 MCHC 32.0 RDW 13.2 Plt Count 220 MPV 9.6 Neut # (Auto) 10.7 H Lymph # (Auto) 0.7 L [place] # (Auto) 0.5 Eos # (Auto) 0.0 Baso # (Auto) 0.0 Absolute Nucleated RBC 0.00 Nucleated RBC % 0.0 PT 12.2 INR 1.1 APTT 27.4 Sodium 137 Potassium 3.2 L Chloride 106 Carbon Dioxide 22 Anion Gap 9.0 BUN 21 H Creatinine 0.7 Estimated GFR (MDRD) 80 L Glucose 186 H Calcium 8.6 Total Bilirubin 0.4 AST 18 ALT 13 Alkaline Phosphatase 90 Total Protein 7.0 Albumin 3.5 Globulin 3.5 Albumin/Globulin Ratio 1.0 Nasal Adenovirus (PCR) Nasal B. parapertussis DNA (PCR) Nasal Coronavir 229E PCR Nasal Coronavir HKU1 PCR Nasal Coronavir NL63 PCR Nasal Coronavir OC43 PCR Nasal Enterovir/Rhinovir PCR Nasal Influenza B PCR Nasal Influenza A PCR Nasal Parainfluen 1 PCR Nasal Parainfluen 2 PCR Nasal Parainfluen 3 PCR Nasal Parainfluen 4 PCR Nasal RSV (PCR) Nasal B.pertussis DNA PCR Nasal C.pneumoniae (PCR) [place] Human Metapneumo PCR Nasal M.pneumoniae (PCR) Nasal SARS-CoV-2 (PCR) 05/24/20 15:42 WBC RBC Hgb Hct MCV MCH MCHC RDW Plt Count MPV Neut # (Auto) Lymph # (Auto) [place] # (Auto) Eos # (Auto) Baso # (Auto) Absolute Nucleated RBC Nucleated RBC % PT INR APTT Sodium Potassium Chloride Carbon Dioxide Anion Gap BUN Creatinine Estimated GFR (MDRD) Glucose Calcium Total Bilirubin AST ALT Alkaline Phosphatase Total Protein Albumin Globulin Albumin/Globulin Ratio Nasal Adenovirus (PCR) NOT DETECTED Nasal B. parapertussis DNA (PCR) NOT DETECTED Nasal Coronavir 229E PCR NOT DETECTED Nasal Coronavir HKU1 PCR NOT DETECTED Nasal Coronavir NL63 PCR NOT DETECTED Nasal Coronavir OC43 PCR NOT DETECTED Nasal Enterovir/Rhinovir PCR NOT DETECTED Nasal Influenza B PCR NOT DETECTED Nasal Influenza A PCR NOT DETECTED Nasal Parainfluen 1 PCR NOT DETECTED Nasal Parainfluen 2 PCR NOT DETECTED Nasal Parainfluen 3 PCR NOT DETECTED Nasal Parainfluen 4 PCR NOT DETECTED Nasal RSV (PCR) NOT DETECTED Nasal B.pertussis DNA PCR NOT DETECTED Nasal C.pneumoniae (PCR) NOT DETECTED [place] Human Metapneumo PCR NOT DETECTED Nasal M.pneumoniae (PCR) NOT DETECTED Nasal SARS-CoV-2 (PCR) NOT DETECTED - Rads (name of study) CT head Radiology: Prelim report reviewed, EMP read contemporaneously, See rad report Ct cervical spine Radiology: Prelim report reviewed, EMP read contemporaneously, See rad report (No acute fracture. ) repeat head CT Radiology: Prelim report reviewed, EMP read contemporaneously, See rad report (No significant change in multifocal intracranial hemorrhage. ) PD MEDICAL DECISION MAKING - ED course Complexity details: reviewed results, re-evaluated patient, considered differential, d/w patient, d/w family ED course: Patient with a small intracranial hemorrhage discussed with patient and family. Will contact [facility]. Discussed with Dr. Jay, neurosurgery on-call who reviewed the images. After discussing the patient's clinical status, stability and reviewing the images, the plan will be to repeat the CT in 6 hours and if unchanged, can be discharged home with the family. CT does not show any significant changes. Bleeding appears improved. We will allow the patient to go home with family and have her follow-up with her doctor for further care. Patient and family counseled regarding signs and symptoms for which I believe and urgent re-evaluation would be necessary. Patient with good understanding of and agreement to plan and is comfortable going home at this time This document was made in part using voice recognition software. While efforts are made to proofread this document, sound alike and grammatical errors may occur. HEAD CT: IMPRESSION: Intracranial hemorrhage can be seen involving the right basal cistern and along the right tentorium. A small amount of right frontal lobe subarachnoid hemorrhage can also be seen. Please consider short-term follow-up noncontrast head CT. A remote right CLERK GUIDE territory infarction can again be seen. Departure - Departure Disposition: 01 Home, Self Care Clinical Impression: Intracranial hemorrhage Closed head injury Qualifiers: Encounter type: initial encounter Qualified Code(s): S09.90XA - Unspecified injury of head, initial encounter Scalp hematoma Qualifiers: Encounter type: initial encounter Qualified Code(s): S00.03XA - Contusion of scalp, initial encounter Condition: Good Instructions: ED Head Injury Closed, ED Hematoma Follow-Up: Lloyd Callahan MD [Primary Care Provider] - Within 1 week Comments: The second CT appears unchanged compared to the first CT. Return if she worsens including vomiting, headaches or mental status changes. Follow-up with her doctor in 1 week for repeat evaluation. I did speak with the neurosurgeon at [facility] who reviewed the CT scans
--- NOTE | 2020-05-24 14:44 | CT Report ---
PROCEDURE: HEAD WO INDICATIONS: L head pain s/p GLF TECHNIQUE: Noncontrast 4.5 mm thick angled axial sections acquired from the foramen magnum to the vertex. For r adiation dose reduction, the following was used: automated exposure control, adjustment of mA and/or kV according to patient size. COMPARISON: 04/22/2018, 04/10/2018, 04/05/2018 FINDINGS: Image quality: Excellent. CSF spaces: Basal cisterns are patent. No extra-axial fluid collections. Ventricles are normal in size and shape. Brain: There is a small amount of subarachnoid hemorrhage seen involving the right posterior frontal lobe, as on series 3 images 19-23. There is also a moderate amount of hemorrhage seen within the rig ht basal cistern and along the right tentorium, as on series 3 images 12 and 13. 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 No midline shift. No intracranial ma sses. Butler-white matter interface is normal. Skull and face: There is a prominent left temporal scalp hematoma seen. No underlying calvarial frac ture can be seen. Calvarium and visualized facial bones are intact, without suspicious lesions. Sinuses: Visualized sinuses and mastoids are clear. IMPRESSION: Intracranial hemorrhage can be seen involving the right basal cistern and along the righ t tentorium. A small amount of right frontal lobe subarachnoid hemorrhage can also be seen. Please consider short-term follow-up noncontrast head CT. A remote right RADIO ENGINEER territory infarction can again be seen. Note: Critical finding of acute intracranial hemorrhage discussed by telephone with Dr. Albarran at 1:4 2 PM [place] time on 05/24/2020. Reviewed by: Rubin Faustin MD on 05/24/2020 1:43 PM AKDT Approved by: Rubin Faustin MD on 05/24/2020 1:43 PM AKDT Station ID: [id number]
--- NOTE | 2020-05-24 14:46 | CT Report ---
PROCEDURE: CERVICAL SPINE WO INDICATIONS: neck pain s/p GLF TECHNIQUE: Noncontrast 3 mm thick sections acquired from the skull base to the T4 level. Sagittal and coronal r eformats were then constructed. For radiation dose reduction, the following was used: automated exp osure control, adjustment of mA and/or kV according to patient size. COMPARISON: Correlation is made with the accompanying head CT, 05/24/2020. Correlation is also made w ith prior neck angiogram, 04/05/2018. FINDINGS: Image quality: Excellent. Bones: No fractures or dislocations. Visualized superior ribs are intact. Degenerative changes are seen, with moderate disc space narrowing at C2-C3, C3-C4, C4-C5, and C5-C6. Milder degenerative changes are seen elsewhere. Soft tissues: Prevertebral soft tissues are normal in thickness. No paravertebral hematomas. No ap ical pneumothoraces. There is partial visualization of an apparent left-sided chest port. IMPRESSION: No acute fracture. Incidental note is made of: Moderate degenerative change Apparent left-sided chest port Reviewed by: Rubin Faustin MD on 05/24/2020 1:45 PM AKMARISELA Approved by: Rubin Faustin MD on 05/24/2020 1:45 PM AKDT Station ID: [id number]
[2020-05-24 15:43] LABS: BASOPHILS % (AUTO) 0.1 %; HCT - HEMATOCRIT 39.4 % (37.0-47.0); HGB - HEMOGLOBIN 12.6 g/dL (12.0-16.0); LYMPHOCYTES # (AUTO) 0.7 10^3/uL (1.5-3.5); LYMPHOCYTES % (AUTO) 5.5 %; MEAN CORPUSCULAR HEMOGLOBIN 30.3 pg (27.0-31.0); MEAN CORPUSCULAR VOLUME 94.7 fL (81.0-99.0); MEAN PLATELET VOLUME 9.6 fL (7.9-10.8); MONOCYTES # (AUTO) 0.5 10^3/uL (0.0-1.0); MONOCYTES % (AUTO) 4.4 %; NEUTROPHILS # (AUTO) 10.7 10^3/uL (1.5-6.6); NEUTROPHILS % (AUTO) 89.4 %; PLT - PLATELET COUNT 220 10^3/uL (130-450); RED BLOOD COUNT 4.16 10^6/uL (4.20-5.40); RED CELL DISTRIBUTION WIDTH 13.2 % (12.0-15.0); WHITE BLOOD COUNT 11.9 x10^3/uL (4.8-10.8)
[2020-05-24 15:53] LABS: INR 1.1 (0.8-1.2); PT - PROTHROMBIN TIME 12.2 secs (9.9-12.6)
[2020-05-24 15:56] LABS: ALBUMIN 3.5 g/dL (3.2-5.5); BILIRUBIN,TOTAL 0.4 mg/dL (0.2-1.0); CALCIUM 8.6 mg/dL (8.5-10.3); CREATININE 0.7 mg/dL (0.4-1.0); POTASSIUM 3.2 mmol/L (3.5-5.0)
[2020-05-24 16:00] LABS: PARTIAL THROMBOPLASTIN TIME 27.4 secs (24.9-33.3)
[2020-05-24 16:39] LABS: B. PARAPERTUSSIS- RESP PCR PAN NOT DETECTED; B. PERTUSSIS- RESP PCR PANEL NOT DETECTED; C. PNEUMONIAE- RESP PCR PANEL NOT DETECTED; CORONAVIRUS 229E-RESP PCR NOT DETECTED; CORONAVIRUS HKU1-RESP PCR NOT DETECTED; CORONAVIRUS NL63-RESP PCR NOT DETECTED; CORONAVIRUS OC43-RESP PCR NOT DETECTED; HUMAN METAPNEUMOVIRUS NOT DETECTED; INFLUENZA A- RESP PCR PANEL NOT DETECTED; INFLUENZA B - RESP PCR PANEL NOT DETECTED; M. PNEUMONIAE- RESP PCR PANEL NOT DETECTED; PARAINFLUENZA VIRUS 1 NOT DETECTED; PARAINFLUENZA VIRUS 2 NOT DETECTED; PARAINFLUENZA VIRUS 3 NOT DETECTED; PARAINFLUENZA VIRUS 4 NOT DETECTED; RHINOVIRUS/ENTEROVIRUS NOT DETECTED; RSV- RESP PCR PANEL NOT DETECTED; SARS-CoV-2 -RESP PCR PANEL NOT DETECTED
--- NOTE | 2020-05-24 20:00 | CT Report ---
PROCEDURE: HEAD WO INDICATIONS: ICH, assess for change TECHNIQUE: Noncontrast 4.5 mm thick angled axial sections acquired from the foramen magnum to the vertex. For r adiation dose reduction, the following was used: automated exposure control, adjustment of mA and/or kV according to patient size. COMPARISON: Same day head CT FINDINGS: These images demonstrate no significant change in the small focus of extra-axial hemorrhage along the medial aspect of the right tentorial leaflet and adjacent basilar cistern. Small volume subarachnoid hemorrhage in the right posterior frontal lobe is minimally decreased on th e current exam, likely a function of this patient/redistribution. There is no new focus of intracranial hemorrhage identified. No findings of mass effect or midline sh ift. Encephalomalacia and gliosis related to remote infarct in the right CCA territory is unchanged. Butler-white matter differentiation is otherwise maintained. There is global cerebral volume loss with chronic vascular ischemic change, advanced for the patient's age. Hematoma in the left frontal region is slightly smaller. IMPRESSION: No significant change in multifocal intracranial hemorrhage. Reviewed by: Troy Su MD on 05/24/2020 7:59 PM PDT Approved by: Troy Su MD on 05/24/2020 7:59 PM PDT Station ID: [id number]
[2020-05-24] MEDS ORDERED: ACETAMINOPHEN 325 MG TABLET PO STA (20:09)
[2020-05-24 20:13] VITALS: BP 138/64
== END 2020-05-24 20:31 | disposition home or self-care (01) ==
LOC: EDUNIT# → EDBD → ED 13:37
DX: S06.9X1A Unspecified intracranial injury with loss of consciousness of 30 minutes or less, initial encounter (principal); S06.6X0A Traumatic subarachnoid hemorrhage without loss of consciousness, initial encounter; S00.03XA Contusion of scalp, initial encounter; W01.0XXA Fall on same level from slipping, tripping and stumbling without subsequent striking against object, initial encounter; F03.90 Unspecified dementia, unspecified severity, without behavioral disturbance, psychotic disturbance, mood disturbance, and anxiety; I10 Essential (primary) hypertension; Z20.822 Contact with and (suspected) exposure to COVID-19; Z66 Do not resuscitate
CPT/HCPCS: 0202U; 36415; 70450; 72125; 80053; 85025; 85610; 85730; 99284; 99285; A9270

== ENCOUNTER 2020-05-26 05:28 | Emergency (ER) | payer MEDICARE, OTHER ==
--- OUTSIDE RECORDS SUMMARY | 2020-05-26 05:31 | EXTERNAL MEDICAL SUMMARY RPT | Continuity of Care Document ---
:1935 Demographics Phone Unavailable Preferred Language Maltese Marital Status Unknown Baptist Affiliation Unknown Race Unknown Ethnic Group Unknown Author Organization [place] Address [address] [phone] Phone Care Team Providers Name Role Phone Lloyd Callahan Unavailable Unavailable Problems date description facility [id number] Gastrointestinal hemorrhage, unspecifie d [facility] [id number] Iron deficiency anemia, unspecified [facility] [id number] Malignant neoplasm of [facility] spital [id number] [facility] [id number] [id number] Contact with and (suspected) exposure t o [address] [id number] Malignant neoplasm of [facility] spital [id number] Malignant ne[facility]ital [id number] [facility] [id number] [facility] of [facility] spital Medications date description facility [id number] Acetaminophen 325 MG / Hydrocodone Rosy rtrate 5 MG [facility] Tablet Procedures date description facility [id number] [facility] date description facility [id number] [facility] date description facility [id number] [facility] date description facility [id number] [facility] date description facility [id number] [facility] date description facility [id number] [facility] Vital Signs date measurement value source [id number] BP_diastolic 66 mm[Hg] [id number] BP_systolic 150 mm[Hg] 20200303 respiration_rate 16 /min [...] 59.87 lb Social History date description facility [id number]
--- OUTSIDE RECORDS SUMMARY | 2020-05-26 05:36 | EXTERNAL MEDICAL SUMMARY RPT | Continuity of Care Document ---
:1935 Demographics Phone Unavailable Preferred Language Ivorian Marital Status Unknown Orthodox Affiliation Unknown Race Unknown Ethnic Group Unknown Author Organization [place] Address [address] [phone] Phone Care Team Providers Name Role Phone Lloyd Callahan Unavailable Unavailable Problems date description facility [id number] Gastrointestinal hemorrhage, unspecifie d [facility] [id number] Iron deficiency anemia, unspecified [facility] [id number] Malignant neoplasm of [facility] spital [id number] [facility] [id number] [id number] Contact with and (suspected) exposure t o [address] 20200310 Malignant neoplasm of [facility] spital [id number] Malignant neoplasm of [facility] spital [id number] [facility] [id number] [facility] of [facility] spital Medications date description facility [id number] Acetaminophen 325 MG / Hydrocodone Rosy rtrate 5 MG [facility] Tablet Procedures date description facility [id number] [facility] date description facility [id number] [facility] date description facility [id number] [facility] date description facility [id number] [facility] date description facility [id number] [facility] date description facility [id number] [facility] Vital Signs date measurement value source 20200303 BP_diastolic 66 mm[Hg] [id number] BP_systolic 150 mm[Hg] 20200303 respiration_rate 16 /min [...] 59.87 lb Social History date description facility [id number]
--- NOTE | 2020-05-26 06:04 | ED Physician Documentation ---
PD HPI ALTERED MENTAL STATUS - Stated complaint Stated Complaint: CONFUSION - Chief complaint Chief Complaint: Neuro - History obtained from History obtained from: Family - History of Present Illness Timing - onset: Today (overnight into this morning.) Timing - details: Gradual onset, Waxing and waning Quality / character: Confused (the patient had fallen and struck head with ICH found on cT 2 days ago. Watched in the ER and had repeat CT at 6 hours, with slight improvement. Pt sent home. Daughter states the patient was clearer yesterday and seemed confused again this morning. Concerned for rebleed as had been instructed.) Associated symptoms: No: Fever, Headache, Dyspnea, Cough Contributing factors: Recent injury, Known dementia. No: Anticoagulated, Recent illness, Intoxicated Basline status: Disoriented, Walker Recently seen: Emergency Dept (2 days ago) Review of Systems Constitutional: denies: Fever Eyes: reports: Decreased vision (blurred left eye) Nose: denies: Rhinorrhea / runny nose, Congestion Throat: denies: Sore throat Cardiac: denies: Chest pain / pressure Respiratory: denies: Cough GI: denies: Abdominal Pain, Vomiting, Diarrhea : denies: Dysuria, Incontinent Neurologic: reports: Generalized weakness, Confused. 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: None : Incontinence HEENT: Chronic hearing loss Psych: Depression Musculoskeletal: Osteoarthritis, Other Derm: Eczema, Psoriasis, Rosacea - Past Surgical History Past Surgical History: Yes General: Colonoscopy, EGD Ortho: Shoulder arthroplasty - Present Medications Home Medications: Ambulatory Orders Medication Instructions Recorded Confirmed lisinopriL [Lisinopril] 20 mg PO DAILY 09/17/15 05/24/20 Latanoprost 0.005% Ophth Drops 1 drops EACHEYE QPM 07/02/17 05/24/20 [Xalatan Ophth Drops] Cholecalciferol (Vitamin D3) 1,000 unit PO DAILY 11/24/17 05/24/20 [Vitamin D3] Calcium/Magnesium/Zinc 1 tab PO DAILY 04/05/18 05/24/20 [Dgpuauf-Cbkpokawc-Ujse Tablet] Zonisamide 200 mg PO QPM 04/05/18 05/24/20 Risperidone [Risperdal] 1 mg PO BID 01/06/20 05/24/20 amLODIPine [Norvasc] 5 mg PO DAILY 01/06/20 05/24/20 lamoTRIgine [LaMICtal] 100 mg PO BID 01/06/20 05/24/20 Pantoprazole [Protonix] 40 mg PO BID #60 tablet 01/10/20 05/24/20 Sucralfate [Carafate] 1 gm PO QID #120 tablet 01/10/20 05/24/20 Acetaminophen [Tylenol] 650 mg PO Q6HR PRN 02/05/20 05/24/20 Morphine Sulfate [Morphine Sulf 5 mg PO Q4HR PRN MDD severe pain 02/05/20 05/24/20 Oral (Roxanol)] Ondansetron [Zuplenz] 4 mg PO Q6HR PRN 02/05/20 05/24/20 Estradiol 0.05 mg Patch [Climara 1 each TOP OAW 05/24/20 05/24/20 0.05 mg] Pembrolizumab [Keytruda] 0 mg IV MAINTENANCE.IV 05/24/20 05/24/20 - Allergies Allergies/Adverse Reactions: Allergies Allergy/AdvReac Type Severity Reaction Status Date / Time Antihistamines - Allergy Unknown Verified 05/24/20 13:54 Ethylenediamine caffeine Allergy Unknown Verified 05/24/20 13:54 NSAIDS (Non-Steroidal Allergy Anaphylaxis Verified 05/24/20 13:54 Anti-Inflamma tramadol Allergy Unknown Verified 05/24/20 13:54 levetiracetam AdvReac Severe Unknown Verified 05/24/20 13:54 lactose AdvReac Unknown Verified 05/24/20 13:54 naproxen sodium * AdvReac Edema Verified 05/24/20 13:54 [From Aleve] - Social History Does the pt smoke?: No Smoking Status: Never smoker Does the pt drink ETOH?: No Does the pt have substance abuse?: No - Immunizations Immunizations are current?: Yes - POLST Patient has POLST: Yes POLST Status: DNR PD ED PE NORMAL - Vitals Vital signs reviewed: Yes - General General: Alert and oriented X 3, No acute distress, Well developed/nourished - HEENT HEENT: PERRL, EOMI (fundus appears normal), Moist mucous membranes, Pharynx benign, Other (bruising around left upper and lower eyelids. ) - Neck Neck: Supple, no meningeal sign, No bony TTP, No adenopathy - Cardiac Cardiac: RRR, No murmur - Respiratory Respiratory: Clear bilaterally - Abdomen Abdomen: Soft, Non tender - Derm Derm: Normal color, Warm and dry - Extremities Extremities: Normal ROM s pain - Neuro Neuro: Alert and oriented X 3, No motor deficit, No sensory deficit, Normal speech Eye Opening: Spontaneous Motor: Obeys Commands Verbal: Oriented GCS Score: 15 Results - Vitals Vitals: Vital Signs - 24 hr 05/26/20 05/26/20 05/26/20 05:40 05:49 08:00 Temperature 37.2 C 37.2 C Heart Rate 74 74 62 Respiratory 14 14 18 Rate Blood Pressure 121/64 121/64 145/67 H O2 Saturation 100 100 97 Oxygen O2 Source Room air - Labs Labs: Laboratory Tests 05/26/20 05/26/20 05/26/20 06:13 06:13 07:45 WBC 8.1 RBC 3.52 L Hgb 10.6 L Hct 33.2 L MCV 94.3 MCH 30.1 MCHC 31.9 L RDW 13.3 Plt Count 202 MPV 9.4 Neut # (Auto) 6.3 Lymph # (Auto) 1.0 L [place] # (Auto) 0.7 Eos # (Auto) 0.0 Baso # (Auto) 0.0 Absolute Nucleated RBC 0.00 Nucleated RBC % 0.0 Sodium 135 Potassium 2.9 L Chloride 107 Carbon Dioxide 22 Anion Gap 6.0 BUN 17 Creatinine 0.8 Estimated GFR (MDRD) 68 L Glucose 117 H Calcium 8.3 L Total Bilirubin 0.4 AST 14 ALT 11 Alkaline Phosphatase 64 Total Protein 5.9 L Albumin 2.9 L Globulin 3.0 Albumin/Globulin Ratio 1.0 Lipase 30 Urine Color YELLOW Urine Clarity CLEAR Urine pH 7.0 Ur Specific [place] 1.010 Urine Protein NEGATIVE Urine Glucose (UA) NEGATIVE Urine Ketones NEGATIVE Urine Occult Blood NEGATIVE Urine Nitrite NEGATIVE Urine Bilirubin NEGATIVE Urine Urobilinogen 0.2 (NORMAL) Ur Leukocyte Esterase NEGATIVE Ur Microscopic Review NOT INDICATED Urine Culture Comments NOT INDICATED - Rads (name of study) head CT Radiology: Prelim report reviewed (near resolution of recent ICH. No other acute findings. ), See rad report PD MEDICAL DECISION MAKING - ED course Complexity details: reviewed results (head CT showing resolution of recent ICH.), considered differential, d/w patient, d/w family (daughter) Departure - Departure Disposition: 01 Home, Self Care Clinical Impression: Confusion, Post concussion syndrome, Hypokalemia Condition: Stable Record reviewed to determine appropriate education?: Yes Instructions: Hypokalemia Dc, ED Head Injury Closed Follow-Up: Lloyd Callahan MD [Primary Care Provider] - Comments: The CT scan shows near resolution of the recent bleed. No signs of other acute process. Basic testing shows normal urinalysis and electrolytes and blood count with the exception of slightly low potassium. This may make you feel little weaker but typically not associated with confusion. I presume therefore you are having some undulating symptoms post head injury and this likely can happen for several days to a week or more. Continue normal medi cations and feeding and hydration. Discharge Date/Time: 05/26/20 09:15
[2020-05-26 06:19] LABS: BASOPHILS % (AUTO) 0.2 %; HCT - HEMATOCRIT 33.2 % (37.0-47.0); HGB - HEMOGLOBIN 10.6 g/dL (12.0-16.0); LYMPHOCYTES % (AUTO) 12.7 %; MEAN CORPUSCULAR HEMOGLOBIN 30.1 pg (27.0-31.0); MEAN CORPUSCULAR HGB CONC 31.9 g/dL (32.0-36.0); MEAN CORPUSCULAR VOLUME 94.3 fL (81.0-99.0); MEAN PLATELET VOLUME 9.4 fL (7.9-10.8); MONOCYTES # (AUTO) 0.7 10^3/uL (0.0-1.0); MONOCYTES % (AUTO) 8.6 %; NEUTROPHILS # (AUTO) 6.3 10^3/uL (1.5-6.6); NEUTROPHILS % (AUTO) 77.8 %; PLT - PLATELET COUNT 202 10^3/uL (130-450); RED BLOOD COUNT 3.52 10^6/uL (4.20-5.40); RED CELL DISTRIBUTION WIDTH 13.3 % (12.0-15.0); WHITE BLOOD COUNT 8.1 x10^3/uL (4.8-10.8)
[2020-05-26] MEDS ORDERED: SODIUM CHLORIDE 0.9% 1,000 ML IV STA (06:25)
[2020-05-26 06:31] LABS: ALBUMIN 2.9 g/dL (3.2-5.5); BILIRUBIN,TOTAL 0.4 mg/dL (0.2-1.0); CALCIUM 8.3 mg/dL (8.5-10.3); CREATININE 0.8 mg/dL (0.4-1.0); POTASSIUM 2.9 mmol/L (3.5-5.0); TOTAL PROTEIN 5.9 g/dL (6.7-8.2)
[2020-05-26] MEDS ORDERED: POTASSIUM CHLOR 10 MEQ/100 ML 10 MEQ/100 ML BAG IV STA (07:20)
[2020-05-26 07:58] LABS: BILIRUBIN,URINE NEGATIVE (NEGATIVE); GLUCOSE, URINE (UA) NEGATIVE (NEGATIVE); KETONES,URINE (UA) NEGATIVE (NEGATIVE); LEUKOCYTE ESTERASE, URINE NEGATIVE (NEGATIVE); NITRITE,URINE NEGATIVE (NEGATIVE); OCCULT BLOOD,URINE NEGATIVE (NEGATIVE); PROTEIN,URINE NEGATIVE (NEGATIVE); UROBILINOGEN,URINE 0.2 (NORMAL) E.U./dL (NORMAL)
[2020-05-26 07:59] LABS: CLARITY,URINE CLEAR (CLEAR)
[2020-05-26 08:01] VITALS: BP 145/67
--- NOTE | 2020-05-26 08:12 | CT Report ---
PROCEDURE: HEAD WO INDICATIONS: increased confusion TECHNIQUE: Noncontrast 4.5 mm thick angled axial sections acquired from the foramen magnum to the vertex. For r adiation dose reduction, the following was used: automated exposure control, adjustment of mA and/or kV according to patient size. COMPARISON: CT head without contrast, 05/24/2020. FINDINGS: Image quality: Excellent. CSF spaces: Basal cisterns are patent. Small subdural hematoma along the right tentorium and the simin drigeminal cistern is decreased in size. Trace subdural hematoma along the left tentorium is less con spicuous but Ventricles are normal in size and shape. Brain: Small subarachnoid hemorrhage in the right posterior frontal lobe is no longer visualized. Th ere is a large area of old infarct in the right occipital lobe and temporal lobe, unchanged. No mass effect or midline shift. No intracranial masses. Moderate cerebral volume loss and chronic microvas cular ischemic changes. Skull and face: Calvarium and visualized facial bones are intact, without suspicious lesions. Sinuses: Visualized sinuses and mastoids are clear. IMPRESSION: 1. Small subarachnoid hemorrhage in the right posterior frontal lobe is no longer visualized. 2. Decrease in size of small subdural hematoma along the right tentorium and quadrigeminal cistern. 3. Trace subdural hematoma along the left tentorium is less conspicuous. 4. 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 5. Cerebral volume loss and periventricular white matter chronic small vessel ischemic changes. No discrepancy with the preliminary interpretation. Reviewed by: Elise Nicole MD on 05/26/2020 8:10 AM PDT Approved by: Elise Nicole MD on 05/26/2020 8:10 AM PDT Station ID: [id number]
== END 2020-05-26 09:15 | disposition home or self-care (01) ==
LOC: ED 05:28
DX: F07.81 Postconcussional syndrome (principal); Z91.81 History of falling; E87.6 Hypokalemia; I10 Essential (primary) hypertension; F03.90 Unspecified dementia, unspecified severity, without behavioral disturbance, psychotic disturbance, mood disturbance, and anxiety
CPT/HCPCS: 36415; 80053; 81001; 81003; 83690; 85025; 87086; 96365; 96366; 99284

== ENCOUNTER 2020-06-06 16:43 | Outpatient (CLI) | payer OTHER ==
--- NOTE | 2020-06-06 17:01 | CONSULTATION NOTE ---
Palliative Care Follow Up - Referral Referring Provider: Dr. Lyle Valdes Time of Visit: [id number] Referral setting: Home Referral Reason: Gastroesophageal Carcinoma/dementia/GLF/Stage II decub coccyx - Information Sources Records reviewed: Previous records reviewed History/Review of Systems obtained from: Patient, Family (daughter Kennedi main caregiver) Exam limitations: Clinical condition (patient with worsening dementia; recent concussion) - History of Present Illness Update Brief HPI Update: This is a 84-year-old [place] woman who presented in 2017 with a stroke, currently with continued worsening dementia, and leading to a seizure disorder. She does have left hemiplegia, visual changes, requires standby assistance for toileting, eating and walking. She did have some neuropsychiatric behaviors that have improved on risperidone, but does require full-time 24 7 caregiving. Patient has been diagnosed as result of GI bleed, gastroesophageal adenocarcinoma. She is noted to have a large distal mass near 5 cm, with concerns for peritoneal carcinomatosis. She was started on Keytruda, she has received 3 treatments, and actually has tolerated it fairly well. She had some bright red blood mixed with stool a couple weeks ago, but none since and her hemoglobin is remained stable. Unfortunately patient had some kind of incident, most likely seizure or syncopal episodes, struck her left side of her head and ended up in the ED on 05/24/2020. She has found a small intracranial hemorrhage, was observed in the ED, did not show any progressive bleeding, and was discharged home. She did return in 2 days, secondary to increased confusion, thought more to be post concussion syndrome. As the small subarachnoid hemorrhage on CT scan in the right posterior frontal lobe had on CT scan not been able to show any further visualization. He does have known cerebral volume loss and periventricular white matter with chronic small vessel ischemic changes on her scans. She did have a hematoma which at this point in time has resolved, she does still have some residual bruising on her left orbit, her daughter reports she is quite achy and had some pain with getting in and out of bed on her left side, but no notable contusion noted. And she has continued to improve. Patient denies any pain at time of visit, she was able to get up and ambulate with a walker. Overall patient has had a very slow functional decline, now superimposed some intermittent confusion. She still requires 24/7 care, but has not presented with any acute signs of her cancer. She does present today though with a stage II decub, bilaterally on both sides of her buttocks. This does cause her some pain and discomfort. She is very sedentary, spends most of her time either in the recliner or in the bed, her daughter is doing pressure relief measures, but her skin is continue to deteriorate. Past Medical History: Hypertension, high cholesterol, murmur, sleep apnea, dementia, CVA, recurrent TIAs, seizure disorder, GERD, colon polyps, chronic hearing loss, depression, osteoarthritis, carpal tunnel syndrome, eczema, psoriasis, rosacea, shoulder arthroplasty Social History - Living Situation Living arrangement: At home Living Situation: With spouse/s.o., With family Support System: Patient does live with her elderly , who also has health problems but remains independent at age 91. She lives downstairs in the basement with her daughter Kennedi who is her caregiver, Kennedi and come to live with him in 2012 because her Brother had been dying of kidney failure. Her mother had always been quite vital up to the point of her stroke, Kennedi provides 24/7 caregiver other than a small break on and some private pay off on Tuesday. Kennedi is retired respiratory therapist has been caring for them for most of 10 years, patient has 6 children overall and his sister in [place] who is coming to visit. Karen is the DPOA, for both her mother and her father, this is created some tension between sisters. Medications/Allergies - Medications Home Medications: Ambulatory Orders Medication Instructions Recorded Confirmed lisinopriL [Lisinopril] 20 mg PO DAILY 09/17/15 06/06/20 Latanoprost 0.005% Ophth Drops 1 drops EACHEYE QPM 07/02/17 06/06/20 [Xalatan Ophth Drops] Cholecalciferol (Vitamin D3) 1,000 unit PO DAILY 11/24/17 06/06/20 [Vitamin D3] Calcium/Magnesium/Zinc 1 tab PO DAILY 04/05/18 06/06/20 [Hvsrsba-Ikkbtkypj-Tyge Tablet] Zonisamide 200 mg PO QPM 04/05/18 06/06/20 Risperidone [Risperdal] 1 mg PO BID 01/06/20 06/06/20 amLODIPine [Norvasc] 2.5 mg PO DAILY 01/06/20 06/06/20 lamoTRIgine [LaMICtal] 100 mg PO BID 01/06/20 06/06/20 Pantoprazole [Protonix] 40 mg PO BID #60 tablet 01/10/20 06/06/20 Sucralfate [Carafate] 1 gm PO QID #120 tablet 01/10/20 06/06/20 Acetaminophen [Tylenol] 650 mg PO Q6HR PRN 02/05/20 06/06/20 Morphine Sulfate [Morphine Sulf 5 mg PO Q4HR PRN MDD severe pain 02/05/20 06/06/20 Oral (Roxanol)] Ondansetron [Zuplenz] 4 mg PO Q6HR PRN 02/05/20 06/06/20 Estradiol 0.05 mg Patch [Climara 1 each TOP OAW 05/24/20 06/06/20 0.05 mg] - Allergies Allergies/Adverse Reactions: Allergies Allergy/AdvReac Type Severity Reaction Status Date / Time Antihistamines - Allergy Unknown Verified 05/24/20 13:54 Ethylenediamine caffeine Allergy Unknown Verified 05/24/20 13:54 NSAIDS (Non-Steroidal Allergy Anaphylaxis Verified 05/24/20 13:54 Anti-Inflamma tramadol Allergy Unknown Verified 05/24/20 13:54 levetiracetam AdvReac Severe Unknown Verified 05/24/20 13:54 lactose AdvReac Unknown Verified 05/24/20 13:54 naproxen sodium * AdvReac Edema Verified 05/24/20 13:54 [From Aleetienne] Review of Systems - Constitutional Constitutional: reports: Fatigue, Weight loss (10 pounds over the month) - Eyes Eyes: reports: Vision loss, Dipolpia (12.6) - Ears, Nose & Throat Ears, Nose & Throat: reports: Hearing loss, Hearing aids - Cardiovascular Cardiovascular: reports: Edema, Decr. exercise tolerance - Respiratory Respiratory: reports: SOB with exertion. denies: SOB at rest - Gastrointestinal Gastrointestinal: reports: Early satiety (eats 2x a day). denies: Constipation (noted blood in stool abotu 2 weeks ago; has not recurred), Nausea - Genitourinary Genitourinary: reports: Incontinence, Nocturia - Musculoskeletal Musculoskeletal: reports: Stiffness, Limited range of motion, Muscle weakness, Assistive devices (uses walker and needs significant amount of cueing) - Integumentary Integumentary: reports: Dryness, Other (worsening pressure sores) - Neurological Neurological: reports: General weakness, Memory problems, Abnormal gait - Psychiatric Psychiatric: reports: Anxiety, Hallucinations - Endocrine Endocrine: reports: Intolerance to cold - Hematologic/Lymphatic Hematologic/Lymph: reports: Anemia - All Other Systems All Other Systems: reports: Reviewed and negative Physical Exam - Vital Signs Temperature: 97.9 C Pulse Rate: 70 Respiratory Rate: 18 O2 Saturation: 98 (ra @ rest) Blood Pressure: 112/58 - Physical Exam General Appearance: positive: No acute distress, Alert Eyes Bilateral: positive: Normal inspection ENT: positive: No signs of dehydration. negative: Oral lesions Neck: positive: Trachea midline Cardiovascular: positive: Regular rate & rhythm Respiratory: positive: No respiratory distress Abdomen: positive: Non-tender, Soft Skin: positive: Pallor, Bruising, Pressure wound (bilateral less than one cm open areas x3 in buttocks area; dark purple discoloration through buttocks area) Extremities: positive: Pedal edema Neurologic/Psychiatric: positive: Mood/affect nml, Disoriented to time, Weakness, Flat affect Palliative Care - POLST Patient has POLST: Yes POLST Status: DNR, Selective Treatment Pain: Pain improved, Location (left leg from fall; APAP occasionally only now) Performance Status: Patient is ambulatory, though needs maximum assist for toileting, dressing, bathing, can feed herself. She needs cueing for all transfers, ambulation, daughter reports this is worsened since fall. Patient has been quite sedentary, and having functional decline overall. Patient does not perceive any distress. She does tend to leaning to the left, and positioning is needed mostly to do manually as she has very poor truncal support - Palliative Care Discussion: Patient continues to decline both cognitively and functionally, but at this point in time does not perceive any distress or side effects that would preclude her from continuing current treatment plan. Patient did have a consult at [facility], according to oncology note and agreement with current plan, with low threshold to transition to hospice care if patient with increased side effects. She is due to have her treatment on 06/12 with PET scan 06/18 to follow-up on results. DPOA is Amy, caregiver is Kennedi, sisters do have some tension in how they think she should proceed. Patient is receiving excellent care, unfortunately Kennedi does present with some caregiver fatigue in the context of high caregiving duties and patients ongoing decline. Impression and Recommendations - Palliative Care Impression: This is an 84-year-old woman with history of stroke, seizure disorder, dementia, and compromised health now currently receiving treatment for gastroesophageal adenocarcinoma with immunotherapy pembrolizumab. She did have an acute event on 05/24 with either syncope or seizure, continues with some mild confusion as a result. Patient does demonstrate symptoms of ongoing functional and cognitive decline but no acute distress and no acute side effects noted from immunotherapy. Palliative care continue to help with pain and symptom management anticipatory guidance in the context of frailty, with goal to transition to hospice when goals are aligned Recommendations/Counseling Done: 1. Gastric adenocarcinoma with peritoneal carcinomatosis. Patient is receiving pembrolizumab, at this point in time is tolerating without any significant side effects. We will continue to monitor, she is due for treatment 06/12 with follow-up on 06/18 with PET scan to evaluate effectiveness. 2. GI bleed. Patient without any acute signs or symptoms of GI bleed, is cont inuing on Carafate and Protonix, only one episode of active bleeding noted by daughter 2 weeks ago. Hemoglobin is remained stable. 3. Stage II decub buttocks. This is worsened with patient's recent fall, and more difficulty with repositioning. Area cleansed and Mepilex sacral dressing put on, Reviewed care with daughter. Patient has an old mattress, did follow-up with [facility], can do alternating pressure mattress and/or pressure relieving mattress. Patient does not have Medicare B, so would be [id number] expenses. Resources shared with daughter. 3. Postconcussion. Patient is with some mild changes in cognitive status, the patient's cognitive status fluctuates given her dementia and seizure disorder. No acute changes, patient is still able to ambulate, with significant cueing, and does not perceive any increased difficulties. 4. Advanced care planning. Patient currently continue with treatment, will have a PET scan for reevaluation on 06/18, patient is quite frail. At this point in time no acute signs or symptoms of bleeding, symptom burden is only moderate, goal would be to transition to hospice when appropriate when goals are aligned. 60 minutes with greater than 50% of this and with counseling regarding symptom management, management of wound and pressure relief issues, anticipatory guidance. If patient's wounds do not improve, will make home health referral for wound care.
== END 2020-06-06 16:44 | disposition home or self-care (01) ==
LOC: PC 16:43
PROVIDERS: ATTEND Nurse Practitioner Adult Health
DX: Z51.5 Encounter for palliative care (principal); C16.0 Malignant neoplasm of cardia; C78.6 Secondary malignant neoplasm of retroperitoneum and peritoneum; L89.322 Pressure ulcer of left buttock, stage 2; L89.312 Pressure ulcer of right buttock, stage 2; I69.354 Hemiplegia and hemiparesis following cerebral infarction affecting left non-dominant side; I69.312 Visuospatial deficit and spatial neglect following cerebral infarction; I69.398 Other sequelae of cerebral infarction; Z79.899 Other long term (current) drug therapy; G40.909 Epilepsy, unspecified, not intractable, without status epilepticus; F03.90 Unspecified dementia, unspecified severity, without behavioral disturbance, psychotic disturbance, mood disturbance, and anxiety; Z66 Do not resuscitate
CPT/HCPCS: 99350

== ENCOUNTER 2020-06-16 15:10 | Outpatient (CLI) | payer OTHER | END 2020-06-16 15:11 | disposition critical access hospital (66) | LOC: EMS 15:10 | DX: R56.9 Unspecified convulsions (principal); K92.1 Melena | CPT/HCPCS: A0425; A0429 ==

== ENCOUNTER 2020-06-16 15:31 | Emergency (ER) | payer OTHER ==
--- OUTSIDE RECORDS SUMMARY | 2020-06-16 15:42 | EXTERNAL MEDICAL SUMMARY RPT | Continuity of Care Document ---
:1935 Demographics Phone Unavailable Preferred Language Welsh Marital Status Unknown Mormon Affiliation Unknown Race Unknown Ethnic Group Unknown Author Organization [facility] Address [address] [phone] Phone Care Team Providers Name Role Phone Callahan Unavailable Unavailable Problems date description facility [id number] [facility] [id number] [facility] [id number] [facility] [id number] [facility] [id number] [id number] Iron deficiency anemia, unspecified Is [facility] [id number] Gastrointestinal hemorrhage, unspecifie [facility] Procedures date description facility [id number] [facility] date description facility 20200428 [facility] date description facility 20200319 [facility] Vital Signs date measurement value source 20200428 temperature_standard 98.7 F 20200428 temperature_metric 37.06 C 20200428 respiration_rate 16 /min 20200428 heart_rate 68 /min date measurement value source 20200506 weight_standard 59.87 lb 20200506 weight_metric 27.16 kg 20200506 height_standard 60 in 20200506 height_metric 152.4 cm 20200506 BP_systolic 120 mm[Hg] 20200506 BP_diastolic 76 mm[Hg] 20200506 BMI 25.7 kg/m2 Social History date description facility [id number]
[2020-06-16 15:53] LABS: BASOPHILS % (AUTO) 0.1 %; EOSINOPHILS % (AUTO) 0.2 %; HCT - HEMATOCRIT 34.6 % (37.0-47.0); HGB - HEMOGLOBIN 10.9 g/dL (12.0-16.0); LYMPHOCYTES # (AUTO) 0.7 10^3/uL (1.5-3.5); LYMPHOCYTES % (AUTO) 7.2 %; MEAN CORPUSCULAR HEMOGLOBIN 30.8 pg (27.0-31.0); MEAN CORPUSCULAR HGB CONC 31.5 g/dL (32.0-36.0); MEAN CORPUSCULAR VOLUME 97.7 fL (81.0-99.0); MEAN PLATELET VOLUME 9.4 fL (7.9-10.8); MONOCYTES # (AUTO) 0.6 10^3/uL (0.0-1.0); MONOCYTES % (AUTO) 6.4 %; NEUTROPHILS # (AUTO) 7.9 10^3/uL (1.5-6.6); NEUTROPHILS % (AUTO) 85.3 %; PLT - PLATELET COUNT 208 10^3/uL (130-450); RED BLOOD COUNT 3.54 10^6/uL (4.20-5.40); RED CELL DISTRIBUTION WIDTH 13.8 % (12.0-15.0); WHITE BLOOD COUNT 9.3 x10^3/uL (4.8-10.8)
[2020-06-16 16:06] LABS: ALBUMIN 2.9 g/dL (3.2-5.5); BILIRUBIN,TOTAL 0.4 mg/dL (0.2-1.0); CALCIUM 8.4 mg/dL (8.5-10.3); CREATININE 0.9 mg/dL (0.4-1.0); POTASSIUM 3.4 mmol/L (3.5-5.0); TOTAL PROTEIN 5.7 g/dL (6.7-8.2)
--- NOTE | 2020-06-16 16:47 | ED Physician Documentation ---
History of Present Illness - Stated complaint Stated Complaint: GI BLEED - Chief complaint Chief Complaint: Neuro - History obtained from History obtained from: Patient, Family ( and son) - Additonal information Additional information: 84yF with PMH GE ca, dementia, CVA, seizure disorder p/w partial seizure vs syncopal episode witnessed by family on the toilet today. she had dark stool and this prompted visit to ED. on arrival patient mentating at baseline with no acute complaints. Review of Systems Unable to obtain: Dementia PD PAST MEDICAL HISTORY - Past Medical History Cardiovascular: Hypertension, High cholesterol, Murmur Respiratory: Sleep apnea Neuro: Dementia, CVA, TIA, Seizure disorder Endocrine/Autoimmune: None GI: GERD, Colon polyps WOOD [employer]AT[employer]ILDER: None : Incontinence HEENT: Chronic hearing loss Psych: Depression Musculoskeletal: Osteoarthritis, Other Derm: Eczema, Psoriasis, Rosacea - Past Surgical History Past Surgical History: Yes General: Colonoscopy, EGD Ortho: Shoulder arthroplasty - Present Medications Home Medications: Ambulatory Orders Medication Instructions Recorded Confirmed lisinopriL [Lisinopril] 20 mg PO DAILY 09/17/15 06/06/20 Latanoprost 0.005% Ophth Drops 1 drops EACHEYE QPM 07/02/17 06/06/20 [Xalatan Ophth Drops] Cholecalciferol (Vitamin D3) 1,000 unit PO DAILY 11/24/17 06/06/20 [Vitamin D3] Calcium/Magnesium/Zinc 1 tab PO DAILY 04/05/18 06/06/20 [Zrcamum-Xrstgzknk-Bsya Tablet] Zonisamide 200 mg PO QPM 04/05/18 06/06/20 Risperidone [Risperdal] 1 mg PO BID 01/06/20 06/06/20 amLODIPine [Norvasc] 2.5 mg PO DAILY 01/06/20 06/06/20 lamoTRIgine [LaMICtal] 100 mg PO BID 01/06/20 06/06/20 Pantoprazole [Protonix] 40 mg PO BID #60 tablet 01/10/20 06/06/20 Sucralfate [Carafate] 1 gm PO QID #120 tablet 01/10/20 06/06/20 Acetaminophen [Tylenol] 650 mg PO Q6HR PRN 02/05/20 06/06/20 Morphine Sulfate [Morphine Sulf 5 mg PO Q4HR PRN MDD severe pain 02/05/20 06/06/20 Oral (Roxanol)] Ondansetron [Zuplenz] 4 mg PO Q6HR PRN 02/05/20 06/06/20 Estradiol 0.05 mg Patch [Climara 1 each TOP OAW 05/24/20 06/06/20 0.05 mg] - Allergies Allergies/Adverse Reactions: Allergies Allergy/AdvReac Type Severity Reaction Status Date / Time Antihistamines - Allergy Unknown Verified 06/16/20 15:43 Ethylenediamine caffeine Allergy Unknown Verified 06/16/20 15:43 NSAIDS (Non-Steroidal Allergy Anaphylaxis Verified 06/16/20 15:43 Anti-Inflamma tramadol Allergy Unknown Verified 06/16/20 15:43 levetiracetam AdvReac Severe Unknown Verified 06/16/20 15:43 lactose AdvReac Unknown Verified 06/16/20 15:43 naproxen sodium * AdvReac Edema Verified 06/16/20 15:43 [From Aleve] - Social History Does the pt smoke?: No Smoking Status: Never smoker Does the pt drink ETOH?: No Does the pt have substance abuse?: No - Immunizations Immunizations are current?: Yes - POLST Patient has POLST: Yes POLST Status: DNR PD ED PE NORMAL - Vitals Vital signs reviewed: Yes - General General: No acute distress, Well developed/nourished - HEENT HEENT: Atraumatic, PERRL, EOMI - Neck Neck: Supple, no meningeal sign - Cardiac Cardiac: RRR - Respiratory Respiratory: No respiratory distress, Clear bilaterally - Abdomen Abdomen: Non tender, Non distended - Derm Derm: Normal color, Warm and dry - Extremities Extremities: No deformity - Neuro Neuro: 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 service apprentice 2-12 intact, No motor deficit, No sensory deficit, Normal speech - Psych Psych: Normal mood, Normal affect Results - Vitals Vitals: Vital Signs - 24 hr 06/16/20 06/16/20 06/16/20 15:31 16:00 16:45 Temperature 36.3 C L Heart Rate 68 63 65 Respiratory 17 14 16 Rate Blood Pressure 136/71 H 116/57 L 116/57 L O2 Saturation 97 99 98 06/16/20 06/16/20 06/16/20 17:10 17:30 18:00 Temperature Heart Rate 65 66 65 Respiratory 13 15 12 Rate Blood Pressure 133/60 H 134/65 H 138/66 H O2 Saturation 98 98 99 Oxygen O2 Source Room air - Labs Labs: Microbiology 06/16/20 15:40 Occult Blood - Final Stool Laboratory Tests 06/16/20 06/16/20 15:48 15:48 WBC 9.3 RBC 3.54 L Hgb 10.9 L Hct 34.6 L MCV 97.7 MCH 30.8 MCHC 31.5 L RDW 13.8 Plt Count 208 MPV 9.4 Neut # (Auto) 7.9 H Lymph # (Auto) 0.7 L [place] # (Auto) 0.6 Eos # (Auto) 0.0 Baso # (Auto) 0.0 Absolute Nucleated RBC 0.00 Nucleated RBC % 0.0 Sodium 142 Potassium 3.4 L Chloride 111 Carbon Dioxide 23 Anion Gap 8.0 BUN 18 Creatinine 0.9 Estimated GFR (MDRD) 60 L Glucose 174 H Calcium 8.4 L Total Bilirubin 0.4 AST 14 ALT 10 Alkaline Phosphatase 70 Total Protein 5.7 L Albumin 2.9 L Globulin 2.8 Albumin/Globulin Ratio 1.0 Lipase 30 PD MEDICAL DECISION MAKING - ED course ED course: Discussed with Karen Bernal in regards to stable Hb and brown stool on exam. d/w juan m Jones to send home given stable Hb and BP stable. Strict return precautions given. Patient will follow up with her primary doctor and oncologist this week. Departure - Departure Disposition: 01 Home, Self Care Clinical Impression: Seizure Condition: Good Instructions: Seizure Partial Comments: Your mother was seen in the emergency department for a possible seizure versus a fainting spell. Make sure that she stays well-hydrated and drink lots of Pedialyte or low sugar Gatorade over the next couple of days. Be careful when she has position changes or when she goes to the toilet and make sure she is always assisted at that time. Return to the emergency department if you have any new or worsening symptoms or other concerns. Follow-up with your primary doctor and oncologist. Discharge Date/Time: 06/16/20 18:02
[2020-06-16] MEDS ORDERED: LACTATED RINGERS 500 ML IV STA (16:58)
[2020-06-16 18:16] VITALS: BP 138/66
== END 2020-06-16 18:02 | disposition home or self-care (01) ==
LOC: EDUNIT# → ED 15:31
DX: R56.9 Unspecified convulsions (principal); I10 Essential (primary) hypertension; F03.90 Unspecified dementia, unspecified severity, without behavioral disturbance, psychotic disturbance, mood disturbance, and anxiety; Z66 Do not resuscitate
CPT/HCPCS: 36415; 80053; 80175; 82272; 83690; 85025; 96360; 99281; 99283; J7120; 82274

== ENCOUNTER 2020-06-20 08:00 | Outpatient (CLI) | payer OTHER ==
[2020-06-20 17:57] LABS: ABSOLUTE RETICS # AUTO 0.073 10^6/uL (0.020-0.110); RED BLOOD COUNT 3.65 10^6/uL (4.20-5.40); RETICULOCYTE COUNT % (AUTO) 2.01 % (0.5-2.3)
[2020-06-20 18:36] LABS: % IRON SATURATION 11 % (20-50); IRON 30 ug/dL (28-170); TOTAL IRON BINDING CAPACITY 274 ug/dL (250-450); TRANSFERRIN 196 mg/dL (192-382)
== END 2020-06-20 23:59 | disposition home or self-care (01) ==
LOC: LAB.WCP 08:00
PROVIDERS: ATTEND Internal Medicine
DX: D50.9 Iron deficiency anemia, unspecified (principal)
CPT/HCPCS: 36415; 82728; 83540; 84466; 85045

== ENCOUNTER 2020-07-12 14:14 | Outpatient (CLI) | payer MEDICARE, OTHER ==
[2020-07-12 17:26] LABS: THYROID STIMULATING HORMONE 18.96 uIU/mL (0.34-5.60)
[2020-07-12 17:27] LABS: FREE T3 2.5 pg/mL (2.5-3.9)
[2020-07-12 17:28] LABS: FREE T4 (FREE THYROXINE) 0.78 ng/dL (0.58-1.64)
== END 2020-07-12 14:15 | disposition home or self-care (01) ==
LOC: LAB.N 14:14
PROVIDERS: ATTEND Internal Medicine
DX: R94.6 Abnormal results of thyroid function studies (principal)
CPT/HCPCS: 36415; 84439; 84443; 84481

== ENCOUNTER 2020-07-29 14:00 | Outpatient (CLI) | payer MEDICARE, OTHER ==
--- NOTE | 2020-07-29 15:13 | CONSULTATION NOTE ---
Palliative Care Follow Up - Referral Referring Provider: Dr. Chintan Valdes Time of Visit: [id number] Referral setting: Home Referral Reason: Bilateral knee pain/Gastric CA/Stage I decub - Information Sources Records reviewed: Previous records reviewed History/Review of Systems obtained from: Family (daughter Kennedi who is primary CT) Exam limitations: Clinical condition (patient with dementia; poor STM issues;) - History of Present Illness Update Brief HPI Update: This is an 84-year-old [place] woman with gastric cancer who continues on pembrolizumab. She does have a known large distal mass near 5 cm, with continued improvement from her scans, she has tolerated her treatments fairly well unfortunately she had to have her Port-A-Cath replaced this was done on 07/16. She did have a recent CT scan that shows the GE junction carcinoma relatively stable, no new mets identified. Overall she is quite frail, she had a stroke in 2017 with continued worsening dementia, and seizure disorder. She does have left hemiplegia, with worsening contracture in her upper extremity, visual changes, and is very dependent for toileting, eating, and walking. She did have some neuropsychiatric behaviors seems of improved on risperidone, was having more tremors her PCP decreased her dosing. 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 They are waiting physical therapy referral, hoping for some vestibular adjustments. Unclear if they will be able to do that in the home, they do want some further exercises though she is developing contractures on that left side, despite regular rate range of motion. Patient was less "enthusiastic" about her exercises when her diagnosis of cancer was made, she had been fairly consistent in doing them previously. Her daughter reports that she is remained fairly stable as far as her functional status, has not seen any further seizure activity, she is not had any falls. When they decreased the Risperdal, as well as her cumulative effects from immunotherapy, she has developed worsening bilateral knee pain. Does wake her up at night, no pain on examination or on palpation at visit today. She does have limited mobility, but does have some range of motion. It does wake her up though, and are looking for ways to better manage her discomfort. She has had slow steady weight loss, she eats 2 full meals a day, is waiting in about 131. She has had some skin breakdown, daughter started her on some liquid quick protein supplement, and it has continued to improve along with pressure relief measures. Continues to be quite a bit of tension regarding goals of care, daughter Kennedi who is the full-time caregiver would like a more palliative approach, Abundio and the DPOA has been more "full treatment", and this causes significant disagreement between the 2 of them. Patient herself does not really have the capacity to weigh benefits and burdens, and defaults to her family for decision making. Past Medical History: 06/[address] on CT scan, hypertension, high cholesterol, murmur, sleep apnea, dementia, CVA, recurrent TIAs, seizure disorder, GERD, colon polyps, chronic hearing loss, depression, osteoarthritis, carpal tunnel syndrome, eczema, psoriasis, rosea, shoulder arthroplasty Social History - Living Situation Living arrangement: At home Living Situation: With spouse/s.o., With family Support System: Patient lives with her , they have been over 65 years, he lives upstairs, she lives downstairs with full support of Kennedi her daughter. Kennedi gets a couple days of respite a week, but otherwise is full-time caregiving for patient. Medications/Allergies - Medications Home Medications: Ambulatory Orders Medication Instructions Recorded Confirmed lisinopriL [Lisinopril] 20 mg PO DAILY 09/17/15 07/29/20 Latanoprost 0.005% Ophth Drops 1 drops EACHEYE QPM 07/02/17 07/29/20 [Xalatan Ophth Drops] Cholecalciferol (Vitamin D3) 1,000 unit PO DAILY 11/24/17 07/29/20 [Vitamin D3] Calcium/Magnesium/Zinc 1 tab PO DAILY 04/05/18 07/29/20 [Nzqruni-Puacbwriv-Nffh Tablet] Zonisamide 200 mg PO QPM 04/05/18 07/29/20 amLODIPine [Norvasc] 2.5 mg PO DAILY 01/06/20 07/29/20 lamoTRIgine [LaMICtal] 100 mg PO BID 01/06/20 07/29/20 risperiDONE [Risperdal] 0.5 mg PO BID 01/06/20 07/29/20 Pantoprazole [Protonix] 40 mg PO BID #60 tablet 01/10/20 07/29/20 Sucralfate [Carafate] 1 gm PO QID #120 tablet 01/10/20 07/29/20 Acetaminophen [Tylenol] 1,000 mg PO QPM PRN MDD 2500 02/05/20 07/29/20 Morphine Sulfate [Morphine Sulf 5 mg PO Q4HR PRN MDD severe pain 02/05/20 07/29/20 Oral (Roxanol)] Ondansetron [Zuplenz] 4 mg PO Q6HR PRN 02/05/20 07/29/20 Estradiol 0.05 mg Patch [Climara 1 each TOP OAW 05/24/20 07/29/20 0.05 mg] - Allergies Allergies/Adverse Reactions: Allergies Allergy/AdvReac Type Severity Reaction Status Date / Time Antihistamines - Allergy Unknown Verified 06/16/20 15:43 Ethylenediamine caffeine Allergy Unknown Verified 06/16/20 15:43 NSAIDS (Non-Steroidal Allergy Anaphylaxis Verified 06/16/20 15:43 Anti-Inflamma tramadol Allergy Unknown Verified 06/16/20 15:43 levetiracetam AdvReac Severe Unknown Verified 06/16/20 15:43 lactose AdvReac Unknown Verified 06/16/20 15:43 naproxen sodium * AdvReac Edema Verified 06/16/20 15:43 [From Aleetienne] Review of Systems - Constitutional Constitutional: reports: Fatigue (persistent; sleeps during day but keeps eyes closed with sensitivity so unclear how much awake), Weakness, Weight loss (130) - Eyes Eyes: reports: Vision loss, Dipolpia (12.6) - Ears, Nose & Throat Ears, Nose & Throat: reports: Hearing loss, Hearing aids, Vertigo (attributes to Meirneires; worsening over last few weeks; does have hsitory), Dry mouth - Cardiovascular Cardiovascular: reports: Edema, Lightheadedness, Decr. exercise tolerance - Respiratory Respiratory: reports: SOB with exertion. denies: SOB at rest - Gastrointestinal Gastrointestinal: reports: Bloating, Early satiety (eats 2x a day). denies: Constipation (noted blood in stool abotu 2 weeks ago; has not recurred), Nausea - Genitourinary Genitourinary: reports: Incontinence, Nocturia - Musculoskeletal Musculoskeletal: reports: Stiffness, Limited range of motion, Muscle weakness, Assistive devices (uses walker with cueing) - Integumentary Integumentary: reports: Dryness, Other (worsening pressure sores) - Neurological Neurological: reports: General weakness, Memory problems, Abnormal gait - Psychiatric Psychiatric: reports: Anxiety, Hallucinations - Endocrine Endocrine: reports: Intolerance to cold - Hematologic/Lymphatic Hematologic/Lymph: reports: Anemia - All Other Systems All Other Systems: reports: Reviewed and negative Physical Exam - Vital Signs Temperature: 97.3 C Pulse Rate: 63 Respiratory Rate: 18 O2 Saturation: 99 (ra @ rest) Blood Pressure: 110/62 - Physical Exam General Appearance: positive: No acute distress, Alert, Other (keeps eyes closed during visit) Eyes Bilateral: positive: Normal inspection ENT: positive: No signs of dehydration. negative: Oral lesions Neck: positive: Trachea midline Cardiovascular: positive: Regular rate & rhythm Respiratory: positive: No respiratory distress Abdomen: positive: Non-tender, Soft Skin: positive: Pallor, Bruising, Pressure wound (reported only in cleft currently) Extremities: positive: Pedal edema (2+ up to mid calf) Neurologic/Psychiatric: positive: Mood/affect nml, Disoriented to time, Weakness, Flat affect Palliative Care - POLST Patient has POLST: Yes POLST Status: DNR, Selective Treatment Pain: Pain worsening, Location (bilaterally knee pain) Sleep: Sleeps poorly (with development of knee pain) Constipation: No Performance Status: Patient with slow decline of functional status, needs maximum assist and cueing to ambulate with walker, get from sitting to standing, having increased contracture on left side, can straighten that more comfortable pulling up. Keep total daughter for all ADLs, including bathing, - Palliative Care Discussion: Kennedi daughter continues to struggle with weighing benefits and burdens of being more aggressive than a palliative approach. She worries about her mother's quality of life, particularly with all her comorbidities, thus far has tolerated the treatment with minimal side effects or decline in status, though she her declining overall. Struggles with the not alignment of goals between her and her sister, as her sister is the DPOA. Impression and Recommendations - Palliative Care Impression: This is a frail 84-year-old woman receiving immunotherapy for gastroesophageal adenocarcinoma with pembrolizumab. Thus far she has tolerated it, without significant progression of her disease. She continues to be quite frail with multiple comorbidities including history of stroke and sequela of left-sided weakness, seizure disorder, dementia, and declining functional status. Palliative care providing support for pain and symptom management and anticipatory guidance in the context of frailty, with a goal to transition to hospice when goals are aligned Recommendations/Counseling Done: 1. Bilateral knee pain. This his been exacerbated over the last couple weeks, have not been able to relieve with positioning, daughter worried about medication secondary to patient's tumor burden. Reviewed most likely benign medication at be of help would be the acetaminophen, Patient is mostly at night, would recommend to 1000 g at bedtime and add 501 or 2 during the day if needed not to exceed 2500 mg of APAP. Also reviewed topicals, recommend Salonpas topical lidocaine patches to knees as well. 2. Mnire's disease. Patient is having significant dizziness and discomfort, is hoping physical therapist coming will be able to work with vestibular realignment. Patient is responding to this before, may need to transition to outpatient therapy for intervention. She will benefit though from further strengthening and daughter from instruction for left sided upper extremity contracture 3. Gastric adenocarcinoma with peritoneal carcinomatosis. Patient receiving pembrolizumab at this point in time tolerating with minimal side effects. Has shown response without progression of disease, daughter reports they are talking on adding a second immunotherapy. Patient does demonstrate ongoing slow decline with weight loss and functional status. 4. Stage II decub buttocks this is really solved, they did get a alternating pressure mattress, as well as doing positioning. She also supplemented with liquid protein supplement, and feels this made a difference as well. Currently using topical on crack above coccyx, will be seeing home health physical therapy, can evaluate if need nursing support. 5. Advanced care planning. Still appears to be tension relating to goals of care, currently patient is being cared for by Kennedi her daughter, is still receiving treatment, no further questions have arisen other than the Port-A-Cath replacement, which she did have done. Patient does have a POLST with DN AR and selective treatments. 45 minutes with greater than 50% of this done in counseling regarding pain and symptom management, and anticipatory guidance.
== END 2020-07-29 14:01 | disposition home or self-care (01) ==
LOC: PC 14:00
PROVIDERS: ATTEND Nurse Practitioner Adult Health
DX: Z51.5 Encounter for palliative care (principal); M25.562 Pain in left knee; M25.561 Pain in right knee; H81.09 Meniere's disease, unspecified ear; C16.9 Malignant neoplasm of stomach, unspecified; L98.9 Disorder of the skin and subcutaneous tissue, unspecified; I69.354 Hemiplegia and hemiparesis following cerebral infarction affecting left non-dominant side; I69.398 Other sequelae of cerebral infarction; G40.909 Epilepsy, unspecified, not intractable, without status epilepticus; F03.90 Unspecified dementia, unspecified severity, without behavioral disturbance, psychotic disturbance, mood disturbance, and anxiety; I10 Essential (primary) hypertension; Z79.899 Other long term (current) drug therapy; Z66 Do not resuscitate
CPT/HCPCS: 99349

== ENCOUNTER 2020-10-31 14:00 | Outpatient (CLI) | payer MEDICARE, OTHER ==
--- NOTE | 2020-10-31 15:54 | CONSULTATION NOTE ---
Palliative Care Follow Up - Referral Referring Provider: Dr. Chintan Valdes Time of Visit: [id number] Referral setting: Home Referral Reason: Joint Pain/Gastric CA/Stage I decub/LE edema - Information Sources Records reviewed: Previous records reviewed History/Review of Systems obtained from: Patient, Family (daughter Kennedi) - History of Present Illness Update Brief HPI Update: This is an 84-year-old [place] woman with gastric cancer, who continues on pembrolizumab, with addition of Herceptin. She does have a known distal mass near 5 cm on diagnosis with continued improvement on her scans, she is tolerating her treatments fairly well. She is due for a pending PET scan. She has had no further signs or symptoms of bleeding, she has had some side effects from her medications, with overall joint pain, worsening at night, has had an addition of hydrocodone 1/2-1 tab at bedtime, with improvement of sleep and pain overall. She remains quite frail, she had a stroke in 2017 with worsening dementia and seizure disorders. She does have left hemiplegia with worsening contraction her upper extremity, visual changes in addition to the complexity of glaucoma, and very dependent for toileting, eating, and walking. She did have some neuropsychiatric behaviors but has improved on risperidone. She does have Mnire's disease, mostly from's laying in bed up to sitting. She feels fairly dizzy, compounded by her visual changes. They are waiting for an appointment to an ict help desk officer. Patient continues with fairly stable and her functional status, she is able to ambulate with cueing, her daughter is very attentive and uses a gait belt. Patient has not had any further falls they leave the home mostly just for doctor appointments. She continues with fluctuating stage I decub, but is well controlled. Today she does present with some lower extremity taut edema, she does have a little bit of weeping on the left, she does sit with her feet dependent though is up off her pressure points in the couch at least 2 to 3 hours or in the bed. Past Medical History: 06/[address] on CT scan, hypertension, high cholesterol, murmur, sleep apnea, dementia, CVA, recurrent TIAs, seizure disorder, GERD, colon polyps, chronic hearing loss, depression, osteoarthritis, carpal tunnel syndrome, eczema, psoriasis, rosacea, shoulder arthroplasty Social History - Living Situation Living arrangement: At home Living Situation: With spouse/s.o., With family Support System: Patient lives with spouse that he over 65 years, he just had his birthday he is 89 and she just had her birthday she is 85. He lives on the top floor, he lives downstairs with full support of her daughter Kennedi. Kennedi has had challenges getting respite secondary to caregiver availability. She gets 6 hours on Tuesday and a few hours on when caregivers are available Medications/Allergies - Medications Home Medications: Ambulatory Orders Medication Instructions Recorded Confirmed lisinopriL [Lisinopril] 20 mg PO DAILY 09/17/15 10/31/20 Latanoprost 0.005% Ophth Drops 1 drops EACHEYE QPM 07/02/17 10/31/20 [Xalatan Ophth Drops] Cholecalciferol (Vitamin D3) 1,000 unit PO DAILY 11/24/17 10/31/20 [Vitamin D3] Calcium/Magnesium/Zinc 1 tab PO DAILY MDD currently not 04/05/18 10/31/20 [Wpknwtp-Zswkxczcl-Durf Tablet] taking Zonisamide 200 mg PO QPM 04/05/18 10/31/20 amLODIPine [Norvasc] 2.5 mg PO DAILY 01/06/20 10/31/20 lamoTRIgine [LaMICtal] 100 mg PO BID 01/06/20 10/31/20 risperiDONE [Risperdal] 0.5 mg PO BID 01/06/20 10/31/20 Pantoprazole [Protonix] 40 mg PO BID #60 tablet 01/10/20 10/31/20 Acetaminophen [Tylenol] 650 mg PO Q6HR PRN MDD 2500 02/05/20 10/31/20 Morphine Sulfate [Morphine Sulf 5 mg PO Q4HR PRN MDD severe pain 02/05/20 10/31/20 Oral (Roxanol)] Ondansetron [Zuplenz] 4 mg PO Q6HR PRN 02/05/20 10/31/20 Estradiol 0.05 mg Patch [Climara 1 each TOP OAW 05/24/20 10/31/20 0.05 mg] HYDROcod/ACETAM 5/325 [[place] 5/325] 0.5 - 1 tab PO Q4HR PRN 10/31/20 10/31/20 Levothyroxine Sodium 50 mcg PO DAILY 10/31/20 10/31/20 [Levothyroxine] Sucralfate [Carafate] 1 gm PO TID 10/31/20 10/31/20 - Allergies Allergies/Adverse Reactions: Allergies Allergy/AdvReac Type Severity Reaction Status Date / Time Antihistamines - Allergy Unknown Verified 06/16/20 15:43 Ethylenediamine caffeine Allergy Unknown Verified 06/16/20 15:43 NSAIDS (Non-Steroidal Allergy Anaphylaxis Verified 06/16/20 15:43 Anti-Inflamma tramadol Allergy Unknown Verified 06/16/20 15:43 levetiracetam AdvReac Severe Unknown Verified 06/16/20 15:43 lactose AdvReac Unknown Verified 06/16/20 15:43 naproxen sodium * AdvReac Edema Verified 06/16/20 15:43 [From Татьяна] Review of Systems - Constitutional Constitutional: reports: Fatigue (persistent; sleeps during day but keeps eyes closed with sensitivity so unclear how much awake), Weakness, Weight loss (1306/14-128 today) - Eyes Eyes: reports: Vision loss, Dipolpia (12.6) - Ears, Nose & Throat Ears, Nose & Throat: reports: Hearing loss, Hearing aids, Vertigo (attributes to Meirneires; worsening over last few weeks; does have hsitory), Dry mouth - Cardiovascular Cardiovascular: reports: Edema (worsening), Lightheadedness, Decr. exercise tolerance - Respiratory Respiratory: reports: SOB with exertion. denies: SOB at rest - Gastrointestinal Gastrointestinal: reports: Bloating, Early satiety (eats 2x a day). denies: Constipation (noted blood in stool abotu 2 weeks ago; has not recurred), Nausea - Genitourinary Genitourinary: reports: Incontinence, Nocturia - Musculoskeletal Musculoskeletal: reports: Stiffness, Limited range of motion, Muscle weakness, Assistive devices (uses walker with cueing) - Integumentary Integumentary: reports: Dryness, Other (stage I decub fluctuates but doing better) - Neurological Neurological: reports: General weakness, Memory problems, Abnormal gait - Psychiatric Psychiatric: reports: Anxiety, Hallucinations - Endocrine Endocrine: reports: Intolerance to cold - Hematologic/Lymphatic Hematologic/Lymph: reports: Anemia - All Other Systems All Other Systems: reports: Reviewed and negative Physical Exam - Vital Signs Temperature: 97.3 C Pulse Rate: 65 Respiratory Rate: 18 O2 Saturation: 98 Blood Pressure: 131/61 - Physical Exam General Appearance: positive: No acute distress, Alert, Other (keeps eyes closed but answers when asked questions appropriately) Eyes Bilateral: positive: Normal inspection ENT: positive: No signs of dehydration. negative: Oral lesions Neck: positive: Trachea midline Cardiovascular: positive: Regular rate & rhythm Respiratory: positive: No respiratory distress, Rales (crackles LLL resolve with deep breathing) Abdomen: positive: Non-tender, Soft Skin: positive: Pallor, Bruising, Pressure wound (skin scarred; no moist or open area) Extremities: positive: Pedal edema (2-3+ up to mid calf) Neurologic/Psychiatric: positive: Mood/affect nml, Disoriented to time, Weakness, Flat affect Palliative Care - POLST Patient has POLST: Yes POLST Status: DNR, Selective Treatment Pain: Pain worsening, Location (multiple joints; worse at night; managed by 1/2 hydrocodone BUT stomach pain second dose at night on empty stomach) Constipation: Yes, Opoid induced, Managed (using miralax) Performance Status: Patient is quite limited, but can ambulate with cueing short distances in her small apartment. They do do some exercises getting in and out of bed, she can get from sitting to standing, she can self-feed but she is mostly total care - Palliative Care Discussion: Continues to be some tension between the sisters as far as goals of care, but daughter continues to provide a palliative approach, focusing on comfort. She worries about her mom's quality of life, thus so far has been doing okay. She is an excellent caregiver, patient is quite grateful and feels her current quality of life is acceptable. Results - Lab Results Lab results reviewed: Yes Impression and Recommendations - Palliative Care Impression: This is a frail 84-year-old woman receiving immunotherapy pembrolizumab and Herceptin for gastroesophageal adenocarcinoma. She has tolerated with some multiple joint pain, but without significant progression of her disease. She is pending a PET scan next week. She continues to be quite frail with multiple comorbidities including history of stroke and sequela of left-sided weakness, seizure disorder, dementia, and declining functional status. Palliative care providing support for pain and symptom management and anticipatory guidance in the context of frailty with a goal to transition to hospice when goals are aligned Recommendations/Counseling Done: 1. Joint pain, multiple joints. This most likely is with multifactorial including osteoarthritis, flare of joint pain precipitated by treatment, had trialed acetaminophen with Salonpas that did do fairly well for short period of time. Since then have used hydrocodone/acetaminophen 5 mg / 325 mg half tab at bedtime, with most often needing to repeat in the evening. Unfortunately has had some stomach pain with this, problem-solving with daughter to add food though difficult in night. 2. Lower extremity edema. Patient does sit with legs dependent, has longstanding chronic edema though does appear to be exacerbated. Patient has used compression hose in the past. Discussed reresuming these, putting on in a.m. off p.m. If too uncomfortable, can use less compression but still providing support with diabetic support socks. She will give it a try. She does have a small amount of weeping on her left leg. Given patient's frail status would like to avoid diuretics but can initiate if needed. 3. Gastric adenocarcinoma with peritoneal carcinomatosis. Patient is receiving pembrolizumab and Herceptin with some flare of osteoarthritic/joint pain. She has had some slow weight loss, but is doing fairly well overall. Has a pending PET scan to evaluate effectiveness, at this time plan is to continue treatment until progression or patient's decline. 4. Stage II decub buttocks is mostly resolved. No moist open areas, is using barrier cream and fluctuates in nature. Daughter doing appropriate pressure relief. 5. Advanced care planning. Still appears to be tension related to goals of care, currently patient is being cared for by Kennedi her daughter and is receiving treatments. Patient does have a POLST with DNR and selective treatments. We will continue to follow until transition to hospice. 60 minutes with greater 50% of this done in counseling regarding symptom management, strategies to manage pain, counseling provided regarding anticipatory guidance. Plan to see patient in about 2 months.
== END 2020-10-31 14:01 | disposition home or self-care (01) ==
LOC: PC 14:00
PROVIDERS: ATTEND Nurse Practitioner Adult Health
DX: Z51.5 Encounter for palliative care (principal); M89.49 Other hypertrophic osteoarthropathy, multiple sites; R60.0 Localized edema; C16.9 Malignant neoplasm of stomach, unspecified; C78.6 Secondary malignant neoplasm of retroperitoneum and peritoneum; I69.354 Hemiplegia and hemiparesis following cerebral infarction affecting left non-dominant side; I69.318 Other symptoms and signs involving cognitive functions following cerebral infarction; I69.398 Other sequelae of cerebral infarction; L89.324 Pressure ulcer of left buttock, stage 4; L89.314 Pressure ulcer of right buttock, stage 4; Z79.899 Other long term (current) drug therapy; Z66 Do not resuscitate
CPT/HCPCS: 99350

== ENCOUNTER 2020-11-11 20:59 | Outpatient (CLI) | payer OTHER | END 2020-11-11 21:00 | disposition EMS.NT | LOC: EMS 20:59 | DX: R56.9 Unspecified convulsions (principal) ==

== ENCOUNTER 2020-11-13 13:20 | Emergency (ER) | payer OTHER ==
[2020-11-13 14:39] LABS: BASOPHILS # (AUTO) 0.1 10^3/uL (0.0-0.1); BASOPHILS % (AUTO) 0.5 %; EOSINOPHILS # (AUTO) 0.1 10^3/uL (0.0-0.7); EOSINOPHILS % (AUTO) 1.3 %; HCT - HEMATOCRIT 25.9 % (37.0-47.0); LYMPHOCYTES # (AUTO) 1.6 10^3/uL (1.5-3.5); LYMPHOCYTES % (AUTO) 17.2 %; MEAN CORPUSCULAR HEMOGLOBIN 29.2 pg (27.0-31.0); MEAN CORPUSCULAR HGB CONC 30.9 g/dL (32.0-36.0); MEAN CORPUSCULAR VOLUME 94.5 fL (81.0-99.0); MEAN PLATELET VOLUME 9.2 fL (7.9-10.8); MONOCYTES # (AUTO) 0.5 10^3/uL (0.0-1.0); MONOCYTES % (AUTO) 5.9 %; NEUTROPHILS # (AUTO) 6.8 10^3/uL (1.5-6.6); NEUTROPHILS % (AUTO) 74.2 %; PLT - PLATELET COUNT 226 10^3/uL (130-450); RED BLOOD COUNT 2.74 10^6/uL (4.20-5.40); RED CELL DISTRIBUTION WIDTH 15.1 % (12.0-15.0); WHITE BLOOD COUNT 9.2 x10^3/uL (4.8-10.8)
[2020-11-13 14:53] LABS: ALBUMIN 2.4 g/dL (3.2-5.5); ALBUMIN/GLOBULIN RATIO 0.8 (1.0-2.2); ALKALINE PHOSPHATASE 52 IU/L (42-121); ALT ALANINE AMINOTRANSFERASE < 10 IU/L (10-60); AST ASPARTATE AMINOTRANSFERASE 14 IU/L (10-42); BILIRUBIN,TOTAL 0.6 mg/dL (0.2-1.0); BUN - BLOOD UREA NITROGEN 30 mg/dL (6-20); CARBON DIOXIDE - CO2 21 mmol/L (21-32); CHLORIDE 106 mmol/L (101-111); CREATININE 0.9 mg/dL (0.4-1.0); GFR - MDRD 59 (>89); GLUCOSE 118 mg/dL (70-100); LIPASE 29 U/L (22-51); POTASSIUM 3.7 mmol/L (3.5-5.0); SODIUM 136 mmol/L (135-145); TOTAL PROTEIN 5.5 g/dL (6.7-8.2)
--- NOTE | 2020-11-13 16:17 | ED Physician Documentation ---
PD HPI GI BLEED - Stated complaint Stated Complaint: FEMALE - Chief complaint Chief Complaint: Abd Pain - History obtained from History obtained from: Patient, Family - History of Present Illness Timing - onset: How many days ago (2) Timing - duration: Days (2) Timing - details: Gradual onset, Still present (seemed a bit more volume today of dark stool.), Waxing and waning (And has a known gastric tumor with intermittent bleeding and dark stools. Has had occasional transfusions. Daughter/caregiver noted dark stool the last 2 days and seemed a little large volume today. Talked with her palliative care provider who directed her to the ER for evaluation.) Associated symptoms: Black/tarry stool, Loss of appetite, Other (general weakness.). No: Vomiting, Coffee ground emesis, Diarrhea, Constipation Contributing factors: Other (gastric cancer enlarging, with intermittent bleeding.). No: Sick contact, Bad food, NSAID use, Anticoagulated Similar symptoms before: Diagnosis (intermittent gastric tumor bleeding. The cancer is nonoperative. Getting Immunotherapy chemo for palliative goal of diminishing progression. Family/patient decisions for transfusions as needed and hydration. Pt with POLST that was DNR last daughter knew (other daughter is POA and has the POLST).) Recently seen: Clinic (Palliative care Claudia Ortega, and saw Oncology last week with blood count done then.) Review of Systems Unable to obtain: Dementia (still able to converse reasonably. Daughter provides most of the info.) Constitutional: denies: Fever, Chills Nose: denies: Rhinorrhea / runny nose, Congestion Throat: denies: Sore throat Cardiac: denies: Chest pain / pressure Respiratory: reports: Dyspnea. denies: Cough, Wheezing GI: denies: Vomiting Neurologic: reports: Generalized weakness, Focal weakness (prior CVA with left weakness.), Seizure (occasional from prior CVA. Had recent one 4 days ago.). denies: Difficulty speaking Endocrine: reports: Weight loss Immunocompromised: reports: Immunocompromised, Chemotherapy PD PAST MEDICAL HISTORY - Past Medical History Cardiovascular: Hypertension, High cholesterol, Murmur Respiratory: Sleep apnea Neuro: Dementia, CVA, TIA, Seizure disorder Endocrine/Autoimmune: None GI: GERD, Colon polyps FLAT LOCKER: None : Incontinence HEENT: Chronic hearing loss Psych: Depression Musculoskeletal: Osteoarthritis, Other Derm: Eczema, Psoriasis, Rosacea - Past Surgical History Past Surgical History: Yes General: Colonoscopy, EGD Ortho: Shoulder arthroplasty - Present Medications Home Medications: Ambulatory Orders Medication Instructions Recorded Confirmed lisinopriL [Lisinopril] 20 mg PO DAILY 09/17/15 10/31/20 Latanoprost 0.005% Ophth Drops 1 drops EACHEYE QPM 07/02/17 10/31/20 [Xalatan Ophth Drops] Cholecalciferol (Vitamin D3) 1,000 unit PO DAILY 11/24/17 10/31/20 [Vitamin D3] Calcium/Magnesium/Zinc 1 tab PO DAILY MDD currently not 04/05/18 10/31/20 [Iekgmyt-Zpyydtsuv-Mqen Tablet] taking Zonisamide 200 mg PO QPM 04/05/18 10/31/20 amLODIPine [Norvasc] 2.5 mg PO DAILY 01/06/20 10/31/20 lamoTRIgine [LaMICtal] 100 mg PO BID 01/06/20 10/31/20 risperiDONE [Risperdal] 0.5 mg PO BID 01/06/20 10/31/20 Pantoprazole [Protonix] 40 mg PO BID #60 tablet 01/10/20 10/31/20 Acetaminophen [Tylenol] 650 mg PO Q6HR PRN MDD 2500 02/05/20 10/31/20 Morphine Sulfate [Morphine Sulf 5 mg PO Q4HR PRN MDD severe pain 02/05/20 10/31/20 Oral (Roxanol)] Ondansetron [Zuplenz] 4 mg PO Q6HR PRN 02/05/20 10/31/20 Estradiol 0.05 mg Patch [[place] 1 each TOP OAW 05/24/20 10/31/20 0.05 mg] HYDROcod/ACETAM 5/325 [[place] 5/325] 0.5 - 1 tab PO Q4HR PRN 10/31/20 10/31/20 Levothyroxine Sodium 75 mcg PO DAILY 10/31/20 10/31/20 [Levothyroxine] Sucralfate [Carafate] 1 gm PO TID 10/31/20 10/31/20 - Allergies Allergies/Adverse Reactions: Allergies Allergy/AdvReac Type Severity Reaction Status Date / Time Antihistamines - Allergy Unknown Verified 11/13/20 13:42 Ethylenediamine caffeine Allergy Unknown Verified 11/13/20 13:42 NSAIDS (Non-Steroidal Allergy Anaphylaxis Verified 11/13/20 13:42 Anti-Inflamma tramadol Allergy Unknown Verified 11/13/20 13:42 levetiracetam AdvReac Severe Unknown Verified 11/13/20 13:42 lactose AdvReac Unknown Verified 11/13/20 13:42 naproxen sodium * AdvReac Edema Verified 11/13/20 13:42 [From Aleve] - Social History Does the pt smoke?: No Smoking Status: Never smoker Does the pt drink ETOH?: No Does the pt have substance abuse?: No - Immunizations Immunizations are current?: Yes - POLST Patient has POLST: Yes POLST Status: DNR PD ED PE NORMAL - Vitals Vital signs reviewed: Yes - General General: No acute distress. No: Alert and oriented X 3 (alert and oriented to person and place. ), Well developed/nourished (frail) - HEENT HEENT: No: Moist mucous membranes - Neck Neck: Supple, no meningeal sign, No adenopathy - Cardiac Cardiac: RRR, No murmur - Respiratory Respiratory: No respiratory distress, Clear bilaterally - Abdomen Abdomen: Soft, Non tender, Non distended - Derm Derm: Warm and dry. No: Normal color (some pale) - Neuro Neuro: Normal speech Eye Opening: Spontaneous Motor: Obeys Commands Verbal: Confused GCS Score: 14 Results - Vitals Vitals: Vital Signs - 24 hr 11/13/20 11/13/20 11/13/20 13:37 15:39 17:41 Temperature 36.4 C L 36.5 C Heart Rate 66 64 68 Respiratory 14 14 16 Rate Blood Pressure 114/42 L 122/53 L 133/55 H O2 Saturation 99 100 100 11/13/20 11/13/20 11/13/20 19:06 19:11 19:29 Temperature 36.6 C 36.9 C Heart Rate 71 73 71 Respiratory 16 16 16 Rate Blood Pressure 137/58 H 132/63 H 130/60 O2 Saturation 99 11/13/20 11/13/20 11/13/20 21:00 21:03 22:05 Temperature 36.6 C 36.3 C L 36.3 C L Heart Rate 73 69 66 Respiratory 16 16 16 Rate Blood Pressure 139/76 H 141/67 H 146/70 H O2 Saturation 100 100 Oxygen O2 Source Room air - Labs Labs: Laboratory Tests 11/13/20 11/13/20 11/13/20 14:35 14:35 17:12 WBC 9.2 RBC 2.74 L Hgb 8.0 L Hct 25.9 L MCV 94.5 MCH 29.2 MCHC 30.9 L RDW 15.1 H Plt Count 226 MPV 9.2 Neut # (Auto) 6.8 H Lymph # (Auto) 1.6 [place] # (Auto) 0.5 Eos # (Auto) 0.1 Baso # (Auto) 0.1 Absolute Nucleated RBC 0.00 Nucleated RBC % 0.0 Sodium 136 Potassium 3.7 Chloride 106 Carbon Dioxide 21 Anion Gap 9.0 BUN 30 H Creatinine 0.9 Estimated GFR (MDRD) 59 L Glucose 118 H Calcium 8.0 L Total Bilirubin 0.6 AST 14 ALT < 10 L Alkaline Phosphatase 52 Total Protein 5.5 L Albumin 2.4 L Globulin 3.1 Albumin/Globulin Ratio 0.8 L Lipase 29 Urine Color YELLOW Urine Clarity HAZY Urine pH 6.0 Ur Specific [place] 1.010 Urine Protein NEGATIVE Urine Glucose (UA) NEGATIVE Urine Ketones NEGATIVE Urine Occult Blood SMALL H Urine Nitrite NEGATIVE Urine Bilirubin NEGATIVE Urine Urobilinogen 0.2 (NORMAL) Ur Leukocyte Esterase NEGATIVE Urine RBC 0-5 Urine WBC 0-3 Ur Squamous Epith Cells FEW Squamous Urine Bacteria Rare Ur Microscopic Review INDICATED Urine Culture Comments NOT INDICATED Blood Type Antibody Screen Crossmatch IS Only 11/13/20 11/13/20 17:28 21:29 WBC 8.4 RBC 3.09 L Hgb 9.0 L Hct 28.9 L MCV 93.5 MCH 29.1 MCHC 31.1 L RDW 14.7 Plt Count 202 MPV 9.0 Neut # (Auto) 6.1 Lymph # (Auto) 1.5 [place] # (Auto) 0.6 Eos # (Auto) 0.2 Baso # (Auto) 0.1 Absolute Nucleated RBC 0.00 Nucleated RBC % 0.0 Sodium Potassium Chloride Carbon Dioxide Anion Gap BUN Creatinine Estimated GFR (MDRD) Glucose Calcium Total Bilirubin AST ALT Alkaline Phosphatase Total Protein Albumin Globulin Albumin/Globulin Ratio Lipase Urine Color Urine Clarity Urine pH Ur Specific [place] Urine Protein Urine Glucose (UA) Urine Ketones Urine Occult Blood Urine Nitrite Urine Bilirubin Urine Urobilinogen Ur Leukocyte Esterase Urine RBC Urine WBC Ur Squamous Epith Cells Urine Bacteria Ur Microscopic Review Urine Culture Comments Blood Type O POSITIVE Antibody Screen NEGATIVE Crossmatch IS Only See Detail PD MEDICAL DECISION MAKING - ED course Complexity details: reviewed results (blood count down from 10.7 to 8.0 since last one recently. She is not at 7 hgb, but has weakness and still having some degree of GI blood loss, so shared decision with daughter to transfuse 1 unit blood. Also to give fluids. Can try TXA dose to lessons bleeding (recent trial GIB not much benefit).), considered differential, d/w patient Departure - Departure Disposition: 01 Home, Self Care Clinical Impression: Generalized weakness, Dyspnea, Gastric malignant neoplasm, Hx of seizure disorder, Melena, Anemia Condition: Stable Record reviewed to determine appropriate education?: Yes Instructions: Anemia Follow-Up: Lloyd Callahan MD [Primary Care Provider] - Claudia Ortega ARNP [Provider Admit Priv/Credential] - Comments: Continue with your current medications. Recheck for repeat blood counts in couple of days if the melena continues. Both of your daughters and yourself should have a discussion with Claudia Ortega, palliative care, regarding what to do in the setting of brisk and sudden severe GI bleeding which has a good possibility of occurring. In that setting, it would be rather futile to just think of transfusion if you cannot stop the source of bleeding. The discussion should be had of at what point with the degree of bleeding along with its effect on blood pressure and such lead to a decision to allow natural . I suggest this conversation because its likely anticipated at some point that this gastric cancer will likely bleed briskly leading to that clinical scenario. At the current level of bleeding can be treated with transfusions to temporize. Discharge Date/Time: 11/13/20 22:09
[2020-11-13] MEDS ORDERED: SODIUM CHLORIDE 0.9% 1,000 ML IV STA (16:57)
[2020-11-13] MEDS ORDERED: SUCRALFATE 1 GM/10 ML UDC PO STA (16:57)
[2020-11-13] MEDS ORDERED: FAMOTIDINE 20 MG/2 ML VIAL IVP STA (16:57)
[2020-11-13] MEDS ORDERED: TRANEXAMIC ACID 1,000 MG in SODIUM CHLORIDE 0.9% 100ML 100 ML IV STA (16:57)
[2020-11-13 17:25] LABS: BILIRUBIN,URINE NEGATIVE (NEGATIVE); GLUCOSE, URINE (UA) NEGATIVE (NEGATIVE); KETONES,URINE (UA) NEGATIVE (NEGATIVE); LEUKOCYTE ESTERASE, URINE NEGATIVE (NEGATIVE); NITRITE,URINE NEGATIVE (NEGATIVE); OCCULT BLOOD,URINE SMALL (NEGATIVE); PROTEIN,URINE NEGATIVE (NEGATIVE); UROBILINOGEN,URINE 0.2 (NORMAL) E.U./dL (NORMAL)
[2020-11-13 17:26] LABS: CLARITY,URINE HAZY (CLEAR)
[2020-11-13 17:38] LABS: BACTERIA,URINE Rare /HPF (None Seen); RBC,URINE 0-5 /HPF (0-5); SQUAMOUS EPITHELIAL CELL,UR FEW Squamous (<= Few); WBC,URINE 0-3 /HPF (0-5)
[2020-11-13 21:34] LABS: BASOPHILS # (AUTO) 0.1 10^3/uL (0.0-0.1); BASOPHILS % (AUTO) 0.6 %; EOSINOPHILS # (AUTO) 0.2 10^3/uL (0.0-0.7); EOSINOPHILS % (AUTO) 1.8 %; HCT - HEMATOCRIT 28.9 % (37.0-47.0); LYMPHOCYTES # (AUTO) 1.5 10^3/uL (1.5-3.5); LYMPHOCYTES % (AUTO) 17.6 %; MEAN CORPUSCULAR HEMOGLOBIN 29.1 pg (27.0-31.0); MEAN CORPUSCULAR HGB CONC 31.1 g/dL (32.0-36.0); MEAN CORPUSCULAR VOLUME 93.5 fL (81.0-99.0); MONOCYTES # (AUTO) 0.6 10^3/uL (0.0-1.0); MONOCYTES % (AUTO) 6.7 %; NEUTROPHILS # (AUTO) 6.1 10^3/uL (1.5-6.6); NEUTROPHILS % (AUTO) 72.8 %; PLT - PLATELET COUNT 202 10^3/uL (130-450); RED BLOOD COUNT 3.09 10^6/uL (4.20-5.40); RED CELL DISTRIBUTION WIDTH 14.7 % (12.0-15.0); WHITE BLOOD COUNT 8.4 x10^3/uL (4.8-10.8)
[2020-11-13 22:09] VITALS: BP 146/70
== END 2020-11-13 22:09 | disposition home or self-care (01) ==
LOC: ED 13:20
DX: K92.1 Melena (principal); D64.9 Anemia, unspecified; C16.9 Malignant neoplasm of stomach, unspecified; Z86.69 Personal history of other diseases of the nervous system and sense organs; Z66 Do not resuscitate
CPT/HCPCS: 36415; 36430; 80053; 81001; 83690; 85025; 86850; 86900; 86901; 86920; 96361; 96374; 96375; 99284; 99285; A9270; P9016; 81003; 87086

== ENCOUNTER 2020-11-19 08:00 | Outpatient (CLI) | payer OTHER ==
[2020-11-19 18:30] LABS: BASOPHILS # (AUTO) 0.1 10^3/uL (0.0-0.1); BASOPHILS % (AUTO) 0.5 %; EOSINOPHILS # (AUTO) 0.1 10^3/uL (0.0-0.7); EOSINOPHILS % (AUTO) 1.1 %; HCT - HEMATOCRIT 30.8 % (37.0-47.0); HGB - HEMOGLOBIN 9.2 g/dL (12.0-16.0); LYMPHOCYTES # (AUTO) 1.1 10^3/uL (1.5-3.5); LYMPHOCYTES % (AUTO) 10.8 %; MEAN CORPUSCULAR HEMOGLOBIN 29.7 pg (27.0-31.0); MEAN CORPUSCULAR HGB CONC 29.9 g/dL (32.0-36.0); MEAN CORPUSCULAR VOLUME 99.4 fL (81.0-99.0); MEAN PLATELET VOLUME 10.8 fL (7.9-10.8); MONOCYTES # (AUTO) 0.7 10^3/uL (0.0-1.0); MONOCYTES % (AUTO) 7.6 %; NEUTROPHILS # (AUTO) 7.8 10^3/uL (1.5-6.6); NEUTROPHILS % (AUTO) 79.5 %; PLT - PLATELET COUNT 304 10^3/uL (130-450); RED CELL DISTRIBUTION WIDTH 15.4 % (12.0-15.0); WHITE BLOOD COUNT 9.8 x10^3/uL (4.8-10.8)
[2020-11-19 18:44] LABS: ALBUMIN 2.2 g/dL (3.2-5.5); ALBUMIN/GLOBULIN RATIO 0.8 (1.0-2.2); ALKALINE PHOSPHATASE 57 IU/L (42-121); ALT ALANINE AMINOTRANSFERASE < 10 IU/L (10-60); AST ASPARTATE AMINOTRANSFERASE 14 IU/L (10-42); BILIRUBIN,TOTAL 0.4 mg/dL (0.2-1.0); BUN - BLOOD UREA NITROGEN 14 mg/dL (6-20); CARBON DIOXIDE - CO2 22 mmol/L (21-32); CHLORIDE 103 mmol/L (101-111); GFR - MDRD 53 (>89); GLUCOSE 164 mg/dL (70-100); POTASSIUM 3.6 mmol/L (3.5-5.0); SODIUM 134 mmol/L (135-145)
== END 2020-11-19 08:01 | disposition home or self-care (01) ==
LOC: LAB.WCP 08:00
PROVIDERS: ATTEND Family Medicine
DX: C16.9 Malignant neoplasm of stomach, unspecified (principal); G40.909 Epilepsy, unspecified, not intractable, without status epilepticus
CPT/HCPCS: 36415; 80053; 85025

== ENCOUNTER 2020-11-21 13:30 | Outpatient (CLI) | payer OTHER ==
--- NOTE | 2020-11-21 16:57 | CONSULTATION NOTE ---
Palliative Care Follow Up - Referral Referring Provider: Dr. Chintan Valdes Time of Visit: [id number] Referral setting: Home Referral Reason: [id number] - Information Sources Records reviewed: Previous records reviewed History/Review of Systems obtained from: Patient, Family (family meeting with Amy daughter DPOA, Kennedi daughter CG, NEWHALEN) Exam limitations: Clinical condition (patient doing poorly; unable to participate) - History of Present Illness Update Brief HPI Update: This is an 84-year-old [place] woman with underlying seizure disorder, mild dementia, and history of stroke in 2017. She is quite frail, has left hemiplegia, worsening contraction of her right upper extremity, visual changes in addition to complexity of glaucoma, and has been dependent for toileting eating and walking for long period of time. She did have neuropsychiatric behaviors but has improved on risperidone. 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 She has been receiving Herceptin and Keytruda, with worsening joint and muscle pain, declining functional status, she had had a PET scan, that also showed a left hepatic lobe or anterior metastatic lesion. Most recently on 11/05 patient underwent another PET scan which showed progressive enlargement and persistent abnormality of a large gastric consistent with her neoplasm, the small hyper metabolic subscapular lesion in left hepatic lobe exam had no longer been visualized, nor her meeta mets. Patient is continued to have early satiety, decreasing appetite, and was having increased abdominal pain. This was treated with hydrocodone, but did appear to provide more stomach discomfort and recently this last week has transition to morphine 5 mg, she is only receiving this when patient asks for discomfort in her knees ankles and abdomen. In the meantime patient had an emergency room visit on 11/13, because she been having some bleeding from her gastric cancer, with bloody stools, she did receive 1 unit of packed red blood cells a hemoglobin of 8 as she had been 10.6 the week before. She was also symptomatic with weakness. She did see Dr. Rayo and received a blood draw on 11/19 her hemoglobin is holding steady at 9.2. Patient continues to be quite weak, having increased seizure activity with tremors and eyes rolling back. She had a near syncopal episode today in the bathroom. Patient has been losing weight though does eat on a regular basis. When patient was in the emergency room, emergency room physician suggested family conference. There is much disagreement and tension between the 2 sisters, Kennedi is the caregiver and perceiving her mother is deteriorating, would like to focus on comfort and decreasing suffering. She is wanting to transition to hospice. Amy the other daughter who is not there on a regular basis, is the decision maker, and has been much more treatment oriented and having more difficulty making that transition. Though she does perceive her mother is d eteriorating and agrees that certainly she is tolerating treatment less and exhibiting more toxicities. The question would be if patient were to have a massive bleed, and where for end-of-life patient would like to be. Patient would like to be at home, through conversations with her daughter. Patient herself fluctuates as far as her mental acuity and ability to participate in these conversations. Today she is quite exhausted and able to only give a few word answers. Past Medical History: 06/[address] hemorrhage on CT scan, hypertension, high cholesterol, murmur, sleep apnea, dementia, CVA, recurrent TIAs, seizure disorder, GERD, colon polyps, chronic hearing loss, depression, osteoarthritis, carpal tunnel syndrome, eczema, psoriasis, rosacea, shoulder arthroplasty, glaucoma, Mnire's disease Social History - Living Situation Living arrangement: At home Living Situation: With spouse/s.o., With family Support System: Patient lives with spouse who is been over 65 years, he just had a birthday is 89. She he is actually been on hospice prior had been discharged with lymphoma, currently his disease is in remission. He is quite frail, very hard of hearing, and very much difficult thinking about his 's deteriorati on. She just had her birthday she is 85,. Patient's lives on top floor, patient lives downstairs with full support of her daughter Kennedi. Kennedi is challenges getting respite secondary to caregiver availability. She does get a few hours once a week from both her private and from [facility] program. Medications/Allergies - Medications Home Medications: Ambulatory Orders Medication Instructions Recorded Confirmed lisinopriL [Lisinopril] 20 mg PO DAILY 09/17/15 10/31/20 Latanoprost 0.005% Ophth Drops 1 drops EACHEYE QPM 07/02/17 10/31/20 [Xalatan Ophth Drops] Cholecalciferol (Vitamin D3) 1,000 unit PO DAILY 11/24/17 10/31/20 [Vitamin D3] Calcium/Magnesium/Zinc 1 tab PO DAILY MDD currently not 04/05/18 10/31/20 [Kqybzxw-Awtoxucqp-Vhhz Tablet] taking Zonisamide 200 mg PO QPM 04/05/18 10/31/20 amLODIPine [Norvasc] 2.5 mg PO DAILY 01/06/20 10/31/20 lamoTRIgine [LaMICtal] 100 mg PO BID 01/06/20 10/31/20 risperiDONE [Risperdal] 0.5 mg PO BID 01/06/20 10/31/20 Pantoprazole [Protonix] 40 mg PO BID #60 tablet 01/10/20 10/31/20 Acetaminophen [Tylenol] 650 mg PO Q6HR PRN MDD 2500 02/05/20 10/31/20 Morphine Sulfate [Morphine Sulf 5 mg PO Q4HR PRN MDD severe pain 02/05/20 10/31/20 Oral (Roxanol)] Ondansetron [Zuplenz] 4 mg PO Q6HR PRN 02/05/20 10/31/20 Estradiol 0.05 mg Patch [Climara 1 each TOP OAW 05/24/20 10/31/20 0.05 mg] HYDROcod/ACETAM 5/325 [[place] 5/325] 0.5 - 1 tab PO Q4HR PRN 10/31/20 10/31/20 Levothyroxine Sodium 75 mcg PO DAILY 10/31/20 10/31/20 [Levothyroxine] Sucralfate [Carafate] 1 gm PO TID 10/31/20 10/31/20 - Allergies Allergies/Adverse Reactions: Allergies Allergy/AdvReac Type Severity Reaction Status Date / Time Antihistamines - Allergy Unknown Verified 11/13/20 13:42 Ethylenediamine caffeine Allergy Unknown Verified 11/13/20 13:42 NSAIDS (Non-Steroidal Allergy Anaphylaxis Verified 11/13/20 13:42 Anti-Inflamma tramadol Allergy Unknown Verified 11/13/20 13:42 levetiracetam AdvReac Severe Unknown Verified 11/13/20 13:42 lactose AdvReac Unknown Verified 11/13/20 13:42 naproxen sodium * AdvReac Edema Verified 11/13/20 13:42 [From Татьяна] Review of Systems - Constitutional Constitutional: reports: Fatigue (worsening; sleeping more), Weakness, Weight loss (128 today) - Eyes Eyes: reports: Vision loss, Dipolpia - Ears, Nose & Throat Ears, Nose & Throat: reports: Hearing loss, Hearing aids, Dry mouth - Cardiovascular Cardiovascular: reports: Edema (worsening; suspect due to low protiens and dependent in chair), Lightheadedness, Decr. exercise tolerance - Respiratory Respiratory: reports: SOB with exertion. denies: SOB at rest - Gastrointestinal Gastrointestinal: reports: Abdominal pain (unable to explain or quanitify when), Constipation, Bloating, Early satiety (eats 2x a day). denies: Nausea - Genitourinary Genitourinary: reports: Incontinence, Nocturia - Musculoskeletal Musculoskeletal: reports: Stiffness, Limited range of motion, Muscle weakness, Assistive devices (uses walker with cueing), Other (syncopal episode today) - Integumentary Integumentary: reports: Dryness, Other (stage I decub fluctuates) - Neurological Neurological: reports: General weakness, Memory problems, Abnormal gait - Psychiatric Psychiatric: reports: Anxiety, Hallucinations - Endocrine Endocrine: reports: Intolerance to cold - Hematologic/Lymphatic Hematologic/Lymph: reports: Anemia (9.2) - All Other Systems All Other Systems: reports: Reviewed and negative, Other (limited related to patients ability to participate) Physical Exam - Vital Signs Temperature: 97.7 C Pulse Rate: 80 Respiratory Rate: 16 O2 Saturation: 98 Blood Pressure: 108/64 - Physical Exam General Appearance: positive: No acute distress, Lethargic, Other (keeps eyes closed but answers when asked questions slow delayed today) Eyes Bilateral: positive: Normal inspection ENT: positive: No signs of dehydration. negative: Oral lesions Neck: positive: Trachea midline Cardiovascular: positive: Regular rate & rhythm Respiratory: positive: No respiratory distress, Breath sounds nml, Rales (crackles LLL resolve with deep breathing) Abdomen: positive: Soft, Tenderness (to palpation) Skin: positive: Pallor Extremities: positive: Pedal edema (2-3+ up to mid calf) Neurologic/Psychiatric: positive: Mood/affect nml, Disoriented to time, Weakness, Flat affect Palliative Care - POLST Patient has POLST: Yes POLST Status: DNR, Selective Treatment Pain: Pain worsening, Location (abdominal; joint pain), Severity (usually at night; using 5 mg MS intermittently; usually only one dose at night; needed two last night) Feelings of wellbeing/Perceived Quality of Life: Fair, Worsening Sleep: Variable sleep pattern Constipation: Yes, Opoid induced, Unmanaged Performance Status: Patient's functional status continues to decline, patient with less certainty given her NSM weakened status. Daughter also attributes some of this to vision changes. Patient is able to follow cueing, for transfers, position changes, but is needing more physical assistance as well. Patient needs 24 care and support. - Palliative Care Discussion: Family meeting with daughter Kennedi who is caregiver, Karen who is DPOA, and who is quite hard of hearing and difficulty grasping the situation. Discussed patient's declining status, attributed both to her cancer and most likely toxicities from her treatment. Patient was in the ED with a GI bleed, attributed to most likely her tumor. This is stable currently, but is at high risk for recurring and at high risk for being an end-of-life event. We did discuss in the context of goals for their mother, Kennedi would very much like to focus on comfort and transition to hospice. Karen is having more difficulty with that decision, though does not want her mother to suffer, introduced hospice, hospice support, but also in the context of this that the focus is on comfort measures. Comfort measures can include continuing most of her medications particularly since they are supportive in nature, but would not be transfusions, chemotherapy/immunotherapy, or return to the emergency room. Did discuss Dr. Manju CARBAJAL support of transitioning to comfort/hospice care, given patient's fragile status. Patient is not appropriate for further treatment given her toxicities and functional decline. Karen though feels like would like to have further conversation with oncology prior to making this decision though is leaning towards hospice. They do have an appointment next , though with patient's fragile status would be surprised if patient able to make this trip at that time. Did make tentative arrangements for hospice admit on Tuesday, but did encourage if patient continues to do poorly to consider earlier in the week. Patient is quite lethargic today, very fragile. Much delay in her conversations and thought processes. Does not seem in distress, but it does reiterate wants to be home with her family. Did not ask her directly regarding hospice or other status other than to avoid the emergency room. She very much has been consistent with wanting to be at home and being with her family. Unclear how much the understands, very much wants her to be well, had introduced possible Malay medicine. Unfortunately they have had experience of the father having a "miraculous recovery" and his cancer was cured or at least in remission. They had had hospice prior, and difficulty excepting the concept that she does have an expected decline. Results - Lab Results Lab results reviewed: Yes Lab and Imaging Results: WBC 9.8, hemoglobin 9.2, platelets 304, hematocrit 30.8, sodium 134, potassium 3.6, GFR 53, glucose 164, calcium 8.0, total protein 5.0, albumin 2.2 Impression and Recommendations - Palliative Care Impression: This is a fragile 85-year-old woman who has received immunotherapy pembrolizumab and Herceptin for gastroesophageal adenocarcinoma. She has since last visit had a GI bleed, with concern for plan for ongoing progressive disease. Patient did have a PET scan 11/05 that did show progressive enlargement and persistent activity of her gastric mass consistent with her persistent neoplasm. Patient is experiencing more joint pain and discomfort, declining functional status declining cognitive status, worsening seizures, and is quite fragile at baseline as a sequela of stroke. Palliative care providing support for pain and symptom management and anticipatory guidance, with recommendation to transition to hospice. Recommendations/Counseling Done: 1. Constipation. Patient is been using small doses of morphine, most likely opioid induced. Encouraged to continue with daily MiraLAX, and to obtain senna 8.6 mg tablets and add 1-2 to her regimen. With current constipation, recommended 2 tabs of senna every 4 hours until patient has a adequate BM. 2. Acute on chronic pain. Patient has joint pain multiple joints, also complaining of some gastric discomfort. She was unable to tolerate the hydrocodone/acetaminophen 5/325 as it was causing increased stomach discomfort. They have transition to the liquid morphine 5 mg with good response, using it as needed as patient requests. Unfortunately patient continues with worsening pain, and required 2 doses last night. We will continue to monitor, patient may need regularly scheduled medication. 3. Gastric adenocarcinoma with peritoneal carcinomatosis. Patient CT scan does show progressive enlargement and persistent abnormality of large gastric mass consistent with persistent neoplasm. Patient does clinically present with ongoing concerns for sequela of a another bleed from her tumor, as well as ongoing anorexia, weakness, and both functional and cognitive decline. Did review with Dr. Manju CARBAJAL, patient's ongoing decline, also options if patient were to continue with acute bleeding. He is supportive of patient transition to hospice, given Patient's recent ED visit, progressive disease, and worsening toxicities. This was shared with daughters, and palliative care recommendation to transition to hospice as well. 4. Advanced care planning. There still appears to be significant mount of tension between the daughters regarding goals of care, Karen is the decision maker though that would need to sign for hospice, as to what she would need to further make decision, would like to talk to Dr. Valdes, patient does have an appointment on . Did encourage if patient continues to decline consider that transition sooner. Hospice benefit both limitations and benefits reviewed in the context of no further emergency room support or curative care, goals need to be comfort focused. She is leaning towards providing support for this transition. Though does find it quite difficult to consider "giving up".Did give me permission though to arrange hospice admit next Tuesday, referral made. Follow-up with Dr. Valdes regarding outcome of family meeting, will be seeing them on , and talk with daughter Karen regarding transition to hospice. 75 minutes with greater than 50% of this done in counseling regarding family meeting and teasing out goals of care, patient does demonstrate failure to thrive, concern for sequela particularly patient has recurrent GI bleeding, goal is for comfort, and patient would like to have a at home. We will continue to work with family regarding this transition.
== END 2020-11-21 13:31 | disposition home or self-care (01) ==
LOC: PC 13:30
PROVIDERS: ATTEND Nurse Practitioner Adult Health
DX: Z51.5 Encounter for palliative care (principal); I69.354 Hemiplegia and hemiparesis following cerebral infarction affecting left non-dominant side; I69.312 Visuospatial deficit and spatial neglect following cerebral infarction; G40.909 Epilepsy, unspecified, not intractable, without status epilepticus; F03.90 Unspecified dementia, unspecified severity, without behavioral disturbance, psychotic disturbance, mood disturbance, and anxiety; C16.0 Malignant neoplasm of cardia; K59.03 Drug induced constipation; T40.605A Adverse effect of unspecified narcotics, initial encounter; G89.29 Other chronic pain; M25.50 Pain in unspecified joint; G89.3 Neoplasm related pain (acute) (chronic); C78.6 Secondary malignant neoplasm of retroperitoneum and peritoneum; F32.9 Major depressive disorder, single episode, unspecified; H40.9 Unspecified glaucoma; C78.7 Secondary malignant neoplasm of liver and intrahepatic bile duct; G47.30 Sleep apnea, unspecified; H91.90 Unspecified hearing loss, unspecified ear; H81.09 Meniere's disease, unspecified ear; K21.9 Gastro-esophageal reflux disease without esophagitis; Z66 Do not resuscitate
CPT/HCPCS: 99350

== ENCOUNTER 2021-04-09 13:05 | Outpatient (CLI) | payer OTHER ==
--- NOTE | 2021-04-09 16:39 | CONSULTATION NOTE ---
Palliative Care Follow Up - Referral Referring Provider: Dr. Lyle Valdes Time of Visit: [id number] Referral setting: Home Referral Reason: Dementia with behavioral disturbances/Gastric CA/Generalized Weakness - Information Sources Records reviewed: Previous records reviewed History/Review of Systems obtained from: Patient, Family (daughter Kennedi and Amy (DPOA) present), Caregiver (paid CG) Exam limitations: Clinical condition (mod-severe dementia) - History of Present Illness Update Brief HPI Update: This is an 85-year-old female with underlying seizure disorder, moderate to severe dementia with behaviors worsening, vascular in nature as she has had a stroke in 2017. She is quite frail has left hemiplegia, noted tremors, tremors are worsening and the fact that she is having tongue thrusting, difficulty with swallowing, she has minimal choking, but does has frequent regurgitation/vomiting episodes if eats too much. She is having increased trouble with her secretions, does create frothy ice sputum, and is drooling a significant amount. She does also have issues of pocketing particularly fluids. They have been challenged with keeping her caloric intake up, she is weighing about 109, this is stable but not from her baseline which was 1 25-1 30.The other noted things happening is she is doing a lot of echolalia,/parroting, she is having more perseverating behaviors, does have some hallucinations and delusions, and often now is unable to follow cues. She is stiffening, is with less truncal stability, and more difficult with transfers. She is able to ambulate few steps, but contractures continue to be worse. Patient since last seen in November, does have both functional and cognitive decline. She appears to have muscle wasting and much more cachectic. Unfortunately both daughters are still perceiving situation differently, both are providing caregiving, and have different goals and perceptions of situation. There significant tension, but Amy has DPOA and has been the decision maker. Patient recently had a PET scan, on 03/23/2021, the gastric mass is mildly decreased in size as well as metabolic activity, though there is new increased intake along left lateral posterior chest wall anterior to the scapula. It does show that it has responded to treatment, and are looking at continuing with the palliative immunotherapy and Herceptin/pembrolizumab. Patient though is having significant symptoms, continuing with abdominal discomfort and pain, worsening multiple joint discomfort, and declining functional status. This is most likely been accelerated in the context of her decline with her dementia as well.She did go to therapy yesterday, which was quite a challenge, she was incontinent of stool, doing her "parenting", and needing distraction and oversight. Daughter Amy continues to focus on treatment, at this point if continued to make choice to continue with treatment. Continuing to have conversations regarding patient's current quality of life and weighing benefits and burdens of moving forward with this. Past Medical History: 06/[address] hemorrhage on CT scan, hypertension, high cholesterol, murmur, sleep apnea, dementia, CVA, recurrent TIAs, seizure disorder, GERD, colon polyps, chronic hearing loss, depression, osteoarthritis, carpal tunnel syndrome, eczema, psoriasis, rosacea, Shoulder arthroplasty, glaucoma, Mnire's disease Social History - Living Situation Living arrangement: At home Living Situation: With spouse/s.o., With family Support System: Patient lives with spouse who she has been with over 65 years, he just had his 89nd birthday. She lives on the bottom floor, he lives on the top floor. Patient does need 06/09 caregiving, her daughter Karen has moved in recently to provide caregiving, Kennedi lives in the house as well and provides 2 to 3 days, there is also hired caregivers in the home. Continues to be challenging in the context of goals and perceptions of patient's current situation. Medications/Allergies - Medications Home Medications: Ambulatory Orders Medication Instructions Recorded Confirmed Latanoprost 0.005% Ophth Drops 1 drops EACHEYE QPM 07/02/17 04/09/21 [Xalatan Ophth Drops] Cholecalciferol (Vitamin D3) 1,000 unit PO DAILY 11/24/17 04/09/21 [Vitamin D3] Calcium/Magnesium/Zinc 1 tab PO DAILY 04/05/18 04/09/21 [Lquydjy-Ijtensyyc-Uzmk Tablet] Zonisamide 200 mg PO QPM 04/05/18 04/09/21 lamoTRIgine [LaMICtal] 100 mg PO BID 01/06/20 04/09/21 risperiDONE [Risperdal] 0.5 mg PO QPM 01/06/20 04/09/21 Pantoprazole [Protonix] 40 mg PO BID #60 tablet 01/10/20 04/09/21 Acetaminophen [Tylenol] 650 mg PO Q6HR PRN MDD 2500 02/05/20 04/09/21 Morphine Sulfate [Morphine Sulf 5 mg PO Q4HR PRN MDD may repeat in 02/05/20 04/09/21 Oral (Roxanol)] 30 minutes Ondansetron [Zuplenz] 4 mg PO Q6HR PRN 02/05/20 04/09/21 Estradiol 0.05 mg Patch [Climara 1 each TOP OAW 05/24/20 04/09/21 0.05 mg] Levothyroxine Sodium 88 mcg PO DAILY 10/31/20 04/09/21 [Levothyroxine] Sucralfate [Carafate] 1 gm PO BID 10/31/20 04/09/21 Melatonin 3 - 6 mg PO QPM 04/09/21 04/09/21 Senna [Senokot] 1 - 2 tab PO DAILY PRN 04/09/21 04/09/21 oxyCODONE [Roxicodone] 2.5 mg PO Q4HR PRN 04/09/21 04/09/21 polyethylene glycoL 3350 [Miralax] 17 gm PO DAILY PRN 04/09/21 04/09/21 - Allergies Allergies/Adverse Reactions: Allergies Allergy/AdvReac Type Severity Reaction Status Date / Time Antihistamines - Allergy Unknown Verified 11/13/20 13:42 Ethylenediamine caffeine Allergy Unknown Verified 11/13/20 13:42 NSAIDS (Non-Steroidal Allergy Anaphylaxis Verified 11/13/20 13:42 Anti-Inflamma tramadol Allergy Unknown Verified 11/13/20 13:42 levetiracetam AdvReac Severe Unknown Verified 11/13/20 13:42 lactose AdvReac Unknown Verified 11/13/20 13:42 naproxen sodium * AdvReac Edema Verified 11/13/20 13:42 [From Aleetienne] Review of Systems - Constitutional Constitutional: reports: Fatigue (worsening; sleeping more), Weakness (worsening), Weight loss (128 today 11/21/20; 109 04/08/21) - Eyes Eyes: reports: Vision loss, Dipolpia - Ears, Nose & Throat Ears, Nose & Throat: reports: Hearing loss, Hearing aids, Dry mouth - Cardiovascular Cardiovascular: reports: Edema, Lightheadedness, Decr. exercise tolerance - Respiratory Respiratory: reports: SOB with exertion. denies: SOB at rest - Gastrointestinal Gastrointestinal: reports: Abdominal pain, Constipation, Bloating, Early satiety - Genitourinary Genitourinary: reports: Incontinence, Nocturia - Musculoskeletal Musculoskeletal: reports: Stiffness, Limited range of motion, Muscle weakness, Assistive devices, Other - Integumentary Integumentary: reports: Dryness, Other (stage I decub fluctuates) - Neurological Neurological: reports: General weakness, Memory problems, Abnormal gait - Psychiatric Psychiatric: reports: Anxiety, Hallucinations, Behavior disturbances (perseverating; "parroting") - Endocrine Endocrine: reports: Intolerance to cold - Hematologic/Lymphatic Hematologic/Lymph: reports: Anemia (9.0 03/07) - All Other Systems All Other Systems: reports: Reviewed and negative, Other Physical Exam - Vital Signs Temperature: 97.3 C Pulse Rate: 96 Respiratory Rate: 18 O2 Saturation: 97 (ra @ rest) Blood Pressure: 112/82 - Physical Exam General Appearance: positive: No acute distress, Lethargic, Cachetic (upper extremity wasting; temporal wasting;), Other Eyes Bilateral: positive: No scleral icterus, Other (recent eye surgery) ENT: positive: No signs of dehydration Neck: positive: Trachea midline Cardiovascular: positive: Regular rate & rhythm Respiratory: positive: No respiratory distress, Breath sounds nml, Diminished in bases Abdomen: positive: Soft, Nml bowel sounds, Tenderness Skin: positive: Pallor, Dryness, Pressure wound (Stage II coccyx left side) Extremities: positive: Pedal edema, Other (poor truncal stablity; difficult to cue for walking; more difficult getting from sit to stand). negative: Full ROM (very stiff; contractures left hand/arm; left leg drag;) Neurologic/Psychiatric: positive: Mood/affect nml, Disoriented to place, Disoriented to time, Weakness, Slurred/abnml speech, Flat affect Palliative Care - POLST Patient has POLST: Yes POLST Status: DNR, Selective Treatment Pain: Pain worsening, Location (joint/abdominal; Kennedi feels patient with stomach pain at night using MS 5 mg up to 3 x; Cora uses repositioning / distraction) Drowsiness/Sedation: Moderate (4-6) Nausea: With vomiting Feelings of wellbeing/Perceived Quality of Life: Worsening (all are in agreement patient is deteriorating) Sleep: Sleeps poorly (up with behaviors and pain), Variable sleep pattern Constipation: Yes, Intermittent constipation Performance Status: Patient with notable decline in functional status, unable to follow cues, needs assistance from sitting to standing, that is moved feet and does have some weightbearing, was able to ambulate a few steps with walker. Patient has worsening truncal stability when sitting. Concerns regarding patient's worsening contractures. Concern for both patient and caregiving safety as patient has deteriorated. In agreement for PT for safe transfer training, positioning, and range of motion.Patient also had did more difficulty with eating, swallowing, cueing, pocketing, patient, will request speech therapy as well for aspiration precautions and safety. - Palliative Care Discussion: Both daughters can agree patient has decline in functional status, also with her dementia with worsening neuropsychiatric behaviors of anxiety, intermittent agitation, perseverating, echolalia, and restlessness particularly at bedtime. Patient does present with more tremor-like activity, tongue thrusting, stiffness, and concern for cognitive decline as well. Patient only able to answer short sentences, unable to participate much in conversation.Kennedi would very much like to continue to focus on quality of life and comfort issues as far as palliative intent. Karen continues to struggle with focusing only on palliative interventions, at this point is continuing to choose to have treatment though does recognize mother's decline. They are in agreement PT and ST would be of help and supportive in managing patient's declining status.Did not introduce hospice again, as this is quite a trigger in the situation, though patient would be more than appropriate at this point in time to transition to hospice with a focus on quality of life and her decline. Appointment in November, though patient status has been continued to decline, attributed both to her cancer and toxicities from her treatment she had a recent GI bleed, the hope was to transition to comfort/hospice care and had made a referral, but was declined in the context that Karen wanted to continue treatment focused care. Results - Lab Results Lab results reviewed: Yes Impression and Recommendations - Palliative Care Impression: This is a fragile 85-year-old woman who at this point in time demonstrates most of her decline related to her dementia diagnosis, most likely exacerbated by the toxicities of her immunotherapy. At this time her PET scan does show the mass at stable, but continues have persistent pain, weight loss, worsening functional status, and exacerbation of decline in her cognitive status as well. There is significant disagreement between the daughters regarding goals of care, but both are participating in caregiving. Palliative care providing support for symptom management and anticipatory guidance, with continued recommendation transition to hospice. Given that though current goals are still to maximize quality of life, and concern for safety will refer for PT/ST. Recommendations/Counseling Done: 1. Gastric adenocarcinoma with peritoneal carcinomatosis. Patient continues with abdominal pain and discomfort, ongoing alexia, weight loss, functional and cognitive decline. They have chosen to continue with treatment, though this is becoming more difficult to get the patient in, she is quite exhausted from her visit yesterday. 2. Acute on chronic pain. Patient has joint pain multiple joints, as well as gastric pain. She has been using liquid morphine with Kennedi, who is using up to three doses at night, Karen does not perceive patient having pain. She perceives the distress at night more related to patient's dementia behaviors, conversation regarding reintroduction of risperidone. They had decreased this secondary to de prescribing, though it does appear has exacerbated some of her underlying neuropsychiatric behaviors. 3. Dementia with behavioral disturbances. Patient does continue to have worsening tremors, thrusting of tongue interfering with nutritional status, worsening cognitive status does not present with decision-making capacity. Patient still on seizure meds, recommended reintroducing at least for a time trial of risperidone 0.5 mg at least at bedtime. As best I know they have agreed to this and well initiate, prescription sent to [facility]. 4. Generalized weakness. Concern for patient and caregiver safety, she is much more stiff, truncal instability, worsening contractures. She is also having more difficulty with managing eating, pocketing food, drooling, and regurgitation. Will order physical therapy and speech therapy with the goal for safety, range of motion, safe transfers, aspiration precautions, and counseling as patient's swallowing/dysphagia worsens. 5. Weight loss. This is multifactorial, mostly in the context patient is no longer able to take adequate nutrition. They are adding to the diet a supplemental drink, patient is lactose intolerant. It does take about one and half to 2 hours to feed her, with paste feeding, taking food and chasing with water. Will benefit from input from speech therapy. Encouraged to continue safe eating, high-calorie intake, and pacing of feeding. 6. Advanced care planning. Both daughters in agreement patient's declining, but are not in agreement as far as current goals of care. Both want mother to be comfortable, though Karen his DPOA is not ready to give up on treatment. Patient does present is quite frail has had significant decline since last seen by palliative care. We will go ahead and order therapies for support regarding quality of life issues. Patient is homebound, secondary is a considerable and taxing effort for the leave the home. Patient was recommended to use transport wheelchair for transfers and minimize stress on patient as well as minimize bathing, recommended bed baths. 65 minutes with greater than 50% of this in counseling regarding management of patient's decline, recommendation of physical therapy and speech therapy, recommendation of addition of risperidone for behaviors, and recommendation for continued evaluation of benefits and burdens of pursuing further treatment for her cancer.
== END 2021-04-09 13:06 | disposition home or self-care (01) ==
LOC: PC 13:05
PROVIDERS: ATTEND Nurse Practitioner Adult Health
DX: Z51.5 Encounter for palliative care (principal); M25.50 Pain in unspecified joint; R10.9 Unspecified abdominal pain; F03.90 Unspecified dementia, unspecified severity, without behavioral disturbance, psychotic disturbance, mood disturbance, and anxiety; R53.1 Weakness; R63.4 Abnormal weight loss; Z66 Do not resuscitate
CPT/HCPCS: 99350

== ENCOUNTER 2021-05-13 13:50 | Outpatient (CLI) | payer OTHER ==
--- NOTE | 2021-05-13 15:59 | CONSULTATION NOTE ---
Palliative Care Follow Up - Referral Referring Provider: Dr. 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 She has been quite frail, has left hemiplegia, noted tremors, tremors are worsening with the fact she is having tongue thrusting, now with significant dysphagia, minimal choking, but does have frequent regurgitation/vomiting episodes and this is continued to worsen with less and le ss intake. She is probably using her drinking about 8 to 12 ounces, and regurgitating about 50% of this. Patient appears quite dry, though in no distress. She has been having increased trouble with her secretions and vomit, does create frothy sputum and is drooling a significant amount. We did order a suction machine to help with clearing secretions, she is worse when she is laying flat, better when she is up. Family still providing fluids and food though it is pured, and small bites every 1 to 2 minutes was up to 5 minutes in between to be able to accommodate this. Usually after about 30 minutes she does regurgitate it back up. Patient reports she does occasionally have nausea, though does not seem distressed by this. I suspect she is continuing to aspirate. She had been continue to receive Herceptin and pembrolizumab, but this last week was unable to physically go in for treatment, oncology did call and request palliative care make a hospice referral. I am here evaluating patient, original conversation was with Kennedi as Karen was not home yet, and then Karen was home. Karen is a DPOA, and is looking at realistically understanding patient is transitioning to end-of-life, and most likely has days to weeks at the most.Patient is quite thin, much more cachectic, facial wasting upper extremity wasting, third spacing with some swelling in her left hand of her hemiplegia, and lower extremity swelling.They do have some paid caregiving, though it is quite difficult between Kennedi and Karen as far as her significant tension. Patient does have tenderness on palpation, she did refuse her pills this a.m., she is not aware or have any insight into her current decline or worsening state. 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 Patient does get worsening leg cramps, does have a stage II decub which is tender, and is still up in the recliner but almost a total lift for transfers and pivot transfers. They had ordered a sling for the Yoselin, but unable to get a small size. Patient is quite cachectic and most likely close to 90 pounds.They have been serviced by [facility] both with speech therapy, occupational and physical. Daughter is requesting though transition to hospice with goals for comfort though this remains still quite difficult for her. Patient was hospitalized 12/2019 for near syncope, on admission hemoglobin was 6, on EGD/C-scope found large distal gastroesophageal mass near 5 cm cavitating with central necrosis. Biopsy showed moderately differentiated adenocarcinoma, patient was quite frail, received immunotherapy pembrolizumab later with the addition of Herceptin. Past Medical History: 06/[address] on CT scan secondary to fall, hypertension, high cholesterol, murmur, sleep apnea, dementia, CVA 2017, recurrent TIAs, seizure disorder, GERD, colon polyps, chronic hearing loss, depression, osteoarthritis, carpal tunnel syndrome, eczema, psoriasis, rosacea, shoulder arthroplasty, glaucoma, Mnire's disease Social History - Living Situation Living arrangement: At home Living Situation: With spouse/s.o., With family Support System: Patient is a spouse they have been 66 years, this is coming up on the anniversary on May 21. He just had his 89nd birthday. She lives on the bottom floor, he lives on the top. Patient does need 24/7 caregiving. Her daughter Karen has moved in recently since December to provide caregiving, Kennedi lives in the house as well and provides 2 to 3 days and they are hired caregivers in the home. Continues to be challenging in the context of goals and perceptions of patient's current situation, Karne is worried about her father and accepting patients imminent decline. Medications/Allergies - Medications Home Medications: Ambulatory Orders Medication Instructions Recorded Confirmed Latanoprost 0.005% Ophth Drops 1 drops EACHEYE QPM 07/02/17 05/13/21 [Xalatan Ophth Drops] Zonisamide 200 mg PO QPM 04/05/18 05/13/21 lamoTRIgine [LaMICtal] 100 mg PO BID 01/06/20 05/13/21 risperiDONE [Risperdal] 0.5 mg PO QPM 01/06/20 05/13/21 Pantoprazole [Protonix] 40 mg PO BID #60 tablet 01/10/20 05/13/21 Acetaminophen [Tylenol] 650 mg PO Q6HR PRN MDD 2500 02/05/20 05/13/21 Morphine Sulfate [Morphine Sulf 5 mg PO Q4HR PRN MDD may repeat in 02/05/20 05/13/21 Oral (Roxanol)] 30 minutes Ondansetron [Zuplenz] 4 mg PO Q6HR PRN 02/05/20 05/13/21 Estradiol 0.05 mg Patch [Climara 1 each TOP OAW 05/24/20 05/13/21 0.05 mg] Levothyroxine Sodium 88 mcg PO DAILY 10/31/20 05/13/21 [Levothyroxine] Sucralfate [Carafate] 1 gm PO BID 10/31/20 05/13/21 Melatonin 3 - 6 mg PO QPM 04/09/21 05/13/21 Senna [Senokot] 1 - 2 tab PO DAILY PRN 04/09/21 05/13/21 polyethylene glycoL 3350 [Miralax] 17 gm PO DAILY PRN 04/09/21 05/13/21 Haloperidol Oral Soln [Haldol Oral 0.25 ml PO Q4HR PRN 05/13/21 05/13/21 Soln] - Allergies Allergies/Adverse Reactions: Allergies Allergy/AdvReac Type Severity Reaction Status Date / Time Antihistamines - Allergy Unknown Verified 11/13/20 13:42 Ethylenediamine caffeine Allergy Unknown Verified 11/13/20 13:42 NSAIDS (Non-Steroidal Allergy Anaphylaxis Verified 11/13/20 13:42 Anti-Inflamma tramadol Allergy Unknown Verified 11/13/20 13:42 levetiracetam AdvReac Severe Unknown Verified 11/13/20 13:42 lactose AdvReac Unknown Verified 11/13/20 13:42 naproxen sodium * AdvReac Edema Verified 11/13/20 13:42 [From Татьяна] Review of Systems - Constitutional Constitutional: reports: Fatigue (worsening; sleeping more), Weakness (worsening max lift assist for transfers), Weight loss (128 today 11/21/20; 109 04/08/21 looks like about 90 pounds) - Eyes Eyes: reports: Vision loss, Dipolpia - Ears, Nose & Throat Ears, Nose & Throat: reports: Hearing loss, Hearing aids, Dry mouth - Cardiovascular Cardiovascular: reports: Edema, Lightheadedness, Decr. exercise tolerance - Respiratory Respiratory: reports: Cough (with eating), SOB with exertion. denies: SOB at rest - Gastrointestinal Gastrointestinal: reports: Abdominal pain, Vomiting (regurgitating food/meds/liquid), Bloating, Poor appetite, Early satiety (few bites; less than 12 ounces daily). denies: Constipation - Genitourinary Genitourinary: reports: Incontinence, Nocturia - Musculoskeletal Musculoskeletal: reports: Muscle pain (worsening lower leg cramps), Stiffness, Limited range of motion, Muscle weakness, Transfer issues (using w/c for transfers; has yoselin lift) - Integumentary Integumentary: reports: Dryness, Other (stage 2 decub fluctuates) - Neurological Neurological: reports: General weakness, Memory problems (no STM memory), Abnormal gait - Psychiatric Psychiatric: reports: Anxiety, Delusions, Hallucinations, Behavior disturbances (perseverating; "parroting") - Endocrine Endocrine: reports: Intolerance to cold - Hematologic/Lymphatic Hematologic/Lymph: reports: Anemia (9.0 03/07) - All Other Systems All Other Systems: reports: Other (limited by cg report) Physical Exam - Vital Signs Temperature: 98.2 C Pulse Rate: 76 Respiratory Rate: 18 O2 Saturation: 93 Blood Pressure: 112/64 - Physical Exam General Appearance: positive: No acute distress, Lethargic, Cachetic (upper extremity wasting; temporal wasting;) Eyes Bilateral: positive: No scleral icterus, Other (recent eye surgery; keeps eyes closed most of visit) ENT: positive: Other (appears dry; skin dry poor turgor) Neck: positive: Trachea midline Cardiovascular: positive: Regular rate & rhythm Respiratory: positive: No respiratory distress, Breath sounds nml, Diminished in bases Abdomen: positive: Soft, Nml bowel sounds, Tenderness Skin: positive: Pallor, Dryness, Pressure wound (Stage II coccyx left side) Extremities: positive: Pedal edema, Other (left hand with mild swelling). negative: Full ROM (very stiff; contractures left hand/arm; left leg drag;) Neurologic/Psychiatric: positive: Mood/affect nml, Disoriented to place, Disoriented to time, Weakness, Slurred/abnml speech, Flat affect Palliative Care - POLST Patient has POLST: Yes POLST Status: DNR, Selective Treatment Pain: Pain worsening, Location (tail bone; abdomen; leg cramping) Feelings of wellbeing/Perceived Quality of Life: Poor, Worsening, Comment (patient is not distressed) Sleep: Variable sleep pattern (improved with risparodone; but poor night last night need MS for pain and suctioning for secretions) Constipation: Yes, Managed Performance Status: Patient continues have functional decline, muscle wasting, needing maximum assist for pivots and transfers, decreased intake. Both daughters though separately are aware of patient's imminent demise. They have been toileting on commode, recommended just to "toilet and bathe in bed at this point time. Referral to hospice, will be able to help with bathing services. - Palliative Care Discussion: Tension continues between Kennedi and Karen, Karen was late getting back, Kennedi expressed her concerns about patient continue to decline, she sees that she is getting to her last stages, is having difficulty talking to her sister about this, but is stepping back and providing what care and support she can. Spoke with Karen at length, she does recognize patient needs to transition to hospice, was hoping for next week, though in the context of how quickly patient is changing may accept sooner. She is quite tearful, though during a celebration of life combined with their 66 anniversary libertarian online and in person on Tuesday, with the hopes to be able to say goodbye. She is quite tearful through this but does understand that it is coming to an end. We did discuss what to do at time of if she were to pass, and that most likely her eminent demise will be related to her aspiration and pneumonia. Patient does not seem uncomfortable, will provide further comfort meds. Impression and Recommendations - Palliative Care Impression: This is a fragile 85-year-old woman with gastric CA, declining cognitive status, declining functional status, and now with severe protein calorie malnutrition. Patient has only been able to take small bites and small amounts of fluid. She is no longer getting treatment, they both Karen and Kennedi recognize patient is beginning to transition. They have been receiving support with PT/ST/OT through [facility]. Palliative care providing support for symptom management and anticipatory guidance, will transition to hospice. Recommendations/Counseling Done: 1. Gastric adenocarcinoma with peritoneal carcinomatosis. Patient with tenderness and abdominal pain, continuing anorexia and weight loss with both functional and cognitive decline. At this point in time she is no longer continue with treatment, would be appropriate for transition to hospice, everyone is in agreement regarding this goals. 2. Dementia with behavioral disturbances. Patient continues with worsening tremors, thrusting of tongue interfering with nutritional status worsening cognitive status does not present with any kind of decision-making capacity. Patient still on seizure meds, did better with the risperidone 0.5 mg at bedtime. 3. Dysphagia. I suspect this is multifactorial both with functional decline and worsening dementia. She has been working with speech therapy for decreasing aspiration risk though now is only able to take a few bites and sips through the day, though still with some choking and regurgitation. Reinforced to not force feed, or because patient distressed regarding this. They are holding meds if patient refuses. Patient has lost an significant amount of weight since last seen a month ago, is quite cachectic and thin in appearance remarkably her lungs are clear.Daughter had asked for meds in oral form, they were ordered through [facility] should be arriving any day. Given patient's difficulty with managing her own secretions as well as intermittent vomiting, patient does have suction machine there to help clear secretions, this is indicated in the context of safety. 4. Advanced care planning. Both daughters in agreement patient's declining, at this point in time Karen is willing to transition to comfort focused care. Remains quite tearful and somewhat resistant into giving into this, but is aware mother is most likely got days to weeks at the most. Her concern is her father does not appear to be able to grasp this or understand it. She is hoping to have support through hospice to be able to help her father adjust to this. They have been 66 years.Call to hospitalist to facilitate referral, will work with Karen for timing. Patient does have morphine in the home, reviewed use and measuring, instructed use for respiratory distress or pain and discomfort. Did order Haldol with review to trial for nausea, but also can use for agitation or anxiety. If she is using significant amounts, will need to transition off risperidone. 70 minutes with greater than 50% of this done in counseling regarding anticipatory guidance, coordination of care with hospice, counseling for pain and symptom management.
== END 2021-05-13 13:51 | disposition home or self-care (01) ==
LOC: PC 13:50
PROVIDERS: ATTEND Nurse Practitioner Adult Health
DX: Z51.5 Encounter for palliative care (principal); E43 Unspecified severe protein-calorie malnutrition; R63.4 Abnormal weight loss; R63.0 Anorexia; R13.10 Dysphagia, unspecified; R11.10 Vomiting, unspecified; I69.354 Hemiplegia and hemiparesis following cerebral infarction affecting left non-dominant side; I69.311 Memory deficit following cerebral infarction; F01.51 Vascular dementia, unspecified severity, with behavioral disturbance; C16.9 Malignant neoplasm of stomach, unspecified; C78.6 Secondary malignant neoplasm of retroperitoneum and peritoneum; L89.152 Pressure ulcer of sacral region, stage 2; G89.3 Neoplasm related pain (acute) (chronic); I10 Essential (primary) hypertension; R25.1 Tremor, unspecified; Z79.899 Other long term (current) drug therapy; Z66 Do not resuscitate
CPT/HCPCS: 99350